=== PATIENT | male | born 1955 | race Caucasian/White ===

== ENCOUNTER 2016-06-12 14:32 | Emergency (ER) | payer MEDICAID ==
--- NOTE | 2016-06-12 15:47 | EDM.PDOC ---
ED HPI EYE COMPLAINT - General Chief Complaint: Eye Problems Stated Complaint: BLURRY VISION Time Seen by Provider: 06/12/16 15:00 Source: Reports: Patient History Limitations: Reports: No limitations - History of Present Illness INITIAL COMMENTS - FREE TEXT/NARRATIVE: Patient presents for evaluation and treatment of blurry vision. Patient reports that the blurred vision has been going on for last 2 days. He denies any double vision. He does not wear glassed or contacts. He is actually not particularly concerned about his chief complaint. He actually reports that he is more concerned about his depression. He states he is feeling more depressed normal. He is on Lexapro 20 mg daily, Remeron 30 mg daily. He has not feel that these medications are helping him. He is not currently seeing psychiatry. He previously saw Dr. Sanchez, Lilo Calderon and Dr. Diallo. He has also not been seeing a counselor, Aleena Paez. Patient has previously been admitted to [facility] for drug and alcohol abuse. He reports that he is not sleeping well. He is not eating much. He does not have any interests. He states that he knows what he needs to do to help with his depression but he lacks motivation to do this. He does have a history of addiction to alcohol, prescription narcotic medication and prescription benzodiazepines. He states he does not want to go back on these. He states that he feels empty inside. He is looking for something to help fill this void. He denies any suicidal thoughts, suicidal plan or any homicidal thoughts or homicidal plan. He denies any episodes of audie. - Related Data Allergies/ADRs: Allergies codeine Allergy (Intermediate, Verified 06/12/16 14:43) Itching meperidine HCl [From Demerol] Allergy (Intermediate, Verified 06/12/16 14:43) Itching Home Meds: Ambulatory Orders Medication Instructions Recorded Confirmed Meloxicam 7.5 mg PO DAILY PRN 03/26/15 06/12/16 Losartan/Hydrochlorothiazide 1 tab PO DAILY 08/27/15 06/12/16 [Losartan-HCTZ 100-25 MG] cloNIDine [Catapres] 0.1 mg PO Q12HR #20 tablet 08/27/15 06/12/16 Mirtazapine 30 mg PO DAILY 09/10/15 06/12/16 Pantoprazole [Protonix] 40 mg PO ACBREAKFAST 03/18/16 06/12/16 Escitalopram [Lexapro] 20 mg PO DAILY 03/26/16 06/12/16 Past Medical History - Past Health History Medical/Surgical History: Denies Medical/Surgical History HEENT History: Reports: Other (see below) Other HEENT History: dental issues. 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, opiods Hematologic History: Reports: Other (see below) Other Hematologic History: HEP C - Infectious Disease History Infectious Disease History: Reports: Hepatitis C - Past Surgical History HEENT Surgical History: Reports: Tonsillectomy GI Surgical History: Reports: Appendectomy Male Surgical History: Reports: Lithotripsy (ESWL), Ureteral stent Social & Family History - Family History Family Medical History: Noncontributory - Tobacco Use Smoking Status *Q: Current Every Day Smoker Years of Tobacco use: 45 Packs/Tins Daily: 0.5 Used Tobacco, but Quit: No Second Hand Smoke Exposure: No - Caffeine Use Caffeine Use: Reports: Coffee, Soda - Alcohol Use Days Per Week of Alcohol Use: 0 Number of Drinks Per Day: 3 Total Drinks Per Week: 0 - Recreational Drug Use Recreational Drug Use: Yes Drug Use in Last 12 Months: Yes Recreational Drug Type: Reports: Marijuana/Hashish Other Recreational Drug Type: narcotics Recreational Drug Use Frequency: Not Used In Over 5 Months - Living Situation & Occupation Living situation: Reports: single, alone 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) ED ROS GENERAL - Review of Systems Review Of Systems: See Below Musculoskeletal: Reports: neck pain Psychiatric: Reports: Anxiety, Depression. Denies: Homicidal ideation, Suicidal ideation ED EXAM GENERAL W FULL EYE - Physical Exam Exam: See Below Exam Limited By: No limitations General Appearance: alert, WD/WN, no apparent distress Eye Exam: bilateral eye: EOMI, PERRL Visual acuity (R) 20/: 20 Visual acuity (L) 20/: 20 With Correction: No Eyelids: bilateral: normal appearance Conjunctiva & Sclera: bilateral: normal appearance Cornea Exam: bilateral: normal appearance Extraocular Movements: bilateral: intact Pupils: normal accommodation Pupillary Reaction: bilateral: brisk Anterior Chamber: bilateral: normal appearance Respiratory/Chest: no respiratory distress Neurological: alert, oriented, normal cognition Psychiatric: depressed mood Skin Exam: Warm, Normal color Course - Vital Signs Last Recorded V/S: Last Vital Signs Temp 37.1 C 06/12/16 14:40 Pulse 89 06/12/16 14:40 Resp 18 06/12/16 14:40 BP 157/90 H 06/12/16 14:40 Pulse Ox 99 06/12/16 14:40 - Re-Assessments/Exams Free Text/Narrative Re-Assessment/Exam: 06/12/16 15:40 Room to increase remeron. Patient does not want to do this. Discussed other medications options. He does not want any more medications. Encouraged him to continue going to AA, counseling and psychiatry. Denies suicidal ideation or plan. Denies homicidal ideation or plan. Raúl and I had a long discussion about his depression. He states he knows what he needs to do but has trouble finding the motivation to do it (going to counseling, going to AA). States he feels a hole and feels the need to fill it and will utilize prescription medications or sometimes alcohol to fill this void. I encouraged him to stick with his current plan of care. Will discharge home at this time. Departure - Departure Time of Disposition: 15:46 Disposition: Home, Self-Care 01 Condition: fair Clinical Impression: Depressed Referrals: Andrew Wynne MD [Primary Care Provider] - Forms: ED Department Discharge Additional Instructions: Continue with current plan of care. Please return if your symptoms change or worsen.
== END 2016-06-12 15:51 | disposition home or self-care (01) ==
LOC: JD.ED 14:32
CPT/HCPCS: 99283; 99284

== ENCOUNTER 2016-06-14 16:47 | Emergency (ER) | payer MEDICAID ==
[2016-06-14 17:09] VITALS: BP 135/91
--- NOTE | 2016-06-14 17:29 | EDM.PDOC ---
ED HPI GI/ABDOMINAL - General Chief Complaint: Abdominal Pain Stated Complaint: WANTS STOMACH AND VITALS CHECKED Time Seen by Provider: 06/14/16 17:14 Source of Information: Reports: Patient History Limitations: Reports: No limitations - History of Present Illness INITIAL COMMENTS - FREE TEXT/NARRATIVE: The patient presents with left sided abdominal pain. This has been going on for about 2 weeks. He has some nausea but no vomiting. He has no flank pain this time. He has no dysuria or hematuria. He has a history of kidney stones but he says this feels a little different. He has no fever, chills, cough, chest pain or shortness of breath. Timing/Duration: Reports: Week(s): (2) Location: [facility] Quality: Reports: cramping Severity: moderate Context: Denies: sick contact, bad/questionable food, out of country travel, recent surgery, recent trauma, lifting, activity/exercise Associated Symptoms: Reports: nausea/vomiting. Denies: constipation, diarrhea, fever/chills - Related Data Allergies/ADRs: Allergies Allergy/AdvReac Type Severity Reaction Status Date / Time codeine Allergy Intermediate Itching Verified 06/14/16 17:01 meperidine HCl [From Demerol] Allergy Intermediate Itching Verified 06/14/16 17: 01 Home Meds: Home Meds Meloxicam 7.5 mg PO DAILY PRN 03/26/15 [History] Losartan/Hydrochlorothiazide [Losartan-HCTZ 100-25 MG] 1 tab PO DAILY 08/27/15 [ History] cloNIDine [Catapres] 0.1 mg PO Q12HR #20 tablet 08/27/15 [Rx] Mirtazapine 30 mg PO DAILY 09/10/15 [History] Pantoprazole [Protonix] 40 mg PO ACBREAKFAST 03/18/16 [History] Escitalopram [Lexapro] 20 mg PO DAILY 03/26/16 [History] Amoxicillin/Potassium Clav [Augmentin 875-125 Tablet] 1 each PO BID #14 tablet 06/14/16 [Rx] oxyCODONE HCl/Acetaminophen [Percocet 5-325 mg Tablet] 1 - 2 each PO Q6HR PRN # 20 tablet 06/14/16 [Rx] Past Medical History - Past Health History Medical/Surgical History: Denies Medical/Surgical History HEENT History: Reports: Other (see below) Other HEENT History: dental issues. 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, opiods Hematologic History: Reports: Other (see below) Other Hematologic History: HEP C - Infectious Disease History Infectious Disease History: Reports: Chicken pox, Hepatitis C, Measles - Past Surgical History HEENT Surgical History: Reports: Tonsillectomy GI Surgical History: Reports: Appendectomy Male Surgical History: Reports: Lithotripsy (ESWL), Ureteral stent Social & Family History - Family History Family Medical History: Noncontributory - Tobacco Use Smoking Status *Q: Current Every Day Smoker Years of Tobacco use: 45 Packs/Tins Daily: 0.5 Used Tobacco, but Quit: No Second Hand Smoke Exposure: No - Caffeine Use Caffeine Use: Reports: Coffee - Alcohol Use Days Per Week of Alcohol Use: 0 Number of Drinks Per Day: 3 Total Drinks Per Week: 0 - Recreational Drug Use Recreational Drug Use: Yes Drug Use in Last 12 Months: Yes Recreational Drug Type: Reports: Marijuana/Hashish Other Recreational Drug Type: narcotics Recreational Drug Use Frequency: Not Used In Over 5 Months - Living Situation & Occupation Living situation: Reports: single, alone 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 Denies: Vomiting : Reports: no symptoms Musculoskeletal: Reports: no symptoms ED EXAM, GI/ABD - Physical Exam Exam: See Below Exam Limited By: No limitations General Appearance: alert, no apparent distress Ears: normal external exam Nose: normal inspection Head: atraumatic, normocephalic Neck: normal inspection Respiratory/Chest: no respiratory distress, lungs clear, normal breath sounds Cardiovascular: regular rate, rhythm, no edema, no murmur GI/Abdominal: soft, no organomegaly, no mass, tenderness (Mild to moderate tenderness to the left abdomen) Extremities: normal inspection Neurological: alert, oriented, no motor/sensory deficits Course - Vital Signs Last Recorded V/S: Last Vital Signs Temp 98.0 F 06/14/16 17:00 Pulse 72 06/14/16 17:00 Resp 20 06/14/16 17:00 BP 135/91 H 06/14/16 17:00 Pulse Ox 98 06/14/16 17:00 - Orders/Labs/Meds Orders: Active Orders 24 hr Category Date Time Status Abdomen 1V Upright [CR] Stat Exams 06/14/16 17:20 Taken Acetaminophen/oxyCODONE [Percocet 325-5 MG] Med 06/14/16 18:25 Once 2 tab PO ONETIME ONE Amoxicillin/Clavulanate K [Augmentin 875 MG/125 MG] Med 06/14/16 18:25 Once 1 tab PO ONETIME ONE Labs: Laboratory Tests 06/14/16 06/14/16 06/14/16 Range/Units 17:25 17:34 17:34 WBC 10.60 H (4.23-9.07) K/mm3 RBC 4.94 (4.63-6.08) M/mm3 Hgb 15.3 (13.7-17.5) gm/L Hct 46.3 (40.1-51.0) % MCV 93.7 H (79.0-92.2) fl MCH 31.0 (25.7-32.2) pg MCHC 33.0 (32.2-35.5) g/dl RDW Std Deviation 45.6 H (35.1-43.9) fL Plt Count 301 (163-337) K/mm3 MPV 9.3 L (9.4-12.3) fl Neut % (Auto) 61.9 (34.0-67.9) % Lymph % (Auto) 25.4 (21.8-53.1) % [place] % (Auto) 9.8 (5.3-12.2) % Eos % (Auto) 2.2 (0.8-7.0) Baso % (Auto) 0.5 (0.1-1.2) % Neut # 6.57 H (1.78-5.38) K/mm3 Lymph # 2.69 (1.32-3.57) K/mm3 [place] # 1.04 H (0.30-0.82) K/mm3 Eos # 0.23 (0.04-0.54) K/mm3 Baso # 0.05 (0.01-0.08) K/mm3 Sodium 141 (136-145) mEq/L Potassium 4.3 (3.5-5.1) mEq/L Chloride 103 (98-107) mEq/L Carbon Dioxide 27 (21-32) mEq/L Anion Gap 15.3 H (5-15) BUN 28 H (7-18) mg/dL Creatinine 1.5 H (0.7-1.3) mg/dL Est Cr Clr Drug Dosing 57.48 mL/min Estimated GFR (MDRD) 48 (>60) mL/min BUN/Creatinine Ratio 18.7 H (14-18) Glucose 99 (74-106) mg/dL Calcium 9.4 (8.5-10.1) mg/dL Total Bilirubin 0.5 (0.2-1.0) mg/dL AST 26 (15-37) U/L ALT 55 (16-63) U/L Alkaline Phosphatase 97 (46-116) U/L Total Protein 7.9 (6.4-8.2) g/dl Albumin 4.0 (3.4-5.0) g/dl Globulin 3.9 gm/dL Albumin/Globulin Ratio 1.0 (1-2) Lipase 175 (73-393) U/L Urine Color Yellow (Yellow) Urine Appearance Clear (Clear) Urine pH 6.0 (5.0-8.0) Ur Specific [place] 1.025 (1.005-1.030) Urine Protein Negative (Negative) Urine Glucose (UA) Negative (Negative) Urine Ketones Negative (Negative) Urine Occult Blood Negative (Negative) Urine Nitrite Negative (Negative) Urine Bilirubin Negative (Negative) Urine Urobilinogen 0.2 (0.2-1.0) Ur Leukocyte Esterase Negative (Negative) Urine RBC 0-5 (0-5) /hpf Urine WBC 0-5 (0-5) /hpf Ur Epithelial Cells 0-5 (0-5) /hpf Urine Bacteria Not seen (FEW) /hpf Urine Mucus Not seen (FEW) /hpf - Re-Assessments/Exams Free Text/Narrative Re-Assessment/Exam: 06/14/16 18:26 His WBC is a little elevated. His CMP looks good. His abdominal x-ray looks good. His UA shows no UTI or blood in his urine. I will treat him for suspected divirticulitis. I will give him some augmentin and some percocet for pain. Departure - Departure Time of Disposition: 18:30 Disposition: Home, Self-Care 01 Condition: good Clinical Impression: Diverticulitis Qualifiers: Diverticulitis site: large intestine Diverticulitis bleeding: without bleeding Diverticulitis complication: without perforation or abscess Qualified Code(s): K57.32 - Diverticulitis of large intestine without perforation or abscess without bleeding Prescriptions: oxyCODONE HCl/Acetaminophen [Percocet 5-325 mg Tablet] 1 - 2 each PO Q6HR PRN # 20 tablet PRN Reason: Pain Amoxicillin/Potassium Clav [Augmentin 875-125 Tablet] 1 each PO BID #14 tablet Referrals: Andrew Wynne MD [Primary Care Provider] - 1 Week Forms: ED Department Discharge Additional Instructions: Take the medication as prescribed. Please return if you are worse. - My Orders Last 24 Hours: My Active Orders 06/14/16 17:20 Abdomen 1V Upright [CR] Stat 06/14/16 18:25 Acetaminophen/oxyCODONE [Percocet 325-5 MG] 2 tab PO ONETIME ONE Amoxicillin/Clavulanate K [Augmentin 875 MG/125 MG] 1 tab PO ONETIME ONE - Assessment/Plan Last 24 Hours: My Active Orders 06/14/16 17:20 Abdomen 1V Upright [CR] Stat 06/14/16 18:25 Acetaminophen/oxyCODONE [Percocet 325-5 MG] 2 tab PO ONETIME ONE Amoxicillin/Clavulanate K [Augmentin 875 MG/125 MG] 1 tab PO ONETIME ONE
[2016-06-14] MEDS ORDERED: Acetaminophen/oxyCODONE 325-5 MG Tab PO ONE (18:25)
[2016-06-14] MEDS ORDERED: Amoxicillin/Clavulanate K 875-125 MG Tab PO ONE (18:25)
--- NOTE | 2016-06-15 07:36 | CR ---
Abdomen: Supine view of the abdomen was obtained. Comparison: Previous abdominal x-ray of 09/10/15 is available. Scattered gas within colon and small bowel are noted which appear within normal limits. Mild degenerative endplate spurring is noted within the spine. Slight vascular calcification is noted. No discrete soft tissue abnormality is seen. Impression: 1. Unremarkable supine abdominal x-ray. No significant change is seen from previous study. Diagnostic code #2
== END 2016-06-14 19:00 | disposition home or self-care (01) ==
LOC: JD.ED 16:47
DX: K57.32 Diverticulitis of large intestine without perforation or abscess without bleeding (principal); I10 Essential (primary) hypertension; K21.9 Gastro-esophageal reflux disease without esophagitis; M19.90 Unspecified osteoarthritis, unspecified site; F41.9 Anxiety disorder, unspecified; F32.9 Major depressive disorder, single episode, unspecified; F17.210 Nicotine dependence, cigarettes, uncomplicated; Z98.890 Other specified postprocedural states; Z90.49 Acquired absence of other specified parts of digestive tract; Z88.5 Allergy status to narcotic agent
CPT/HCPCS: 36415; 74000; 80053; 81001; 83690; 85025; 99284; A9270; 99283

== ENCOUNTER 2016-06-17 17:15 | Emergency (ER) | payer MEDICAID ==
--- NOTE | 2016-06-17 18:01 | EDM.PDOC ---
ED HPI Behavioral Health - General Chief Complaint: Behavioral/Psych Stated Complaint: ANXIETY Time Seen by Provider: 06/17/16 17:25 Source of Information: Reports: Patient Exam Limitations: Reports: No limitations - History of Present Illness INITIAL COMMENTS - FREE TEXT/NARRATIVE: The patient presents with some anxiety symptoms. He is scheduled to go see Lilo Calderon on the . His abdomen is feeling better. Onset of Symptoms: Reports: gradual Duration of Symptoms: Reports: Day(s): Severity: moderate Context, Behavioral Health: Reports: living situation Associated Symptoms: Reports: anxiety - Related Data Allergies Allergy/AdvReac Type Severity Reaction Status Date / Time codeine Allergy Intermediate Itching Verified 06/17/16 17:34 meperidine HCl [From Demerol] Allergy Intermediate Itching Verified 06/17/16 17: 34 Home Medications: Home Meds Meloxicam 7.5 mg PO DAILY PRN 03/26/15 [History] Losartan/Hydrochlorothiazide [Losartan-HCTZ 100-25 MG] 1 tab PO DAILY 08/27/15 [ History] cloNIDine [Catapres] 0.1 mg PO Q12HR #20 tablet 08/27/15 [Rx] Mirtazapine 30 mg PO DAILY 09/10/15 [History] Pantoprazole [Protonix] 40 mg PO ACBREAKFAST 03/18/16 [History] Escitalopram [Lexapro] 20 mg PO DAILY 03/26/16 [History] Amoxicillin/Potassium Clav [Augmentin 875-125 Tablet] 1 each PO BID #14 tablet 06/14/16 [Rx] oxyCODONE HCl/Acetaminophen [Percocet 5-325 mg Tablet] 1 - 2 each PO Q6HR PRN # 20 tablet 06/14/16 [Rx] LORazepam [Ativan] 1 mg PO Q8HR PRN #20 tablet 06/17/16 [Rx] Past Medical History - Past Health History Medical/Surgical History: Denies Medical/Surgical History HEENT History: Reports: Other (see below) Other HEENT History: dental issues. 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, opiods Hematologic History: Reports: Other (see below) Other Hematologic History: HEP C - Infectious Disease History Infectious Disease History: Reports: Chicken pox, Hepatitis C, Measles - Past Surgical History HEENT Surgical History: Reports: Tonsillectomy GI Surgical History: Reports: Appendectomy Male Surgical History: Reports: Lithotripsy (ESWL), Ureteral stent Social & Family History - Family History Family Medical History: Noncontributory - Tobacco Use Smoking Status *Q: Current Every Day Smoker Years of Tobacco use: 45 Packs/Tins Daily: 0.5 Used Tobacco, but Quit: No Second Hand Smoke Exposure: No - Caffeine Use Caffeine Use: Reports: Coffee - Alcohol Use Days Per Week of Alcohol Use: 0 Number of Drinks Per Day: 3 Total Drinks Per Week: 0 - Recreational Drug Use Recreational Drug Use: No Drug Use in Last 12 Months: Yes Recreational Drug Type: Reports: Marijuana/Hashish Other Recreational Drug Type: narcotics Recreational Drug Use Frequency: Not Used In Over 5 Months - Living Situation & Occupation Living situation: Reports: single, alone 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) ED ROS GENERAL - Review of Systems Review Of Systems: See Below Constitutional: Reports: no symptoms HEENT: Reports: No symptoms Respiratory: Reports: no symptoms Cardiovascular: Reports: No symptoms Endocrine: Reports: no symptoms GI/Abdominal: Reports: No symptoms : Reports: no symptoms Psychiatric: Reports: Anxiety ED EXAM, BEHAVIORAL HEALTH - Physical Exam Exam: See Below Exam Limited By: No limitations General Appearance: alert, no apparent distress Ears: normal external exam Nose: normal inspection Head: atraumatic, normocephalic Neck: normal inspection Respiratory/Chest: no respiratory distress, lungs clear, normal breath sounds Cardiovascular: normal peripheral pulses, regular rate, rhythm, no edema GI/Abdominal: normal bowel sounds, soft, non tender, no organomegaly COURSE, BEHAVIORAL HEALTH COMP - Course Vital Signs: Last Vital Signs Temp 98.0 F 06/17/16 17:22 Pulse 75 06/17/16 17:22 Resp 20 06/17/16 17:22 BP 176/85 H 06/17/16 17:22 Pulse Ox 99 03/08/17 17:22 Departure - Departure Time of Disposition: 18:00 Disposition: Home, Self-Care 01 Condition: good Clinical Impression: Anxiety Prescriptions: LORazepam [Ativan] 1 mg PO Q8HR PRN #20 tablet PRN Reason: Anxiety Referrals: Andrew Wynne MD [Primary Care Provider] - 1 Week Forms: ED Department Discharge Additional Instructions: Take your medication as prescribed and follow up with you doctor as needed.
== END 2016-06-17 18:15 | disposition home or self-care (01) ==
LOC: JD.ED 17:15
CPT/HCPCS: 99283

== ENCOUNTER 2016-06-27 11:59 | Emergency (ER) | payer MEDICAID ==
[2016-06-27 12:06] VITALS: BP 145/92
[2016-06-27] MEDS ORDERED: Sodium Chloride 0.9% 1,000 ML IV ONE (12:43)
[2016-06-27] MEDS ORDERED: Ondansetron 4 MG/2 ML SDV IVPUSH ONE (12:44)
[2016-06-27] MEDS ORDERED: Ketorolac 30 MG/ML SDV IVPUSH ONE (12:44)
[2016-06-27] MEDS ORDERED: Sodium Chloride 0.9% 10 ML Syringe FLUSH PRN (12:44)
--- NOTE | 2016-06-27 12:53 | EDM.PDOC ---
ED HPI GI/ABDOMINAL - General Chief Complaint: Abdominal Pain Stated Complaint: POSS KIDNEY STONES Time Seen by Provider: 06/27/16 12:19 Source of Information: Reports: Patient History Limitations: Reports: No limitations - History of Present Illness INITIAL COMMENTS - FREE TEXT/NARRATIVE: Patient presents for evaluation and treatment of abdominal pain, nausea, bilateral flank pain and diarrhea. Patient reports abdominal pain for several weeks. States the abdominal pain is located throughout his entire abdomen. Patient was seen in the ER on 06-14-16. A CBC, CMP, lipase and urine were obtained. A flat and upright x-ray were obtained which was unremarkable. Patient was started on Augmentin and given Percocet for the pain. He states that he followed up with his family care provider about one week ago. He was started on Cipro and Flagyl and taken off the Augmentin. If he's been taking this for about one week. He's been treated for suspected diverticulitis. Patient reports associated symptoms of nausea and diarrhea. He denies any vomiting, fevers, plaque or bloody stools. He states he is a poor diet. Patient reportedly took Aleve today for the pain. Patient also reports bilateral flank pain for the last few days. He reports that his urine is darker in color. He has not noticed any hematuria. Patient has a past medical history of kidney stones. Past abdominal surgeries include an appendectomy. Location: generalized Treatments [employer]: Reports: NSAIDS (aleve) - Related Data Allergies/ADRs: Allergies Allergy/AdvReac Type Severity Reaction Status Date / Time codeine Allergy Intermediate Itching Verified 06/17/16 17:34 meperidine HCl [From Demerol] Allergy Intermediate Itching Verified 06/17/16 17: 34 Home Meds: Home Meds Meloxicam 7.5 mg PO DAILY PRN 03/26/15 [History] Losartan/Hydrochlorothiazide [Losartan-HCTZ 100-25 MG] 1 tab PO DAILY 08/27/15 [ History] cloNIDine [Catapres] 0.1 mg PO Q12HR #20 tablet 08/27/15 [Rx] Mirtazapine 30 mg PO DAILY 09/10/15 [History] Pantoprazole [Protonix] 40 mg PO ACBREAKFAST 03/18/16 [History] Escitalopram [Lexapro] 20 mg PO DAILY 03/26/16 [History] oxyCODONE HCl/Acetaminophen [Percocet 5-325 mg Tablet] 1 - 2 each PO Q6HR PRN # 20 tablet 06/14/16 [Rx] LORazepam [Ativan] 1 mg PO Q8HR PRN #20 tablet 06/17/16 [Rx] Ciprofloxacin HCl [Cipro] 500 mg PO BID 06/27/16 [History] metroNIDAZOLE [Flagyl] 500 mg PO TID 06/27/16 [History] Past Medical History - Past Health History Medical/Surgical History: Denies Medical/Surgical History HEENT History: Reports: Other (see below) Other HEENT History: dental issues. 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, opiods Hematologic History: Reports: Other (see below) Other Hematologic History: HEP C - Infectious Disease History Infectious Disease History: Reports: Chicken pox, Hepatitis C, Measles - Past Surgical History HEENT Surgical History: Reports: Tonsillectomy GI Surgical History: Reports: Appendectomy Male Surgical History: Reports: Lithotripsy (ESWL), Ureteral stent Social & Family History - Family History Family Medical History: Noncontributory - Tobacco Use Smoking Status *Q: Current Every Day Smoker Years of Tobacco use: 45 Packs/Tins Daily: 0.5 Used Tobacco, but Quit: No Second Hand Smoke Exposure: No - Caffeine Use Caffeine Use: Reports: Coffee, Tea - Alcohol Use Days Per Week of Alcohol Use: 0 Number of Drinks Per Day: 3 Total Drinks Per Week: 0 - Recreational Drug Use Recreational Drug Use: No Drug Use in Last 12 Months: Yes Recreational Drug Type: Reports: Marijuana/Hashish Other Recreational Drug Type: narcotics Recreational Drug Use Frequency: Not Used In Over 5 Months - Living Situation & Occupation Living situation: Reports: single, alone 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 Denies: fever GI/Abdominal: Reports: Abdominal pain (generalized), Decreased appetite, Flatus (excessive), Nausea. Denies: Hematochezia, Melena, Vomiting : Reports: flank pain (bilateral). Denies: hematuria Musculoskeletal: Reports: neck pain (chronic, no change), back pain (mid, low back) ED EXAM, GI/ABD - Physical Exam Exam: See Below Exam Limited By: No limitations General Appearance: alert, WD/WN, no apparent distress Respiratory/Chest: no respiratory distress, lungs clear, normal breath sounds Cardiovascular: normal peripheral pulses, regular rate, rhythm, no murmur GI/Abdominal: normal bowel sounds, tenderness (generalized), distention. No: guarding, rebound Back Exam: normal inspection, CVA tenderness (L), CVA tenderness (R) Neurological: alert, oriented, normal cognition Psychiatric: normal affect, normal mood Skin Exam: Warm, Dry, Normal color Course - Vital Signs Last Recorded V/S: Last Vital Signs Temp 36.3 C 06/27/16 12:05 Pulse 70 06/27/16 12:05 Resp 20 06/27/16 12:05 BP 145/92 H 06/27/16 12:05 Pulse Ox 100 06/27/16 12:05 - Orders/Labs/Meds Orders: Active Orders 24 hr Category Date Time Status Peripheral IV Care [RC] . DIRECTED Care 06/27/16 12:46 Active Abdomen Pelvis w wo Cont [CT] Stat Exams 06/27/16 12:46 Taken Peripheral IV Insertion Adult [OM.PC] Routine Oth 06/27/16 12:43 Ordered Labs: Laboratory Tests 06/27/16 06/27/16 06/27/16 Range/Units 12:20 13:05 13:05 WBC 9.68 H (4.23-9.07) K/mm3 RBC 5.09 (4.63-6.08) M/mm3 Hgb 15.7 (13.7-17.5) gm/L Hct 47.3 (40.1-51.0) % MCV 92.9 H (79.0-92.2) fl MCH 30.8 (25.7-32.2) pg MCHC 33.2 (32.2-35.5) g/dl RDW Std Deviation 44.5 H (35.1-43.9) fL Plt Count 293 (163-337) K/mm3 MPV 8.9 L (9.4-12.3) fl Neut % (Auto) 68.1 H (34.0-67.9) % Lymph % (Auto) 19.0 L (21.8-53.1) % Gibson % (Auto) 9.7 (5.3-12.2) % Eos % (Auto) 2.5 (0.8-7.0) Baso % (Auto) 0.5 (0.1-1.2) % Neut # 6.59 H (1.78-5.38) K/mm3 Lymph # 1.84 (1.32-3.57) K/mm3 Gibson # 0.94 H (0.30-0.82) K/mm3 Eos # 0.24 (0.04-0.54) K/mm3 Baso # 0.05 (0.01-0.08) K/mm3 Sodium 141 (136-145) mEq/L Potassium 5.1 (3.5-5.1) mEq/L Chloride 104 (98-107) mEq/L Carbon Dioxide 26 (21-32) mEq/L Anion Gap 16.1 H (5-15) BUN 23 H (7-18) mg/dL Creatinine 1.4 H (0.7-1.3) mg/dL Est Cr Clr Drug Dosing TNP Estimated GFR (MDRD) 52 (>60) mL/min BUN/Creatinine Ratio 16.4 (14-18) Glucose 105 (74-106) mg/dL Calcium 9.3 (8.5-10.1) mg/dL Total Bilirubin 0.6 (0.2-1.0) mg/dL AST 78 H (15-37) U/L ALT 91 H (16-63) U/L Alkaline Phosphatase 92 (46-116) U/L C-Reactive Protein < 0.2 (<1.0) mg/dL Total Protein 7.7 (6.4-8.2) g/dl Albumin 4.1 (3.4-5.0) g/dl Globulin 3.6 gm/dL Albumin/Globulin Ratio 1.1 (1-2) Lipase 149 (73-393) U/L Urine Color Yellow (Yellow) Urine Appearance Clear (Clear) Urine pH 6.0 (5.0-8.0) Ur Specific [place] 1.025 (1.005-1.030) Urine Protein 1+ H (Negative) Urine Glucose (UA) Negative (Negative) Urine Ketones Negative (Negative) Urine Occult Blood Negative (Negative) Urine Nitrite Negative (Negative) Urine Bilirubin Negative (Negative) Urine Urobilinogen 0.2 (0.2-1.0) Ur Leukocyte Esterase Negative (Negative) Urine RBC Not seen (0-5) /hpf Urine WBC 0-5 (0-5) /hpf Ur Squamous Epith Cells 0-5 (0-5) /hpf Urine Bacteria Not seen (FEW) /hpf Urine Mucus Few (FEW) /hpf Salicylates (2.8-20) mg/dL Acetaminophen (10-30) ug/mL 06/27/16 06/27/16 Range/Units 13:05 13:05 WBC (4.23-9.07) K/mm3 RBC (4.63-6.08) M/mm3 Hgb (13.7-17.5) gm/L Hct (40.1-51.0) % MCV (79.0-92.2) fl MCH (25.7-32.2) pg MCHC (32.2-35.5) g/dl RDW Std Deviation (35.1-43.9) fL Plt Count (163-337) K/mm3 MPV (9.4-12.3) fl Neut % (Auto) (34.0-67.9) % Lymph % (Auto) (21.8-53.1) % Gibson % (Auto) (5.3-12.2) % Eos % (Auto) (0.8-7.0) Baso % (Auto) (0.1-1.2) % Neut # (1.78-5.38) K/mm3 Lymph # (1.32-3.57) K/mm3 Gibson # (0.30-0.82) K/mm3 Eos # (0.04-0.54) K/mm3 Baso # (0.01-0.08) K/mm3 Sodium (136-145) mEq/L Potassium (3.5-5.1) mEq/L Chloride (98-107) mEq/L Carbon Dioxide (21-32) mEq/L Anion Gap (5-15) BUN (7-18) mg/dL Creatinine (0.7-1.3) mg/dL Est Cr Clr Drug Dosing Estimated GFR (MDRD) (>60) mL/min BUN/Creatinine Ratio (14-18) Glucose (74-106) mg/dL Calcium (8.5-10.1) mg/dL Total Bilirubin (0.2-1.0) mg/dL AST (15-37) U/L ALT (16-63) U/L Alkaline Phosphatase (46-116) U/L C-Reactive Protein (<1.0) mg/dL Total Protein (6.4-8.2) g/dl Albumin (3.4-5.0) g/dl Globulin gm/dL Albumin/Globulin Ratio (1-2) Lipase (73-393) U/L Urine Color (Yellow) Urine Appearance (Clear) Urine pH (5.0-8.0) Ur Specific [place] (1.005-1.030) Urine Protein (Negative) Urine Glucose (UA) (Negative) Urine Ketones (Negative) Urine Occult Blood (Negative) Urine Nitrite (Negative) Urine Bilirubin (Negative) Urine Urobilinogen (0.2-1.0) Ur Leukocyte Esterase (Negative) Urine RBC (0-5) /hpf Urine WBC (0-5) /hpf Ur Squamous Epith Cells (0-5) /hpf Urine Bacteria (FEW) /hpf Urine Mucus (FEW) /hpf Salicylates 1.8 L (2.8-20) mg/dL Acetaminophen 0 L (10-30) ug/mL Meds: Medications Discontinued Medications Generic Name Dose Route Start Last Admin Trade Name Freq PRN Reason Stop Dose Admin Sodium Chloride 1,000 mls @ 999 mls/hr 06/27/16 12:43 06/27/16 13:22 Normal Saline IV 06/27/16 13:43 999 mls/hr ONETIME ONE Administration Iopamidol 100 ml 06/27/16 14:02 06/27/16 14:05 Isovue-370 (76%) IVPUSH 06/27/16 14:03 100 ml ONETIME ONE Administration Ketorolac Tromethamine 30 mg 06/27/16 12:44 06/27/16 13:26 Toradol IVPUSH 06/27/16 12:45 30 mg ONETIME ONE Administration Ondansetron HCl 4 mg 06/27/16 12:44 06/27/16 13:23 Zofran IVPUSH 06/27/16 12:45 4 mg ONETIME ONE Administration Sodium Chloride 10 ml 06/27/16 12:44 06/27/16 13:20 Saline Flush FLUSH 10 ml ASDIRECTED PRN Administration Keep Vein Open Sodium Chloride 10 ml 06/27/16 14:02 06/27/16 14:05 Saline Flush FLUSH 06/27/16 14:03 10 ml ONETIME ONE Administration - Radiology Interpretation Free Text/Narrative:: CT of the abdomen and pelvis with and without contrast impression per vrad: no evidence for acute abnormality to account for symptoms. CT Results Date: 06/27/16 - Re-Assessments/Exams Free Text/Narrative Re-Assessment/Exam: 06/27/16 12:50 Patient searched on [place] [employer]. 50 prescriptions for controlled substances from 12 providers within the last year. Has received 4 Rx for narcotics since 06-10-16, total of #70 pills. Ua has returned with 1+ protein, negative for blood, nitrites or leuks. Will give IV toradol for pain relief. Obtaining Ct abdomen and pelvis with and without contrast to rule out stones and diverticulitis. States he has only taken an aleve for pain today. 06/27/16 13:47 Labs returned. WBC is 9.68, hgb is 15.7 and plts are 293 Sodium is 141, potassium is 5.1 and chloride is 104, anion gap is 16.1 and creatinine is 1.4 AST is 78, ALT is 91, alk phos is 92 CRP is normal at <0.2 lipase is normal at 149 acetaminophen and salicylates added to labs to eval elevated liver enzymes. 06/27/16 15:14 salicylates are within normal limits at 1.8 acetaminophen is 0 I reviewed the labs and Ct with the patialva. Will discharge home at this time. Discharge instructions as documented. Departure - Departure Time of Disposition: 15:15 Disposition: Home, Self-Care 01 Condition: good Clinical Impression: Bilateral flank pain, Dehydration Abdominal pain Qualifiers: Abdominal location: lower abdomen, unspecified Qualified Code(s): R10.30 - Lower abdominal pain, unspecified Instructions: Dehydration, Adult, [id number], Abdominal Pain, Adult, Easy-to- Read, Flank Pain, [id number] Referrals: Andrew Wynne MD [Primary Care Provider] - Forms: ED Department Discharge Additional Instructions: Rest and drink plenty of fluids. If your do not have a large bowel movement from the contrast I recommend you package pick up OTC mag citrate. Follow-up with Dr. Weiner this week. Please return to the ER should your symptoms change or worsen. - My Orders Last 24 Hours: My Active Orders 06/27/16 12:43 Peripheral IV Insertion Adult [OM.PC] Routine 06/27/16 12:46 Peripheral IV Care [RC] . DIRECTED Abdomen Pelvis w wo Cont [CT] Stat - Assessment/Plan Last 24 Hours: My Active Orders 06/27/16 12:43 Peripheral IV Insertion Adult [OM.PC] Routine 06/27/16 12:46 Peripheral IV Care [RC] . DIRECTED Abdomen Pelvis w wo Cont [CT] Stat
[2016-06-27] MEDS ORDERED: Sodium Chloride 0.9% 10 ML Syringe FLUSH ONE (14:02)
[2016-06-27] MEDS ORDERED: Iopamidol 755 Mg/ML 100 ML Bottle IVPUSH ONE (14:02)
--- NOTE | 2016-06-29 10:31 | CT ---
CT abdomen and pelvis (with and without contrast) Technique: Multiple axial sections from above the dome of the diaphragm inferiorly through the pubic symphysis were obtained. Intravenous and oral contrast not utilized. Intravenous contrast then given and imaging obtained from above the dome of the diaphragm inferiorly through the pubic symphysis. Delayed images were also obtained through the bladder. Comparison: Previous CT abdomen and pelvis exam of 09/13/15 is available. Findings: Nonobstructing small calculi seen within both kidneys. Very minimal cyst noted within the left renal pelvis. Minimal cyst also suggested to the right kidney. No ureteral dilatation or ureteral stone is seen. Symmetric contrast enhancement is seen within both kidneys after contrast administration. Visualized lung bases show nothing acute. Liver shows no focal parenchymal abnormality. Spleen appears within normal limits. Adrenal glands show no nodule. Pancreas is within normal limits. Gallbladder shows no calcified gallstones. Aorta shows no aneurysmal dilatation with atherosclerotic calcification being seen. No retroperitoneal adenopathy or mesenteric abnormalities are seen. No pelvic mass or adenopathy is noted. Incidental calcifications are seen within the prostate gland. No bowel dilatation is seen. No inflammatory change or free fluid is seen. Bone window settings were reviewed which show scattered degenerative spurring throughout the spine. Disc space narrowing and vacuum phenomena seen within the L4-5 disc. Impression: 1. Nonobstructing calculi within both kidneys with small parapelvic cysts within each kidney. No ureteral dilatation, ureteral stone or discrete solid mass seen within the kidneys. 2. Nothing acute is identified on CT study of the abdomen and pelvis. No significant change seen from prior CT exam other than passage of previously noted distal right ureteral stone. Diagnostic code #2 Agree with preliminary report issued by [facility] (preliminary [facility] report dictated on 06/27/16, 3:59 PM Central Time)
== END 2016-06-27 16:00 | disposition home or self-care (01) ==
LOC: JD.ED 11:59
DX: E86.0 Dehydration (principal); R10.30 Lower abdominal pain, unspecified; I10 Essential (primary) hypertension; K21.9 Gastro-esophageal reflux disease without esophagitis; M19.90 Unspecified osteoarthritis, unspecified site; F41.9 Anxiety disorder, unspecified; F32.9 Major depressive disorder, single episode, unspecified; F17.210 Nicotine dependence, cigarettes, uncomplicated; Z79.899 Other long term (current) drug therapy; Z98.890 Other specified postprocedural states; Z90.49 Acquired absence of other specified parts of digestive tract; Z88.5 Allergy status to narcotic agent; Z88.8 Allergy status to other drugs, medicaments and biological substances
CPT/HCPCS: 36415; 74178; 80053; 81001; 83690; 85025; 86140; 96361; 96374; 96375; 99284; G0480; J1885; J2405; J7040; J7050; Q9967

== ENCOUNTER 2016-06-27 17:57 | Emergency (ER) | payer MEDICAID ==
--- NOTE | 2016-06-27 19:51 | EDM.PDOC ---
ED HPI Behavioral Health - General Chief Complaint: Drug or Alcohol Abuse Stated Complaint: ABD PAIN Time Seen by Provider: 06/27/16 19:13 Source of Information: Reports: Patient, Old records, RN notes reviewed Exam Limitations: Reports: No limitations - History of Present Illness INITIAL COMMENTS - FREE TEXT/NARRATIVE: The patient states that he is here for "withdrawls" from opioids and benzodiazepines. He states that he has taken approximately 40 Percocet 5/325 and 20 [place] 5/325 over the past 2 weeks, including taking 14 [place] this past , 06/25/2016. His last [place] was 6 tablets yesterday morning, 2016. His last Percocet was on 06/22/2012. He is prescribed Ativan 1 mg 3 times a day, which he has been taking - his last dose was around noon today. He states that he smokes marijuana on occasion, but drinks alcohol only rarely. He states that he has had a decreased appetite for the past few weeks, and has symptoms of anxiety and racing thoughts today. He states that he saw Ditreesa Calderon this past , 06/25/2016. He states that she prescribed him a medicine that he does not recall the name of, but that he already has that medicine at home, but is not taking it. he states that she recommended outpatient rehabilitation, but that he did not go. Medical records indicate that the patient was seen in this ED around noon today with a complaint of abdominal pain, nausea, bilateral flank pain, and diarrhea. Workup included blood work, a urinalysis, and a CT scan of the abdomen and pelvis with oral and IV contrast. The patient received IV fluid, Toradol, and Zofran. The entire workup was unremarkable. The provider was very concerned that the patient was drug seeking. At this time, the patient states that he is not here to get drugs, but, rather, he is here to "come clean", and be honest about his drug use. He states that he is out of his opioids, and admits that he has been abusing them. His plan is to go to the walk-in clinic at [facility] this coming Wednesday, . He is aware that he should not be alone over the weekend, and states that he has already made arrangements with a lady-friend of his, to spend the weekend with her. - Related Data Allergies Allergy/AdvReac Type Severity Reaction Status Date / Time codeine Allergy Intermediate Itching Verified 06/17/16 17:34 meperidine HCl [From Demerol] Allergy Intermediate Itching Verified 06/17/16 17: 34 Home Medications: Home Meds Meloxicam 7.5 mg PO DAILY PRN 03/26/15 [History] Losartan/Hydrochlorothiazide [Losartan-HCTZ 100-25 MG] 1 tab PO DAILY 08/27/15 [ History] cloNIDine [Catapres] 0.1 mg PO Q12HR #20 tablet 08/27/15 [Rx] Mirtazapine 30 mg PO DAILY 09/10/15 [History] Pantoprazole [Protonix] 40 mg PO ACBREAKFAST 03/18/16 [History] Escitalopram [Lexapro] 20 mg PO DAILY 03/26/16 [History] oxyCODONE HCl/Acetaminophen [Percocet 5-325 mg Tablet] 1 - 2 each PO Q6HR PRN # 20 tablet 06/14/16 [Rx] LORazepam [Ativan] 1 mg PO Q8HR PRN #20 tablet 06/17/16 [Rx] Ciprofloxacin HCl [Cipro] 500 mg PO BID 06/27/16 [History] metroNIDAZOLE [Flagyl] 500 mg PO TID 06/27/16 [History] Generalized Pain Score (Numeric/FACES): 6 Past Medical History HEENT History: Reports: Other (see below) Other HEENT History: dental issues. Cardiovascular History: Reports: Hypertension Gastrointestinal History: Reports: Colon polyp, Gastritis, GERD Genitourinary History: Reports: BPH, Renal calculus Musculoskeletal History: Reports: Arthritis, Back pain, chronic Psychiatric History: Reports: Addiction, Anxiety, Depression - Infectious Disease History Infectious Disease History: Reports: Chicken pox, Hepatitis C, Measles - Past Surgical History GI Surgical History: Reports: Appendectomy Male Surgical History: Reports: Lithotripsy (ESWL), Ureteral stent, Other ( see below) (Bilateral ureteral surgery) Social & Family History - Family History Family Medical History: Noncontributory - Tobacco Use Smoking Status *Q: Current Every Day Smoker Years of Tobacco use: 45 Packs/Tins Daily: 0.5 - Caffeine Use Caffeine Use: Reports: Coffee - Alcohol Use Alcohol Use History: Yes Alcohol Use Frequency: Rarely - Recreational Drug Use Recreational Drug Use: Yes Drug Use in Last 12 Months: Yes Recreational Drug Type: Reports: Ativan, Marijuana/Hashish, Oxycodone, Other ( see below) (Hydrocodone) Recreational Drug Use Frequency: Daily - Living Situation & Occupation Living situation: Reports: single, alone Occupation: unemployed ED ROS GENERAL - Review of Systems Review Of Systems: See Below Constitutional: Reports: decreased appetite HEENT: Reports: No symptoms Respiratory: Reports: No Symptoms Cardiovascular: Reports: No symptoms Endocrine: Reports: no symptoms GI/Abdominal: Reports: No symptoms : Reports: no symptoms Musculoskeletal: Reports: no symptoms Skin: Reports: no symptoms Neurological: Reports: No Symptoms Psychiatric: Reports: Anxiety, Other (Racing thoughts) Hematologic/Lymphatic: Reports: no symptoms Immunologic: Reports: no symptoms ED EXAM, BEHAVIORAL HEALTH - Physical Exam Exam: See Below Exam Limited By: No limitations General Appearance: alert, WD/WN, no apparent distress Ears: normal external exam, hearing grossly normal Nose: normal inspection, no blood Throat/Mouth: Normal inspection, Normal lips, Normal voice, No airway compromise Head: atraumatic, normocephalic Neck: normal inspection, full range of motion Respiratory/Chest: no respiratory distress, lungs clear, normal breath sounds, no accessory muscle use, chest non-tender Cardiovascular: normal peripheral pulses, regular rate, rhythm, no edema, no gallop, no JVD, no murmur, no rub GI/Abdominal: normal bowel sounds, soft, non tender, no organomegaly, no distention, no abnormal bruit, no mass Back Exam: normal inspection, full range of motion, NT Extremities: normal inspection, normal range of motion, normal capillary refill Neurological: alert, normal cognition, normal gait, no motor/sensory deficits, oriented x 3 Psychiatric: normal affect Skin Exam: Warm, Dry, Intact, Normal color, No rash COURSE, BEHAVIORAL HEALTH COMP - Course Vital Signs: Last Vital Signs Temp 36.0 C 06/27/16 19:05 Pulse 72 06/27/16 19:05 Resp 18 06/27/16 19:05 BP 138/88 06/27/16 19:05 Pulse Ox 100 06/27/16 19:05 Orders, Labs, Meds: Laboratory Tests 06/27/16 06/27/16 Range/Units 20:10 20:10 Urine Opiates Screen Presumptive positive H (NEGATIVE) Ur Buprenorphine Scrn Negative (NEGATIVE) Ur Oxycodone Screen Negative (NEGATIVE) Urine Methadone Screen Negative (NEGATIVE) Ur Propoxyphene Screen Negative (NEGATIVE) Ur Barbiturates Screen Negative (NEGATIVE) Ur Tricyclics Screen Negative (NEGATIVE) Ur Phencyclidine Scrn Negative (NEGATIVE) Ur Amphetamine Screen Negative (NEGATIVE) U Methamphetamines Scrn Negative (NEGATIVE) U Benzodiazepines Scrn Negative (NEGATIVE) U Cocaine Metab Screen Negative (NEGATIVE) U Marijuana (THC) Screen Negative (NEGATIVE) Ethyl Alcohol 0.00 (0.00) gm% Medical Clearance: 06/27/16 19:57 Case discussed at length with Lilo Calderon at 19: 53. She is very familiar with the patient. She agrees that she saw the patient this past , 2016, but that he did not say anything about his opioid use. She requests that we perform a baseline urine drug screen and alcohol level on him at this time, and notify him that she will be performing a urine drug screen prior to his next visit (and possibly prior to all visits) to monitor his compliance. The patient states that he will be staying with a lady-friend this weekend, and that he plans to present to [facility] walk-in clinic on Wednesday, 2016. I think these are both good ideas. I have ordered the urine drug screen and alcohol level, however, the patient does not need to stay for those results - Ms. Calderon can look at them up prior to his next visit. Departure - Departure Time of Disposition: 20:05 Disposition: Home, Self-Care 01 Condition: fair Clinical Impression: Opioid abuse, Benzodiazepine abuse Instructions: Chemical Dependency, Finding Treatment for Addiction Referrals: Yulia Calderon NP [Nurse Practitioner] - Additional Instructions: You were seen in the emergency room tonight for symptoms related to discontinuation of Percocet, hydrocodone, and Ativan. Your case was discussed with your Psychologist, Di Calderon. She requested that we obtain a baseline urine drug screen and alcohol level. She will be checking a urine drug screen prior to your next visit, as well. You agreed to stay with your lady-friend this weekend. Your intention is to present to [facility] Wednesday, 2016. Followup with Ms. Calderon at the next available appointment. If any other problems, please do not hesitate to return to the ER.
[2016-06-27 19:54] VITALS: BP 138/88
== END 2016-06-27 20:20 | disposition home or self-care (01) ==
LOC: JD.ED 17:57
DX: F11.10 Opioid abuse, uncomplicated (principal); F13.10 Sedative, hypnotic or anxiolytic abuse, uncomplicated; I10 Essential (primary) hypertension; K21.9 Gastro-esophageal reflux disease without esophagitis; M19.90 Unspecified osteoarthritis, unspecified site; F41.9 Anxiety disorder, unspecified; F32.9 Major depressive disorder, single episode, unspecified; F17.210 Nicotine dependence, cigarettes, uncomplicated; Z88.5 Allergy status to narcotic agent; Z88.8 Allergy status to other drugs, medicaments and biological substances; Z79.899 Other long term (current) drug therapy; Z90.49 Acquired absence of other specified parts of digestive tract
CPT/HCPCS: 80306; 99284; G0480; 36415; 99283

== ENCOUNTER 2016-07-09 17:52 | Emergency (ER) | payer MEDICAID ==
--- NOTE | 2016-07-09 19:10 | EDM.PDOC ---
ED HPI Behavioral Health - General Chief Complaint: Behavioral/Psych Stated Complaint: ANIEXTY Time Seen by Provider: 07/09/16 19:05 - History of Present Illness INITIAL COMMENTS - FREE TEXT/NARRATIVE: 60-year-old male presents emergency room with worsening anxiety. Patient has been under more stress lately he's been going to AA but they may have asked him not to come back. Patient is not having chest pain breathing difficulties or shortness of breath no, pain is otherwise doing okay but has chronic anxiety is a chronic problem. - Related Data Allergies Allergy/AdvReac Type Severity Reaction Status Date / Time codeine Allergy Intermediate Itching Verified 06/17/16 17:34 meperidine HCl [From Demerol] Allergy Intermediate Itching Verified 06/17/16 17: 34 Home Medications: Home Meds Meloxicam 7.5 mg PO DAILY PRN 03/26/15 [History] Losartan/Hydrochlorothiazide [Losartan-HCTZ 100-25 MG] 1 tab PO DAILY 08/27/15 [ History] cloNIDine [Catapres] 0.1 mg PO Q12HR #20 tablet 08/27/15 [Rx] Mirtazapine 30 mg PO DAILY 09/10/15 [History] Pantoprazole [Protonix] 40 mg PO ACBREAKFAST 03/18/16 [History] metroNIDAZOLE [Flagyl] 500 mg PO TID 06/27/16 [History] DULoxetine [Cymbalta] 60 mg PO DAILY 07/09/16 [History] LORazepam [Ativan] 1 mg PO DAILY PRN #5 tablet 07/09/16 [Rx] Back Pain Score (Numeric/FACES): 5 Past Medical History - Past Health History Medical/Surgical History: Denies Medical/Surgical History HEENT History: Reports: Other (see below) Other HEENT History: dental issues. 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, opiods Hematologic History: Reports: Other (see below) Other Hematologic History: HEP C - Infectious Disease History Infectious Disease History: Reports: Chicken pox, Hepatitis C, Measles - Past Surgical History GI Surgical History: Reports: Appendectomy Male Surgical History: Reports: Lithotripsy (ESWL), Ureteral stent Social & Family History - Family History Family Medical History: Noncontributory - Tobacco Use Smoking Status *Q: Current Every Day Smoker Years of Tobacco use: 45 Packs/Tins Daily: 0.5 Used Tobacco, but Quit: No Second Hand Smoke Exposure: No - Caffeine Use Caffeine Use: Reports: Coffee - Alcohol Use Days Per Week of Alcohol Use: 0 Number of Drinks Per Day: 3 Total Drinks Per Week: 0 - Recreational Drug Use Recreational Drug Use: No Drug Use in Last 12 Months: Yes Recreational Drug Type: Reports: Ativan, Marijuana/Hashish, Oxycodone, Other ( see below) (Hydrocodone) Other Recreational Drug Type: over use of percocet and hydrocodone and ativan Recreational Drug Use Frequency: Daily - Living Situation & Occupation Living situation: Reports: single, alone Occupation: unemployed ED ROS GENERAL - Review of Systems Review Of Systems: See Below Constitutional: Reports: no symptoms. Denies: fever, chills HEENT: Reports: No symptoms Respiratory: Reports: No Symptoms Cardiovascular: Reports: No symptoms GI/Abdominal: Reports: No symptoms : Reports: no symptoms ED EXAM, BEHAVIORAL HEALTH - Physical Exam Exam: See Below Exam Limited By: No limitations General Appearance: alert, no apparent distress Head: atraumatic, normocephalic Neck: normal inspection, supple, non-tender, full range of motion. No: lymphadenopathy (L), lymphadenopathy (R) Respiratory/Chest: lungs clear, normal breath sounds, no accessory muscle use Cardiovascular: regular rate, rhythm, no edema, no murmur Psychiatric: normal affect, normal cognition, other (He is a little anxious at this time). No: depressed mood, flat affect, suicidal plan, suicidal thoughts, tangential thoughts COURSE, BEHAVIORAL HEALTH COMP - Course Vital Signs: Last Vital Signs Temp 36.6 C 07/09/16 18:00 Pulse 100 07/09/16 18:00 Resp 20 07/09/16 18:00 BP 142/99 H 07/09/16 18:00 Pulse Ox 100 07/09/16 18:00 Discharge vs Psych Eval/Treatment:: 07/09/16 19:18 Patient will be discharged we'll give him a prescription for a few Ativan to be used on a daily basis as needed. Departure - Departure Time of Disposition: 19:12 Disposition: Home, Self-Care 01 Clinical Impression: Anxiety Prescriptions: LORazepam [Ativan] 1 mg PO DAILY PRN #5 tablet PRN Reason: Anxiety Referrals: PCP,None [Primary Care Provider] - Forms: ED Department Discharge Additional Instructions: Return to the emergency room with any questions or problems. You have been given a small prescription for Ativan use one daily as needed for anxiety. Establish in the clinic with a regular physician. Followup with Lilo Summers
== END 2016-07-09 19:25 | disposition home or self-care (01) ==
LOC: JD.ED 17:52
CPT/HCPCS: 99283

== ENCOUNTER 2016-07-12 13:12 | Emergency (ER) | payer MEDICAID ==
[2016-07-12] MEDS ORDERED: Ketorolac 60 MG/2 ML SDV IM ONE (14:50)
[2016-07-12] MEDS ORDERED: LORazepam 1 MG Tab PO ONE (14:50)
--- NOTE | 2016-07-12 14:50 | EDM.PDOC ---
ED HISTORY OF PRESENT ILLNESS - General Chief Complaint: Behavioral/Psych Stated Complaint: Anxiety, chronic pain Time Seen by Provider: 07/12/16 14:35 Source of Information: Reports: Patient, Old records, RN notes reviewed History Limitations: Reports: No limitations - History of Present Illness INITIAL COMMENTS - FREE TEXT/NARRATIVE: 60 year old male presents to the ED with chief complaint of anxiety. He says he is having trouble dealing with his anxiety and chronic pain. He is seeing a psychologist in a couple weeks. He is also seeing his primary regularly. He presented to the [facility] walk-in today for help with his anxiety. He said he's been having some chest pain associated with the anxiety. Due to the chest pain complaint, he was sent to the ED. The patient reports chest pain when his anxiety is severe. He says "I know it's not a heart attack." He has chronic pain to several areas. He was in the ED 3 days ago for anxiety and was given a prescription for Ativan. He is out of the ativan now. - Related Data Allergies/ADRs: Allergies Allergy/AdvReac Type Severity Reaction Status Date / Time codeine Allergy Intermediate Itching Verified 07/12/16 13:20 meperidine HCl [From Demerol] Allergy Intermediate Itching Verified 07/12/16 13: 20 Home Meds: Home Meds Meloxicam 7.5 mg PO DAILY PRN 03/26/15 [History] Losartan/Hydrochlorothiazide [Losartan-HCTZ 100-25 MG] 1 tab PO DAILY 08/27/15 [ History] cloNIDine [Catapres] 0.1 mg PO Q12HR #20 tablet 08/27/15 [Rx] Mirtazapine 30 mg PO DAILY 09/10/15 [History] Pantoprazole [Protonix] 40 mg PO ACBREAKFAST 03/18/16 [History] DULoxetine [Cymbalta] 60 mg PO DAILY 07/09/16 [History] LORazepam [Ativan] 1 mg PO DAILY PRN #5 tablet 07/09/16 [Rx] Past Medical History - Past Health History Medical/Surgical History: Denies Medical/Surgical History HEENT History: Reports: Other (see below) Other HEENT History: dental issues. 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, opiods Hematologic History: Reports: Other (see below) Other Hematologic History: HEP C - Infectious Disease History Infectious Disease History: Reports: Chicken pox, Hepatitis C, Measles - Past Surgical History GI Surgical History: Reports: Appendectomy Male Surgical History: Reports: Lithotripsy (ESWL), Ureteral stent Social & Family History - Family History Family Medical History: Noncontributory - Tobacco Use Smoking Status *Q: Current Every Day Smoker Years of Tobacco use: 45 Packs/Tins Daily: 0.5 Used Tobacco, but Quit: No Second Hand Smoke Exposure: No - Caffeine Use Caffeine Use: Reports: Coffee - Alcohol Use Days Per Week of Alcohol Use: 0 Number of Drinks Per Day: 3 Total Drinks Per Week: 0 - Recreational Drug Use Recreational Drug Use: No Drug Use in Last 12 Months: Yes Recreational Drug Type: Reports: Ativan, Marijuana/Hashish, Oxycodone, Other ( see below) (Hydrocodone) Other Recreational Drug Type: over use of percocet and hydrocodone and ativan Recreational Drug Use Frequency: Daily - Living Situation & Occupation Living situation: Reports: single, alone Occupation: unemployed ED ROS GENERAL - Review of Systems Review Of Systems: See Below Constitutional: Reports: no symptoms. Denies: fever, chills Respiratory: Reports: No Symptoms. Denies: Shortness of Breath, Cough Cardiovascular: Reports: Chest pain GI/Abdominal: Reports: No symptoms. Denies: Abdominal pain Psychiatric: Reports: Anxiety ED EXAM, GENERAL - Physical Exam Exam: See Below Exam Limited By: No limitations General Appearance: alert, WD/WN, no apparent distress, anxious Respiratory/Chest: no respiratory distress, lungs clear, normal breath sounds Cardiovascular: normal peripheral pulses, regular rate, rhythm, no murmur GI/Abdominal: normal bowel sounds, soft, non tender Neurological: alert, normal cognition, no motor/sensory deficits Psychiatric: anxious, other (good eye contact, fairly calm during time of exam but easily becomes anxious ) Skin Exam: Warm, Dry, Intact EKG INTERPRETATION EKG Date: 07/12/16 Time: 13:36 Rhythm: NSR Rate (beats/min): 83 [place]: normal P-wave: present QRS: normal ST-T: normal QT: normal EKG Interpretation Comments: Sinus rhythm, no ischemic changes Course - Vital Signs Last Recorded V/S: Last Vital Signs Temp 98.3 F 07/12/16 13:20 Pulse 72 07/12/16 15:20 Resp 18 07/12/16 15:20 BP 131/89 07/12/16 15:20 Pulse Ox 99 07/12/16 15:20 - Orders/Labs/Meds Meds: Medications Discontinued Medications Generic Name Dose Route Start Last Admin Trade Name Chin PRN Reason Stop Dose Admin Ketorolac Tromethamine 60 mg 07/12/16 14:50 07/12/16 15:15 Toradol IM 07/12/16 14:51 60 mg ONETIME ONE Administration Lorazepam 1 mg 07/12/16 14:50 07/12/16 15:15 Ativan PO 07/12/16 14:51 1 mg ONETIME ONE Administration - Re-Assessments/Exams Free Text/Narrative Re-Assessment/Exam: Patient was treated with Ativan PO and Toradol IM. I explained that we cannot continue to fill his anxiety medication. He was instructed to f/u with his mental health services and primary care provider. Departure - Departure Time of Disposition: 14:51 Disposition: Home, Self-Care 01 Condition: good Clinical Impression: Anxiety Chronic pain Qualifiers: Chronic pain type: other chronic pain Qualified Code(s): G89.29 - Other chronic pain Referrals: PCP,None [Primary Care Provider] - Forms: ED Department Discharge Additional Instructions: Follow-up with Dr. Wynne this week for recheck Follow-up with [facility] as scheduled Return to ER with worsening of symptoms No driving today due to sedating medications Continue your Cymbalta as prescribed
[2016-07-12 16:30] VITALS: BP 131/89
== END 2016-07-12 15:20 | disposition home or self-care (01) ==
LOC: JD.ED 13:12
DX: F41.9 Anxiety disorder, unspecified (principal); G89.29 Other chronic pain; I10 Essential (primary) hypertension; K21.9 Gastro-esophageal reflux disease without esophagitis; M19.90 Unspecified osteoarthritis, unspecified site; F32.9 Major depressive disorder, single episode, unspecified; F17.210 Nicotine dependence, cigarettes, uncomplicated; Z79.899 Other long term (current) drug therapy; Z88.5 Allergy status to narcotic agent; Z88.6 Allergy status to analgesic agent
CPT/HCPCS: 96372; 99283; A9270; J1885

== ENCOUNTER 2016-07-15 16:23 | Emergency (ER) | payer MEDICAID ==
[2016-07-15 16:47] VITALS: BP 166/96
[2016-07-15] MEDS ORDERED: hydrOXYzine HCl 25 MG/ML SDV IM ONE (17:56)
--- NOTE | 2016-07-15 17:58 | EDM.PDOC ---
ED HPI Behavioral Health - General Chief Complaint: Behavioral/Psych Stated Complaint: ANXIETY Time Seen by Provider: 07/15/16 17:24 Source of Information: Reports: Patient Exam Limitations: Reports: No limitations - History of Present Illness INITIAL COMMENTS - FREE TEXT/NARRATIVE: Patient presents for evaluation and treatment of anxiety. Patient reports increased anxiety for the last 2 days. He was seen by his primary care provider , Rai Guthrie today, he states he was advised to come to the ER for his anxiety medications. He tells me that he was told by his primary care provider that he cannot prescribe benzos or narcotics as this is out of the scope of practice. When asked to describe his symptoms patient reports that things are just "horrible ". He has an appointment to see Dr. Franco, psychiatrist on July 29. He is no longer sees Lilo Calderon, psychiatric nurse practitioner. she asked him to attend AA and he did not agree with this. He reports racing thoughts. Patient was seen in ER on 07-09 and 07-12 for anxiety. He was given 5 tablets on . Using one tablet in the ER on July 12. He has been advised in the past we are unable to refill medications. He does have a history of narcotic and benzodiazepine abuse. - Related Data Allergies Allergy/AdvReac Type Severity Reaction Status Date / Time codeine Allergy Intermediate Itching Verified 07/12/16 13:20 meperidine HCl [From Demerol] Allergy Intermediate Itching Verified 07/12/16 13: 20 Home Medications: Home Meds Meloxicam 7.5 mg PO DAILY PRN 03/26/15 [History] Losartan/Hydrochlorothiazide [Losartan-HCTZ 100-25 MG] 1 tab PO DAILY 08/27/15 [ History] cloNIDine [Catapres] 0.1 mg PO Q12HR #20 tablet 08/27/15 [Rx] Mirtazapine 30 mg PO DAILY 09/10/15 [History] Pantoprazole [Protonix] 40 mg PO ACBREAKFAST 03/18/16 [History] DULoxetine [Cymbalta] 60 mg PO DAILY 07/09/16 [History] LORazepam [Ativan] 1 mg PO DAILY PRN #5 tablet 07/09/16 [Rx] Neck Pain Score (Numeric/FACES): 10 Past Medical History - Past Health History Medical/Surgical History: Denies Medical/Surgical History HEENT History: Reports: Other (see below) Other HEENT History: dental issues. 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, opiods Hematologic History: Reports: Other (see below) Other Hematologic History: HEP C - Infectious Disease History Infectious Disease History: Reports: Chicken pox, Hepatitis C, Measles - Past Surgical History GI Surgical History: Reports: Appendectomy Male Surgical History: Reports: Lithotripsy (ESWL), Ureteral stent Social & Family History - Family History Family Medical History: Noncontributory - Tobacco Use Smoking Status *Q: Current Every Day Smoker Years of Tobacco use: 45 Packs/Tins Daily: 0.5 Used Tobacco, but Quit: No Second Hand Smoke Exposure: No - Caffeine Use Caffeine Use: Reports: Coffee, Soda - Alcohol Use Days Per Week of Alcohol Use: 0 Number of Drinks Per Day: 3 Total Drinks Per Week: 0 - Recreational Drug Use Recreational Drug Use: No Drug Use in Last 12 Months: Yes Recreational Drug Type: Reports: Ativan, Marijuana/Hashish, Oxycodone, Other ( see below) (Hydrocodone) Other Recreational Drug Type: over use of percocet and hydrocodone and ativan Recreational Drug Use Frequency: Daily - Living Situation & Occupation Living situation: Reports: single, alone Occupation: unemployed ED ROS GENERAL - Review of Systems Review Of Systems: ROS reveals no pertinent complaints other than HPI. ED EXAM, BEHAVIORAL HEALTH - Physical Exam Exam: See Below Exam Limited By: No limitations General Appearance: alert, WD/WN, no apparent distress Respiratory/Chest: no respiratory distress Neurological: alert, normal mood/affect, normal cognition Psychiatric: alert. No: non-communicative, poor eye contact Skin Exam: Warm, Dry, Normal color COURSE, BEHAVIORAL HEALTH COMP - Course Vital Signs: Last Vital Signs Temp 37.2 C 07/15/16 16:44 Pulse 80 07/15/16 16:44 Resp 16 07/15/16 16:44 BP 166/96 H 07/15/16 16:44 Pulse Ox 100 07/15/16 16:44 Orders, Labs, Meds: Medications Discontinued Medications Generic Name Dose Route Start Last Admin Trade Name Chin PRN Reason Stop Dose Admin Hydroxyzine HCl 50 mg 07/15/16 17:56 Vistaril IM 07/15/16 17:57 ONETIME ONE Hydroxyzine HCl Confirm 07/15/16 18:09 07/15/16 18:23 Vistaril Administered 07/15/16 18:10 Not Given Dose 25 mg .ROUTE .STK-MED ONE Hydroxyzine HCl 50 mg 07/15/16 18:12 Atarax PO 07/15/16 18:13 ONETIME ONE Promethazine HCl 25 mg 07/15/16 18:24 07/15/16 18:29 Phenergan IM 07/15/16 18:25 25 mg ONETIME ONE Administration Re-Assessment/Re-Exam: I reviewed our prescription narcotic medication policy. I informed him that I will not be prescribing any ativan as this is a chronic medical condition and the ER does not refill medications for chronic medical problems. I discussed case with Dr. Ruby. I do not comfortable giving him one Ativan here in the ER as then he will often return for additional Ativan which is inappropriate. He should follow up with his psychiatrist and his family care providers. I offered him a shot of Vistaril. He will take this. Will give IM vistril and discharge home. Out of vistril. IM phenergran given instead. Departure - Departure Time of Disposition: 17:56 Disposition: Home, Self-Care 01 Condition: fair Clinical Impression: Anxiety Referrals: PCP,None [Primary Care Provider] - Yulia Calderon SENIOR INFORMATION DEVELOPER [Nurse Practitioner] - Rai Guthrie, PAJose AngelC [Physician Peritoneal Dialysis Registered Nurse] - Forms: ED Department Discharge Additional Instructions: Immediately go home. Rest. Continue with your current plan of care and see your psychiatrists, counselors and family medicine providers for refills of your medication. Unfortunately, we are unable to refilled controlled substances for chronic medical problems in the ER. For refills of these medications you will need to see either your psychiatrist or yout family medicine provider. Please return to the ER should your symptoms change or worsen.
[2016-07-15] MEDS ORDERED: hydrOXYzine HCl 25 MG/ML SDV ONE (18:09)
[2016-07-15] MEDS ORDERED: hydrOXYzine HCl 50 MG Tab PO ONE (18:12)
[2016-07-15] MEDS ORDERED: Promethazine 25 MG/ML SDV IM ONE (18:24)
== END 2016-07-15 18:43 | disposition home or self-care (01) ==
LOC: JD.ED 16:23
DX: F41.9 Anxiety disorder, unspecified (principal); I10 Essential (primary) hypertension; K21.9 Gastro-esophageal reflux disease without esophagitis; F32.9 Major depressive disorder, single episode, unspecified; M19.90 Unspecified osteoarthritis, unspecified site; F17.210 Nicotine dependence, cigarettes, uncomplicated; Z90.49 Acquired absence of other specified parts of digestive tract; Z98.890 Other specified postprocedural states; Z96.0 Presence of urogenital implants; Z79.899 Other long term (current) drug therapy; Z88.5 Allergy status to narcotic agent; Z88.6 Allergy status to analgesic agent
CPT/HCPCS: 96372; 99283; J2550

== ENCOUNTER 2016-07-31 12:04 | Emergency (ER) | payer MEDICAID ==
[2016-07-31 12:13] VITALS: BP 143/92
--- NOTE | 2016-07-31 12:13 | EDM.PDOC ---
ED HPI GENERAL MEDICAL PROBLEM - General Chief Complaint: Behavioral/Psych Stated Complaint: ANXIETY Time Seen by Provider: 07/31/16 12:13 - History of Present Illness INITIAL COMMENTS - FREE TEXT/NARRATIVE: 60-year-old male returns to emergency room with worsening anxiety. The patient is not having any pain at this time he does not feel sick no shortness of breath. Patient cannot recall what triggered this anxiety. Patient is taking his Cymbalta as directed and is scheduled to see [facility] on Wednesday. The patient is not having worsening depression he is not drinking. He denies any suicidal thoughts or wishes. Neck Pain Score (Numeric/FACES): 6 - Related Data Allergies Allergy/AdvReac Type Severity Reaction Status Date / Time codeine Allergy Intermediate Itching Verified 07/31/16 12:13 meperidine HCl [From Demerol] Allergy Intermediate Itching Verified 07/31/16 12: 13 Home Meds: Home Meds Meloxicam 7.5 mg PO DAILY PRN 03/26/15 [History] Losartan/Hydrochlorothiazide [Losartan-HCTZ 100-25 MG] 1 tab PO DAILY 08/27/15 [ History] cloNIDine [Catapres] 0.1 mg PO Q12HR #20 tablet 08/27/15 [Rx] Mirtazapine 30 mg PO DAILY 09/10/15 [History] Pantoprazole [Protonix] 40 mg PO ACBREAKFAST 03/18/16 [History] DULoxetine [Cymbalta] 60 mg PO DAILY 07/09/16 [History] LORazepam [Ativan] 1 mg PO DAILY PRN #5 tablet 07/09/16 [Rx] Past Medical History - Past Health History Medical/Surgical History: Denies Medical/Surgical History HEENT History: Reports: Other (see below) Other HEENT History: dental issues. 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, opiods Hematologic History: Reports: Other (see below) Other Hematologic History: HEP C - Infectious Disease History Infectious Disease History: Reports: Chicken pox, Hepatitis C, Measles - Past Surgical History GI Surgical History: Reports: Appendectomy Male Surgical History: Reports: Lithotripsy (ESWL), Ureteral stent Social & Family History - Family History Family Medical History: Noncontributory - Tobacco Use Smoking Status *Q: Current Every Day Smoker Years of Tobacco use: 45 Packs/Tins Daily: 0.5 Used Tobacco, but Quit: No Second Hand Smoke Exposure: No - Caffeine Use Caffeine Use: Reports: Coffee, Soda - Alcohol Use Days Per Week of Alcohol Use: 0 Number of Drinks Per Day: 3 Total Drinks Per Week: 0 - Recreational Drug Use Recreational Drug Use: No Drug Use in Last 12 Months: Yes Recreational Drug Type: Reports: Ativan, Marijuana/Hashish, Oxycodone, Other ( see below) (Hydrocodone) Other Recreational Drug Type: over use of percocet and hydrocodone and ativan Recreational Drug Use Frequency: Daily - Living Situation & Occupation Living situation: Reports: single, alone Occupation: unemployed ED ROS GENERAL - Review of Systems Review Of Systems: See Below Constitutional: Reports: no symptoms Respiratory: Reports: No Symptoms Cardiovascular: Reports: No symptoms GI/Abdominal: Reports: No symptoms Psychiatric: Reports: Anxiety. Denies: Agitation, Confusion, Homicidal ideation , Mood lability, Suicidal ideation ED EXAM, GENERAL - Physical Exam Exam: See Below Exam Limited By: No limitations General Appearance: alert, no apparent distress Respiratory/Chest: no respiratory distress, lungs clear, normal breath sounds Cardiovascular: regular rate, rhythm, no edema, no murmur Psychiatric: normal affect. No: depressed mood, flat affect Course - Vital Signs Last Recorded V/S: Last Vital Signs Temp 36.1 C 07/31/16 12:10 Pulse 88 07/31/16 12:10 Resp 16 07/31/16 12:10 BP 143/92 H 07/31/16 12:10 Pulse Ox 97 07/31/16 12:10 - Orders/Labs/Meds Meds: Medications Discontinued Medications Generic Name Dose Route Start Last Admin Trade Name Freq PRN Reason Stop Dose Admin Lorazepam 1 mg 07/31/16 12:36 07/31/16 12:40 Ativan PO 07/31/16 12:37 1 mg ONETIME ONE Administration - Re-Assessments/Exams Free Text/Narrative Re-Assessment/Exam: 07/31/16 13:00 Patient received a milligram of Ativan by mouth he is starting to improve he would like to go home at this point. Did discuss that I would not give another refill of his Ativan he has followup at [facility] on Wednesday. Departure - Departure Time of Disposition: 13:01 Disposition: Home, Self-Care 01 Clinical Impression: Anxiety Referrals: PCP,None [Primary Care Provider] - Forms: ED Department Discharge Additional Instructions: Return to the emergency room with any questions or problems. Followup at [facility] on Wednesday as scheduled.
[2016-07-31] MEDS ORDERED: LORazepam 1 MG Tab PO ONE (12:36)
== END 2016-07-31 13:24 | disposition home or self-care (01) ==
LOC: JD.ED 12:04
DX: F41.9 Anxiety disorder, unspecified (principal); F17.210 Nicotine dependence, cigarettes, uncomplicated; Z88.6 Allergy status to analgesic agent; Z79.899 Other long term (current) drug therapy
CPT/HCPCS: 99283; A9270

== ENCOUNTER 2016-08-09 13:27 | Emergency (ER) | payer MEDICAID ==
--- NOTE | 2016-08-09 14:05 | EDM.PDOC ---
ED HPI RENAL/ - General Chief Complaint: Flank Pain Stated Complaint: Left flank pain Time Seen by Provider: 08/09/16 14:01 Source of Information: Reports: Patient, RN notes reviewed History Limitations: Reports: No limitations - History of Present Illness INITIAL COMMENTS - FREE TEXT/NARRATIVE: 60 year old male, with known history of kidney stones, presents to the ED today with left flank pain for the past 24 hours. He feels he is passing a kidney stone. No noticeable blood in his urine. No fever or chills. He had a CT with renal stone protocol about 1 month ago and has several non-obstructing stones at that time. He denies any additional concerns. No chest pain, shortness of breath, abdominal pain, nausea, vomiting, diarrhea, constipation. - Related Data Allergies/ADRs: Allergies Allergy/AdvReac Type Severity Reaction Status Date / Time codeine Allergy Intermediate Itching Verified 08/09/16 13:52 meperidine HCl [From Demerol] Allergy Intermediate Itching Verified 08/09/16 13: 52 Home Meds: Home Meds Meloxicam 7.5 mg PO DAILY PRN 03/26/15 [History] Losartan/Hydrochlorothiazide [Losartan-HCTZ 100-25 MG] 1 tab PO DAILY 08/27/15 [ History] cloNIDine [Catapres] 0.1 mg PO Q12HR #20 tablet 08/27/15 [Rx] Mirtazapine 30 mg PO DAILY 09/10/15 [History] Pantoprazole [Protonix] 40 mg PO ACBREAKFAST 03/18/16 [History] DULoxetine [Cymbalta] 60 mg PO DAILY 07/09/16 [History] Past Medical History - Past Health History Medical/Surgical History: Denies Medical/Surgical History HEENT History: Reports: Other (see below) Other HEENT History: dental issues. 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, opiods Hematologic History: Reports: Other (see below) Other Hematologic History: HEP C - Infectious Disease History Infectious Disease History: Reports: Chicken pox, Hepatitis C, Measles - Past Surgical History GI Surgical History: Reports: Appendectomy Male Surgical History: Reports: Lithotripsy (ESWL), Ureteral stent Social & Family History - Family History Family Medical History: Noncontributory - Tobacco Use Smoking Status *Q: Current Every Day Smoker Years of Tobacco use: 30 Packs/Tins Daily: 0.5 Used Tobacco, but Quit: No Second Hand Smoke Exposure: No - Caffeine Use Caffeine Use: Reports: Coffee, Soda - Alcohol Use Days Per Week of Alcohol Use: 0 Number of Drinks Per Day: 3 Total Drinks Per Week: 0 - Recreational Drug Use Recreational Drug Use: No Drug Use in Last 12 Months: Yes Recreational Drug Type: Reports: Ativan, Marijuana/Hashish, Oxycodone, Other ( see below) (Hydrocodone) Other Recreational Drug Type: over use of percocet and hydrocodone and ativan Recreational Drug Use Frequency: Daily - Living Situation & Occupation Living situation: Reports: single, alone Occupation: unemployed ED ROS GENERAL - Review of Systems Review Of Systems: See Below Constitutional: Reports: no symptoms. Denies: fever, chills Respiratory: Reports: No Symptoms. Denies: Shortness of Breath Cardiovascular: Reports: No symptoms. Denies: Chest pain GI/Abdominal: Reports: No symptoms. Denies: Abdominal pain, Constipation, Diarrhea, Nausea, Vomiting : Reports: flank pain. Denies: hematuria ED EXAM, RENAL/ - Physical Exam Exam: See Below Exam Limited By: No limitations General Appearance: alert, WD/WN, no apparent distress Respiratory/Chest: no respiratory distress, lungs clear, normal breath sounds Cardiovascular: regular rate, rhythm GI/Abdominal: normal bowel sounds, soft, non tender Back Exam: normal inspection, full range of motion, CVA tenderness (L). No: CVA tenderness (R) Neurological: alert, oriented, normal cognition Course - Vital Signs Last Recorded V/S: Last Vital Signs Temp 97.9 F 08/09/16 13:54 Pulse 83 08/09/16 13:54 Resp 16 08/09/16 13:54 BP 124/93 H 08/09/16 13:54 Pulse Ox 98 08/09/16 13:54 - Orders/Labs/Meds Labs: Laboratory Tests 08/09/16 Range/Units 13:55 Urine Color Yellow (Yellow) Urine Appearance Slt cloudy H (Clear) Urine pH 7.0 (5.0-8.0) Ur Specific [place] 1.020 (1.005-1.030) Urine Protein Negative (Negative) Urine Glucose (UA) Negative (Negative) Urine Ketones Negative (Negative) Urine Occult Blood 2+ H (Negative) Urine Nitrite Negative (Negative) Urine Bilirubin Negative (Negative) Urine Urobilinogen 0.2 (0.2-1.0) Ur Leukocyte Esterase Negative (Negative) Urine RBC 20-30 H (0-5) /hpf Urine WBC 0-5 (0-5) /hpf Ur Epithelial Cells 0-5 (0-5) /hpf Urine Bacteria Few (FEW) /hpf Hyaline Casts 0-5 (0-5) /lpf Waxy Casts 0-5 (0-5) /lpf Urine Mucus Few (FEW) /hpf Meds: Medications Discontinued Medications Generic Name Dose Route Start Last Admin Trade Name Chin PRN Reason Stop Dose Admin Hydromorphone HCl 0.5 mg 08/09/16 14:11 08/09/16 14:35 Dilaudid IVPUSH 08/09/16 14:12 0.5 mg ONETIME ONE Administration Ketorolac Tromethamine 30 mg 08/09/16 14:11 08/09/16 14:31 Toradol IVPUSH 08/09/16 14:12 30 mg ONETIME ONE Administration - Re-Assessments/Exams Free Text/Narrative Re-Assessment/Exam: Pain was treated with Dilaudid and Toradol. UA is positive for blood. Patient has had several CT scans in the past and has known history of kidney stones. Will treat conservatively. Instructed to f/u with his PCP this week. Educated on return precautions Hydrocodone/apap 5/325 tabs, 1-2 every 4-6 hours #10 no refills sent to [facility] Departure - Departure Time of Disposition: 15:00 Disposition: Home, Self-Care 01 Condition: good Clinical Impression: Flank pain, History of kidney stones Instructions: Kidney Stones, Flank Pain, [id number] Referrals: PCP,None [Primary Care Provider] - Forms: ED Department Discharge Additional Instructions: Drink plenty of fluids Hydrocodone/apap 1 tab every 4-6 hours as needed Follow-up with your primary care provider in 1-2 days for recheck No driving today due to sedating medications given in the ER
[2016-08-09 14:06] VITALS: BP 124/93
[2016-08-09] MEDS ORDERED: HYDROmorphone 0.5 MG/0.5 ML Syringe IVPUSH ONE (14:11)
[2016-08-09] MEDS ORDERED: Ketorolac 30 MG/ML SDV IVPUSH ONE (14:11)
== END 2016-08-09 15:25 | disposition home or self-care (01) ==
LOC: JD.ED 13:27
DX: R10.9 Unspecified abdominal pain (principal); Z87.442 Personal history of urinary calculi; F17.210 Nicotine dependence, cigarettes, uncomplicated; I10 Essential (primary) hypertension; K21.9 Gastro-esophageal reflux disease without esophagitis; Z88.5 Allergy status to narcotic agent; F41.9 Anxiety disorder, unspecified; F32.9 Major depressive disorder, single episode, unspecified; Z88.8 Allergy status to other drugs, medicaments and biological substances; Z79.899 Other long term (current) drug therapy; Z90.49 Acquired absence of other specified parts of digestive tract
CPT/HCPCS: 81001; 99284; J1170; J1885

== ENCOUNTER 2016-08-13 18:47 | Emergency (ER) | payer MEDICAID ==
[2016-08-13 19:00] VITALS: BP 140/90
[2016-08-13] MEDS ORDERED: Acetaminophen/HYDROcodone 325-5 MG Tab PO ONE (19:42)
[2016-08-13] MEDS ORDERED: Ibuprofen 600 MG Tab PO ONE (19:42)
--- NOTE | 2016-08-13 19:44 | EDM.PDOC ---
ED HPI RENAL/ - General Chief Complaint: Flank Pain Stated Complaint: POSS KIDNEY STONE Time Seen by Provider: 08/13/16 19:30 Source of Information: Reports: Patient, RN notes reviewed History Limitations: Reports: No limitations - History of Present Illness INITIAL COMMENTS - FREE TEXT/NARRATIVE: 60 year old male, who is well known to the ED, presents today requesting refill of pain medication for left flank pain for the past 4 days. He has a known history of kidney stones. Last CT was approximately 1 month ago which revealed several non-obstructing stones at that time. He presented to the ED on 08/09/16 for this same complaint. His UA was positive for blood and he was prescribed [place] 5/325 tabs #10. He was instructed to f/u with his PCP for further management. He returns today requesting refills. His current PCP is Rai SOW. 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 He's also seen 3 other providers in the last few months. He has not established and stayed with a PCP which has been recommended to him several times. He is aware that our walkin clinic and family practice clinic has same and next day appointments available. He also struggles with anxiety and has outpatient services established. No complaints of anxiety today. No chest pain, shortness of breath, abdominal pain, nausea, vomiting, diarrhea, constipation. - Related Data Allergies/ADRs: Allergies Allergy/AdvReac Type Severity Reaction Status Date / Time codeine Allergy Intermediate Itching Verified 08/13/16 19:00 meperidine HCl [From Demerol] Allergy Intermediate Itching Verified 08/13/16 19: 00 Home Meds: Home Meds Meloxicam 7.5 mg PO DAILY PRN 03/26/15 [History] Losartan/Hydrochlorothiazide [Losartan-HCTZ 100-25 MG] 1 tab PO DAILY 08/27/15 [ History] cloNIDine [Catapres] 0.1 mg PO Q12HR #20 tablet 08/27/15 [Rx] Mirtazapine 30 mg PO DAILY 09/10/15 [History] Pantoprazole [Protonix] 40 mg PO ACBREAKFAST 03/18/16 [History] DULoxetine [Cymbalta] 60 mg PO DAILY 07/09/16 [History] Past Medical History - Past Health History Medical/Surgical History: Denies Medical/Surgical History HEENT History: Reports: Other (see below) Other HEENT History: dental issues. 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, opiods Hematologic History: Reports: Other (see below) Other Hematologic History: HEP C - Infectious Disease History Infectious Disease History: Reports: Chicken pox, Hepatitis C, Measles - Past Surgical History GI Surgical History: Reports: Appendectomy Male Surgical History: Reports: Lithotripsy (ESWL), Ureteral stent Social & Family History - Family History Family Medical History: Noncontributory - Tobacco Use Smoking Status *Q: Current Every Day Smoker Years of Tobacco use: 45 Packs/Tins Daily: 0.5 Used Tobacco, but Quit: No Second Hand Smoke Exposure: No - Caffeine Use Caffeine Use: Reports: Coffee - Alcohol Use Days Per Week of Alcohol Use: 0 Number of Drinks Per Day: 3 Total Drinks Per Week: 0 - Recreational Drug Use Recreational Drug Use: No Drug Use in Last 12 Months: Yes Recreational Drug Type: Reports: Ativan, Marijuana/Hashish, Oxycodone, Other ( see below) (Hydrocodone) Other Recreational Drug Type: over use of percocet and hydrocodone and ativan Recreational Drug Use Frequency: Daily - Living Situation & Occupation Living situation: Reports: single, alone Occupation: unemployed ED ROS GENERAL - Review of Systems Review Of Systems: See Below Constitutional: Reports: no symptoms. Denies: fever, chills Respiratory: Reports: No Symptoms. Denies: Shortness of Breath Cardiovascular: Reports: No symptoms. Denies: Chest pain GI/Abdominal: Reports: No symptoms. Denies: Nausea, Vomiting : Reports: flank pain ED EXAM, RENAL/ - Physical Exam Exam: See Below Exam Limited By: No limitations General Appearance: alert, WD/WN, no apparent distress Respiratory/Chest: no respiratory distress, lungs clear Cardiovascular: regular rate, rhythm GI/Abdominal: normal bowel sounds, soft, non tender Back Exam: normal inspection, full range of motion, CVA tenderness (L). No: CVA tenderness (R) Neurological: alert, oriented, normal cognition Course - Vital Signs Last Recorded V/S: Last Vital Signs Temp 98.7 F 08/13/16 18:56 Pulse 83 08/13/16 18:56 Resp 16 08/13/16 18:56 BP 140/90 08/13/16 18:56 Pulse Ox 97 08/13/16 18:56 - Orders/Labs/Meds Meds: Medications Discontinued Medications Generic Name Dose Route Start Last Admin Trade Name Freq PRN Reason Stop Dose Admin Hydrocodone Bitart/Acetaminophen 1 tab 08/13/16 19:42 08/13/16 19:48 [place] 325-5 Mg PO 08/13/16 19:43 1 tab ONETIME ONE Administration Ibuprofen 600 mg 08/13/16 19:42 08/13/16 19:48 Motrin PO 08/13/16 19:43 600 mg ONETIME ONE Administration - Re-Assessments/Exams Free Text/Narrative Re-Assessment/Exam: This is his 17th visit to the ED since the first of the year. He has presented with multiple complaints, mostly pain and anxiety. After reviewing previous records, he has admitted to drug seeking behavior. The patient has been counseled on numerous occasions about proper outpatient management for his chronic medical problems. He has outpatient services established but continues to seek care inappropriately through the ED. I again counseled the patient and explained that we will not be refilling his pain medication today. He was instructed to follow-up in the clinic tomorrow. I encouraged him to see our new timekeeping supervisor family practice physician Dr. Rain. I also explained the importance of him staying with one PCP. His pain was treated with 1 norco 5/325 tab and Ibuprofen 600mg tab prior to discharge. Departure - Departure Time of Disposition: 19:46 Disposition: Home, Self-Care 01 Condition: good Clinical Impression: History of kidney stones, Flank pain, Noncompliance with medication regimen Instructions: Flank Pain Referrals: PCP,None [Primary Care Provider] - Forms: ED Department Discharge Additional Instructions: Follow-up in the clinic tomorrow I encourage you to schedule with our new Family Physician Dr. Rain. In the morning, [phone] to schedule Tylenol or Ibuprofen as needed for pain
== END 2016-08-13 19:53 | disposition home or self-care (01) ==
LOC: JD.ED 18:47
DX: R10.9 Unspecified abdominal pain (principal); Z91.14 Patient's other noncompliance with medication regimen; Z87.442 Personal history of urinary calculi; I10 Essential (primary) hypertension; K21.9 Gastro-esophageal reflux disease without esophagitis; F41.8 Other specified anxiety disorders; M19.90 Unspecified osteoarthritis, unspecified site; F17.210 Nicotine dependence, cigarettes, uncomplicated; Z90.49 Acquired absence of other specified parts of digestive tract; Z96.0 Presence of urogenital implants; Z79.899 Other long term (current) drug therapy; Z88.5 Allergy status to narcotic agent
CPT/HCPCS: 99283; A9270; 99284

== ENCOUNTER 2016-08-21 17:53 | Emergency (ER) | payer MEDICAID ==
[2016-08-21 18:10] VITALS: BP 119/83
--- NOTE | 2016-08-21 18:45 | EDM.PDOC ---
ED HPI GENERAL MEDICAL PROBLEM - General Stated Complaint: POSS KIDNEY STONES Time Seen by Provider: 08/21/16 18:10 Source of Information: Reports: Patient, Old Records, RN Notes Reviewed History Limitations: Reports: No Limitations - History of Present Illness INITIAL COMMENTS - FREE TEXT/NARRATIVE: The patient states that he has continued left flank pain, and would like pain medication to treat it. He was seen in this ED 08/09/2016 for the same pain. Because he had had a CT scan of the abdomen and pelvis on 06/27/2016 which demonstrated nonobstructing stones in both kidneys, a repeat CT scan was not performed. The patient was given 0.5 mg Dilaudid and a prescription for [place] 5 /325 #10. He returned to this ED 08/13/2016 with the same complaint. He was given one tablet of [place] and no prescriptions home. He was told that his ED does not refill pain medications. 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 I discussed the case with Di Ruiz, and a plan was set forth, however, the patient tells me at this time that he has not continued with Ms. Ruiz. He states that he saw Dr. Sanchez about 3 weeks ago, and she placed him on Zoloft and Klonopin 0.5 mg BID. He states that he also followed up with Dr. Rain on or about 08/14, but that Dr. Rain also refused to prescribe the patient opioids. The patient states that he is not followed up with a urologist, and that he is not interested in doing so. He states that he only wants pain medication. No recent fever, nausea, vomiting, constipation, diarrhea, or urinary symptoms. Left Lower Abdomen Pain Score (Numeric/FACES): 7 - Related Data Allergies Allergy/AdvReac Type Severity Reaction Status Date / Time codeine Allergy Intermediate Itching Verified 08/21/16 18:10 meperidine HCl [From Demerol] Allergy Intermediate Itching Verified 08/21/16 18: 10 Home Meds: Home Meds Meloxicam 7.5 mg PO DAILY PRN 03/26/15 [History] Losartan/Hydrochlorothiazide [Losartan-HCTZ 100-25 MG] 1 tab PO DAILY 08/27/15 [ History] cloNIDine [Catapres] 0.1 mg PO Q12HR #20 tablet 08/27/15 [Rx] Mirtazapine 30 mg PO DAILY 09/10/15 [History] Pantoprazole [Protonix] 40 mg PO ACBREAKFAST 03/18/16 [History] ClonazePAM [KlonoPIN] 0.5 mg PO DAILY 08/21/16 [History] Sertraline HCl [Zoloft] 100 mg PO DAILY 08/21/16 [History] Past Medical History HEENT History: Reports: Other (See Below) Other HEENT History: dental issues. Cardiovascular History: Reports: Hypertension Gastrointestinal History: Reports: Colon Polyp, Gastritis, GERD Genitourinary History: Reports: BPH, Renal Calculus Musculoskeletal History: Reports: Arthritis, Back Pain, Chronic Psychiatric History: Reports: Addiction (to opioids and benzodiazepines), Anxiety, Depression - Infectious Disease History Infectious Disease History: Reports: Chicken Pox, Hepatitis C, Measles - Past Surgical History GI Surgical History: Reports: Appendectomy Male Surgical History: Reports: Lithotripsy (ESWL), Ureteral Stent, Other ( See Below) (Bilateral ureteral surgery) Musculoskeletal Surgical History: Reports: Other (See Below) Social & Family History - Family History Family Medical History: Noncontributory - Tobacco Use Smoking Status *Q: Current Every Day Smoker Years of Tobacco use: 45 Packs/Tins Daily: 0.5 - Caffeine Use Caffeine Use: Reports: Coffee - Alcohol Use Alcohol Use History: Yes Days Per Week of Alcohol Use: 0 Number of Drinks Per Day: 3 Total Drinks Per Week: 0 Alcohol Use Frequency: Rarely - Recreational Drug Use Recreational Drug Use: Yes Drug Use in Last 12 Months: Yes Recreational Drug Type: Reports: Ativan, Benzodiazepines, Dilaudid, Marijuana/ Hashish, Oxycodone, Vicodin Recreational Drug Use Frequency: Binges - Living Situation & Occupation Living situation: Reports: Single, Alone Occupation: Unemployed ED ROS GENERAL - Review of Systems Review Of Systems: See Below Constitutional: Reports: No Symptoms HEENT: Reports: No Symptoms Respiratory: Reports: No Symptoms Cardiovascular: Reports: No Symptoms Endocrine: Reports: No Symptoms GI/Abdominal: Reports: No Symptoms : Reports: Flank Pain Musculoskeletal: Reports: No Symptoms Skin: Reports: No Symptoms Neurological: Reports: No Symptoms Psychiatric: Reports: No Symptoms Hematologic/Lymphatic: Reports: No Symptoms Immunologic: Reports: No Symptoms ED EXAM, GENERAL - Physical Exam Exam: See Below Exam Limited By: No Limitations General Appearance: Alert, WD/WN, No Apparent Distress Eye Exam: Bilateral Eye: Normal Inspection Ears: Normal External Exam, Hearing Grossly Normal Ear Exam: Bilateral Ear: Auricle Normal Nose: Normal Inspection, No Blood Throat/Mouth: Normal Inspection, Normal Lips, Normal Voice, No Airway Compromise Head: Atraumatic, Normocephalic Neck: Normal Inspection, Full Range of Motion Respiratory/Chest: No Respiratory Distress, Lungs Clear, Normal Breath Sounds, No Accessory Muscle Use Cardiovascular: Normal Peripheral Pulses, Regular Rate, Rhythm, No Edema, No Gallop, No JVD, No Murmur, No Rub Peripheral Pulses: 4+: Radial (L), Radial (R) GI/Abdominal: Normal Bowel Sounds, Soft, Non-Tender, No Organomegaly, No Distention, No Abnormal Bruit, No Mass (Male) Exam: Deferred Rectal (Males) Exam: Deferred Back Exam: Normal Inspection, Full Range of Motion. No: CVA Tenderness (L), CVA Tenderness (R) Extremities: Normal Inspection, Normal Range of Motion, No Pedal Edema, Normal Capillary Refill Neurological: Alert, Oriented, Normal Cognition, No Motor/Sensory Deficits Psychiatric: Normal Affect Skin Exam: Warm, Dry, Intact, Normal Color, No Rash Lymphatic: No Adenopathy Course - Vital Signs Last Recorded V/S: Last Vital Signs Temp 36.4 C 08/21/16 18:06 Pulse 81 08/21/16 18:06 Resp 18 08/21/16 18:06 BP 119/83 08/21/16 18:06 Pulse Ox 99 08/21/16 18:06 - Orders/Labs/Meds Orders: Active Orders 24 hr Category Date Time Status UA W/MICROSCOPIC [URIN] Stat Lab 08/21/16 18:11 Uncollected - Re-Assessments/Exams Free Text/Narrative Re-Assessment/Exam: 08/21/16 18:40 The patient and I had a very direct conversation. While he states that he has flank pain, he is not interested in seeing a Urologist to address a possible kidney stone. He states quite plainly that he only wants pain medication. He states that neither Dr. Sanchez nor Dr. Rain have been willing to prescribe opioids. When I saw the patient on 06/27/26, I felt that the patient was making progress in addressing his opioid and benzodiazepine addictions, and I encouraged him to stay on that path, however, at this time, he states that he is back-sliding. I offered to help him in this regard, however, the patient explained that he simply wants pain medication at this time, and he is not interested in trying to address his addiction. I suggested that he followup with a Urologist, but he dismissed that, as well. Departure - Departure Time of Disposition: 18:38 Disposition: Home, Self-Care 01 Condition: fair Clinical Impression: Drug-seeking behavior - Discharge Information Referrals: PCP,Adolfo [Primary Care Provider] - Keaton Aviles MD [Physician] - Additional Instructions: You were seen in the emergency room today with the hope of receiving pain medication. While we are willing to help you with a possible kidney stone, we are not willing to continue to refill prescriptions for pain medication. We recommend you followup with the Urologist Dr. Aviles to address your possible kidney stone. Recommend you followup with Dr. Sanchez to address your addiction issues. For any other medical concerns, please do not hesitate to return to the ER. - My Orders Last 24 Hours: My Active Orders 08/21/16 18:11 UA W/MICROSCOPIC [URIN] Stat - Assessment/Plan Last 24 Hours: My Active Orders 08/21/16 18:11 UA W/MICROSCOPIC [URIN] Stat
== END 2016-08-21 19:12 | disposition home or self-care (01) ==
LOC: JD.ED 17:53
DX: Z76.5 Malingerer [conscious simulation] (principal); I10 Essential (primary) hypertension; K21.9 Gastro-esophageal reflux disease without esophagitis; M19.90 Unspecified osteoarthritis, unspecified site; F41.8 Other specified anxiety disorders; Z90.49 Acquired absence of other specified parts of digestive tract; Z98.890 Other specified postprocedural states; Z79.899 Other long term (current) drug therapy; Z96.0 Presence of urogenital implants; Z88.5 Allergy status to narcotic agent; Z88.6 Allergy status to analgesic agent; F17.210 Nicotine dependence, cigarettes, uncomplicated
CPT/HCPCS: 99281; 99284

== ENCOUNTER 2016-09-07 18:19 | Emergency (ER) | payer MEDICAID ==
[2016-09-07 18:40] VITALS: BP 121/87
--- NOTE | 2016-09-07 19:01 | EDM.PDOC ---
ED HPI GENERAL MEDICAL PROBLEM - General Chief Complaint: Lower Extremity Injury/Pain Stated Complaint: L FOOT TOE PAIN Time Seen by Provider: 09/07/16 18:59 - History of Present Illness INITIAL COMMENTS - FREE TEXT/NARRATIVE: 61-year-old male presents emergency room with toenail difficulties. On his right great toenail apparently had a wedge resection done several weeks ago the patient is pulled out a piece of remaining nail. The toe is been draining but more so after he pulled his nail fragment. On the patient's left great toe he has a loose portion of great toe that is insecurely attached to the nail matrix is entirely cleared of the nailbed. Patient denies any fevers or chills and is otherwise doing okay The patient has been soaking his feet once or twice a day he's been encouraged to do this for 5 times a day. Left 1-Hallux Pain Score (Numeric/FACES): 5 - Related Data Allergies Allergy/AdvReac Type Severity Reaction Status Date / Time codeine Allergy Intermediate Itching Verified 09/07/16 18:40 meperidine HCl [From Demerol] Allergy Intermediate Itching Verified 09/07/16 18: 40 Home Meds: Home Meds Meloxicam 7.5 mg PO DAILY PRN 03/26/15 [History] Losartan/Hydrochlorothiazide [Losartan-HCTZ 100-25 MG] 1 tab PO DAILY 08/27/15 [ History] cloNIDine [Catapres] 0.1 mg PO Q12HR #20 tablet 08/27/15 [Rx] Mirtazapine 30 mg PO DAILY 09/10/15 [History] Pantoprazole [Protonix] 40 mg PO ACBREAKFAST 03/18/16 [History] ClonazePAM [KlonoPIN] 0.5 mg PO DAILY 08/21/16 [History] Sertraline HCl [Zoloft] 100 mg PO DAILY 08/21/16 [History] Doxycycline Hyclate 100 mg PO Q12H #14 tablet. 09/07/16 [Rx] Past Medical History - Past Health History Medical/Surgical History: Denies Medical/Surgical History HEENT History: Reports: Other (See Below) Other HEENT History: dental issues. 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, opiods Hematologic History: Reports: Other (See Below) Other Hematologic History: HEP C - Infectious Disease History Infectious Disease History: Reports: Chicken Pox, Hepatitis C, Measles - Past Surgical History GI Surgical History: Reports: Appendectomy Male Surgical History: Reports: Lithotripsy (ESWL), Ureteral Stent, Other ( See Below) Musculoskeletal Surgical History: Reports: Other (See Below) Social & Family History - Family History Family Medical History: Noncontributory - Tobacco Use Smoking Status *Q: Current Every Day Smoker Years of Tobacco use: 45 Packs/Tins Daily: 0.5 Used Tobacco, but Quit: No Month Tobacco Last Used: august Second Hand Smoke Exposure: No - Caffeine Use Caffeine Use: Reports: Coffee - Alcohol Use Days Per Week of Alcohol Use: 0 Number of Drinks Per Day: 3 Total Drinks Per Week: 0 - Recreational Drug Use Recreational Drug Use: No Drug Use in Last 12 Months: Yes Recreational Drug Type: Reports: Ativan, Benzodiazepines, Dilaudid, Marijuana/ Hashish, Oxycodone, Vicodin Other Recreational Drug Type: over use of percocet and hydrocodone and ativan Recreational Drug Use Frequency: Binges - Living Situation & Occupation Living situation: Reports: Single, Alone Occupation: Unemployed Review of Systems - Review of Systems Review Of Systems: See Below Constitutional: Reports: No Symptoms Respiratory: Reports: No Symptoms Cardiovascular: Reports: No Symptoms GI/Abdominal: Reports: No Symptoms Trauma Exam - Physical Exam Exam: See Below Exam Limited By: No Limitations General Appearance: Reports: Alert, No Apparent Distress Respiratory Exam: Reports: No Respiratory Distress, Lungs Clear, Normal Breath Sounds Cardiovascular: Reports: Regular Rate, Rhythm, No Edema, No Murmur Extremities: Other (No vascular status both feet this in acceptable limits the patient has a paronychia medial margin right great toe with a small amount of drainage noted. Of the toenails examined much of this is just hanging loose completely cleared of the nailbed with gentle traction and forward direction this was removed without difficulty.) Course - Vital Signs Last Recorded V/S: Last Vital Signs Temp 36.8 C 09/07/16 18:36 Pulse 95 09/07/16 18:36 Resp 16 09/07/16 18:36 BP 121/87 09/07/16 18:36 Pulse Ox 98 09/07/16 18:36 - Orders/Labs/Meds Meds: Medications Discontinued Medications Generic Name Dose Route Start Last Admin Trade Name Chin PRN Reason Stop Dose Admin Doxycycline Hyclate 100 mg 09/07/16 19:20 Vibramycin PO 09/07/16 19:21 ONETIME ONE - Re-Assessments/Exams Free Text/Narrative Re-Assessment/Exam: 09/07/16 19:14 On the patient's right great toenail he has a medial margin that is actively draining at this point the patient states to pull the nail fragment from there several weeks ago he had what sounds like a incision and drainage done with a partial resection of the nail plate. On his left great toe he has a portion of nail that is just hanging there this represents a lateral calf and the nail basically this was secured without difficulty and removed with gentle traction anesthesia was not required. Patient will be started on Bactrim DS one by mouth twice a day he is increased he did do Epsom salts soaks for 5 times a day followup with Dr. Marcelino this next week. Departure - Departure Time of Disposition: 19:15 Disposition: Home, Self-Care 01 Clinical Impression: Ingrown right greater toenail, Avulsion of toenail of left foot - Discharge Information Prescriptions: Doxycycline Hyclate 100 mg PO Q12H #14 tablet. Referrals: Andrew Wynne MD [Primary Care Provider] - Forms: ED Department Discharge Additional Instructions: Return to the emergency room with any questions or problems. Given started on doxycycline this is an antibiotic you should have received one dose in the emergency room picker tender her prescription in the morning and take until gone one twice daily. Followup with Dr. Marcelino at the end of this next week.
[2016-09-07] MEDS ORDERED: Doxycycline 100 MG Cap PO ONE (19:20)
== END 2016-09-07 19:51 | disposition home or self-care (01) ==
LOC: JD.ED 18:19
DX: S91.202A Unspecified open wound of left great toe with damage to nail, initial encounter (principal); L60.0 Ingrowing nail; I10 Essential (primary) hypertension; K21.9 Gastro-esophageal reflux disease without esophagitis; F41.8 Other specified anxiety disorders; F17.210 Nicotine dependence, cigarettes, uncomplicated; Z90.49 Acquired absence of other specified parts of digestive tract; Z98.890 Other specified postprocedural states; Z96.0 Presence of urogenital implants; Z79.899 Other long term (current) drug therapy; Z88.5 Allergy status to narcotic agent
CPT/HCPCS: 99283; A9270

== ENCOUNTER 2016-11-24 17:17 | Emergency (ER) | payer MEDICAID ==
--- NOTE | 2016-11-24 18:42 | EDM.PDOC ---
ED HPI GENERAL MEDICAL PROBLEM - General Chief Complaint: Behavioral/Psych Stated Complaint: PSYCH EVAL Time Seen by Provider: 11/24/16 17:43 Source of Information: Reports: Patient, RN Notes Reviewed History Limitations: Reports: No Limitations - History of Present Illness INITIAL COMMENTS - FREE TEXT/NARRATIVE: The patient states that he has been feeling somewhat depressed, in a funk, for about a week. He states that he has a history of depression, and was on Cymbalta for several months before self discontinuing it about 2-3 months ago because he states that he was feeling better. He states that he is feeling generally fatigued and tired. His appetite is adequate, but the quality of the food that he is eating is poor ([employer]). He states that he has difficulty holding a job, because he doesn't like them, therefore simply doesn't show up for work. He states that he called [facility] today, and was instructed to come to the ED for evaluation. The patient states that he is not feeling suicidal or homicidal, and he states that he does not have a history of ever having attempted suicide previously. The patient's Psychiatrist is Dr. Sanchez. He states that he last saw her about 2 months ago, and has an appointment to see her again in about 2 weeks. The patient has a known history of opioid and benzodiazepine abuse. The patient is currently on Klonopin per Dr. Sanchez, who may be tapering him off it. He states that he has not had an opioid since approximately May 2016, marijuana since February 2016, or alcohol since last summer. - Related Data Allergies Allergy/AdvReac Type Severity Reaction Status Date / Time codeine Allergy Intermediate Itching Verified 09/07/16 18:40 meperidine HCl [From Demerol] Allergy Intermediate Itching Verified 09/07/16 18: 40 Home Meds: Home Meds Meloxicam 7.5 mg PO DAILY PRN 03/26/15 [History] Losartan/Hydrochlorothiazide [Losartan-HCTZ 100-25 MG] 1 tab PO DAILY 08/27/15 [ History] cloNIDine [Catapres] 0.1 mg PO Q12HR #20 tablet 08/27/15 [Rx] Mirtazapine 30 mg PO DAILY 09/10/15 [History] Pantoprazole [Protonix] 40 mg PO ACBREAKFAST 03/18/16 [History] ClonazePAM [KlonoPIN] 0.5 mg PO DAILY 08/21/16 [History] Sertraline HCl [Zoloft] 100 mg PO DAILY 08/21/16 [History] Doxycycline Hyclate 100 mg PO Q12H #14 tablet. 09/07/16 [Rx] Past Medical History Cardiovascular History: Reports: Hypertension Gastrointestinal History: Reports: Colon Polyp, Gastritis, GERD Genitourinary History: Reports: BPH, Renal Calculus Musculoskeletal History: Reports: Arthritis, Back Pain, Chronic Psychiatric History: Reports: Addiction (opioids and benzodiazepines), Anxiety, Depression - Infectious Disease History Infectious Disease History: Reports: Chicken Pox, Hepatitis C, Measles - Past Surgical History GI Surgical History: Reports: Appendectomy Male Surgical History: Reports: Lithotripsy (ESWL), Ureteral Stent Social & Family History - Family History Family Medical History: Noncontributory - Tobacco Use Smoking Status *Q: Current Every Day Smoker Years of Tobacco use: 30 Packs/Tins Daily: 0.5 - Caffeine Use Caffeine Use: Reports: Coffee - Alcohol Use Alcohol Use History: Yes Days Per Week of Alcohol Use: 0 Number of Drinks Per Day: 3 Total Drinks Per Week: 0 Date/Time of Last Drink Comment: Summer 2015 Alcohol Use Frequency: Binges - Recreational Drug Use Recreational Drug Use: Yes Drug Use in Last 12 Months: Yes Recreational Drug Type: Reports: Ativan, Benzodiazepines, Dilaudid, Marijuana/ Hashish, Oxycodone, Vicodin Recreational Drug Use Frequency: Binges - Living Situation & Occupation Living situation: Reports: Single, Alone Occupation: Unemployed ED ROS GENERAL - Review of Systems Review Of Systems: See Below Constitutional: Reports: No Symptoms HEENT: Reports: No Symptoms Respiratory: Reports: No Symptoms Cardiovascular: Reports: No Symptoms Endocrine: Reports: No Symptoms GI/Abdominal: Reports: No Symptoms : Reports: No Symptoms Musculoskeletal: Reports: No Symptoms Skin: Reports: No Symptoms Neurological: Reports: No Symptoms Psychiatric: Reports: Depression Hematologic/Lymphatic: Reports: No Symptoms Immunologic: Reports: No Symptoms ED EXAM, GENERAL - Physical Exam Exam: See Below Exam Limited By: No Limitations General Appearance: Alert, WD/WN, No Apparent Distress Eye Exam: Bilateral Eye: Normal Inspection Ears: Normal External Exam, Hearing Grossly Normal Nose: Normal Inspection, No Blood Throat/Mouth: Normal Inspection, Normal Lips, Normal Voice, No Airway Compromise Head: Atraumatic, Normocephalic Neck: Normal Inspection, Full Range of Motion Respiratory/Chest: No Respiratory Distress, Lungs Clear, Normal Breath Sounds, No Accessory Muscle Use Cardiovascular: Normal Peripheral Pulses, Regular Rate, Rhythm, No Gallop, No JVD, No Murmur, No Rub Peripheral Pulses: 4+: Radial (L), Radial (R) GI/Abdominal: Normal Bowel Sounds, Soft, Non-Tender, No Organomegaly, No Distention, No Abnormal Bruit, No Mass (Male) Exam: Deferred Rectal (Males) Exam: Deferred Back Exam: Normal Inspection, Full Range of Motion, NT Extremities: Normal Inspection, Normal Range of Motion, No Pedal Edema, Normal Capillary Refill Neurological: Alert, Oriented, Normal Cognition, No Motor/Sensory Deficits Psychiatric: Normal Affect, Depressed Mood Skin Exam: Warm, Dry, Intact, Normal Color, No Rash Lymphatic: No Adenopathy Course - Vital Signs Last Recorded V/S: Last Vital Signs Temp 37.1 C 11/24/16 17:22 Pulse 85 11/24/16 18:45 Resp 16 11/24/16 18:45 BP 107/80 11/24/16 18:45 Pulse Ox 96 11/24/16 18:45 - Re-Assessments/Exams Free Text/Narrative Re-Assessment/Exam: 11/24/16 18:38 The patient states that he feels depressed, but specifically denies suicidal ideation or homicidal ideation. Further, the patient has no history of harming himself. Psychiatric hospitalization is not required. The patient will call Dr. Sanchez tomorrow, to see if he can see her earlier than his currently scheduled appointment in about 2 weeks. Departure - Departure Time of Disposition: 18:39 Disposition: Home, Self-Care 01 Condition: Good Clinical Impression: Depression, Anhedonia - Discharge Information Referrals: Medina Sanchez MD [Ordering Only Provider] - Andrew Wynne MD [Primary Care Provider] - Forms: ED Department Discharge Additional Instructions: You were seen in the emergency room for depression and lack of enjoyment with life. As you are not suicidal or homicidal, psychiatric hospitalization is not needed. We recommend you follow-up with your Psychiatrist, Dr. Sanchez, tomorrow. Alternatively, you could contact Dr. Wynne. If any other problems, please do not hesitate to return to the ER.
[2016-11-24 18:50] VITALS: BP 107/80
== END 2016-11-24 18:52 | disposition home or self-care (01) ==
LOC: JD.ED 17:17
DX: F32.9 Major depressive disorder, single episode, unspecified (principal); R45.84 Anhedonia; K21.9 Gastro-esophageal reflux disease without esophagitis; M19.90 Unspecified osteoarthritis, unspecified site; F41.9 Anxiety disorder, unspecified; F17.210 Nicotine dependence, cigarettes, uncomplicated; Z87.442 Personal history of urinary calculi; Z79.899 Other long term (current) drug therapy; Z88.5 Allergy status to narcotic agent; Z88.8 Allergy status to other drugs, medicaments and biological substances; Z90.49 Acquired absence of other specified parts of digestive tract; Z98.890 Other specified postprocedural states
CPT/HCPCS: 99282; 99284

== ENCOUNTER 2016-12-05 18:20 | Emergency (ER) | payer MEDICAID ==
[2016-12-05 18:46] VITALS: BP 154/86
--- NOTE | 2016-12-05 19:55 | EDM.PDOC ---
ED HPI GENERAL MEDICAL PROBLEM - General Chief Complaint: Respiratory Problem Stated Complaint: SOB Time Seen by Provider: 12/05/16 19:07 Source of Information: Reports: Patient History Limitations: Reports: No Limitations - History of Present Illness INITIAL COMMENTS - FREE TEXT/NARRATIVE: This is a 61-year-old male. He comes tonight because he is having anxiety and depression. He has a history of anxiety and is on some clonazepam from his family doctor for the anxiety. Apparently over the last few days if not weeks he's been sitting around the house thinking of all the bad things are going to happen to home. He has not been out and walking he has not been drinking enough fluids. 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 He says he is going to talk to his plant nursery worker tomorrow and try to talk through what he is feeling. I asked him during this interview at least 4-5 times whether he was suicidal but he denies this now. The patient when asked what was bothering him or causing his anxiety would tell me that he does not know. I again quizzed him multiple times during the interview as to what is causing his depression and his anxiety and he continually tells me that he does not know and yet he wants to talk to his plant nursery worker about it and talk to his doctor about it. During the interview I encouraged him to get out and walk in the fresh air and drink lots of water and juices since its physical activity rather than laying in bed or sitting in a chair that will make him better. The patient denies any recent illnesses no colds no cough no sore throat no congestion no nausea no vomiting no diarrhea no abdominal pain and no extremity pain. He does however admit that when he bends over to tie his shoes he get short of breath. And he states he's here because of the shortness of breath and yet he does not appear to be short of breath with no respiratory symptoms. His pulse ox on room air is 96-97%. He does smoke about half a pack of cigarettes per day. Generalized Pain Score (Numeric/FACES): 5 - Related Data Allergies Allergy/AdvReac Type Severity Reaction Status Date / Time codeine Allergy Intermediate Itching Verified 12/05/16 18:43 meperidine HCl [From Demerol] Allergy Intermediate Itching Verified 12/05/16 18: 43 Home Meds: Home Meds Meloxicam 7.5 mg PO DAILY PRN 03/26/15 [History] Losartan/Hydrochlorothiazide [Losartan-HCTZ 100-25 MG] 1 tab PO DAILY 08/27/15 [ History] cloNIDine [Catapres] 0.1 mg PO Q12HR #20 tablet 08/27/15 [Rx] Mirtazapine 30 mg PO DAILY 09/10/15 [History] Pantoprazole [Protonix] 40 mg PO ACBREAKFAST 03/18/16 [History] ClonazePAM [KlonoPIN] 0.5 mg PO DAILY 08/21/16 [History] Sertraline HCl [Zoloft] 100 mg PO DAILY 08/21/16 [History] Doxycycline Hyclate 100 mg PO Q12H #14 tablet. 09/07/16 [Rx] DULoxetine HCl [Cymbalta] 60 mg PO DAILY #30 capsule. 12/05/16 [Rx] Past Medical History - Past Health History Medical/Surgical History: Denies Medical/Surgical History HEENT History: Reports: Other (See Below) Other HEENT History: dental issues. 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, opiods Hematologic History: Reports: Other (See Below) Other Hematologic History: HEP C - Infectious Disease History Infectious Disease History: Reports: Chicken Pox, Hepatitis C, Measles - Past Surgical History GI Surgical History: Reports: Appendectomy Male Surgical History: Reports: Lithotripsy (ESWL), Ureteral Stent Social & Family History - Family History Family Medical History: Noncontributory - Tobacco Use Smoking Status *Q: Current Every Day Smoker Years of Tobacco use: 45 Packs/Tins Daily: 0.5 Used Tobacco, but Quit: No Month Tobacco Last Used: august Second Hand Smoke Exposure: No - Caffeine Use Caffeine Use: Reports: Coffee - Alcohol Use Days Per Week of Alcohol Use: 0 Number of Drinks Per Day: 3 Total Drinks Per Week: 0 - Recreational Drug Use Recreational Drug Use: No Drug Use in Last 12 Months: Yes Recreational Drug Type: Reports: Ativan, Benzodiazepines, Dilaudid, Marijuana/ Hashish, Oxycodone, Vicodin Other Recreational Drug Type: over use of percocet and hydrocodone and ativan Recreational Drug Use Frequency: Binges - Living Situation & Occupation Living situation: Reports: Single, Alone Occupation: Unemployed ED ROS GENERAL - Review of Systems Review Of Systems: See Below Constitutional: Reports: Malaise, Fatigue. Denies: Fever, Chills HEENT: Reports: No Symptoms Respiratory: Reports: Shortness of Breath Cardiovascular: Reports: No Symptoms Endocrine: Reports: No Symptoms GI/Abdominal: Reports: No Symptoms : Reports: No Symptoms Musculoskeletal: Reports: No Symptoms Skin: Reports: No Symptoms Neurological: Reports: No Symptoms Psychiatric: Reports: Anxiety, Depression Hematologic/Lymphatic: Reports: No Symptoms ED EXAM, GENERAL - Physical Exam Exam: See Below Exam Limited By: No Limitations General Appearance: Alert, WD/WN, Anxious, Other (And depressed) Eye Exam: Bilateral Eye: Normal Inspection Ears: Normal External Exam Nose: Normal Inspection Throat/Mouth: Normal Inspection, Normal Lips, Normal Voice, No Airway Compromise Head: Atraumatic, Normocephalic Neck: Supple Respiratory/Chest: No Respiratory Distress, Lungs Clear, Normal Breath Sounds. No: Rhonchi, Wheezing Cardiovascular: Regular Rate, Rhythm, No Murmur GI/Abdominal: Soft, Non-Tender Back Exam: Full Range of Motion Extremities: Normal Inspection, Normal Range of Motion, No Pedal Edema Neurological: Alert, Oriented Psychiatric: Depressed Mood Skin Exam: Warm, Dry Course - Vital Signs Last Recorded V/S: Last Vital Signs Temp 97.6 F 12/05/16 18:43 Pulse 88 12/05/16 18:43 Resp 16 12/05/16 18:43 BP 154/86 H 12/05/16 18:43 Pulse Ox 97 12/05/16 18:43 - Orders/Labs/Meds Orders: Active Orders 24 hr Category Date Time Status Chest 2V [CR] Stat Exams 12/05/16 19:26 Taken Labs: Laboratory Tests 12/05/16 12/05/16 Range/Units 19:45 19:45 WBC 9.47 H (4.23-9.07) K/mm3 RBC 4.77 (4.63-6.08) M/mm3 Hgb 14.6 (13.7-17.5) gm/L Hct 43.1 (40.1-51.0) % MCV 90.4 (79.0-92.2) fl MCH 30.6 (25.7-32.2) pg MCHC 33.9 (32.2-35.5) g/dl RDW Std Deviation 45.2 H (35.1-43.9) fL Plt Count 303 (163-337) K/mm3 MPV 9.0 L (9.4-12.3) fl Neut % (Auto) 57.9 (34.0-67.9) % Lymph % (Auto) 26.6 (21.8-53.1) % [place] % (Auto) 9.8 (5.3-12.2) % Eos % (Auto) 5.0 (0.8-7.0) Baso % (Auto) 0.4 (0.1-1.2) % Neut # (Auto) 5.48 H (1.78-5.38) K/mm3 Lymph # (Auto) 2.52 (1.32-3.57) K/mm3 [place] # (Auto) 0.93 H (0.30-0.82) K/mm3 Eos # (Auto) 0.47 (0.04-0.54) K/mm3 Baso # (Auto) 0.04 (0.01-0.08) K/mm3 Sodium 140 (136-145) mEq/L Potassium 4.5 (3.5-5.1) mEq/L Chloride 107 (98-107) mEq/L Carbon Dioxide 23 (21-32) mEq/L Anion Gap 14.5 (5-15) BUN 21 H (7-18) mg/dL Creatinine 1.4 H (0.7-1.3) mg/dL Est Cr Clr Drug Dosing TNP Estimated GFR (MDRD) 52 (>60) mL/min BUN/Creatinine Ratio 15.0 (14-18) Glucose 106 (80-115) mg/dL Calcium 9.2 (8.5-10.1) mg/dL Total Bilirubin 0.4 (0.2-1.0) mg/dL AST 31 (15-37) U/L ALT 54 (16-63) U/L Alkaline Phosphatase 98 (46-116) U/L Total Protein 7.5 (6.4-8.2) g/dl Albumin 3.5 (3.4-5.0) g/dl Globulin 4.0 gm/dL Albumin/Globulin Ratio 0.9 L (1-2) - Radiology Interpretation Free Text/Narrative:: Chest x-ray does not show any acute changes may be some mild emphysematous changes are noted but no infiltrates or acute changes. - Re-Assessments/Exams Free Text/Narrative Re-Assessment/Exam: 12/05/16 20:45 I spoke to the patient at length regarding follow-up with his plant nursery worker as well as his doctor. He indicates he was on Cymbalta at one time and it seemed to work really well but then he had his doctor take him off of it and after that things seemed to get worse. He wants me to start him back on the Cymbalta which I will and will give him a dose tonight and a prescription for 30 days but he is following up with his family doctor on Wednesday. I also indicated that if the clonazepam is too strong that he needs to cut it in half and just take half when he feels the anxiety instead of the full pill. Departure - Departure Time of Disposition: 20:48 Disposition: Home, Self-Care 01 Condition: Fair Clinical Impression: Depressive disorder, Anxiety - Discharge Information Prescriptions: DULoxetine HCl [Cymbalta] 60 mg PO DAILY #30 capsule. Referrals: Andrew Wynne MD [Primary Care Provider] - Forms: ED Department Discharge Additional Instructions: Get the Cymbalta prescription filled tomorrow and take one a day, usually clonazepam as needed for the anxiety and it makes you too sleepy or tired then cut it in half and just take half a pill, follow-up with your plant nursery worker tomorrow and talk about your situation and feelings, see your family doctor on Wednesday as scheduled and also talked to them about what you're feeling, I would also encourage you to drink more water and juices and avoid sodas and caffeine, also if you can get outside and walk in the fresh air whenever you're feeling especially down, return to the ER if your symptoms seem to worsen - My Orders Last 24 Hours: My Active Orders 12/05/16 19:26 Chest 2V [CR] Stat - Assessment/Plan Last 24 Hours: My Active Orders 12/05/16 19:26 Chest 2V [CR] Stat
[2016-12-05] MEDS ORDERED: DULoxetine 30 MG Cap PO ONE (20:46)
--- NOTE | 2016-12-06 18:24 | CR ---
Chest: Two views of the chest were obtained. Comparison: Previous chest x-ray of 08/27/16. Heart size and mediastinum are normal. Parenchymal nodule is noted within the right upper chest which appears stable and compatible with calcification. Lungs otherwise are clear but slightly hyperinflated. Mild degenerative change is noted within the spine. Impression: 1. Slight emphysematous change. 2. Other incidental findings. Nothing acute is appreciated. Diagnostic code #2
== END 2016-12-05 21:10 | disposition home or self-care (01) ==
LOC: JD.ED 18:20
DX: F41.9 Anxiety disorder, unspecified (principal); F32.9 Major depressive disorder, single episode, unspecified; I10 Essential (primary) hypertension; F17.210 Nicotine dependence, cigarettes, uncomplicated; K21.9 Gastro-esophageal reflux disease without esophagitis; Z90.49 Acquired absence of other specified parts of digestive tract; Z96.0 Presence of urogenital implants; Z98.890 Other specified postprocedural states; Z79.899 Other long term (current) drug therapy; Z88.5 Allergy status to narcotic agent; Z88.6 Allergy status to analgesic agent
CPT/HCPCS: 36415; 71020; 80053; 85025; 99284; A9270; 99283

== ENCOUNTER 2017-01-21 18:12 | Emergency (ER) | payer MEDICAID ==
--- NOTE | 2017-01-21 19:01 | EDM.PDOC ---
ED HPI GENERAL MEDICAL PROBLEM - General Chief Complaint: Cardiovascular Problem Stated Complaint: High blood pressure Time Seen by Provider: 01/21/17 18:40 Source of Information: Reports: Patient, RN Notes Reviewed History Limitations: Reports: No Limitations - History of Present Illness INITIAL COMMENTS - FREE TEXT/NARRATIVE: 61 year old male presents to ED with high blood pressure. Patient had blood pressure checked this evening at [facility] and reported it to be 190/100. He denies vision changes, headaches, nausea/vomiting, chest pain. Patient reports he saw Dr. Fitch last month who recommended a taper off clonidine due to low blood pressure 80/50. Last week he reports having blood pressure in 190/ 100 per machine at pharmacy and nursing staff at [facility]. He reports he was told to restart clonidine at half the previous dose BID, and took 2 doses today. He was restarted on the clonidine about 1 week ago. He has an appointment with Dr. Fitch in the morning for f/u. Onset: Gradual Onset Date: 01/14/17 Duration: Intermittent Associated Symptoms: Denies: Chest Pain, Headaches, Nausea/Vomiting, Shortness of Breath, Syncope - Related Data Allergies Allergy/AdvReac Type Severity Reaction Status Date / Time codeine Allergy Intermediate Itching Verified 01/21/17 18:26 meperidine HCl [From Demerol] Allergy Intermediate Itching Verified 01/21/17 18: 26 Home Meds: Home Meds Meloxicam 7.5 mg PO DAILY PRN 03/26/15 [History] Losartan/Hydrochlorothiazide [Losartan-HCTZ 100-25 MG] 1 tab PO DAILY 08/27/15 [ History] Mirtazapine 30 mg PO DAILY 09/10/15 [History] Pantoprazole [Protonix] 40 mg PO ACBREAKFAST 03/18/16 [History] ClonazePAM [KlonoPIN] 0.5 mg PO BID 08/21/16 [History] DULoxetine HCl [Cymbalta] 60 mg PO DAILY #30 capsule. 12/05/16 [Rx] cloNIDine [Catapres] 0.5 tab PO Q12HR 01/21/17 [History] Past Medical History - Past Health History Medical/Surgical History: Denies Medical/Surgical History HEENT History: Reports: Other (See Below) Other HEENT History: dental issues. 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, opiods Hematologic History: Reports: Other (See Below) Other Hematologic History: HEP C - Infectious Disease History Infectious Disease History: Reports: Chicken Pox, Hepatitis C, Measles - Past Surgical History GI Surgical History: Reports: Appendectomy Male Surgical History: Reports: Lithotripsy (ESWL), Ureteral Stent Social & Family History - Family History Family Medical History: Noncontributory - Tobacco Use Smoking Status *Q: Current Every Day Smoker Years of Tobacco use: 47 Packs/Tins Daily: 0.5 Used Tobacco, but Quit: No Month Tobacco Last Used: august Second Hand Smoke Exposure: No - Caffeine Use Caffeine Use: Reports: Coffee - Alcohol Use Days Per Week of Alcohol Use: 0 (reports last alcohol intake as 10/11/16) Number of Drinks Per Day: 3 Total Drinks Per Week: 0 - Recreational Drug Use Recreational Drug Use: No Drug Use in Last 12 Months: Yes Recreational Drug Type: Reports: Ativan, Benzodiazepines, Dilaudid, Marijuana/ Hashish, Oxycodone, Vicodin Other Recreational Drug Type: over use of percocet and hydrocodone and ativan Recreational Drug Use Frequency: Binges - Living Situation & Occupation Living situation: Reports: Single, Alone Occupation: Unemployed ED ROS GENERAL - Review of Systems Review Of Systems: See Below Constitutional: Denies: Fever, Chills, Fatigue HEENT: Denies: Vision Change Respiratory: Reports: No Symptoms. Denies: Shortness of Breath Cardiovascular: Reports: Blood Pressure Problem. Denies: Chest Pain, Dyspnea on Exertion, Edema, Palpitations GI/Abdominal: Reports: No Symptoms. Denies: Diarrhea, Nausea, Vomiting Musculoskeletal: Reports: Back Pain (chronic, patient reports as tolerable on current medication regimen), Leg Pain (chronic, patient reports pain as tolerable on current medication regimen) Psychiatric: Reports: Anxiety ED EXAM, GENERAL - Physical Exam Exam: See Below Exam Limited By: No Limitations General Appearance: Alert, No Apparent Distress Respiratory/Chest: No Respiratory Distress, Lungs Clear Cardiovascular: Regular Rate, Rhythm, No Edema, No Murmur Peripheral Pulses: 2+: Radial (L), Radial (R) GI/Abdominal: Normal Bowel Sounds, Soft, Non-Tender Neurological: Alert, Oriented, Normal Cognition Psychiatric: Normal Affect, Normal Mood Course - Vital Signs Text/Narrative:: 61 year old male presents to ED with high blood pressure. Patient had blood pressure checked this evening at [facility] and reported it to be 190/100. He denies vision changes, headaches, nausea/vomiting, chest pain. Patient reports he saw Dr. Fitch last month who recommended a taper off clonidine due to low blood pressure 80/50. Last week he reports having blood pressure in 190/ 100 per machine at pharmacy and nursing staff at [facility]. He reports he was told to restart clonidine at half the previous dose BID, and took 2 doses today. He was restarted on the clonidine about 1 week ago. He has an appointment with Dr. Fitch in the morning for f/u. Last Recorded V/S: Last Vital Signs Temp 98 F 01/21/17 18:20 Pulse 93 01/21/17 18:20 Resp 16 01/21/17 18:20 BP 156/97 H 01/21/17 18:20 Pulse Ox 100 01/21/17 18:20 - Re-Assessments/Exams Free Text/Narrative Re-Assessment/Exam: Exam is normal. Patient has no evidence of end-organ involvement. His BP improved to 130s systolic without any intervention. He has an appointment with Dr. Fitch in the morning. He was instructed to keep this appointment. He was also instructed to continue his clonidine twice a day as directed by Dr. Fitch. Departure - Departure Time of Disposition: 19:16 Disposition: Home, Self-Care 01 Condition: Good Clinical Impression: Hypertension Qualifiers: Hypertension type: essential hypertension Qualified Code(s): I10 - Essential ( primary) hypertension Instructions: Hypertension, [id number] Referrals: Talha Fitch MD [Primary Care Provider] - Forms: ED Department Discharge Additional Instructions: Follow-up with Dr. Fitch in the morning Return to ER as needed
[2017-01-21 19:34] VITALS: BP 136/87
== END 2017-01-21 19:30 | disposition home or self-care (01) ==
LOC: JD.ED 18:12
DX: I10 Essential (primary) hypertension (principal); K21.9 Gastro-esophageal reflux disease without esophagitis; F17.210 Nicotine dependence, cigarettes, uncomplicated; Z88.5 Allergy status to narcotic agent; Z87.442 Personal history of urinary calculi; Z88.8 Allergy status to other drugs, medicaments and biological substances; Z79.899 Other long term (current) drug therapy
CPT/HCPCS: 99283

== ENCOUNTER 2017-02-19 10:27 | Emergency (ER) | payer MEDICAID ==
[2017-02-19 11:09] VITALS: BP 163/87
--- NOTE | 2017-02-19 11:48 | EDM.PDOC ---
ED HPI GENERAL MEDICAL PROBLEM - General Chief Complaint: Flank Pain Stated Complaint: FLANK PAIN Time Seen by Provider: 02/19/17 11:24 Source of Information: Reports: Patient History Limitations: Reports: No Limitations - History of Present Illness INITIAL COMMENTS - FREE TEXT/NARRATIVE: Patient is 61-year-old male who states after having a chiropractor adjustment this past Wednesday started experiencing increasing pain to his left flank and low back. He did have some hematuria that has since resolved. He does have history kidney stones with history of passing multiple stones in the past. He's been seen multiple times here in the ED for kidney stones with also concerns for drug seeking behavior. In addition has a history of anxiety is on clonazepam. States pain is currently 8 out of 10 although he is sitting upright in bed with no acute distress present. Denies any fever/chills, nausea/vomiting , chest pain, shortness breath, abdominal pain, dysuria, or any additional complaints. He has not taken anything for the discomfort. Denies any alcohol or narcotic use. Treatments PIPEMAN: Reports: Other (see below) Other Treatments PIPEMAN: tylenol Left Flank Pain Score (Numeric/FACES): 8 - Related Data Allergies Allergy/AdvReac Type Severity Reaction Status Date / Time codeine Allergy Intermediate Itching Verified 01/21/17 18:26 meperidine HCl [From Demerol] Allergy Intermediate Itching Verified 01/21/17 18: 26 Home Meds: Home Meds Meloxicam 7.5 mg PO DAILY PRN 03/26/15 [History] Losartan/Hydrochlorothiazide [Losartan-HCTZ 100-25 MG] 1 tab PO DAILY 08/27/15 [ History] Mirtazapine 30 mg PO DAILY 09/10/15 [History] Pantoprazole [Protonix] 40 mg PO ACBREAKFAST 03/18/16 [History] ClonazePAM [KlonoPIN] 0.5 mg PO BID 08/21/16 [History] DULoxetine HCl [Cymbalta] 60 mg PO DAILY #30 capsule. 12/05/16 [Rx] cloNIDine [Catapres] 0.5 tab PO Q12HR 01/21/17 [History] Orphenadrine [Norflex] 100 mg PO BID PRN #10 tab.er 02/19/17 [Rx] Past Medical History - Past Health History Medical/Surgical History: Denies Medical/Surgical History HEENT History: Reports: Other (See Below) Other HEENT History: dental issues. 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, opiods Hematologic History: Reports: Other (See Below) Other Hematologic History: HEP C - Infectious Disease History Infectious Disease History: Reports: Chicken Pox, Hepatitis C, Measles - Past Surgical History GI Surgical History: Reports: Appendectomy Male Surgical History: Reports: Lithotripsy (ESWL), Ureteral Stent Social & Family History - Family History Family Medical History: Noncontributory - Tobacco Use Smoking Status *Q: Current Every Day Smoker Years of Tobacco use: 40 Packs/Tins Daily: 0.5 Used Tobacco, but Quit: No Month Tobacco Last Used: august Second Hand Smoke Exposure: No - Caffeine Use Caffeine Use: Reports: Coffee - Alcohol Use Days Per Week of Alcohol Use: 0 (reports last alcohol intake as 10/11/16) Number of Drinks Per Day: 3 Total Drinks Per Week: 0 - Recreational Drug Use Recreational Drug Use: No Drug Use in Last 12 Months: Yes Recreational Drug Type: Reports: Ativan, Benzodiazepines, Dilaudid, Marijuana/ Hashish, Oxycodone, Vicodin Other Recreational Drug Type: over use of percocet and hydrocodone and ativan Recreational Drug Use Frequency: Binges - Living Situation & Occupation Living situation: Reports: Single, Alone Occupation: Unemployed ED ROS GENERAL - Review of Systems Review Of Systems: ROS reveals no pertinent complaints other than HPI. ED EXAM, RENAL/ - Physical Exam Exam: See Below Exam Limited By: No Limitations General Appearance: Alert, WD/WN, No Apparent Distress Ears: Hearing Grossly Normal Nose: Normal Inspection Throat/Mouth: Normal Voice, No Airway Compromise Neck: Normal Inspection, Supple Respiratory/Chest: No Respiratory Distress, Lungs Clear, Normal Breath Sounds, No Accessory Muscle Use Cardiovascular: Normal Peripheral Pulses, Regular Rate, Rhythm GI/Abdominal: Normal Bowel Sounds, Soft, Non-Tender, No Organomegaly, No Distention, No Mass Back Exam: Normal Inspection, Full Range of Motion, Other (pain to the low back) . No: CVA Tenderness (L), CVA Tenderness (R), Paraspinal Tenderness, Vertebral Tenderness Extremities: Normal Inspection, Non-Tender, No Pedal Edema, Normal Capillary Refill Neurological: Alert, Oriented, CN II-XII Intact, Normal Cognition, No Motor/ Sensory Deficits Psychiatric: Normal Affect, Normal Mood Skin Exam: Warm, Dry, Intact, Normal Color Course - Vital Signs Last Recorded V/S: Last Vital Signs Temp 97.9 F 02/19/17 11:07 Pulse 75 02/19/17 11:07 Resp 20 02/19/17 11:07 BP 163/87 H 02/19/17 11:07 Pulse Ox 97 02/19/17 11:07 - Orders/Labs/Meds Labs: Laboratory Tests 02/19/17 02/19/17 Range/Units 12:25 12:25 WBC 8.80 (4.23-9.07) K/mm3 RBC 4.63 (4.63-6.08) M/mm3 Hgb 14.3 (13.7-17.5) gm/L Hct 43.0 (40.1-51.0) % MCV 92.9 H (79.0-92.2) fl MCH 30.9 (25.7-32.2) pg MCHC 33.3 (32.2-35.5) g/dl RDW Std Deviation 45.6 H (35.1-43.9) fL Plt Count 255 (163-337) K/mm3 MPV 9.2 L (9.4-12.3) fl Neut % (Auto) 56.8 (34.0-67.9) % Lymph % (Auto) 26.9 (21.8-53.1) % [place] % (Auto) 9.3 (5.3-12.2) % Eos % (Auto) 6.0 (0.8-7.0) Baso % (Auto) 0.8 (0.1-1.2) % Neut # (Auto) 4.99 (1.78-5.38) K/mm3 Lymph # (Auto) 2.37 (1.32-3.57) K/mm3 [place] # (Auto) 0.82 (0.30-0.82) K/mm3 Eos # (Auto) 0.53 (0.04-0.54) K/mm3 Baso # (Auto) 0.07 (0.01-0.08) K/mm3 Sodium 140 (136-145) mEq/L Potassium 5.5 H (3.5-5.1) mEq/L Chloride 108 H (98-107) mEq/L Carbon Dioxide 26 (21-32) mEq/L Anion Gap 11.5 (5-15) BUN 27 H (7-18) mg/dL Creatinine 1.4 H (0.7-1.3) mg/dL Est Cr Clr Drug Dosing 57.21 mL/min Estimated GFR (MDRD) 52 (>60) mL/min BUN/Creatinine Ratio 19.3 H (14-18) Glucose 111 (80-115) mg/dL Calcium 9.3 (8.5-10.1) mg/dL Total Bilirubin 0.3 (0.2-1.0) mg/dL AST 17 (15-37) U/L ALT 38 (16-63) U/L Alkaline Phosphatase 89 (46-116) U/L C-Reactive Protein < 0.2 (<1.0) mg/dL Total Protein 6.9 (6.4-8.2) g/dl Albumin 3.3 L (3.4-5.0) g/dl Globulin 3.6 gm/dL Albumin/Globulin Ratio 0.9 L (1-2) Meds: Medications Discontinued Medications Generic Name Dose Route Start Last Admin Trade Name Freq PRN Reason Stop Dose Admin Ketorolac Tromethamine 30 mg 02/19/17 13:06 02/19/17 13:38 Toradol IM 02/19/17 13:07 30 mg ONETIME ONE Administration Orphenadrine Citrate 100 mg 02/19/17 13:06 02/19/17 13:38 Norflex PO 02/19/17 13:07 100 mg ONETIME ONE Administration Tamsulosin HCl 0.4 mg 02/19/17 11:51 02/19/17 11:56 Flomax PO 02/19/17 11:52 0.4 mg ONETIME ONE Administration - Re-Assessments/Exams Free Text/Narrative Re-Assessment/Exam: Patient has a long history of kidney stones and narcotic use. Currently states his pain to 8 out of 10. Does not appear to be in distress. Vital signs are stable. Heart rate 75. Will obtain labs including CBC, chem 14, urine drug tox, CRP, and UA. Will evaluate when his last CT of his abdomen and pelvis was obtained to see if there is any large stones were present that may have passed causing his discomfort. 02/19/17 11:50 CT the abdomen and pelvis obtained June 27, 2016 revealed: Nonobstructing calculi within both kidneys with small parapelvic cysts within each kidney. No ureteral dilatation, ureteral stone or discrete solid mass seen within the kidneys. Nothing acute is identified on CT study of the abdomen and pelvis. No CVA change from prior CT exam other than passed the previously noted distal right ureter total stone. Ordered CT study of the abdomen and pelvis Renal Stone Protocol. 02/19/17 13:04 Labs reviewed: Potassium 5.5 which is mildly elevated above baseline. Patient has had in the past readings of 4.5, 5.1, 4.3, 5.2 etc. Sodium 140, AG 11.5, BUN 27, creatinine 1.4 which is baseline. Hemoglobin 14.3, white blood cell count 8.80, neutrophil percentage is 66.8, platelet count 255. CRP is pending. Patient is refusing urine sample. Ordered Toradol 30 mg IM and Norflex 100 milligrams by mouth. Suspect cause of pain is related to recent chiropractor adjustment. There is a probability patient has been passing stones but right now there is no stones showing obstruction. Thus will treat for muscle skeletal discomfort. With the above therapies. Will discharge patient home with instructions as documented. Departure - Departure Time of Disposition: 13:08 Disposition: Home, Self-Care 01 Condition: Good Clinical Impression: Low back pain Qualifiers: Chronicity: acute Back pain laterality: left Sciatica presence: without sciatica Qualified Code(s): M54.5 - Low back pain - Discharge Information Prescriptions: Orphenadrine [Norflex] 100 mg PO BID PRN #10 tab.er PRN Reason: Pain (Moderate 4-6) Instructions: Back Pain, Adult, [id number] Referrals: Talha Fitch MD [Primary Care Provider] - Forms: ED Department Discharge Additional Instructions: As discussed CT study did show multiple stones within both kidneys. Nothing showing obstruction at this time. You may have passed a kidney stone during this time with history of hematuria that apparently has resolved. Findings on examination though are concerning for possible musculoskeletal in nature with recent chiropractic adjustment. Thus tx at this time includes symptomatic care including refraining from any activities that cause worsening pain, warm compresses to affected area with ice following as needed. Continue taking the meloxicam as prescribed. Push the fluids. We'll also introduce Norflex 100 mg twice a day. Follow-up with PCP this coming Wednesday for reevaluation. Return to the ED for any new or worsening symptoms. Keep appointment with [facility] as scheduled. No driving today nor while taking the Norflex.
[2017-02-19] MEDS ORDERED: Tamsulosin 0.4 MG Cap.ER PO ONE (11:51)
--- NOTE | 2017-02-19 12:26 | CT ---
CT abdomen and pelvis Technique: Multiple axial sections were obtained from above the dome of the diaphragm inferiorly through the pubic symphysis. Intravenous and oral contrast not utilized. Study has been performed as a ureteral stone protocol. Comparison: Previous CT abdomen and pelvis exam of 06/27/16. Findings: Small nonobstructing stone is noted within the left kidney. Small nonobstructing stone is also noted within the right kidney. Ureters show no dilatation. No abnormal calcifications are seen along the course of the ureters. Visualized lung bases shows nothing acute. Noncontrast appearance of the liver and spleen are within normal limits. Pancreas appears within normal limits. Gallbladder shows no calcified gallstones. Adrenal glands show no nodule. Aorta shows atherosclerotic calcification which continues into the iliac vessels. No aneurysm is identified. No retroperitoneal adenopathy or mesenteric abnormalities are seen. No pelvic mass or adenopathy is seen. Calcifications are seen within the prostate gland. No inflammatory change or free fluid is seen. Appendix not visualized with certainty. Bone window settings were reviewed which shows slight degenerative change scattered within the spine. Impression: 1. Several small nonobstructing renal calculi, no ureteral dilatation or ureteral stone is seen. 2. Other incidental findings. Nothing acute is appreciated on noncontrast CT study of the abdomen and pelvis performed as a ureteral stone protocol. Diagnostic code #2
[2017-02-19] MEDS ORDERED: Ketorolac 30 MG/ML SDV IM ONE (13:06)
[2017-02-19] MEDS ORDERED: Orphenadrine 100 MG Tab.ER PO ONE (13:06)
== END 2017-02-19 13:43 | disposition home or self-care (01) ==
LOC: JD.ED 10:27
DX: M54.5 Low back pain (principal); I10 Essential (primary) hypertension; K21.9 Gastro-esophageal reflux disease without esophagitis; F32.9 Major depressive disorder, single episode, unspecified; F17.210 Nicotine dependence, cigarettes, uncomplicated; Z79.899 Other long term (current) drug therapy; Z88.5 Allergy status to narcotic agent; Z87.442 Personal history of urinary calculi
CPT/HCPCS: 36415; 74176; 80053; 85025; 86140; 96372; 99284; A9270; J1885; 99283

== ENCOUNTER 2017-03-21 17:12 | Emergency (ER) | payer MEDICAID ==
[2017-03-21 17:25] VITALS: BP 142/97
[2017-03-21] MEDS ORDERED: Ketorolac 60 MG/2 ML SDV IM ONE (18:47)
--- NOTE | 2017-03-21 18:51 | EDM.PDOC ---
ED HPI GENERAL MEDICAL PROBLEM - General Chief Complaint: Back Pain or Injury Stated Complaint: FELL OUTSIDE OF HOME AND HURT BACK Time Seen by Provider: 03/21/17 18:35 Source of Information: Reports: Patient History Limitations: Reports: No Limitations - History of Present Illness INITIAL COMMENTS - FREE TEXT/NARRATIVE: Patient is a 61-year-old male who presents ED complaining of left posterior rib and lateral rib pain after falling earlier today. Patient states approximately 3 hours ago he slipped on ice falling on the affected side. Took 2 Tylenol with minimal relief for the discomfort. States it hurts to take a deep breath and also with palpation. Patient did drive himself to the ED. Denies any loss consciousness, neck pain, pain to the thoracic lumbar spine, bruising, swelling , hemoptysis, shortness of breath, chest pain, abdominal pain, numbness or tingling to extremities, or any additional complaints. Middle Back Pain Score (Numeric/FACES): 8 - Related Data Allergies Allergy/AdvReac Type Severity Reaction Status Date / Time codeine Allergy Intermediate Itching Verified 03/21/17 17:20 meperidine HCl [From Demerol] Allergy Intermediate Itching Verified 03/21/17 17: 20 Home Meds: Home Meds Meloxicam 7.5 mg PO DAILY PRN 03/26/15 [History] Losartan/Hydrochlorothiazide [Losartan-HCTZ 100-25 MG] 1 tab PO DAILY 08/27/15 [ History] Mirtazapine 30 mg PO DAILY 09/10/15 [History] Pantoprazole [Protonix] 40 mg PO ACBREAKFAST 03/18/16 [History] ClonazePAM [KlonoPIN] 0.5 mg PO BID 08/21/16 [History] DULoxetine HCl [Cymbalta] 60 mg PO DAILY #30 capsule.dr 12/05/16 [Rx] cloNIDine [Catapres] 0.5 tab PO Q12HR 01/21/17 [History] Orphenadrine [Norflex] 100 mg PO BID PRN #10 tab.er 02/19/17 [Rx] Past Medical History - Past Health History Medical/Surgical History: Denies Medical/Surgical History HEENT History: Reports: Other (See Below) Other HEENT History: dental issues. 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, opiods Hematologic History: Reports: Other (See Below) Other Hematologic History: HEP C - Infectious Disease History Infectious Disease History: Reports: Chicken Pox, Hepatitis C, Measles - Past Surgical History GI Surgical History: Reports: Appendectomy Male Surgical History: Reports: Lithotripsy (ESWL), Ureteral Stent Social & Family History - Family History Family Medical History: Noncontributory - Tobacco Use Smoking Status *Q: Current Every Day Smoker Years of Tobacco use: 46 Packs/Tins Daily: 0.5 Used Tobacco, but Quit: No Month Tobacco Last Used: august Second Hand Smoke Exposure: No - Caffeine Use Caffeine Use: Reports: Coffee - Alcohol Use Days Per Week of Alcohol Use: 0 (reports last alcohol intake as 10/11/16) Number of Drinks Per Day: 3 Total Drinks Per Week: 0 - Recreational Drug Use Recreational Drug Use: No Drug Use in Last 12 Months: Yes Recreational Drug Type: Reports: Ativan, Benzodiazepines, Dilaudid, Marijuana/ Hashish, Oxycodone, Vicodin Other Recreational Drug Type: over use of percocet and hydrocodone and ativan Recreational Drug Use Frequency: Binges - Living Situation & Occupation Living situation: Reports: Single, Alone Occupation: Unemployed ED ROS GENERAL - Review of Systems Review Of Systems: ROS reveals no pertinent complaints other than HPI. ED EXAM, UPPER BACK/NECK PAIN - Physical Exam Exam: See Below Exam Limited By: No Limitations General Appearance: Alert, WD/WN, No Apparent Distress Ears Exam: Hearing Grossly Normal Nose Exam: Normal Inspection Throat/Mouth Exam: Normal Voice, No Airway Compromise Head Exam: Atraumatic, Normocephalic Neck Exam: Non-Tender, Full Range of Motion, Normal Alignment, Normal Inspection Cardiovascular/Respiratory: Regular Rate, Rhythm, No M/R/G, Normal Peripheral Pulses, No Respiratory Distress GI/Abdominal: Normal Bowel Sounds, Soft, Non-Tender, No Organomegaly, No Distention Back Exam: Normal Inspection, Other (Pain noted to the inferior border of the scapula and also lateral aspect of the chest. No swelling, bruising, bony abdomen abnormalities present.). 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, No Motor/Sensory Deficits, Alert, Normal Mood/Affect, Oriented x 3 Psychiatric: Normal Affect, Normal Mood Skin Exam: Normal Color, Warm/Dry Course - Vital Signs Last Recorded V/S: Last Vital Signs Temp 97.6 F 03/21/17 17:21 Pulse 92 03/21/17 17:21 Resp 16 03/21/17 17:21 BP 142/97 H 03/21/17 17:21 Pulse Ox 96 03/21/17 17:21 - Orders/Labs/Meds Orders: Active Orders 24 hr Category Date Time Status Ribs 2V w Chest Lt [CR] Stat Exams 03/21/17 18:47 Taken Meds: Medications Discontinued Medications Generic Name Dose Route Start Last Admin Trade Name Chin PRN Reason Stop Dose Admin Ketorolac Tromethamine 30 mg 03/21/17 18:47 03/21/17 19:40 Toradol IM 03/21/17 18:48 30 mg ONETIME ONE Administration - Re-Assessments/Exams Free Text/Narrative Re-Assessment/Exam: Will obtain x-ray of the left ribs and also chest. Ordered Toradol 30 mg IM. 03/21/17 19:39 Chest x-ray and rib series evaluated by Dr. Hyatt with no acute findings. Patient has a contusion. Discharge instructions as documented. Departure - Departure Time of Disposition: 19:39 Disposition: Home, Self-Care 01 Condition: Good Clinical Impression: Contusion of rib on left side Qualifiers: Encounter type: initial encounter Qualified Code(s): S20.212A - Contusion of left front wall of thorax, initial encounter - Discharge Information Instructions: Back Pain, Adult, [id number] Referrals: Talha Fitch MD [Primary Care Provider] - Forms: ED Department Discharge, ED Return to Work/School Form Additional Instructions: As discussed x-rays of the chest and rib series did not reveal any acute bony abnormalities. Suspect with the fall he have a contusion thus symptomatic treatment is appropriate including: Ice to affected area 4 times a day, 30 mentioned duration, do not apply ice directly on skin. Tylenol and ibuprofen in alternating fashion for pain. Refrain from any activities that cause worsening pain. Symptoms should resolve on their own accord over the next 7-10 days. Follow-up with your primary care provider for further pain management. - My Orders Last 24 Hours: My Active Orders 03/21/17 18:47 Ribs 2V w Chest Lt [CR] Stat - Assessment/Plan Last 24 Hours: My Active Orders 03/21/17 18:47 Ribs 2V w Chest Lt [CR] Stat
--- NOTE | 2017-03-22 07:52 | CR ---
Chest and left ribs: Frontal view of the chest was obtained as well as 2 views of the left ribs. Comparison: Prior chest x-ray of 12/05/16. Heart size and mediastinum are normal. Lungs are clear. No discrete left-sided rib abnormality is appreciated. Impression: 1. Nothing acute is seen on frontal chest x-ray. No discrete left-sided rib abnormality is appreciated. Nondisplaced fracture could easily be missed. Diagnostic code #1
== END 2017-03-21 20:10 | disposition home or self-care (01) ==
LOC: JD.ED 17:12
DX: S20.212A Contusion of left front wall of thorax, initial encounter (principal); F17.210 Nicotine dependence, cigarettes, uncomplicated; Z79.899 Other long term (current) drug therapy; W00.0XXA Fall on same level due to ice and snow, initial encounter
CPT/HCPCS: 71101; 96372; 99283; J1885

== ENCOUNTER 2017-03-28 14:56 | Emergency (ER) | payer MEDICAID ==
[2017-03-28 15:40] VITALS: BP 135/97
--- NOTE | 2017-03-28 19:43 | EDM.PDOC ---
ED HPI GENERAL MEDICAL PROBLEM - General Chief Complaint: Respiratory Problem Stated Complaint: HURTS TO BREATH Time Seen by Provider: 03/28/17 19:30 - History of Present Illness INITIAL COMMENTS - FREE TEXT/NARRATIVE: Kevin is a 61yo male, known to this provider as prior clinic patient, here with complaints initially of shortness of breath and cough. States he has been coughing for one week with pain in his chest to left lower side with coughing. He later tells me he slipped and fell into his car bumper 2 weeks or so ago and has had pain since that time. Reports he was seen in the ED after fall. He denies f/c/s. He has been feeling more fatigued. No n/v/d. It hurts to left lower side with deep breaths so he has been avoiding this. He has taken motrin at home with minimal relief. CXR and influenza screen initially ordered- both negative. Chest Pain Score (Numeric/FACES): 5 - Related Data Allergies Allergy/AdvReac Type Severity Reaction Status Date / Time codeine Allergy Intermediate Itching Verified 03/28/17 15:40 meperidine HCl [From Demerol] Allergy Intermediate Itching Verified 03/28/17 15: 40 Home Meds: Home Meds Meloxicam 7.5 mg PO DAILY PRN 03/26/15 [History] Losartan/Hydrochlorothiazide [Losartan-HCTZ 100-25 MG] 1 tab PO DAILY 08/27/15 [ History] Mirtazapine 30 mg PO DAILY 09/10/15 [History] Pantoprazole [Protonix] 40 mg PO ACBREAKFAST 03/18/16 [History] ClonazePAM [KlonoPIN] 0.5 mg PO BID 08/21/16 [History] DULoxetine HCl [Cymbalta] 60 mg PO DAILY #30 capsule. 12/05/16 [Rx] cloNIDine [Catapres] 0.5 tab PO Q12HR 01/21/17 [History] Orphenadrine [Norflex] 100 mg PO BID PRN #10 tab.er 02/19/17 [Rx] Past Medical History - Past Health History Medical/Surgical History: Denies Medical/Surgical History HEENT History: Reports: Other (See Below) Other HEENT History: dental issues. 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, opiods Hematologic History: Reports: Other (See Below) Other Hematologic History: HEP C - Infectious Disease History Infectious Disease History: Reports: Chicken Pox, Hepatitis C, Measles - Past Surgical History GI Surgical History: Reports: Appendectomy Male Surgical History: Reports: Lithotripsy (ESWL), Ureteral Stent Social & Family History - Family History Family Medical History: Noncontributory - Tobacco Use Smoking Status *Q: Current Every Day Smoker Years of Tobacco use: 47 Packs/Tins Daily: 0.5 Used Tobacco, but Quit: No Month Tobacco Last Used: august Second Hand Smoke Exposure: No - Caffeine Use Caffeine Use: Reports: Coffee - Alcohol Use Days Per Week of Alcohol Use: 0 (reports last alcohol intake as 10/11/16) Number of Drinks Per Day: 3 Total Drinks Per Week: 0 - Recreational Drug Use Recreational Drug Use: No Drug Use in Last 12 Months: Yes Recreational Drug Type: Reports: Ativan, Benzodiazepines, Dilaudid, Marijuana/ Hashish, Oxycodone, Vicodin Other Recreational Drug Type: over use of percocet and hydrocodone and ativan Recreational Drug Use Frequency: Binges - Living Situation & Occupation Living situation: Reports: Single, Alone Occupation: Unemployed ED ROS GENERAL - Review of Systems Review Of Systems: See Below Constitutional: Reports: Fatigue. Denies: Fever, Chills, Weakness HEENT: Reports: No Symptoms Respiratory: Reports: Shortness of Breath, Pleuritic Chest Pain, Cough. Denies : Sputum, Hemoptysis Cardiovascular: Reports: No Symptoms GI/Abdominal: Reports: No Symptoms Musculoskeletal: Reports: Other (left lateral and posterior rib pain) Neurological: Reports: No Symptoms Psychiatric: Reports: No Symptoms ED EXAM, GENERAL - Physical Exam Exam: See Below Exam Limited By: No Limitations General Appearance: Alert, WD/WN, No Apparent Distress Eye Exam: Bilateral Eye: EOMI, PERRL Nose: Normal Inspection Throat/Mouth: Normal Inspection Head: Atraumatic, Normocephalic Neck: Normal Inspection Respiratory/Chest: No Respiratory Distress, Lungs Clear, Normal Breath Sounds, Decreased Breath Sounds (left base) Cardiovascular: Regular Rate, Rhythm, No Edema Peripheral Pulses: 2+: Dorsalis Pedis (L), Dorsalis Pedis (R) GI/Abdominal: Normal Bowel Sounds, Soft, Non-Tender (Male) Exam: Other (No CVAT to rt or lt sides) Back Exam: Other (lateral and posterior left lower ribs are painful with palpation) Extremities: Normal Inspection, Normal Capillary Refill Neurological: Alert, Oriented Psychiatric: Normal Affect, Normal Mood, Other (pleasant and talkative) Skin Exam: Warm, Dry Course - Vital Signs Last Recorded V/S: Last Vital Signs Temp 98.5 F 03/28/17 15:37 Pulse 101 H 03/28/17 15:37 Resp 20 03/28/17 15:37 BP 135/97 H 03/28/17 15:37 Pulse Ox 95 03/28/17 15:37 - Orders/Labs/Meds Orders: Active Orders 24 hr Category Date Time Status Chest 1V Frontal [CR] Stat Exams 03/28/17 18:45 Taken Meds: Medications Discontinued Medications Generic Name Dose Route Start Last Admin Trade Name Chin PRN Reason Stop Dose Admin Ketorolac Tromethamine 30 mg 03/28/17 19:56 03/28/17 20:04 Toradol IM 03/28/17 19:57 30 mg ONETIME ONE Administration Orphenadrine Citrate 100 mg 03/28/17 19:56 03/28/17 20:03 Norflex PO 03/28/17 19:57 100 mg NOW STA Administration Tramadol HCl 100 mg 03/28/17 19:56 03/28/17 20:03 Ultram PO 03/28/17 19:57 100 mg ONETIME ONE Administration - Re-Assessments/Exams Free Text/Narrative Re-Assessment/Exam: 03/28/17 22:13 Negative CXR; no rib fx noted Negative flu screen. Reviewed findings with patient; based on exam he has rib contusion which can take a long time to heal. He is given PO tramadol x 1 tablet, norflex PO along with rx to get filled and toradol IM today with improvements of pain at time of discharge. Departure - Departure Time of Disposition: 19:57 Disposition: Home, Self-Care 01 Condition: Good Clinical Impression: Cough Fall Qualifiers: Encounter type: subsequent encounter Qualified Code(s): W19.XXXD - Unspecified fall, subsequent encounter Rib contusion Qualifiers: Encounter type: subsequent encounter Laterality: left Qualified Code(s): S20.212D - Contusion of left front wall of thorax, subsequent encounter Contusion of rib on left side Qualifiers: Encounter type: initial encounter Qualified Code(s): S20.212A - Contusion of left front wall of thorax, initial encounter - Discharge Information Instructions: Fall Prevention in the Home, [id number], Cough, Adult, Easy-to- Read, Rib Contusion Referrals: Talha Fitch MD [Primary Care Provider] - Forms: ED Department Discharge Additional Instructions: Norflex rx- take twice daily as needed for muscle/rib pain Chest xray today is normal, no rib fractures noted. Influenza screen relating to cough is negative. Can use heat/ice to left rib cage Take usual antiinflammatory as needed for pain. Follow up with Dr. Fitch if worsening of pain or concerns. - My Orders Last 24 Hours: My Active Orders 03/28/17 18:45 Chest 1V Frontal [CR] Stat - Assessment/Plan Last 24 Hours: My Active Orders 03/28/17 18:45 Chest 1V Frontal [CR] Stat
[2017-03-28] MEDS ORDERED: Ketorolac 30 MG/ML SDV IM ONE (19:56)
[2017-03-28] MEDS ORDERED: traMADol 50 MG Tab PO ONE (19:56)
[2017-03-28] MEDS ORDERED: Orphenadrine 100 MG Tab.ER PO STA (19:56)
--- NOTE | 2017-03-29 08:32 | CR ---
Chest: Portable view of the chest was obtained. Comparison: Prior chest x-ray of 03/21/17. Parenchymal nodule is noted within the upper right lung which appears to be fairly stable from prior studies. Lungs otherwise are clear. Heart size and mediastinum are within normal limits. Impression: 1. Parenchymal nodule within the upper right chest which appears stable from prior studies. 2. Nothing acute is appreciated. Diagnostic code #3
== END 2017-03-28 20:08 | disposition home or self-care (01) ==
LOC: JD.ED 14:56
DX: S20.212A Contusion of left front wall of thorax, initial encounter (principal); F17.210 Nicotine dependence, cigarettes, uncomplicated; Z88.5 Allergy status to narcotic agent; W19.XXXD Unspecified fall, subsequent encounter
CPT/HCPCS: 71010; 87804; 96372; 99284; A9270; J1885; 99283

== ENCOUNTER 2017-04-23 14:00 | Emergency (ER) | payer MEDICAID ==
[2017-04-23 14:20] VITALS: BP 152/101
--- NOTE | 2017-04-23 14:39 | EDM.PDOCBH ---
ED HPI GENERAL MEDICAL PROBLEM - General Chief Complaint: Behavioral/Psych Stated Complaint: PANIC ATTACK Time Seen by Provider: 04/23/17 14:26 Source of Information: Reports: Patient History Limitations: Reports: No Limitations - History of Present Illness INITIAL COMMENTS - FREE TEXT/NARRATIVE: The patient presents with anxiety. He has a history of anxiety and that is under control with clonazapam. He ran out because he was more anxious because he is worried about a new hep C treatment he is having done in the next few days. He denies any other problems. Onset: Gradual Duration: Day(s): Severity: Moderate Improves with: Reports: None Worsens with: Reports: None Associated Symptoms: Reports: No Other Symptoms Neck Pain Score (Numeric/FACES): 6 - Related Data Allergies Allergy/AdvReac Type Severity Reaction Status Date / Time codeine Allergy Intermediate Itching Verified 03/28/17 15:40 meperidine HCl [From Demerol] Allergy Intermediate Itching Verified 03/28/17 15: 40 Home Meds: Home Meds Meloxicam 7.5 mg PO DAILY PRN 03/26/15 [History] Losartan/Hydrochlorothiazide [Losartan-HCTZ 100-25 MG] 1 tab PO DAILY 08/27/15 [ History] Mirtazapine 30 mg PO DAILY 09/10/15 [History] Pantoprazole [Protonix] 40 mg PO ACBREAKFAST 03/18/16 [History] ClonazePAM [KlonoPIN] 0.5 mg PO BID 08/21/16 [History] DULoxetine HCl [Cymbalta] 60 mg PO DAILY #30 capsule. 12/05/16 [Rx] cloNIDine [Catapres] 0.5 tab PO Q12HR 01/21/17 [History] Orphenadrine [Norflex] 100 mg PO BID PRN #10 tab.er 02/19/17 [Rx] LORazepam [Ativan] 1 mg PO Q8HR PRN #6 tablet 04/23/17 [Rx] Past Medical History - Past Health History Medical/Surgical History: Denies Medical/Surgical History HEENT History: Reports: Other (See Below) Other HEENT History: dental issues. 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, opiods Hematologic History: Reports: Other (See Below) Other Hematologic History: HEP C - Infectious Disease History Infectious Disease History: Reports: Chicken Pox, Hepatitis C, Measles - Past Surgical History GI Surgical History: Reports: Appendectomy Male Surgical History: Reports: Lithotripsy (ESWL), Ureteral Stent Social & Family History - Family History Family Medical History: Noncontributory - Tobacco Use Smoking Status *Q: Current Every Day Smoker Years of Tobacco use: 47 Packs/Tins Daily: 0.5 Used Tobacco, but Quit: No Month Tobacco Last Used: august Second Hand Smoke Exposure: No - Caffeine Use Caffeine Use: Reports: Coffee - Alcohol Use Days Per Week of Alcohol Use: 0 (reports last alcohol intake as 10/11/16) Number of Drinks Per Day: 3 Total Drinks Per Week: 0 - Recreational Drug Use Recreational Drug Use: No Drug Use in Last 12 Months: Yes Recreational Drug Type: Reports: Ativan, Benzodiazepines, Dilaudid, Marijuana/ Hashish, Oxycodone, Vicodin Other Recreational Drug Type: over use of percocet and hydrocodone and ativan Recreational Drug Use Frequency: Binges - Living Situation & Occupation Living situation: Reports: Single, Alone Occupation: Unemployed ED ROS GENERAL - Review of Systems Review Of Systems: See Below Constitutional: Reports: No Symptoms HEENT: Reports: No Symptoms Respiratory: Reports: No Symptoms Cardiovascular: Reports: No Symptoms Endocrine: Reports: No Symptoms GI/Abdominal: Reports: No Symptoms : Reports: No Symptoms Musculoskeletal: Reports: No Symptoms Skin: Reports: No Symptoms Neurological: Reports: No Symptoms Psychiatric: Reports: Anxiety ED EXAM, BEHAVIORAL HEALTH - Physical Exam Exam: See Below Exam Limited By: No Limitations General Appearance: Alert, No Apparent Distress Ears: Normal External Exam Nose: Normal Inspection Head: Atraumatic, Normocephalic Neck: Normal Inspection Respiratory/Chest: No Respiratory Distress, Lungs Clear, Normal Breath Sounds Cardiovascular: Regular Rate, Rhythm, No Edema, No Murmur GI/Abdominal: Soft, Non-Tender, No Organomegaly, No Mass Back Exam: Normal Inspection Extremities: Normal Inspection COURSE, BEHAVIORAL HEALTH COMP - Course Vital Signs: Last Vital Signs Temp 97.9 F 04/23/17 14:17 Pulse 91 04/23/17 14:17 Resp 20 04/23/17 14:17 BP 152/101 H 04/23/17 14:17 Pulse Ox 99 04/23/17 14:17 Departure - Departure Time of Disposition: 14:40 Disposition: Home, Self-Care 01 Condition: Good Clinical Impression: Anxiety - Discharge Information Prescriptions: LORazepam [Ativan] 1 mg PO Q8HR PRN #6 tablet PRN Reason: Anxiety Referrals: Talha Fitch MD [Primary Care Provider] - 1 Week Additional Instructions: Take the ativen every 8 hours as needed for anxiety. Please return if you are worse.
== END 2017-04-23 14:56 | disposition home or self-care (01) ==
LOC: SUPCPDRO 14:00 → JD.ED 14:00
DX: F41.9 Anxiety disorder, unspecified (principal); I10 Essential (primary) hypertension; K21.9 Gastro-esophageal reflux disease without esophagitis; F32.9 Major depressive disorder, single episode, unspecified; F17.210 Nicotine dependence, cigarettes, uncomplicated; Z79.899 Other long term (current) drug therapy; Z88.5 Allergy status to narcotic agent
CPT/HCPCS: 99283

== ENCOUNTER 2017-05-10 14:11 | Emergency (ER) | payer MEDICAID ==
[2017-05-10] MEDS ORDERED: Tamsulosin 0.4 MG Cap.ER PO ONE (15:04)
--- NOTE | 2017-05-10 15:08 | EDM.PDOC ---
ED HPI GENERAL MEDICAL PROBLEM - General Chief Complaint: Flank Pain Stated Complaint: RIGHT FLANK PAIN Time Seen by Provider: 05/10/17 14:29 Source of Information: Reports: Patient History Limitations: Reports: No Limitations - History of Present Illness INITIAL COMMENTS - FREE TEXT/NARRATIVE: The patient presents with right flank pain. This started this morning. He has no nausea or vomiting. He has no dysuria. He has some hematuria. The patient has a history of multiple kidney stones. He last passed one in February. He sees Dr Acuña the urologist at [facility] in [place]. He has no chest pain or shortness of breath. Onset: Sudden Duration: Hour(s): Location: Reports: Back (Right flank) Quality: Reports: Sharp Severity: Severe Improves with: Reports: None Worsens with: Reports: None Associated Symptoms: Denies: Chest Pain, Cough, Fever/Chills, Nausea/Vomiting, Shortness of Breath Right Flank Pain Score (Numeric/FACES): 8 - Related Data Allergies Allergy/AdvReac Type Severity Reaction Status Date / Time codeine Allergy Intermediate Itching Verified 03/28/17 15:40 meperidine HCl [From Demerol] Allergy Intermediate Itching Verified 03/28/17 15: 40 Home Meds: Home Meds Meloxicam 7.5 mg PO DAILY PRN 03/26/15 [History] Losartan/Hydrochlorothiazide [Losartan-HCTZ 100-25 MG] 1 tab PO DAILY 08/27/15 [ History] Mirtazapine 30 mg PO DAILY 09/10/15 [History] Pantoprazole [Protonix] 40 mg PO ACBREAKFAST 03/18/16 [History] ClonazePAM [KlonoPIN] 0.5 mg PO BID 08/21/16 [History] DULoxetine HCl [Cymbalta] 60 mg PO DAILY #30 capsule. 12/05/16 [Rx] cloNIDine [Catapres] 0.5 tab PO Q12HR 01/21/17 [History] Orphenadrine [Norflex] 100 mg PO BID PRN #10 tab.er 02/19/17 [Rx] Non-Formulary Medication [NF Drug] 3 tab PO DAILY 05/10/17 [History] Tamsulosin HCl [Flomax] 0.4 mg PO DAILY #7 cap.er.24h 05/10/17 [Rx] oxyCODONE HCl/Acetaminophen [Percocet 5-325 mg Tablet] 1 - 2 each PO Q6HR PRN # 20 tablet 05/10/17 [Rx] Past Medical History - Past Health History Medical/Surgical History: Denies Medical/Surgical History HEENT History: Reports: Other (See Below) Other HEENT History: dental issues. 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, opiods Hematologic History: Reports: Other (See Below) Other Hematologic History: HEP C - Infectious Disease History Infectious Disease History: Reports: Chicken Pox, Hepatitis C, Measles - Past Surgical History GI Surgical History: Reports: Appendectomy Male Surgical History: Reports: Lithotripsy (ESWL), Ureteral Stent Social & Family History - Family History Family Medical History: Noncontributory - Tobacco Use Smoking Status *Q: Current Every Day Smoker Years of Tobacco use: 47 Packs/Tins Daily: 0.5 Used Tobacco, but Quit: No Month Tobacco Last Used: august Second Hand Smoke Exposure: No - Caffeine Use Caffeine Use: Reports: Coffee - Alcohol Use Days Per Week of Alcohol Use: 0 (reports last alcohol intake as 10/11/16) Number of Drinks Per Day: 3 Total Drinks Per Week: 0 - Recreational Drug Use Recreational Drug Use: No Drug Use in Last 12 Months: Yes Recreational Drug Type: Reports: Ativan, Benzodiazepines, Dilaudid, Marijuana/ Hashish, Oxycodone, Vicodin Other Recreational Drug Type: over use of percocet and hydrocodone and ativan Recreational Drug Use Frequency: Binges - Living Situation & Occupation Living situation: Reports: Single, Alone Occupation: Unemployed ED ROS GENERAL - Review of Systems Review Of Systems: See Below Constitutional: Reports: No Symptoms HEENT: Reports: No Symptoms Respiratory: Reports: No Symptoms Cardiovascular: Reports: No Symptoms Endocrine: Reports: No Symptoms GI/Abdominal: Reports: No Symptoms : Reports: Flank Pain (Right) Musculoskeletal: Reports: No Symptoms ED EXAM, RENAL/ - Physical Exam Exam: See Below Exam Limited By: No Limitations General Appearance: Alert, No Apparent Distress Ears: Normal External Exam Nose: Normal Inspection Head: Atraumatic, Normocephalic Neck: Normal Inspection Respiratory/Chest: No Respiratory Distress, Lungs Clear, Normal Breath Sounds Cardiovascular: Regular Rate, Rhythm, No Edema, No Murmur GI/Abdominal: Soft, Non-Tender, No Organomegaly, No Mass Course - Vital Signs Last Recorded V/S: Last Vital Signs Temp 97 F 05/10/17 14:19 Pulse 109 H 05/10/17 14:19 Resp 18 05/10/17 14:19 BP Pulse Ox 99 05/10/17 14:19 - Orders/Labs/Meds Labs: Laboratory Tests 05/10/17 Range/Units 15:00 Urine Color Yellow (Yellow) Urine Appearance Slt cloudy H (Clear) Urine pH 6.0 (5.0-8.0) Ur Specific [place] 1.020 (1.005-1.030) Urine Protein Trace H (Negative) Urine Glucose (UA) Negative (Negative) Urine Ketones Trace H (Negative) Urine Occult Blood 3+ H (Negative) Urine Nitrite Negative (Negative) Urine Bilirubin 1+ H (Negative) Urine Urobilinogen 1.0 (0.2-1.0) Ur Leukocyte Esterase Negative (Negative) Urine RBC 40-50 H (0-5) /hpf Urine WBC 0-5 (0-5) /hpf Ur Epithelial Cells 0-5 (0-5) /hpf Urine Bacteria Moderate H (FEW) /hpf Hyaline Casts 0-5 (0-5) /lpf Urine Mucus Few (FEW) /hpf Meds: Medications Discontinued Medications Generic Name Dose Route Start Last Admin Trade Name Freq PRN Reason Stop Dose Admin Tamsulosin HCl 0.4 mg 05/10/17 15:04 05/10/17 15:11 Flomax PO 05/10/17 15:05 0.4 mg ONETIME ONE Administration - Re-Assessments/Exams Free Text/Narrative Re-Assessment/Exam: 05/10/17 15:07 I have ordered a dose of flomax and a UA. 05/10/17 15:39 His UA shows blood but no UTI. I will discharge him home. Departure - Departure Time of Disposition: 15:40 Disposition: Home, Self-Care 01 Condition: Good Clinical Impression: Kidney stone - Discharge Information Prescriptions: oxyCODONE HCl/Acetaminophen [Percocet 5-325 mg Tablet] 1 - 2 each PO Q6HR PRN # 20 tablet PRN Reason: Pain Tamsulosin HCl [Flomax] 0.4 mg PO DAILY #7 cap.er.24h Referrals: Talha Fitch MD [Primary Care Provider] - 1 Week Forms: ED Department Discharge Additional Instructions: Take the flomax daily. Take the percocet as needed. Follow up with your doctor.
== END 2017-05-10 15:30 | disposition home or self-care (01) ==
LOC: JD.ED 14:11
DX: N20.0 Calculus of kidney (principal); I10 Essential (primary) hypertension; F17.210 Nicotine dependence, cigarettes, uncomplicated; Z88.5 Allergy status to narcotic agent; Z88.8 Allergy status to other drugs, medicaments and biological substances; Z79.899 Other long term (current) drug therapy
CPT/HCPCS: 81001; 99284; A9270; 99283

== ENCOUNTER 2017-05-14 11:42 | Emergency (ER) | payer MEDICAID ==
[2017-05-14 11:49] VITALS: BP 159/95
[2017-05-14] MEDS ORDERED: Promethazine 25 MG/ML SDV IM ONE (12:19)
[2017-05-14] MEDS ORDERED: Ketorolac 60 MG/2 ML SDV IM ONE (12:19)
--- NOTE | 2017-05-14 12:57 | EDM.PDOCBH ---
ED HPI GENERAL MEDICAL PROBLEM - General Chief Complaint: Behavioral/Psych Stated Complaint: ANXIETY Time Seen by Provider: 05/14/17 12:30 Source of Information: Reports: Patient, Old Records History Limitations: Reports: No Limitations - History of Present Illness INITIAL COMMENTS - FREE TEXT/NARRATIVE: 61 year old male, known to the ER, presents for evaluation and treatment of anxiety and pain. Patient reports that he has pain "all over ". Reports pain in his neck, back, legs and feet. States this has been going on for a while. Patient has a history of kidney stones. He has been seen by Dr. Rosenbaum in [place]. States that Dr. Rosenbaum wanted him to have an IVP. He states that he had one February and so he therefore did not need one. He was told that he has multiple stones in his kidneys but nothing in his ureters. Patient currently sees Dr. Sanchez at [facility]. Has been prescribed clonazepam for anxiety. Reports he took his last dose of clonazepam yesterday. Does not currently have any clonazepam or Ativan. States it has been a couple months since he has seen Dr. sanchez. He is supposed to see her again in a couple months. Back Pain Score (Numeric/FACES): 8 - Related Data Allergies Allergy/AdvReac Type Severity Reaction Status Date / Time codeine Allergy Intermediate Itching Verified 05/14/17 11:49 meperidine HCl [From Demerol] Allergy Intermediate Itching Verified 05/14/17 11: 49 Home Meds: Home Meds Meloxicam 7.5 mg PO DAILY PRN 03/26/15 [History] Losartan/Hydrochlorothiazide [Losartan-HCTZ 100-25 MG] 1 tab PO DAILY 08/27/15 [ History] Mirtazapine 30 mg PO DAILY 09/10/15 [History] Pantoprazole [Protonix] 40 mg PO ACBREAKFAST 03/18/16 [History] ClonazePAM [KlonoPIN] 0.5 mg PO BID 08/21/16 [History] DULoxetine HCl [Cymbalta] 60 mg PO DAILY #30 capsule. 12/05/16 [Rx] cloNIDine [Catapres] 0.5 tab PO Q12HR 01/21/17 [History] Orphenadrine [Norflex] 100 mg PO BID PRN #10 tab.er 02/19/17 [Rx] Non-Formulary Medication [NF Drug] 3 tab PO DAILY 05/10/17 [History] Tamsulosin HCl [Flomax] 0.4 mg PO DAILY #7 cap.er.24h 05/10/17 [Rx] oxyCODONE HCl/Acetaminophen [Percocet 5-325 mg Tablet] 1 - 2 each PO Q6HR PRN # 20 tablet 05/10/17 [Rx] Past Medical History - Past Health History Medical/Surgical History: Denies Medical/Surgical History HEENT History: Reports: Other (See Below) Other HEENT History: dental issues. 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, opiods Hematologic History: Reports: Other (See Below) Other Hematologic History: HEP C - Infectious Disease History Infectious Disease History: Reports: Chicken Pox, Hepatitis C, Measles - Past Surgical History GI Surgical History: Reports: Appendectomy Male Surgical History: Reports: Lithotripsy (ESWL), Ureteral Stent Social & Family History - Family History Family Medical History: Noncontributory - Tobacco Use Smoking Status *Q: Current Every Day Smoker Years of Tobacco use: 47 Packs/Tins Daily: 0.5 Used Tobacco, but Quit: No Month Tobacco Last Used: august Second Hand Smoke Exposure: No - Caffeine Use Caffeine Use: Reports: Coffee - Alcohol Use Days Per Week of Alcohol Use: 0 (reports last alcohol intake as 10/11/16) Number of Drinks Per Day: 3 Total Drinks Per Week: 0 - Recreational Drug Use Recreational Drug Use: No Drug Use in Last 12 Months: Yes Recreational Drug Type: Reports: Ativan, Benzodiazepines, Dilaudid, Marijuana/ Hashish, Oxycodone, Vicodin Other Recreational Drug Type: over use of percocet and hydrocodone and ativan Recreational Drug Use Frequency: Binges - Living Situation & Occupation Living situation: Reports: Single, Alone Occupation: Unemployed ED ROS GENERAL - Review of Systems Review Of Systems: See Below Musculoskeletal: Reports: Neck Pain, Back Pain, Leg Pain, Foot Pain Psychiatric: Reports: Anxiety ED EXAM, BEHAVIORAL HEALTH - Physical Exam Exam: See Below Exam Limited By: No Limitations General Appearance: Alert, WD/WN, No Apparent Distress Respiratory/Chest: No Respiratory Distress Neurological: Alert Psychiatric: Alert, Normal Affect, Normal Cognition, Normal Mood Skin Exam: Warm, Dry, Normal color COURSE, BEHAVIORAL HEALTH COMP - Course Vital Signs: Last Vital Signs Temp 36.6 C 05/14/17 11:47 Pulse 122 H 05/14/17 11:47 Resp 20 05/14/17 11:47 BP 159/95 H 05/14/17 11:47 Pulse Ox 98 05/14/17 11:47 Orders, Labs, Meds: Medications Discontinued Medications Generic Name Dose Route Start Last Admin Trade Name Freq PRN Reason Stop Dose Admin Ketorolac Tromethamine 60 mg 05/14/17 12:19 05/14/17 12:34 Toradol IM 05/14/17 12:20 60 mg ONETIME ONE Administration Promethazine HCl 25 mg 05/14/17 12:19 05/14/17 12:34 Phenergan IM 05/14/17 12:20 25 mg ONETIME ONE Administration Re-Assessment/Re-Exam: 13:00 I spoke with Teresa at [facility]. She is Dr. sanchez's nurse. She advised me that Kevin was given a 30 day prescription of clonazepam that was filled on April 26; they wouldn't advise refilling this. Therefore today I will not give him any more benzos. Teresa also pulled up Lita's, RNs, last note. Kevin has been seeing Lita on a daily basis and then he was seen her every 2-3 days. Last had a not on April 27. Kevin had missed his appointment. Lita had called Kevin and left a voicemail stating she will send for a well for check if he did not call back by certain time. He called back and stated that he wanted to go on a different path and he would manage his clonazepam on his own. They have not since seen or heard from Kvein. 13:45 Nursing staff informed me Kevin eloped prior to discharge paperwork. Departure - Departure Time of Disposition: 13:05 Disposition: Home, Self-Care 01 Condition: Fair Clinical Impression: Anxiety, Drug-seeking behavior - Discharge Information Referrals: Talha Fitch MD [Primary Care Provider] - Forms: ED Department Discharge Additional Instructions: Follow-up with your primary care provider for concerns over your chronic pain. Unfortunately, we are unable to treat chronic pain here in the ER. Recommend following up with [facility] for your anxiety medication refills. Lita at [facility] will be available on Wednesday for you to see. Please return to the ER if your symptoms change or worsen.
== END 2017-05-14 13:20 | disposition home or self-care (01) ==
LOC: JD.ED 11:42
DX: F41.9 Anxiety disorder, unspecified (principal); I10 Essential (primary) hypertension; F32.9 Major depressive disorder, single episode, unspecified; F17.210 Nicotine dependence, cigarettes, uncomplicated; Z76.5 Malingerer [conscious simulation]; Z88.5 Allergy status to narcotic agent; Z79.899 Other long term (current) drug therapy
CPT/HCPCS: 96372; 99283; J1885; J2550; 99282

== ENCOUNTER 2017-05-21 15:38 | Emergency (ER) | payer MEDICAID | END 2017-05-21 15:50 | LOC: JD.ED 15:38 | DX: Z53.21 Procedure and treatment not carried out due to patient leaving prior to being seen by health care provider (principal) ==

== ENCOUNTER 2017-06-30 14:56 | Emergency (ER) | payer MEDICAID ==
[2017-06-30 15:20] VITALS: BP 146/92
--- NOTE | 2017-06-30 15:28 | EDM.PDOC ---
ED HPI GENERAL MEDICAL PROBLEM - General Chief Complaint: General Stated Complaint: LETHARGIC Time Seen by Provider: 06/30/17 15:24 Source of Information: Reports: Patient - History of Present Illness INITIAL COMMENTS - FREE TEXT/NARRATIVE: Patient is here for evaluation of fatigue. Patient states this has been going on for several weeks but has gotten significantly worse this week. Patient states that he did stop taking his antidepressant medications. He was reportedly evaluated at walk-in clinic yesterday with influenza screen but he states that "everything is fine ". Patient reports cough, he does smoke a half pack cigarettes per day. He states his cough has been the same for "many years". He denies any fever or chills. Denies any nausea or vomiting. States that he is short of breath with exertion at times and he attributes this to his smoking. Patient does see psychiatry, he has an appointment to see Dr. chavira in July. He denies any thoughts of harming himself or others. - Related Data Allergies Allergy/AdvReac Type Severity Reaction Status Date / Time codeine Allergy Intermediate Itching Verified 06/30/17 15:21 meperidine HCl [From Demerol] Allergy Intermediate Itching Verified 06/30/17 15: 21 Home Meds: Home Meds Meloxicam 7.5 mg PO DAILY PRN 03/26/15 [History] Losartan/Hydrochlorothiazide [Losartan-HCTZ 100-25 MG] 1 tab PO DAILY 08/27/15 [ History] Mirtazapine 30 mg PO DAILY 09/10/15 [History] Pantoprazole [Protonix] 40 mg PO ACBREAKFAST 03/18/16 [History] ClonazePAM [KlonoPIN] 0.5 mg PO BID 08/21/16 [History] DULoxetine HCl [Cymbalta] 60 mg PO DAILY #30 capsule. 12/05/16 [Rx] cloNIDine [Catapres] 0.5 tab PO Q12HR 01/21/17 [History] Tamsulosin HCl [Flomax] 0.4 mg PO DAILY #7 cap.er.24h 05/10/17 [Rx] DULoxetine [Cymbalta] 60 mg PO DAILY #30 cap 06/30/17 [Rx] Orphenadrine [Norflex] 100 mg PO BID PRN #30 tab.er 06/30/17 [Rx] hydrOXYzine HCl [hydrOXYzine] 1 tab PO DAILY 06/30/17 [History] Past Medical History - Past Health History Medical/Surgical History: Denies Medical/Surgical History HEENT History: Reports: Other (See Below) Other HEENT History: dental issues. 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, opiods Hematologic History: Reports: Other (See Below) Other Hematologic History: HEP C - Infectious Disease History Infectious Disease History: Reports: Chicken Pox, Hepatitis C, Measles - Past Surgical History GI Surgical History: Reports: Appendectomy Male Surgical History: Reports: Lithotripsy (ESWL), Ureteral Stent Social & Family History - Family History Family Medical History: Noncontributory - Tobacco Use Smoking Status *Q: Current Every Day Smoker Years of Tobacco use: 47 Packs/Tins Daily: 0.5 Used Tobacco, but Quit: No Month/Year Tobacco Last Used: august Second Hand Smoke Exposure: No - Caffeine Use Caffeine Use: Reports: Coffee - Alcohol Use Days Per Week of Alcohol Use: 0 (reports last alcohol intake as 10/11/16) Number of Drinks Per Day: 3 Total Drinks Per Week: 0 - Recreational Drug Use Recreational Drug Use: No Drug Use in Last 12 Months: Yes Recreational Drug Type: Reports: Ativan, Benzodiazepines, Dilaudid, Marijuana/ Hashish, Oxycodone, Vicodin Other Recreational Drug Type: over use of percocet and hydrocodone and ativan Recreational Drug Use Frequency: Binges - Living Situation & Occupation Living situation: Reports: Single, Alone Occupation: Unemployed ED ROS GENERAL - Review of Systems Review Of Systems: See Below Constitutional: Reports: Malaise, Weakness, Fatigue, Decreased Appetite, Weight Loss. Denies: Fever, Chills, Night Sweats HEENT: Reports: No Symptoms Respiratory: Reports: Cough, Sputum, Other (Dyspnea on exertion, stable over the past year or so per his report.). Denies: Shortness of Breath, Wheezing Cardiovascular: Denies: Chest Pain, Blood Pressure Problem, Edema, Lightheadedness Endocrine: Reports: Fatigue GI/Abdominal: Reports: Decreased Appetite. Denies: Abdominal Pain, Constipation , Diarrhea, Nausea Musculoskeletal: Reports: Back Pain (Chronic lower back pain) Skin: Reports: No Symptoms Neurological: Reports: No Symptoms Psychiatric: Reports: Anxiety, Depression. Denies: Suicidal Ideation ED EXAM, GENERAL - Physical Exam Exam: See Below Exam Limited By: No Limitations General Appearance: Alert, WD/WN, No Apparent Distress Throat/Mouth: Normal Inspection, Normal Oropharynx Head: Atraumatic, Normocephalic Neck: Normal Inspection, Supple, Non-Tender. No: Lymphadenopathy (L), Lymphadenopathy (R) Respiratory/Chest: No Respiratory Distress, Decreased Breath Sounds (Bilateral bases), Wheezing (Mild expiratory wheezing diffusely), Prolonged Expiration Cardiovascular: Normal Peripheral Pulses, Regular Rate, Rhythm, No Murmur Peripheral Pulses: 2+: Posterior Tibial (L), Posterior Tibial (R) GI/Abdominal: Normal Bowel Sounds, Soft, Non-Tender Neurological: Alert, Oriented Psychiatric: Depressed Mood, Flat Affect. No: Anxious, Tearful Skin Exam: Warm, Dry, Intact Lymphatic: No Adenopathy Course - Vital Signs Last Recorded V/S: Last Vital Signs Temp 98.7 F 06/30/17 15:16 Pulse 86 06/30/17 15:16 Resp 18 06/30/17 15:16 BP 146/92 H 06/30/17 15:16 Pulse Ox 95 06/30/17 15:16 - Orders/Labs/Meds Orders: Active Orders 24 hr Category Date Time Status EKG 12 Lead [EKG Documentation Completion] [RC] STAT Care 06/30/17 15:56 Active CXR [Chest 2V] [CR] Stat Exams 06/30/17 15:56 Taken Labs: Laboratory Tests 06/30/17 06/30/17 Range/Units 15:15 16:15 WBC 10.18 H (4.23-9.07) K/mm3 RBC 4.86 (4.63-6.08) M/mm3 Hgb 14.7 (13.7-17.5) gm/L Hct 43.6 (40.1-51.0) % MCV 89.7 (79.0-92.2) fl MCH 30.2 (25.7-32.2) pg MCHC 33.7 (32.2-35.5) g/dl RDW Std Deviation 41.0 (35.1-43.9) fL Plt Count 342 H (163-337) K/mm3 MPV 8.6 L (9.4-12.3) fl Neutrophils % (Manual) 58 (40-60) % Band Neutrophils % 0 (0-10) % Lymphocytes % (Manual) 26 (20-40) % Atypical Lymphs % 2 % Monocytes % (Manual) 5 (2-10) % Eosinophils % (Manual) 9 H (0.8-7.0) % Basophils % (Manual) 0 L (0.2-1.2) Platelet Estimate Adequate Plt Morphology Comment Normal RBC Morph Comment Normal Sodium 138 (136-145) mEq/L Potassium 3.9 (3.5-5.1) mEq/L Chloride 102 (98-107) mEq/L Carbon Dioxide 26 (21-32) mEq/L Anion Gap 13.9 (5-15) BUN 15 (7-18) mg/dL Creatinine 1.2 (0.7-1.3) mg/dL Est Cr Clr Drug Dosing 66.75 mL/min Estimated GFR (MDRD) > 60 (>60) mL/min BUN/Creatinine Ratio 12.5 L (14-18) Glucose 98 (80-115) mg/dL Calcium 9.4 (8.5-10.1) mg/dL Total Bilirubin 0.4 (0.2-1.0) mg/dL AST 15 (15-37) U/L ALT 25 (16-63) U/L Alkaline Phosphatase 91 (46-116) U/L Troponin I < 0.017 (0.00-0.056) ng/mL C-Reactive Protein < 0.2 (<1.0) mg/dL Total Protein 7.4 (6.4-8.2) g/dl Albumin 3.6 (3.4-5.0) g/dl Globulin 3.8 gm/dL Albumin/Globulin Ratio 1.0 (1-2) Meds: Medications Discontinued Medications Generic Name Dose Route Start Last Admin Trade Name Freq PRN Reason Stop Dose Admin Sodium Chloride 1,000 mls @ 999 mls/hr 06/30/17 16:18 06/30/17 16:53 Normal Saline IV 06/30/17 17:18 999 mls/hr ONETIME ONE Administration Ketorolac Tromethamine 30 mg 06/30/17 16:59 06/30/17 17:08 Toradol IM 06/30/17 17:00 30 mg ONETIME ONE Administration - Re-Assessments/Exams Free Text/Narrative Re-Assessment/Exam: Patient requesting pain medication for his chronic back pain, will give him 30 g Toradol. WBC 10,180. CRP <0.2. Troponin negative. I suspect the patient's fatigue is more related to his chronic depression especially since he stopped his medication. I recommend he resume his Cymbalta , will send refill to pharmacy. He will keep his scheduled psychiatry follow-up appointment. With his shortness of breath, also consider likelihood of COPD. Chest x-ray demonstrates mild flattening of the diaphragms but no consolidation or infiltrate. Official radiology report is pending. I recommend that he consult with his PCP for further evaluation for this. Obviously the best treatment would be for the patient to quit smoking but he does not seem interested in this. Patient requesting for medication for treatment of his back pain and no patient basis. Will send Norflex to pharmacy for muscle spasm/back pain. Further workup of back pain if this continues with his PCP. 06/30/17 17:03 06/30/17 17:12 06/30/17 17:35 Departure - Departure Time of Disposition: 17:36 Disposition: Home, Self-Care 01 Condition: Good Clinical Impression: Depression Fatigue Qualifiers: Fatigue type: chronic, unspecified Qualified Code(s): R53.82 - Chronic fatigue , unspecified Chronic back pain Qualifiers: Back pain location: low back pain Back pain laterality: bilateral Sciatica presence: without sciatica Qualified Code(s): M54.5 - Low back pain; G89.29 - Other chronic pain; G89.29 - Other chronic pain - Discharge Information Prescriptions: DULoxetine [Cymbalta] 60 mg PO DAILY #30 cap Orphenadrine [Norflex] 100 mg PO BID PRN #30 tab.er PRN Reason: Muscle Spasm Referrals: Talha Fitch MD [Primary Care Provider] - Forms: ED Department Discharge Additional Instructions: Your workup in the emergency room today was essentially normal. You need to go back on your Cymbalta every day. Healthy diet, at least 3 meals per day. He need to increase her water intake as well. I did send a muscle relaxant to pharmacy to take as needed up to 2 times daily for your back pain and muscle spasm. He need to follow up with your primary provider next week or return to the emergency room if needed. - My Orders Last 24 Hours: My Active Orders 06/30/17 15:56 EKG 12 Lead [EKG Documentation Completion] [RC] STAT CXR [Chest 2V] [CR] Stat - Assessment/Plan Last 24 Hours: My Active Orders 06/30/17 15:56 EKG 12 Lead [EKG Documentation Completion] [RC] STAT CXR [Chest 2V] [CR] Stat
[2017-06-30] MEDS ORDERED: Sodium Chloride 0.9% 1,000 ML IV ONE (16:18)
[2017-06-30] MEDS ORDERED: Ketorolac 30 MG/ML SDV IM ONE (16:59)
--- NOTE | 2017-07-01 06:47 | CR ---
Chest: Two views of the chest were obtained. Comparison: Prior chest x-ray of 03/28/17. Heart size and mediastinum are normal. Nodular density is noted within the upper right lung compatible with bony sclerosis within the first rib which is stable. Lungs are clear with no acute parenchymal change. Lungs are hyperinflated compatible with emphysematous change. Bony structures show scattered degenerative spurring and disc space narrowing. Impression: 1. Emphysematous change and other incidental findings. 2. Nothing acute is appreciated on two-view chest x-ray. Diagnostic code #2
== END 2017-06-30 17:55 | disposition home or self-care (01) ==
LOC: JD.ED 14:56
DX: R53.82 Chronic fatigue, unspecified (principal); M54.5 Low back pain; G89.29 Other chronic pain; F32.9 Major depressive disorder, single episode, unspecified; I10 Essential (primary) hypertension; K21.9 Gastro-esophageal reflux disease without esophagitis; F41.9 Anxiety disorder, unspecified; F17.210 Nicotine dependence, cigarettes, uncomplicated; Z88.5 Allergy status to narcotic agent; Z79.899 Other long term (current) drug therapy
CPT/HCPCS: 36415; 71046; 80053; 84484; 85025; 86140; 93005; 96360; 96372; 99284; J1885; J7040; 93010; 99283

== ENCOUNTER 2017-07-03 12:12 | Emergency (ER) | payer MEDICAID ==
[2017-07-03 12:24] VITALS: BP 140/90
[2017-07-03] MEDS ORDERED: Sodium Chloride 0.9% 10 ML Syringe FLUSH PRN (14:30)
[2017-07-03] MEDS ORDERED: Ketorolac 30 MG/ML SDV IVPUSH ONE (14:30)
[2017-07-03] MEDS ORDERED: Sodium Chloride 0.9% 1,000 ML IV ONE (14:30)
--- NOTE | 2017-07-03 14:40 | EDM.PDOC ---
ED HPI GENERAL MEDICAL PROBLEM - General Chief Complaint: General Stated Complaint: WEAK AND TIRED Time Seen by Provider: 07/03/17 14:16 Source of Information: Reports: Patient, Old Records (recent ER visit ) History Limitations: Reports: No Limitations - History of Present Illness INITIAL COMMENTS - FREE TEXT/NARRATIVE: 61-year-old male known to the ER presents for evaluation and treatment of weakness and fatigue. Patient was seen on June 30 for similar problem. Please see that record for complete details. He had an EKG, chest x-ray and labs done. He was instructed to restart his Cymbalta which she had stopped. He states that he did restart this as instructed. Patient reports today he could experiencing worsening weakness and fatigue. He states he slept the last 4 days. He also reports some shortness of breath. States they can't walk due to his shortness of breath. He also complains of lightheadedness and dizziness. No syncope. He is extremity nausea but no vomiting. He states that he feels hot but does not have any fevers or chills. States that he has some discomfort on the left side of his chest but attributes this to arthritis, nothing new,. Primary care provider in [place] is Dr. Fitch. He did see him a couple weeks ago. He had an echocardiogram done but does not know the results. Patient recently had treatment for hepatitis C. His last dose of this medication was on Wednesday. Finished Mavyret Wednesday. - Related Data Allergies Allergy/AdvReac Type Severity Reaction Status Date / Time codeine Allergy Intermediate Itching Verified 07/03/17 12:24 meperidine HCl [From Demerol] Allergy Intermediate Itching Verified 07/03/17 12: 24 Home Meds: Home Meds Meloxicam 7.5 mg PO DAILY PRN 03/26/15 [History] Losartan/Hydrochlorothiazide [Losartan-HCTZ 100-25 MG] 1 tab PO DAILY 08/27/15 [ History] Mirtazapine 30 mg PO DAILY 09/10/15 [History] Pantoprazole [Protonix] 40 mg PO ACBREAKFAST 03/18/16 [History] ClonazePAM [KlonoPIN] 0.5 mg PO BID 08/21/16 [History] DULoxetine HCl [Cymbalta] 60 mg PO DAILY #30 capsule. 12/05/16 [Rx] cloNIDine [Catapres] 0.5 tab PO Q12HR 01/21/17 [History] Tamsulosin HCl [Flomax] 0.4 mg PO DAILY #7 cap.er.24h 05/10/17 [Rx] DULoxetine [Cymbalta] 60 mg PO DAILY #30 cap 06/30/17 [Rx] Orphenadrine [Norflex] 100 mg PO BID PRN #30 tab.er 06/30/17 [Rx] hydrOXYzine HCl [hydrOXYzine] 1 tab PO DAILY 06/30/17 [History] Past Medical History - Past Health History Medical/Surgical History: Denies Medical/Surgical History HEENT History: Reports: Other (See Below) Other HEENT History: dental issues. 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, opiods Hematologic History: Reports: Other (See Below) Other Hematologic History: HEP C - Infectious Disease History Infectious Disease History: Reports: Chicken Pox, Hepatitis C, Measles - Past Surgical History GI Surgical History: Reports: Appendectomy Male Surgical History: Reports: Lithotripsy (ESWL), Ureteral Stent Social & Family History - Family History Family Medical History: Noncontributory - Tobacco Use Smoking Status *Q: Current Every Day Smoker Years of Tobacco use: 40 Packs/Tins Daily: 1 Used Tobacco, but Quit: No Month/Year Tobacco Last Used: august Second Hand Smoke Exposure: No - Caffeine Use Caffeine Use: Reports: Coffee - Alcohol Use Days Per Week of Alcohol Use: 0 (reports last alcohol intake as 10/11/16) Number of Drinks Per Day: 3 Total Drinks Per Week: 0 - Recreational Drug Use Recreational Drug Use: No Drug Use in Last 12 Months: Yes Recreational Drug Type: Reports: Ativan, Benzodiazepines, Dilaudid, Marijuana/ Hashish, Oxycodone, Vicodin Other Recreational Drug Type: over use of percocet and hydrocodone and ativan Recreational Drug Use Frequency: Binges - Living Situation & Occupation Living situation: Reports: Single, Alone Occupation: Unemployed ED ROS GENERAL - Review of Systems Review Of Systems: See Below Constitutional: Reports: Malaise, Weakness, Fatigue. Denies: Fever, Chills Respiratory: Reports: Shortness of Breath Cardiovascular: Reports: Dyspnea on Exertion. Denies: Chest Pain GI/Abdominal: Reports: Nausea. Denies: Vomiting Neurological: Reports: Dizziness. Denies: Syncope ED EXAM, GENERAL - Physical Exam Exam: See Below Exam Limited By: No Limitations General Appearance: Alert, WD/WN, No Apparent Distress Ears: Normal External Exam, Normal Canal, Hearing Grossly Normal, Normal TMs Nose: Normal Inspection Throat/Mouth: Normal Inspection, Normal Lips, Normal Voice, No Airway Compromise Respiratory/Chest: No Respiratory Distress, Lungs Clear, Normal Breath Sounds Cardiovascular: Normal Peripheral Pulses, Regular Rate, Rhythm, No Murmur Neurological: Alert, Oriented, Normal Cognition Psychiatric: Normal Affect, Normal Mood Skin Exam: Warm, Dry, Normal Color Course - Vital Signs Last Recorded V/S: Last Vital Signs Temp 36.4 C 07/03/17 12:22 Pulse 88 07/03/17 12:22 Resp 19 07/03/17 12:22 BP 140/90 07/03/17 12:22 Pulse Ox 97 07/03/17 12:22 - Orders/Labs/Meds Orders: Active Orders 24 hr Category Date Time Status Peripheral IV Care [RC] . DIRECTED Care 07/03/17 14:30 Active Peripheral IV Insertion Adult [OM.PC] Routine Oth 07/03/17 14:30 Ordered Labs: Laboratory Tests 07/03/17 07/03/17 07/03/17 Range/Units 14:03 14:03 14:03 WBC 11.77 H (4.23-9.07) K/mm3 RBC 4.78 (4.63-6.08) M/mm3 Hgb 14.6 (13.7-17.5) gm/L Hct 42.8 (40.1-51.0) % MCV 89.5 (79.0-92.2) fl MCH 30.5 (25.7-32.2) pg MCHC 34.1 (32.2-35.5) g/dl RDW Std Deviation 40.6 (35.1-43.9) fL Plt Count 316 (163-337) K/mm3 MPV 8.6 L (9.4-12.3) fl Neutrophils % (Manual) 69 H (40-60) % Band Neutrophils % 2 (0-10) % Lymphocytes % (Manual) 19 L (20-40) % Atypical Lymphs % 0 % Monocytes % (Manual) 9 (2-10) % Eosinophils % (Manual) 1 (0.8-7.0) % Basophils % (Manual) 0 L (0.2-1.2) Platelet Estimate Adequate RBC Morph Comment Normal Sodium 138 (136-145) mEq/L Potassium 4.3 (3.5-5.1) mEq/L Chloride 102 (98-107) mEq/L Carbon Dioxide 26 (21-32) mEq/L Anion Gap 14.3 (5-15) BUN 16 (7-18) mg/dL Creatinine 1.5 H (0.7-1.3) mg/dL Est Cr Clr Drug Dosing 53.40 mL/min Estimated GFR (MDRD) 48 (>60) mL/min BUN/Creatinine Ratio 10.7 L (14-18) Glucose 106 (80-115) mg/dL Calcium 9.5 (8.5-10.1) mg/dL Total Bilirubin 0.4 (0.2-1.0) mg/dL AST 18 (15-37) U/L ALT 30 (16-63) U/L Alkaline Phosphatase 90 (46-116) U/L C-Reactive Protein < 0.2 (<1.0) mg/dL Total Protein 7.8 (6.4-8.2) g/dl Albumin 3.8 (3.4-5.0) g/dl Globulin 4.0 gm/dL Albumin/Globulin Ratio 1.0 (1-2) TSH 3rd Generation 3.557 (0.358-3.74) uIU/mL Urine Color (Yellow) Urine Appearance (Clear) Urine pH (5.0-8.0) Ur Specific [place] (1.005-1.030) Urine Protein (Negative) Urine Glucose (UA) (Negative) Urine Ketones (Negative) Urine Occult Blood (Negative) Urine Nitrite (Negative) Urine Bilirubin (Negative) Urine Urobilinogen (0.2-1.0) Ur Leukocyte Esterase (Negative) Urine RBC (0-5) /hpf Urine WBC (0-5) /hpf Ur Epithelial Cells (0-5) /hpf Urine Bacteria (FEW) /hpf Urine Mucus (FEW) /hpf Monoscreen Negative (NEGATIVE) 07/03/17 Range/Units 14:25 WBC (4.23-9.07) K/mm3 RBC (4.63-6.08) M/mm3 Hgb (13.7-17.5) gm/L Hct (40.1-51.0) % MCV (79.0-92.2) fl MCH (25.7-32.2) pg MCHC (32.2-35.5) g/dl RDW Std Deviation (35.1-43.9) fL Plt Count (163-337) K/mm3 MPV (9.4-12.3) fl Neutrophils % (Manual) (40-60) % Band Neutrophils % (0-10) % Lymphocytes % (Manual) (20-40) % Atypical Lymphs % % Monocytes % (Manual) (2-10) % Eosinophils % (Manual) (0.8-7.0) % Basophils % (Manual) (0.2-1.2) Platelet Estimate RBC Morph Comment Sodium (136-145) mEq/L Potassium (3.5-5.1) mEq/L Chloride (98-107) mEq/L Carbon Dioxide (21-32) mEq/L Anion Gap (5-15) BUN (7-18) mg/dL Creatinine (0.7-1.3) mg/dL Est Cr Clr Drug Dosing mL/min Estimated GFR (MDRD) (>60) mL/min BUN/Creatinine Ratio (14-18) Glucose (80-115) mg/dL Calcium (8.5-10.1) mg/dL Total Bilirubin (0.2-1.0) mg/dL AST (15-37) U/L ALT (16-63) U/L Alkaline Phosphatase (46-116) U/L C-Reactive Protein (<1.0) mg/dL Total Protein (6.4-8.2) g/dl Albumin (3.4-5.0) g/dl Globulin gm/dL Albumin/Globulin Ratio (1-2) TSH 3rd Generation (0.358-3.74) uIU/mL Urine Color Yellow (Yellow) Urine Appearance Clear (Clear) Urine pH 5.5 (5.0-8.0) Ur Specific [place] 1.025 (1.005-1.030) Urine Protein 1+ H (Negative) Urine Glucose (UA) Negative (Negative) Urine Ketones Negative (Negative) Urine Occult Blood Negative (Negative) Urine Nitrite Negative (Negative) Urine Bilirubin Negative (Negative) Urine Urobilinogen 0.2 (0.2-1.0) Ur Leukocyte Esterase Negative (Negative) Urine RBC 0-5 (0-5) /hpf Urine WBC 0-5 (0-5) /hpf Ur Epithelial Cells 0-5 (0-5) /hpf Urine Bacteria Few (FEW) /hpf Urine Mucus Moderate H (FEW) /hpf Monoscreen (NEGATIVE) Meds: Medications Discontinued Medications Generic Name Dose Route Start Last Admin Trade Name Freq PRN Reason Stop Dose Admin Sodium Chloride 1,000 mls @ 999 mls/hr 07/03/17 14:30 07/03/17 14:50 Normal Saline IV 07/03/17 15:30 999 mls/hr ONETIME ONE Administration Ketorolac Tromethamine 30 mg 07/03/17 14:30 07/03/17 14:50 Toradol IVPUSH 07/03/17 14:31 30 mg ONETIME ONE Administration Sodium Chloride 10 ml 07/03/17 14:30 07/03/17 14:51 Saline Flush FLUSH 10 ml ASDIRECTED PRN Administration Keep Vein Open - Radiology Interpretation Free Text/Narrative:: Chest: Portable view of the chest was obtained. Comparison: Prior chest x-ray of 06/30/17. Heart size and mediastinum are normal. Lungs are clear. Bony structures are unremarkable. Impression: 1. Nothing acute is seen on portable chest x-ray. - Re-Assessments/Exams Free Text/Narrative Re-Assessment/Exam: 07/03/17 16:29 Reviewed the lab results with the patient. Fatigue could be from his medications as many of his medications are sedating. Also could be from depression. Recommend follow-up Dr. sanchez. Discharge instructions as documented. Departure - Departure Time of Disposition: 16:29 Disposition: Home, Self-Care 01 Condition: Fair Clinical Impression: Fatigue Qualifiers: Fatigue type: chronic, unspecified Qualified Code(s): R53.82 - Chronic fatigue , unspecified - Discharge Information Instructions: Fatigue Referrals: Talha Fitch MD [Primary Care Provider] - Forms: ED Department Discharge Additional Instructions: Continue with your current plan of care. Continue with your Cymbalta. Follow-up with Dr. Sanchez as planned to discuss medications and side effects. Please return to ER if your symptoms change or worsen. - My Orders Last 24 Hours: My Active Orders 07/03/17 14:30 Peripheral IV Care [RC] . DIRECTED Peripheral IV Insertion Adult [OM.PC] Routine - Assessment/Plan Last 24 Hours: My Active Orders 07/03/17 14:30 Peripheral IV Care [RC] . DIRECTED Peripheral IV Insertion Adult [OM.PC] Routine
--- NOTE | 2017-07-03 15:44 | CR ---
Chest: Portable view of the chest was obtained. Comparison: Prior chest x-ray of 06/30/17. Heart size and mediastinum are normal. Lungs are clear. Bony structures are unremarkable. Impression: 1. Nothing acute is seen on portable chest x-ray. Diagnostic code #1
== END 2017-07-03 16:33 | disposition home or self-care (01) ==
LOC: JD.ED 12:12
DX: R53.82 Chronic fatigue, unspecified (principal); F17.210 Nicotine dependence, cigarettes, uncomplicated; I10 Essential (primary) hypertension; Z88.5 Allergy status to narcotic agent; Z79.899 Other long term (current) drug therapy
CPT/HCPCS: 36415; 71045; 80053; 81001; 84443; 85025; 86140; 86308; 87804; 96361; 96374; 99284; J1885; J7040; J7050

== ENCOUNTER 2017-07-09 18:00 | Emergency (ER) | payer MEDICAID ==
[2017-07-09 18:18] VITALS: BP 155/106
--- NOTE | 2017-07-09 18:27 | EDM.PDOC ---
ED HPI GENERAL MEDICAL PROBLEM - General Chief Complaint: Upper Extremity Injury/Pain Stated Complaint: FELL HIT SHOULDER Time Seen by Provider: 07/09/17 18:22 Source of Information: Reports: Patient History Limitations: Reports: No Limitations - History of Present Illness INITIAL COMMENTS - FREE TEXT/NARRATIVE: Patient is a 61 y/o male who presents to the E.D. complaining of right shoulder pain. Patient states a few days ago slipped on the ice and in the process of catching himself landed on his right shoulder. Patient has had decreased range of motion with worsening pain with movement. Has not been utilizing ice, tylenol , ibuprofen, or other pain medications. States he attempted to get in with PCP with no luck. Thus is here for evaluation. Denies midline neck pain, back pain , loc, headache, n/t, or any additional complaints. Treatments AIRBRUSH ARTIST: Reports: Other (see below) Other Treatments AIRBRUSH ARTIST: tylenol this am Right Shoulder Pain Score (Numeric/FACES): 8 - Related Data Allergies Allergy/AdvReac Type Severity Reaction Status Date / Time codeine Allergy Intermediate Itching Verified 07/03/17 12:24 meperidine HCl [From Demerol] Allergy Intermediate Itching Verified 07/03/17 12: 24 Home Meds: Home Meds Meloxicam 7.5 mg PO DAILY PRN 03/26/15 [History] Losartan/Hydrochlorothiazide [Losartan-HCTZ 100-25 MG] 1 tab PO DAILY 08/27/15 [ History] Mirtazapine 30 mg PO DAILY 09/10/15 [History] Pantoprazole [Protonix] 40 mg PO ACBREAKFAST 03/18/16 [History] ClonazePAM [KlonoPIN] 0.5 mg PO BID 08/21/16 [History] cloNIDine [Catapres] 0.5 tab PO Q12HR 01/21/17 [History] Tamsulosin HCl [Flomax] 0.4 mg PO DAILY #7 cap.er.24h 05/10/17 [Rx] DULoxetine [Cymbalta] 60 mg PO DAILY #30 cap 06/30/17 [Rx] Orphenadrine [Norflex] 100 mg PO BID PRN #30 tab.er 06/30/17 [Rx] hydrOXYzine HCl [hydrOXYzine] 1 tab PO DAILY 06/30/17 [History] Past Medical History - Past Health History Medical/Surgical History: Denies Medical/Surgical History HEENT History: Reports: Other (See Below) Other HEENT History: dental issues. 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, opiods Hematologic History: Reports: Other (See Below) Other Hematologic History: HEP C - Infectious Disease History Infectious Disease History: Reports: Chicken Pox, Hepatitis C, Measles - Past Surgical History GI Surgical History: Reports: Appendectomy Male Surgical History: Reports: Lithotripsy (ESWL), Ureteral Stent Social & Family History - Family History Family Medical History: Noncontributory - Tobacco Use Smoking Status *Q: Current Every Day Smoker Years of Tobacco use: 47 Packs/Tins Daily: 0.5 Used Tobacco, but Quit: No Month/Year Tobacco Last Used: august Second Hand Smoke Exposure: No - Caffeine Use Caffeine Use: Reports: Coffee - Alcohol Use Days Per Week of Alcohol Use: 0 (reports last alcohol intake as 10/11/16) Number of Drinks Per Day: 3 Total Drinks Per Week: 0 - Recreational Drug Use Recreational Drug Use: No Drug Use in Last 12 Months: Yes Recreational Drug Type: Reports: Ativan, Benzodiazepines, Dilaudid, Marijuana/ Hashish, Oxycodone, Vicodin Other Recreational Drug Type: over use of percocet and hydrocodone and ativan Recreational Drug Use Frequency: Binges - Living Situation & Occupation Living situation: Reports: Single, Alone Occupation: Unemployed Review of Systems - Review of Systems Review Of Systems: ROS reveals no pertinent complaints other than HPI. ED EXAM, GENERAL - Physical Exam Exam: See Below Exam Limited By: No Limitations General Appearance: Alert, WD/WN, No Apparent Distress Ears: Hearing Grossly Normal Nose: Normal Inspection Throat/Mouth: Normal Voice, No Airway Compromise Head: Atraumatic, Normocephalic Neck: Normal Inspection, Supple, Non-Tender, Full Range of Motion Respiratory/Chest: No Respiratory Distress, No Accessory Muscle Use Cardiovascular: Normal Peripheral Pulses, Regular Rate, Rhythm Peripheral Pulses: 4+: Radial (R) Extremities: Normal Inspection, No Pedal Edema, Normal Capillary Refill, Other ( Tenderness to the posterior aspect of the shoulder. Patient has full range of motion with minimal pain. No bony abnormalities, bruising, or wounds present. No sensory/motor deficits present. ) Neurological: Alert, Oriented, CN II-XII Intact, No Motor/Sensory Deficits Psychiatric: Normal Affect, Normal Mood Skin Exam: Warm, Dry, Intact, Normal Color, No Rash ED TRAUMA EXTREMITY PROCEDURES - Laceration/Wound Repair Right Hand Appearance: Subcutaneous # of Sutures: 8 Course - Vital Signs Last Recorded V/S: Last Vital Signs Temp 98.6 F 07/09/17 18:18 Pulse 97 07/09/17 18:18 Resp 20 07/09/17 18:18 BP 155/106 H 07/09/17 18:18 Pulse Ox 99 07/09/17 18:18 - Orders/Labs/Meds Orders: Active Orders 24 hr Category Date Time Status Shoulder Comp Rt [CR] Stat Exams 07/09/17 18:25 Taken - Re-Assessments/Exams Free Text/Narrative Re-Assessment/Exam: Shoulder x-ray reviewed with Dr. Aguayo with no concerning findings. Reviewed [facility] Report.Patient has been receiving hydrocodone 5-325mg multiple during the months of May and June. Will not discharge patient home with narcotics. Patient strained his shoulder and has a contusion. Will discharge patient home with instructions as documented. Departure - Departure Time of Disposition: 19:04 Disposition: Home, Self-Care 01 Condition: Good Clinical Impression: Right shoulder strain Qualifiers: Encounter type: initial encounter Qualified Code(s): S46.911A - Strain of unspecified muscle, fascia and tendon at shoulder and upper arm level, right arm , initial encounter Contusion of shoulder, right Qualifiers: Encounter type: initial encounter Qualified Code(s): S40.011A - Contusion of right shoulder, initial encounter - Discharge Information Instructions: Shoulder Sprain, Shoulder Pain, [id number], Muscle Strain, Easy -to-Read, Muscle Strain Referrals: Talha Fitch MD [Primary Care Provider] - Forms: ED Department Discharge Additional Instructions: Refrain from any activities that cause worsening pain. Utilize ice to the affected area 4 times daily, 20 minutes in duration, do not apply ice directly on the skin. Take tylenol and ibuprofen in alternating fashion for pain. Keep appt with Dr. Mensah as scheduled for next week. Return to the E.D. for any new or worsening symptoms. - My Orders Last 24 Hours: My Active Orders 07/09/17 18:25 Shoulder Comp Rt [CR] Stat - Assessment/Plan Last 24 Hours: My Active Orders 07/09/17 18:25 Shoulder Comp Rt [CR] Stat
--- NOTE | 2017-07-10 18:35 | CR ---
Right shoulder: Three views of the right shoulder were obtained. Comparison: No previous right shoulder exam. Bony exostosis is noted off the inferior acromium. Joint space narrowing and mild spurring is noted within the acromioclavicular joint. Spurring is noted both superior and inferior. Density noted within the right upper chest which appears to represent calcification within the right upper lung. Glenohumeral joint shows minimal spurring within the glenoid. No acute fracture or other bony abnormality is seen. Impression: 1. Degenerative change as described above. 2. Calcification within the right upper chest which is felt to be incidental. Diagnostic code #2
== END 2017-07-09 19:15 | disposition home or self-care (01) ==
LOC: JD.ED 18:00
DX: S46.911A Strain of unspecified muscle, fascia and tendon at shoulder and upper arm level, right arm, initial encounter (principal); S40.011A Contusion of right shoulder, initial encounter; I10 Essential (primary) hypertension; K21.9 Gastro-esophageal reflux disease without esophagitis; Z87.442 Personal history of urinary calculi; Z90.49 Acquired absence of other specified parts of digestive tract; Z95.5 Presence of coronary angioplasty implant and graft; W00.0XXA Fall on same level due to ice and snow, initial encounter; Z88.5 Allergy status to narcotic agent; Z88.8 Allergy status to other drugs, medicaments and biological substances; Z79.899 Other long term (current) drug therapy; F17.210 Nicotine dependence, cigarettes, uncomplicated
CPT/HCPCS: 73030-26-RT; 73030-RT; 99283

== ENCOUNTER 2017-08-16 15:14 | Emergency (ER) | payer MEDICAID ==
[2017-08-16] MEDS ORDERED: Ketorolac 30 MG/ML SDV ONE (16:10)
== END 2017-08-16 17:45 ==
LOC: JD.ED 15:14
DX: S39.012A Strain of muscle, fascia and tendon of lower back, initial encounter (principal); X58.XXXA Exposure to other specified factors, initial encounter
CPT/HCPCS: 36415; 80053; 81003; 85025; 96372; 99283; J1885

== ENCOUNTER 2017-09-06 17:44 | Emergency (ER) | payer MEDICAID ==
[2017-09-06 17:59] VITALS: BP 180/91
[2017-09-06] MEDS ORDERED: Cyclobenzaprine 10 MG Tab PO ONE (18:25)
[2017-09-06] MEDS ORDERED: Acetaminophen/HYDROcodone 325-5 MG Tab PO ONE (18:26)
--- NOTE | 2017-09-06 18:57 | EDM.PDOC ---
ED HPI GENERAL MEDICAL PROBLEM - General Chief Complaint: Back Pain or Injury Stated Complaint: RIGHT LOWER BACK PAIN Time Seen by Provider: 09/06/17 18:10 Source of Information: Reports: Patient History Limitations: Reports: No Limitations - History of Present Illness INITIAL COMMENTS - FREE TEXT/NARRATIVE: Patient is a 62-year-old male who presents to the ED complaining of right lower back pain. Patient states the back discomfort has been present for the past 3 weeks. States it occurred after bending down multiple times picking up cigarette butts around his residence. He's been evaluated by his primary care provider and has been prescribed hydrocodone. Patient ran out of this medication as of recent. He's been using Biofreeze and icy hot to the affected area with minimal relief. States with walking or any kind of movement this worsens. He has appointment with PT scheduled for this coming Wednesday for further evaluation. In addition will see a orthopedic surgeon on September 13 for evaluation as well to see if surgery is required. No MRI study has been obtained. X-rays of the lumbar spine were obtained this past Wednesday with no concerning findings. Degenerative changes and arthritis noted. He has no saddle anesthesia. No sciatica. NO incontinence to urine or stool. Pain is chronic with no worsening symptoms as of recent. Patient did walk to the ED on his own accord. Lower Back Pain Score (Numeric/FACES): 8 - Related Data Allergies Allergy/AdvReac Type Severity Reaction Status Date / Time codeine Allergy Intermediate Itching Verified 07/03/17 12:24 meperidine HCl [From Demerol] Allergy Intermediate Itching Verified 07/03/17 12: 24 Home Meds: Home Meds Losartan/Hydrochlorothiazide [Losartan-HCTZ 100-25 MG] 1 tab PO DAILY 08/27/15 [ History] Mirtazapine 30 mg PO DAILY 09/10/15 [History] Pantoprazole [Protonix] 40 mg PO ACBREAKFAST 03/18/16 [History] ClonazePAM [KlonoPIN] 0.5 mg PO BID 08/21/16 [History] cloNIDine [Catapres] 0.5 tab PO Q12HR 01/21/17 [History] Tamsulosin HCl [Flomax] 0.4 mg PO DAILY #7 cap.er.24h 05/10/17 [Rx] DULoxetine [Cymbalta] 60 mg PO DAILY #30 cap 06/30/17 [Rx] hydrOXYzine HCl [hydrOXYzine] 1 tab PO DAILY 06/30/17 [History] Orphenadrine [Norflex] 10 mg PO BID PRN 09/06/17 [History] Past Medical History - Past Health History Medical/Surgical History: Denies Medical/Surgical History HEENT History: Reports: Other (See Below) Other HEENT History: dental issues. 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, opiods Hematologic History: Reports: Other (See Below) Other Hematologic History: HEP C - Infectious Disease History Infectious Disease History: Reports: Chicken Pox, Hepatitis C, Measles - Past Surgical History GI Surgical History: Reports: Appendectomy Male Surgical History: Reports: Lithotripsy (ESWL), Ureteral Stent Social & Family History - Family History Family Medical History: Noncontributory - Tobacco Use Smoking Status *Q: Current Every Day Smoker Years of Tobacco use: 48 Packs/Tins Daily: 0.5 - Caffeine Use Caffeine Use: Reports: Coffee, Soda - Recreational Drug Use Recreational Drug Use: No - Living Situation & Occupation Living situation: Reports: Single, Alone Occupation: Unemployed ED ROS GENERAL - Review of Systems Review Of Systems: ROS reveals no pertinent complaints other than HPI. ED EXAM,LOWER BACK PAIN/INJURY - Physical Exam Exam: See Below Exam Limited By: No Limitations General Appearance: Alert, WD/WN, No Apparent Distress Ears: Hearing Grossly Normal Nose: Normal Inspection Throat/Mouth: Normal Voice, No Airway Compromise Head: Atraumatic, Normocephalic Neck: Normal Inspection Respiratory/Chest: No Respiratory Distress, No Accessory Muscle Use Cardiovascular: Normal Peripheral Pulses, Regular Rate, Rhythm GI/Abdominal: Normal Bowel Sounds, Soft, Non-Tender, No Organomegaly, No Distention Back Exam: Normal Inspection, Decreased Range of Motion, Other (Pain noted to the right lower back. Increased with palpation. No swelling, rash, ecchymosis noted.). No: Paraspinal Tenderness, Vertebral Tenderness Extremities: Normal Inspection, Normal Range of Motion Neurological: Alert, Normal Mood/Affect, Normal Dorsiflexion, CN II-XII Intact, Normal Plantar Flexion, Normal Gait, No Motor/Sensory Deficits, Oriented x 3 Psychiatric: Normal Affect, Normal Mood Skin Exam: Warm, Dry, Intact, Normal Color, No Rash Course - Vital Signs Last Recorded V/S: Last Vital Signs Temp 98.9 F 09/06/17 17:58 Pulse 98 09/06/17 17:58 Resp 18 09/06/17 17:58 BP 180/91 H 09/06/17 17:58 Pulse Ox 90 L 09/06/17 17:58 - Orders/Labs/Meds Meds: Medications Discontinued Medications Generic Name Dose Route Start Last Admin Trade Name Ashokq PRN Reason Stop Dose Admin Hydrocodone Bitart/Acetaminophen 1 tab 09/06/17 18:26 09/06/17 18:30 [place] 325-5 Mg PO 09/06/17 18:27 1 tab ONETIME ONE Administration Cyclobenzaprine HCl 10 mg 09/06/17 18:25 09/06/17 18:30 Flexeril PO 09/06/17 18:26 10 mg ONETIME ONE Administration Ketorolac Tromethamine 30 mg 09/06/17 19:02 09/06/17 19:06 Toradol IM 09/06/17 19:03 30 mg ONETIME ONE Administration - Re-Assessments/Exams Free Text/Narrative Re-Assessment/Exam: Patient's complaint is chronic. No new changes. On examination has pain to the right lower back consistent for muscle strain. He has appointment with PT for this coming Wednesday. I will have the patient follow-up with his primary care provider tomorrow for reevaluation. Once administered medications patient will be discharge home. Ordered Flexeril 10 mg by mouth and also [place] 5-325 one tab by mouth. 09/06/17 19:02 Patient requested shot of Toradol prior to leaving. 30 mg IM ordered. Departure - Departure Time of Disposition: 18:55 Disposition: Home, Self-Care 01 Condition: Good Clinical Impression: Chronic right-sided low back pain without sciatica - Discharge Information Instructions: Chronic Back Pain Referrals: Talha Fitch MD [Primary Care Provider] - Forms: ED Department Discharge Additional Instructions: As discussed keep appointment with physical therapy as scheduled. Follow-up with y0ur primary care provider for further pain management. Utilize warm compresses, gentle massage, ibuprofen and Tylenol as needed for discomfort. Return to the ED for any new or worsening symptoms. Do not drive today since receiving a sedative medication while in the ED.
[2017-09-06] MEDS ORDERED: Ketorolac 30 MG/ML SDV IM ONE (19:02)
== END 2017-09-06 19:00 | disposition home or self-care (01) ==
LOC: JD.ED 17:44
DX: G89.29 Other chronic pain (principal); M54.5 Low back pain; I10 Essential (primary) hypertension; K21.9 Gastro-esophageal reflux disease without esophagitis; F17.210 Nicotine dependence, cigarettes, uncomplicated; Z88.5 Allergy status to narcotic agent; Z79.899 Other long term (current) drug therapy
CPT/HCPCS: 96372; 99283; A9270; J1885

== ENCOUNTER 2017-10-01 11:24 | Emergency (ER) | payer MEDICAID ==
--- NOTE | 2017-10-01 12:53 | EDM.PDOC ---
ED HPI GENERAL MEDICAL PROBLEM - General Chief Complaint: Back Pain or Injury Stated Complaint: BACK PAIN Time Seen by Provider: 10/01/17 12:32 Source of Information: Reports: Patient History Limitations: Reports: No Limitations - History of Present Illness INITIAL COMMENTS - FREE TEXT/NARRATIVE: 62-year-old male presents for evaluation and treatment of low back pain. He states he has had low back pain for decades. States that about 6 weeks ago he was bending over and his back pain seemed to worsen. He has been seeing Dr. Fitch and was referred to Dr. Mensah who had an MRI done. He was diagnosed with a bulging disc at L4-L5. He states he is having some radiation of pain and numbness into his left buttocks and left posterior thigh. States he has been taking [id number] Biofreeze and Tylenol in addition to hydrocodone. he was prescribed hydrocodone by Dr. Fitch on Wednesday, was instructed to take one a day and he is currently out, last hydrocodone was last night. He reports that he is on some type of muscle relaxers that started with a "B," question if this is baclofen. States this is helped greatly. He reports numbness into the left leg. No saddle anesthesia. He has been in physical therapy but he states he is taking a break because it became too difficult. He is supposed to see the pain specialist in [place] in the near future but it does not sound that he currently has an appointment. Lower Back Pain Score (Numeric/FACES): 10 - Related Data Allergies Allergy/AdvReac Type Severity Reaction Status Date / Time codeine Allergy Intermediate Itching Verified 10/01/17 11:42 meperidine HCl [From Demerol] Allergy Intermediate Itching Verified 10/01/17 11: 42 Home Meds: Home Meds Losartan/Hydrochlorothiazide [Losartan-HCTZ 100-25 MG] 1 tab PO DAILY 08/27/15 [ History] Mirtazapine 30 mg PO DAILY 09/10/15 [History] Pantoprazole [Protonix] 40 mg PO ACBREAKFAST 03/18/16 [History] ClonazePAM [KlonoPIN] 0.5 mg PO BID 08/21/16 [History] cloNIDine [Catapres] 0.5 tab PO Q12HR 01/21/17 [History] Tamsulosin HCl [Flomax] 0.4 mg PO DAILY #7 cap.er.24h 05/10/17 [Rx] DULoxetine [Cymbalta] 60 mg PO DAILY #30 cap 06/30/17 [Rx] hydrOXYzine HCl [hydrOXYzine] 1 tab PO DAILY 06/30/17 [History] Orphenadrine [Norflex] 10 mg PO BID PRN 09/06/17 [History] Past Medical History - Past Health History Medical/Surgical History: Denies Medical/Surgical History HEENT History: Reports: Other (See Below) Other HEENT History: dental issues. 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, opiods Hematologic History: Reports: Other (See Below) Other Hematologic History: HEP C - Infectious Disease History Infectious Disease History: Reports: Chicken Pox, Hepatitis C, Measles - Past Surgical History GI Surgical History: Reports: Appendectomy Male Surgical History: Reports: Lithotripsy (ESWL), Ureteral Stent Social & Family History - Family History Family Medical History: Noncontributory - Caffeine Use Caffeine Use: Reports: Coffee, Soda - Living Situation & Occupation Living situation: Reports: Single, Alone Occupation: Unemployed ED ROS GENERAL - Review of Systems Review Of Systems: See Below Musculoskeletal: Reports: Back Pain Neurological: Reports: Numbness (right leg) ED EXAM,LOWER BACK PAIN/INJURY - Physical Exam Exam: See Below Exam Limited By: No Limitations General Appearance: Alert, WD/WN, No Apparent Distress Ears: Normal External Exam Nose: Normal Inspection Throat/Mouth: Normal Inspection, Normal Voice, No Airway Compromise Respiratory/Chest: No Respiratory Distress, Lungs Clear, Normal Breath Sounds Cardiovascular: Normal Peripheral Pulses, Regular Rate, Rhythm (2+ dorsalis pedis and posterior tibialis pulses bilaterally), No Murmur Back Exam: Normal Inspection, Paraspinal Tenderness (right L4-sacrum), Vertebral Tenderness (L4 to sacrum; ) Extremities: Normal Inspection Neurological: Alert, Normal Mood/Affect, Normal Dorsiflexion, Normal Plantar Flexion, Normal Gait, Straight Leg Raise (L). No: Saddle Anesthesia, Difficulty Walking Psychiatric: Normal Affect Skin Exam: Warm, Dry, Normal Color Course - Vital Signs Last Recorded V/S: Last Vital Signs Temp 98.5 F 10/01/17 11:43 Pulse 77 10/01/17 14:05 Resp 16 10/01/17 14:05 BP 145/90 H 10/01/17 14:05 Pulse Ox 96 10/01/17 14:05 - Orders/Labs/Meds Meds: Medications Discontinued Medications Generic Name Dose Route Start Last Admin Trade Name Freq PRN Reason Stop Dose Admin Ketorolac Tromethamine 60 mg 10/01/17 12:54 10/01/17 13:17 Toradol IM 10/01/17 12:55 60 mg ONETIME ONE Administration - Re-Assessments/Exams Free Text/Narrative Re-Assessment/Exam: 10/01/17 13:44 Patient was searched on the [place] prescription drug registry. He has received 33 prescriptions from 9 different prescribers for controlled substance within the last year. Most recently received hydrocodone-acetaminophen 5-325 # 15 on September 27, 2017. The supply was supposed to last 8 days. The patient. States he does not feel much better. I informed him that given that this is a chronic problem I'm unable to prescribe him any narcotics through the He should contact his primary care provider if he does not feel that his pain control is adequate with 2 hydrocodone a day. He is currently out of his medications. I encouraged him to use Tylenol and Motrin. He should also utilize ice and heat. I also encouraged him to get back into physical therapy. Discharge sections as documented. ER. Departure - Departure Time of Disposition: 13:51 Disposition: Home, Self-Care 01 Condition: Fair Clinical Impression: Back pain Qualifiers: Back pain location: low back pain Chronicity: chronic - Discharge Information Instructions: Back Pain, Adult, [id number] Referrals: Talha Fitch MD [Primary Care Provider] - Forms: ED Department Discharge Additional Instructions: Contact your primary care provider for further pain management. In the meantime, continue to use her muscle relaxers, [id number] Tylenol or Motrin. may also continue to use topical products such as Icyhot or bengay. recommend that you contact the touch up painter hand to set up an appointment to have the injections done. Please return to the ER if your symptoms change or worsen.
[2017-10-01] MEDS ORDERED: Ketorolac 60 MG/2 ML SDV IM ONE (12:54)
[2017-10-01 14:15] VITALS: BP 145/90
== END 2017-10-01 14:08 | disposition home or self-care (01) ==
LOC: JD.ED 11:24
DX: G89.29 Other chronic pain (principal); M54.5 Low back pain; I10 Essential (primary) hypertension; F41.9 Anxiety disorder, unspecified; F32.9 Major depressive disorder, single episode, unspecified; Z88.5 Allergy status to narcotic agent; Z79.899 Other long term (current) drug therapy
CPT/HCPCS: 96372; 99283; J1885

== ENCOUNTER 2017-10-13 13:22 | Emergency (ER) | payer MEDICAID ==
[2017-10-13 13:43] VITALS: BP 153/94
[2017-10-13] MEDS ORDERED: DULoxetine 30 MG Cap PO ONE (13:56)
[2017-10-13] MEDS ORDERED: Ketorolac 60 MG/2 ML SDV IM ONE (13:59)
--- NOTE | 2017-10-13 14:03 | EDM.PDOC ---
ED HPI GENERAL MEDICAL PROBLEM - General Chief Complaint: General Stated Complaint: BACK PAIN AND MED REFILS Time Seen by Provider: 10/13/17 13:51 Source of Information: Reports: Patient History Limitations: Reports: No Limitations - History of Present Illness INITIAL COMMENTS - FREE TEXT/NARRATIVE: Patient is a 62-year-old male who presents ED complaining of lower back discomfort. Pain is chronic with no new or worsening symptoms. States he ran out of his Cymbalta 4 days ago. Cymbalta was 60 mg every day. He did contact his PCP and they were to phone in a prescription yesterday. He will fill this tomorrow. Denies taking any additional pain medications. He has been seen Dr. Fitch for chronic pain therapy. Denies any fever, painful urination, diarrhea, abdominal pain, numbness or tingling to extremities, difficult walking, incontinence urine or stool, saddle anesthesia, or any additional complaints. Back Pain Score (Numeric/FACES): 7 - Related Data Allergies Allergy/AdvReac Type Severity Reaction Status Date / Time codeine Allergy Intermediate Itching Verified 10/13/17 13:40 meperidine HCl [From Demerol] Allergy Intermediate Itching Verified 10/13/17 13: 40 Home Meds: Home Meds Losartan/Hydrochlorothiazide [Losartan-HCTZ 100-25 MG] 1 tab PO DAILY 08/27/15 [ History] Mirtazapine 30 mg PO DAILY 09/10/15 [History] Pantoprazole [Protonix] 40 mg PO ACBREAKFAST 03/18/16 [History] ClonazePAM [KlonoPIN] 0.5 mg PO BID 08/21/16 [History] cloNIDine [Catapres] 0.5 tab PO Q12HR 01/21/17 [History] Tamsulosin HCl [Flomax] 0.4 mg PO DAILY #7 cap.er.24h 05/10/17 [Rx] DULoxetine [Cymbalta] 60 mg PO DAILY #30 cap 06/30/17 [Rx] hydrOXYzine HCl [hydrOXYzine] 1 tab PO DAILY 06/30/17 [History] Orphenadrine [Norflex] 10 mg PO BID PRN 09/06/17 [History] Past Medical History - Past Health History Medical/Surgical History: Denies Medical/Surgical History HEENT History: Reports: Other (See Below) Other HEENT History: dental issues. 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, opiods Hematologic History: Reports: Other (See Below) Other Hematologic History: HEP C - Infectious Disease History Infectious Disease History: Reports: Chicken Pox, Hepatitis C, Measles - Past Surgical History GI Surgical History: Reports: Appendectomy Male Surgical History: Reports: Lithotripsy (ESWL), Ureteral Stent Social & Family History - Family History Family Medical History: Noncontributory - Tobacco Use Smoking Status *Q: Current Every Day Smoker Years of Tobacco use: 48 Packs/Tins Daily: 0.5 Used Tobacco, but Quit: No - Caffeine Use Caffeine Use: Reports: Coffee - Recreational Drug Use Recreational Drug Use: No - Living Situation & Occupation Living situation: Reports: Single, Alone Occupation: Unemployed ED ROS GENERAL - Review of Systems Review Of Systems: See Below Constitutional: Reports: No Symptoms Respiratory: Reports: No Symptoms Cardiovascular: Reports: No Symptoms GI/Abdominal: Reports: No Symptoms : Reports: No Symptoms Musculoskeletal: Reports: Back Pain (Low back midline, right/left lateral. Dull ache. worsened with movements. ) Skin: Reports: No Symptoms Neurological: Reports: No Symptoms ED EXAM, GENERAL - Physical Exam Exam: See Below Exam Limited By: No Limitations General Appearance: Alert, WD/WN, No Apparent Distress Ears: Hearing Grossly Normal Nose: Normal Inspection Throat/Mouth: Normal Voice, No Airway Compromise Neck: Normal Inspection, Supple Respiratory/Chest: No Respiratory Distress, Lungs Clear, Normal Breath Sounds, No Accessory Muscle Use Cardiovascular: Normal Peripheral Pulses, Regular Rate, Rhythm, No Murmur Peripheral Pulses: 4+: Radial (L) GI/Abdominal: Normal Bowel Sounds, Soft, Non-Tender, No Organomegaly, No Distention Back Exam: Normal Inspection, Full Range of Motion. No: CVA Tenderness (L), CVA Tenderness (R), Decreased Range of Motion, Muscle Spasm, Paraspinal Tenderness, Vertebral Tenderness Extremities: Normal Inspection, Normal Range of Motion Neurological: Alert, Oriented, CN II-XII Intact, Normal Cognition, No Motor/ Sensory Deficits Psychiatric: Normal Affect, Normal Mood Skin Exam: Warm, Dry, Intact, Normal Color, No Rash Course - Vital Signs Last Recorded V/S: Last Vital Signs Temp 97.2 F 10/13/17 13:40 Pulse 86 10/13/17 13:40 Resp 18 10/13/17 13:40 BP 153/94 H 10/13/17 13:40 Pulse Ox 94 L 10/13/17 13:40 - Orders/Labs/Meds Meds: Medications Discontinued Medications Generic Name Dose Route Start Last Admin Trade Name Chin PRN Reason Stop Dose Admin Duloxetine HCl 60 mg 10/13/17 13:56 10/13/17 14:07 Cymbalta PO 10/13/17 13:57 60 mg ONETIME ONE Administration Ketorolac Tromethamine 60 mg 10/13/17 13:59 10/13/17 14:08 Toradol IM 10/13/17 14:00 60 mg ONETIME ONE Administration - Re-Assessments/Exams Free Text/Narrative Re-Assessment/Exam: Patient ran out of his cymbalta 4 days ago. States he has a prescription called in to his pharmacy as of yesterday to which he will picker / packer tomorrow. Pain to his low back is chronic nothing changed as of recent. Patient is a history of opioid and benzodiazepine abuse. Per M.D. pharmacy drug monitoring he received hydrocodone 5-325 #15 written on 2017 at filled on 10/09 2017. Departure - Departure Time of Disposition: 14:27 Disposition: Home, Self-Care 01 Condition: Good Clinical Impression: Chronic low back pain without sciatica Qualifiers: Back pain laterality: bilateral Qualified Code(s): M54.5 - Low back pain; G89.29 - Other chronic pain Chronic back pain Qualifiers: Back pain location: low back pain Back pain laterality: bilateral Sciatica presence: without sciatica Qualified Code(s): M54.5 - Low back pain - Discharge Information Instructions: Chronic Pain, Adult, Chronic Back Pain Referrals: Talha Fitch MD [Primary Care Provider] - Forms: ED Department Discharge Additional Instructions: Follow-up with your primary care provider tomorrow for reevaluation and continued management of chronic pain. Fill your prescription for Cymbalta tomorrow and start taking as prescribed. Utilize Tylenol and ibuprofen in alternating fashion for discomfort. Apply warm compresses and ice in alternating fashion for discomfort as needed. Refrain from any activities that cause worsening pain. Return to the ED if you develop any new or worsening symptoms.
== END 2017-10-13 14:34 | disposition home or self-care (01) ==
LOC: JD.ED 13:22
DX: G89.29 Other chronic pain (principal); M54.5 Low back pain; F17.210 Nicotine dependence, cigarettes, uncomplicated; Z79.899 Other long term (current) drug therapy; Z88.5 Allergy status to narcotic agent
CPT/HCPCS: 96372; 99283; A9270; J1885

== ENCOUNTER 2017-11-20 15:48 | Emergency (ER) | payer MEDICAID ==
[2017-11-20] MEDS ORDERED: Cyclobenzaprine 10 MG Tab PO ONE (16:32)
--- NOTE | 2017-11-20 16:41 | EDM.PDOC ---
ED HPI GENERAL MEDICAL PROBLEM - General Chief Complaint: Back Pain or Injury Stated Complaint: SIDE PAIN Time Seen by Provider: 11/20/17 16:14 Source of Information: Reports: Patient History Limitations: Reports: No Limitations - History of Present Illness INITIAL COMMENTS - FREE TEXT/NARRATIVE: Patient complains of pain to the right lower back along the paraspinal muscles and also along a large old surgical incision to the right low back and flank. There is no rash, swelling, bony abnormalities. No bony point tenderness. No CVA tenderness. Pain does not radiate anywhere. He has a history of back discomfort requiring injection middle part of October. He states the pain went completely away and is concerned that the medication has worn off. He does have a history kidney stones with states the discomfort is currently experiencing is different. All the discomfort he is currently experiencing is reproducible suggesting is more likely muscle related. He denies any activities that may precipitated this. He was just washing dishes when this occurred. He quit on his own taking baclofen, meloxicam and hydrocodone 1.5 months ago. He does not believe its related to kidney stones. Has not had a kidney stone pass for sometime. yesterday was evaluated at the [facility] for a migraine. He received Toradol and Tylenol with caffeine with relief noted. There 's been no fever chills, diarrhea, abdominal pain, hematuria, pain radiating to his groin, nausea/vomiting, chest pain, shortness of breath, or any additional complaints. Treatments BIN PILER: Reports: Other (see below) Other Treatments BIN PILER: acetaminophen and caffeine tab about 10 am Right Lower Back Pain Score (Numeric/FACES): 7 - Related Data Allergies Allergy/AdvReac Type Severity Reaction Status Date / Time codeine Allergy Intermediate Itching Verified 10/13/17 13:40 meperidine HCl [From Demerol] Allergy Intermediate Itching Verified 10/13/17 13: 40 Home Meds: Home Meds Mirtazapine 30 mg PO DAILY 09/10/15 [History] Pantoprazole [Protonix] 40 mg PO ACBREAKFAST 03/18/16 [History] ClonazePAM [KlonoPIN] 0.5 mg PO BID 08/21/16 [History] cloNIDine [Catapres] 0.5 tab PO Q12HR 01/21/17 [History] Tamsulosin HCl [Flomax] 0.4 mg PO DAILY #7 cap.er.24h 05/10/17 [Rx] DULoxetine [Cymbalta] 60 mg PO DAILY #30 cap 06/30/17 [Rx] Cyclobenzaprine [Flexeril] 10 mg PO TID #15 tab 11/20/17 [Rx] Past Medical History - Past Health History Medical/Surgical History: Denies Medical/Surgical History HEENT History: Reports: Other (See Below) Other HEENT History: dental issues. 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, opiods Hematologic History: Reports: Other (See Below) Other Hematologic History: HEP C - Infectious Disease History Infectious Disease History: Reports: Chicken Pox, Hepatitis C, Measles - Past Surgical History GI Surgical History: Reports: Appendectomy Male Surgical History: Reports: Lithotripsy (ESWL), Ureteral Stent Social & Family History - Family History Family Medical History: Noncontributory - Tobacco Use Smoking Status *Q: Current Every Day Smoker Years of Tobacco use: 49 Packs/Tins Daily: 0.5 - Caffeine Use Caffeine Use: Reports: Coffee, Soda - Recreational Drug Use Recreational Drug Type: Reports: Marijuana/Hashish Other Recreational Drug Type: not used iin a long tme - Living Situation & Occupation Living situation: Reports: Single, Alone Occupation: Unemployed ED ROS GENERAL - Review of Systems Review Of Systems: See Below Constitutional: Reports: No Symptoms Respiratory: Reports: No Symptoms Cardiovascular: Reports: No Symptoms GI/Abdominal: Reports: No Symptoms : Reports: No Symptoms Musculoskeletal: Reports: Back Pain (right low back) Skin: Reports: No Symptoms Neurological: Reports: No Symptoms ED EXAM,LOWER BACK PAIN/INJURY - Physical Exam Exam: See Below Exam Limited By: No Limitations General Appearance: Alert, WD/WN, No Apparent Distress Ears: Hearing Grossly Normal Nose: Normal Inspection Throat/Mouth: Normal Voice, No Airway Compromise Head: Atraumatic, Normocephalic Neck: Normal Inspection, Supple Respiratory/Chest: No Respiratory Distress, Lungs Clear, Normal Breath Sounds, No Accessory Muscle Use, Chest Non-Tender Cardiovascular: Normal Peripheral Pulses, Regular Rate, Rhythm, No Murmur GI/Abdominal: Normal Bowel Sounds, Soft, Non-Tender, No Organomegaly, No Distention Back Exam: Normal Inspection, Full Range of Motion, Other (Pain with palpation along the paraspinal muscles on the right side at L2-L5. In addition to some slight tenderness along the large old surgical incision to the right lower back/ flank. No CVA tenderness. No rash, swelling, bony abnormalities, or any additional complaints. No midline vertebral pain. No pain along the ribs. No SI joint tenderness.) Extremities: Normal Inspection, Normal Range of Motion, Non-Tender, No Pedal Edema, Normal Capillary Refill Neurological: Alert, Normal Mood/Affect, Normal Dorsiflexion, CN II-XII Intact, Normal Plantar Flexion, Normal Gait, No Motor/Sensory Deficits, Oriented x 3 Psychiatric: Normal Affect, Normal Mood Skin Exam: Warm, Dry, Intact, Normal Color, No Rash Course - Vital Signs Last Recorded V/S: Last Vital Signs Temp 98.2 F 11/20/17 16:05 Pulse 88 11/20/17 16:05 Resp 20 11/20/17 16:05 BP 135/85 11/20/17 16:05 Pulse Ox 96 11/20/17 16:05 - Orders/Labs/Meds Orders: Active Orders 24 hr Category Date Time Status DRUG SCREEN, URINE [URCHEM] Stat Lab 11/20/17 17:20 Received Labs: Laboratory Tests 11/20/17 Range/Units 17:20 Urine Color Yellow (Yellow) Urine Appearance Slt cloudy H (Clear) Urine pH 6.0 (5.0-8.0) Ur Specific Revere 1.015 (1.005-1.030) Urine Protein Trace H (Negative) Urine Glucose (UA) Negative (Negative) Urine Ketones Negative (Negative) Urine Occult Blood 3+ H (Negative) Urine Nitrite Negative (Negative) Urine Bilirubin Negative (Negative) Urine Urobilinogen 0.2 (0.2-1.0) Ur Leukocyte Esterase Negative (Negative) Urine RBC 10-20 H (0-5) /hpf Urine WBC 0-5 (0-5) /hpf Ur Epithelial Cells 0-5 (0-5) /hpf Urine Bacteria Rare (FEW) /hpf Urine Mucus Not seen (FEW) /hpf Meds: Medications Discontinued Medications Generic Name Dose Route Start Last Admin Trade Name Chin PRN Reason Stop Dose Admin Cyclobenzaprine HCl 10 mg 11/20/17 16:32 11/20/17 16:40 Flexeril PO 11/20/17 16:33 10 mg ONETIME ONE Administration Ketorolac Tromethamine 30 mg 11/20/17 17:27 11/20/17 17:32 Toradol IM 11/20/17 17:28 30 mg ONETIME ONE Administration - Re-Assessments/Exams Free Text/Narrative Re-Assessment/Exam: I have ordered flexeril 10mg PO. I was hoping to have a lidocaine patch to order to which we do not. Patient has these at home. 11/20/17 17:14 UA and urine drug screen ordered as well. 11/20/17 17:22 Per nursing staff patient urinated without a sample obtained. 11/20/17 17:28 Reassessment, patient was able to produce a urine sample. He is requesting something further for pain. Informed him no narcotics will be administered at this time. Patient has a long history of drug seeking behaviors. I do believe this discomfort is muscle related. I have offered toradol 30mg IM to which he says yes to receive. Again he states the pain is different from previous episodes of passing a stone. He is wishing to be discharged home prior to UA results. Will discharge him with instructions as documented. UA came back slightly cloudy with trace protein, 3+ occult blood, and 10-20 urine rbc's. I shared the results with the patient. He refuses any additional testing. Unclear etiology of this complaint. May be associated with a kidney stone. Patient patient he's had similar findings in the past with no stones present. I did instruct him to follow up with his PCP this following week for retesting ensure the hematuria has resolved. He may require further diagnostic testing if not. Discharge instructions were not changed since they were already printed. Departure - Departure Time of Disposition: 17:33 Disposition: Home, Self-Care 01 Condition: Good Clinical Impression: Lower back pain Qualifiers: Chronicity: acute Back pain laterality: left Sciatica presence: without sciatica Qualified Code(s): M54.5 - Low back pain Hematuria Qualifiers: Hematuria type: other microscopic Qualified Code(s): R31.29 - Other microscopic hematuria; R31.2 - Other microscopic hematuria - Discharge Information *PRESCRIPTION DRUG MONITORING PROGRAM REVIEWED*: Yes *COPY OF PRESCRIPTION DRUG MONITORING REPORT IN PATIENT LETICIA: Yes Prescriptions: Cyclobenzaprine [Flexeril] 10 mg PO TID #15 tab Instructions: Back Pain, Adult, Muscle Strain, [id number] Referrals: Talha Fitch MD [Primary Care Provider] - Forms: ED Department Discharge, ED Return to Work/School Form Additional Instructions: Refrain from any activities that cause worsening pain. Utilize Tylenol and ibuprofen in alternating fashion for discomfort. May use a topical cream such as Biofreeze for pain relief as well. Warm compresses to affected area 3 times a day with gentle massage and passive stretching. Take Flexeril one tab every 8 hours as needed for muscle spasms. Follow-up with the primary care provider this coming week for reevaluation. Return to the ED if you develop any new or worsening symptoms. - My Orders Last 24 Hours: My Active Orders 11/20/17 17:20 DRUG SCREEN, URINE [URCHEM] Stat - Assessment/Plan Last 24 Hours: My Active Orders 11/20/17 17:20 DRUG SCREEN, URINE [URCHEM] Stat
[2017-11-20] MEDS ORDERED: Ketorolac 30 MG/ML SDV IM ONE (17:27)
[2017-11-20 17:50] VITALS: BP 134/85
== END 2017-11-20 17:47 | disposition home or self-care (01) ==
LOC: JD.ED 15:48
DX: M54.5 Low back pain (principal); R31.29 Other microscopic hematuria; F17.210 Nicotine dependence, cigarettes, uncomplicated; I10 Essential (primary) hypertension; Z79.899 Other long term (current) drug therapy; Z88.5 Allergy status to narcotic agent; Z88.8 Allergy status to other drugs, medicaments and biological substances; Z87.442 Personal history of urinary calculi
CPT/HCPCS: 80306; 81001; 96372; 99284; A9270; J1885; 99283

== ENCOUNTER 2017-12-23 10:45 | Emergency (ER) | payer MEDICAID ==
[2017-12-23 11:03] VITALS: BP 123/79
--- NOTE | 2017-12-23 11:36 | EDM.PDOC ---
ED HPI GENERAL MEDICAL PROBLEM - General Chief Complaint: Upper Extremity Injury/Pain Stated Complaint: RIGHT SHOULDER PAIN Time Seen by Provider: 12/23/17 11:25 Source of Information: Reports: Patient History Limitations: Reports: No Limitations - History of Present Illness INITIAL COMMENTS - FREE TEXT/NARRATIVE: The patient presents with right shoulder pain. This is a chronic problem. He had a cortisone injection back in July and it was doing good until the past week. He did not reinjure his shoulder. He has no fever, chills, cough, chest pain, shortness of breath, abdominal pain, nausea or vomiting. He is scheduled to get another injection in 2 weeks. Onset: Gradual Duration: Week(s): (1) Location: Reports: Other (right shoulder) Quality: Reports: Burning, Sharp Severity: Moderate Improves with: Reports: Immobilization Worsens with: Reports: Movement Associated Symptoms: Reports: No Other Symptoms Right Shoulder Pain Score (Numeric/FACES): 8 - Related Data Allergies Allergy/AdvReac Type Severity Reaction Status Date / Time codeine Allergy Intermediate Itching Verified 12/23/17 11:00 meperidine HCl [From Demerol] Allergy Intermediate Itching Verified 12/23/17 11: 00 Home Meds: Home Meds Mirtazapine 30 mg PO DAILY 09/10/15 [History] Pantoprazole [Protonix] 40 mg PO ACBREAKFAST 03/18/16 [History] ClonazePAM [KlonoPIN] 0.5 mg PO BID 08/21/16 [History] cloNIDine [Catapres] 0.5 tab PO Q12HR 01/21/17 [History] Tamsulosin HCl [Flomax] 0.4 mg PO DAILY #7 cap.er.24h 05/10/17 [Rx] DULoxetine [Cymbalta] 60 mg PO DAILY #30 cap 06/30/17 [Rx] Cyclobenzaprine [Flexeril] 10 mg PO TID #15 tab 11/20/17 [Rx] Diltiazem [Cardizem CD] 120 mg PO DAILY 12/23/17 [History] Hydrocodone/Acetaminophen [Hydrocodon-Acetaminophen 5-325] 1 - 2 each PO Q6HR PRN #10 tablet 12/23/17 [Rx] hydroCHLOROthiazide [Hydrochlorothiazide] 25 mg PO DAILY 12/23/17 [History] predniSONE [Prednisone] 40 mg PO DAILY #10 tablet 12/23/17 [Rx] Past Medical History - Past Health History Medical/Surgical History: Denies Medical/Surgical History HEENT History: Reports: Other (See Below) Other HEENT History: dental issues. 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, opiods Hematologic History: Reports: Other (See Below) Other Hematologic History: HEP C - Infectious Disease History Infectious Disease History: Reports: Chicken Pox, Hepatitis C, Measles - Past Surgical History GI Surgical History: Reports: Appendectomy Male Surgical History: Reports: Lithotripsy (ESWL), Ureteral Stent Social & Family History - Family History Family Medical History: Noncontributory - Tobacco Use Smoking Status *Q: Current Every Day Smoker Years of Tobacco use: 30 Packs/Tins Daily: 0.5 Used Tobacco, but Quit: No - Caffeine Use Caffeine Use: Reports: Coffee - Recreational Drug Use Recreational Drug Use: No - Living Situation & Occupation Living situation: Reports: Single, Alone Occupation: Unemployed Review of Systems - Review of Systems Review Of Systems: See Below Constitutional: Reports: No Symptoms Eyes: Reports: No Symptoms Ears: Reports: No Symptoms Nose: Reports: No Symptoms Mouth/Throat: Reports: No Symptoms Respiratory: Reports: No Symptoms Cardiovascular: Reports: No Symptoms GI/Abdominal: Reports: No Symptoms Genitourinary: Reports: No Symptoms Musculoskeletal: Reports: Shoulder Pain (right) ED EXAM, GENERAL - Physical Exam Exam: See Below Exam Limited By: No Limitations General Appearance: Alert, No Apparent Distress Ears: Normal External Exam Nose: Normal Inspection Head: Atraumatic, Normocephalic Neck: Normal Inspection Respiratory/Chest: No Respiratory Distress, Lungs Clear, Normal Breath Sounds Cardiovascular: Regular Rate, Rhythm, No Edema, No Murmur GI/Abdominal: Soft, Non-Tender, No Organomegaly, No Mass Back Exam: Normal Inspection Extremities: Other (Pain upon palpation to the right shoulder. Limited range of motion due to pain. Good sensation and pulses distally.) Course - Vital Signs Last Recorded V/S: Last Vital Signs Temp 98.8 F 12/23/17 11:00 Pulse 82 12/23/17 11:00 Resp 18 12/23/17 11:00 BP 123/79 12/23/17 11:00 Pulse Ox 95 12/23/17 11:00 Departure - Departure Time of Disposition: 11:40 Disposition: Home, Self-Care 01 Condition: Good Clinical Impression: Chronic right shoulder pain - Discharge Information *PRESCRIPTION DRUG MONITORING PROGRAM REVIEWED*: No *COPY OF PRESCRIPTION DRUG MONITORING REPORT IN PATIENT LETICIA: No Prescriptions: Hydrocodone/Acetaminophen [Hydrocodon-Acetaminophen 5-325] 1 - 2 each PO Q6HR PRN #10 tablet PRN Reason: Pain predniSONE [Prednisone] 40 mg PO DAILY #10 tablet Referrals: Talha Fitch MD [Primary Care Provider] - Additional Instructions: Take the prednisone 40mg daily for 5 days. Take the hydrocodone as needed for pain. Follow up with Dr Mensah. Please return if you are worse.
== END 2017-12-23 11:58 | disposition home or self-care (01) ==
LOC: JD.ED 10:45
DX: G89.29 Other chronic pain (principal); M25.511 Pain in right shoulder; F17.210 Nicotine dependence, cigarettes, uncomplicated; I10 Essential (primary) hypertension; F41.9 Anxiety disorder, unspecified; F32.9 Major depressive disorder, single episode, unspecified; Z79.899 Other long term (current) drug therapy; Z88.5 Allergy status to narcotic agent; Z88.8 Allergy status to other drugs, medicaments and biological substances
CPT/HCPCS: 99283

== ENCOUNTER 2018-01-11 13:55 | Emergency (ER) | payer MEDICAID ==
[2018-01-11 14:11] VITALS: BP 143/92
[2018-01-11] MEDS ORDERED: Magnesium Sulfate/Water 2 GM in Premix Bag 1 BAG IV ONE (16:17)
--- NOTE | 2018-01-11 16:18 | EDM.PDOC ---
ED HPI GENERAL MEDICAL PROBLEM - General Chief Complaint: General Stated Complaint: SHAKY Time Seen by Provider: 01/11/18 15:01 Source of Information: Reports: Patient, RN Notes Reviewed History Limitations: Reports: No Limitations - History of Present Illness INITIAL COMMENTS - FREE TEXT/NARRATIVE: The patient states that he was started on losartan by Dr. Fitch this past 01/08/2018, and that shortly afterwards he developed muscle spasms, shakiness, generalized fatigue, anorexia, and blurry vision. He is concerned that these symptoms are due to hyperkalemia from the losartan. He states that he had similar symptoms in the past, and was diagnosed with hyperkalemia. Of note, the patient does not have any known renal insufficiency. The patient has an appointment to follow-up with Dr. Fitch this coming Wednesday, . Neck Pain Score (Numeric/FACES): 6 - Related Data Allergies Allergy/AdvReac Type Severity Reaction Status Date / Time codeine Allergy Intermediate Itching Verified 12/23/17 11:00 meperidine HCl [From Demerol] Allergy Intermediate Itching Verified 12/23/17 11: 00 Home Meds: Home Meds Mirtazapine 30 mg PO DAILY 09/10/15 [History] Pantoprazole [Protonix] 40 mg PO ACBREAKFAST 03/18/16 [History] ClonazePAM [KlonoPIN] 0.5 mg PO BID 08/21/16 [History] cloNIDine [Catapres] 0.5 tab PO Q12HR 01/21/17 [History] Tamsulosin HCl [Flomax] 0.4 mg PO DAILY #7 cap.er.24h 05/10/17 [Rx] DULoxetine [Cymbalta] 60 mg PO DAILY #30 cap 06/30/17 [Rx] Cyclobenzaprine [Flexeril] 10 mg PO TID #15 tab 11/20/17 [Rx] Diltiazem [Cardizem CD] 120 mg PO DAILY 12/23/17 [History] Hydrocodone/Acetaminophen [Hydrocodon-Acetaminophen 5-325] 1 - 2 each PO Q6HR PRN #10 tablet 12/23/17 [Rx] hydroCHLOROthiazide [Hydrochlorothiazide] 25 mg PO DAILY 12/23/17 [History] predniSONE [Prednisone] 40 mg PO DAILY #10 tablet 12/23/17 [Rx] Losartan [Cozaar] 1 tab PO DAILY 01/11/18 [History] Past Medical History Cardiovascular History: Reports: Hypertension Gastrointestinal History: Reports: Colon Polyp, Gastritis, GERD Genitourinary History: Reports: BPH, Renal Calculus Musculoskeletal History: Reports: Arthritis, Back Pain, Chronic Psychiatric History: Reports: Addiction (opioids + benzodiazepines), Anxiety, Depression - Infectious Disease History Infectious Disease History: Reports: Chicken Pox, Hepatitis C, Measles - Past Surgical History GI Surgical History: Reports: Appendectomy Male Surgical History: Reports: Lithotripsy (ESWL), Ureteral Stent Social & Family History - Family History Family Medical History: Noncontributory - Tobacco Use Smoking Status *Q: Current Every Day Smoker Years of Tobacco use: 40 Packs/Tins Daily: 0.5 - Caffeine Use Caffeine Use: Reports: Coffee - Recreational Drug Use Recreational Drug Use: Yes Drug Use in Last 12 Months: No - Living Situation & Occupation Living situation: Reports: Single, Alone Occupation: Unemployed ED ROS GENERAL - Review of Systems Review Of Systems: ROS reveals no pertinent complaints other than HPI. ED EXAM, GENERAL - Physical Exam Exam: See Below Exam Limited By: No Limitations General Appearance: Alert, WD/WN, No Apparent Distress, Anxious Eye Exam: Bilateral Eye: EOMI, Normal Inspection Ears: Normal External Exam, Hearing Grossly Normal Nose: Normal Inspection Throat/Mouth: Normal Inspection, Normal Lips, Normal Voice, No Airway Compromise Head: Atraumatic, Normocephalic Neck: Normal Inspection, Full Range of Motion Respiratory/Chest: No Respiratory Distress, Lungs Clear, Normal Breath Sounds, No Accessory Muscle Use Cardiovascular: Normal Peripheral Pulses, Regular Rate, Rhythm, No Gallop, No JVD, No Murmur, No Rub Peripheral Pulses: 4+: Radial (L), Radial (R) GI/Abdominal: Normal Bowel Sounds, Soft, Non-Tender, No Organomegaly, No Distention, No Abnormal Bruit, No Mass (Male) Exam: Deferred Rectal (Males) Exam: Deferred Back Exam: Normal Inspection, Full Range of Motion, NT Extremities: Normal Inspection, Normal Range of Motion, No Pedal Edema, Normal Capillary Refill Neurological: Alert, Oriented, Normal Cognition, No Motor/Sensory Deficits Psychiatric: Anxious Skin Exam: Warm, Dry, Intact, Normal Color, No Rash Course - Vital Signs Last Recorded V/S: Last Vital Signs Temp 37.1 C 01/11/18 14:07 Pulse 101 H 01/11/18 14:07 Resp 16 01/11/18 14:07 BP 143/92 H 01/11/18 14:07 Pulse Ox 96 01/11/18 14:07 - Orders/Labs/Meds Labs: Laboratory Tests 01/11/18 01/11/18 Range/Units 15:15 15:15 WBC 10.80 H (4.23-9.07) K/mm3 RBC 5.35 (4.63-6.08) M/mm3 Hgb 15.3 (13.7-17.5) gm/L Hct 46.5 (40.1-51.0) % MCV 86.9 (79.0-92.2) fl MCH 28.6 (25.7-32.2) pg MCHC 32.9 (32.2-35.5) g/dl RDW Std Deviation 47.8 H (35.1-43.9) fL Plt Count 338 H (163-337) K/mm3 MPV 8.7 L (9.4-12.3) fl Neutrophils % (Manual) 68 H (40-60) % Band Neutrophils % 0 (0-10) % Lymphocytes % (Manual) 17 L (20-40) % Atypical Lymphs % 0 % Monocytes % (Manual) 8 (2-10) % Eosinophils % (Manual) 6 (0.8-7.0) % Basophils % (Manual) 1 (0.2-1.2) Platelet Estimate Adequate Plt Morphology Comment Normal RBC Morph Comment Normal Sodium 137 (136-145) mEq/L Potassium 3.9 (3.5-5.1) mEq/L Chloride 103 (98-107) mEq/L Carbon Dioxide 26 (21-32) mEq/L Anion Gap 11.9 (5-15) BUN 14 (7-18) mg/dL Creatinine 1.2 (0.7-1.3) mg/dL Est Cr Clr Drug Dosing 70.06 mL/min Estimated GFR (MDRD) > 60 (>60) mL/min BUN/Creatinine Ratio 11.7 L (14-18) Glucose 128 H (80-115) mg/dL Calcium 9.1 (8.5-10.1) mg/dL Magnesium 1.5 L (1.8-2.4) mg/dl Total Bilirubin 0.5 (0.2-1.0) mg/dL AST 20 (15-37) U/L ALT 23 (16-63) U/L Alkaline Phosphatase 85 (46-116) U/L Total Protein 7.7 (6.4-8.2) g/dl Albumin 3.7 (3.4-5.0) g/dl Globulin 4.0 gm/dL Albumin/Globulin Ratio 0.9 L (1-2) Meds: Medications Discontinued Medications Generic Name Dose Route Start Last Admin Trade Name Freq PRN Reason Stop Dose Admin Magnesium Sulfate 2 gm/ Premix 50 mls @ 50 mls/hr 01/11/18 16:17 01/11/18 16: 30 IV 01/11/18 17:16 Not Given ONETIME ONE - Re-Assessments/Exams Free Text/Narrative Re-Assessment/Exam: 01/11/18 16:17 The patient's potassium is normal at 3.9, however, his magnesium level was found to be low at 1.5 - an incidental finding, not responsible for his symptoms. I have ordered a 2 g Mg-rider. 01/11/18 16:22 The above was discussed with the patient. The patient states that he does not want an IV, therefore I will cancel the Mg-rider and discharge the patient home. I suspect that the symptoms that brought the patient in - muscle spasms, shakiness, fatigue, anorexia, and blurry vision - are all related to his underlying anxiety disorder. The patient states that he has an appointment to see his PCP, Dr. Fitch, this coming 01/14/2018. Departure - Departure Time of Disposition: 16:23 Disposition: Home, Self-Care 01 Condition: Good Clinical Impression: Anxiety, Hypomagnesemia - Discharge Information *PRESCRIPTION DRUG MONITORING PROGRAM REVIEWED*: Not Applicable *COPY OF PRESCRIPTION DRUG MONITORING REPORT IN PATIENT LETICIA: Not Applicable Instructions: Hypomagnesemia, Panic Attack, [id number] Referrals: Talha Fitch MD [Primary Care Provider] - Forms: ED Department Discharge Additional Instructions: You were seen in the emergency room for muscle spasms, shakiness, fatigue, decreased appetite, and blurry vision, since Wednesday, after starting losartan. Workup in the ER included blood work, which found your potassium level to be normal, but your magnesium level to be low. Replacement of your magnesium through an IV was recommended, but declined. It is important to understand that low magnesium is NOT responsible for your symptoms. Based on your history, physical examination, and lab tests, your symptoms are MOST LIKELY due to your underlying anxiety disorder. Follow-up with your PCP, Dr. Fitch, at your previously scheduled appointment this coming 01/14/2018. If any other problems, please do not hesitate to return to the ER.
== END 2018-01-11 16:35 | disposition home or self-care (01) ==
LOC: JD.ED 13:55
DX: F41.9 Anxiety disorder, unspecified (principal); E83.42 Hypomagnesemia; I10 Essential (primary) hypertension; F17.210 Nicotine dependence, cigarettes, uncomplicated; Z79.899 Other long term (current) drug therapy; Z88.5 Allergy status to narcotic agent; Z88.8 Allergy status to other drugs, medicaments and biological substances
CPT/HCPCS: 36415; 80053; 83735; 85007; 85027; 99283

== ENCOUNTER 2018-04-08 18:37 | Emergency (ER) | payer MEDICAID ==
[2018-04-08 19:10] VITALS: BP 126/77
--- NOTE | 2018-04-08 19:27 | EDM.PDOC ---
ED HPI GENERAL MEDICAL PROBLEM - General Chief Complaint: Flank Pain Stated Complaint: LEFT FLANK PAIN Time Seen by Provider: 04/08/18 19:01 Source of Information: Reports: Patient History Limitations: Reports: No Limitations - History of Present Illness INITIAL COMMENTS - FREE TEXT/NARRATIVE: The patient presents with left flank pain. This started today. He has a history of kidney stones. He says he has them in both kidneys. He has darker urine. He has nausea but no vomiting. He did fall last week but he does not think that this is related to the fall. Onset: Gradual Duration: Hour(s): Location: Reports: Back (Left flank) Quality: Reports: Sharp Severity: Severe Improves with: Reports: None Worsens with: Reports: None Associated Symptoms: Reports: Nausea/Vomiting. Denies: Chest Pain, Cough, Fever /Chills, Headaches, Shortness of Breath Left Flank Pain Score (Numeric/FACES): 8 - Related Data Allergies Allergy/AdvReac Type Severity Reaction Status Date / Time codeine Allergy Intermediate Itching Verified 04/06/18 13:09 meperidine HCl [From Demerol] Allergy Intermediate Itching Verified 04/06/18 13: 09 Home Meds: Home Meds Mirtazapine 30 mg PO DAILY 09/10/15 [History] Pantoprazole [Protonix] 80 mg PO BID 03/18/16 [History] ClonazePAM [KlonoPIN] 0.5 mg PO BID 08/21/16 [History] cloNIDine [Catapres] 0.1 mg PO DAILY 01/21/17 [History] Tamsulosin HCl [Flomax] 0.4 mg PO DAILY #7 cap.er.24h 05/10/17 [Rx] DULoxetine [Cymbalta] 60 mg PO DAILY #30 cap 06/30/17 [Rx] Diltiazem [Cardizem CD] 120 mg PO DAILY 12/23/17 [History] hydroCHLOROthiazide [Hydrochlorothiazide] 25 mg PO DAILY 12/23/17 [History] Losartan [Cozaar] 50 mg PO DAILY 01/11/18 [History] LORazepam [Ativan] 0.5 mg PO Q6HR PRN #2 tablet 03/10/18 [Rx] Ondansetron [Zofran ODT] 4 mg PO Q6H PRN #3 tab.dis 03/10/18 [Rx] oxyCODONE HCl/Acetaminophen [Percocet 5-325 mg Tablet] 1 - 2 each PO Q6HR PRN # 15 tablet 04/08/18 [Rx] Past Medical History - Past Health History Medical/Surgical History: Denies Medical/Surgical History HEENT History: Reports: Other (See Below) Other HEENT History: dental issues. 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, opiods Hematologic History: Reports: Other (See Below) Other Hematologic History: HEP C - Infectious Disease History Infectious Disease History: Reports: Chicken Pox, Hepatitis C, Measles - Past Surgical History GI Surgical History: Reports: Appendectomy Male Surgical History: Reports: Lithotripsy (ESWL), Ureteral Stent Social & Family History - Family History Family Medical History: Noncontributory - Tobacco Use Smoking Status *Q: Current Every Day Smoker Years of Tobacco use: 49 Packs/Tins Daily: 0.5 - Caffeine Use Caffeine Use: Reports: Coffee, Tea - Recreational Drug Use Recreational Drug Use: No - Living Situation & Occupation Living situation: Reports: Single, Alone Occupation: Unemployed ED ROS GENERAL - Review of Systems Review Of Systems: See Below Constitutional: Reports: No Symptoms HEENT: Reports: No Symptoms Respiratory: Reports: No Symptoms Cardiovascular: Reports: No Symptoms Endocrine: Reports: No Symptoms GI/Abdominal: Reports: Nausea. Denies: Abdominal Pain, Vomiting : Reports: No Symptoms Musculoskeletal: Reports: Back Pain (Left flank) Neurological: Reports: No Symptoms ED EXAM, RENAL/ - Physical Exam Exam: See Below Exam Limited By: No Limitations General Appearance: Alert, No Apparent Distress Ears: Normal External Exam Nose: Normal Inspection Head: Atraumatic, Normocephalic Neck: Normal Inspection Respiratory/Chest: No Respiratory Distress, Lungs Clear, Normal Breath Sounds Cardiovascular: Regular Rate, Rhythm, No Edema, No Murmur GI/Abdominal: Soft, Non-Tender, No Organomegaly, No Mass Back Exam: CVA Tenderness (L) Course - Vital Signs Last Recorded V/S: Last Vital Signs Temp 98.1 F 04/08/18 19:08 Pulse 98 04/08/18 19:08 Resp 20 04/08/18 19:08 BP 126/77 04/08/18 19:08 Pulse Ox 95 04/08/18 19:08 - Orders/Labs/Meds Labs: Laboratory Tests 04/08/18 Range/Units 19:15 Urine Color Yellow (Yellow) Urine Appearance Clear (Clear) Urine pH 7.0 (5.0-8.0) Ur Specific [place] 1.015 (1.005-1.030) Urine Protein Negative (Negative) Urine Glucose (UA) Negative (Negative) Urine Ketones Negative (Negative) Urine Occult Blood 3+ H (Negative) Urine Nitrite Negative (Negative) Urine Bilirubin Negative (Negative) Urine Urobilinogen 0.2 (0.2-1.0) Ur Leukocyte Esterase Negative (Negative) Urine RBC 10-20 H (0-5) /hpf Urine WBC 0-5 (0-5) /hpf Ur Epithelial Cells Not Reportable Ur Squamous Epith Cells 0-5 (0-5) /hpf Urine Bacteria Not seen (FEW) /hpf Hyaline Casts 0-5 (0-5) /lpf Urine Mucus Rare H (FEW) /hpf - Re-Assessments/Exams Free Text/Narrative Re-Assessment/Exam: 04/08/18 19:52 I ordered a urine and he does have some blood. 04/08/18 20:36 I feel this could be a kidney stone. Departure - Departure Time of Disposition: 20:40 Disposition: Home, Self-Care 01 Condition: Good Clinical Impression: Kidney stones Hematuria Qualifiers: Hematuria type: other microscopic Qualified Code(s): R31.29 - Other microscopic hematuria - Discharge Information *PRESCRIPTION DRUG MONITORING PROGRAM REVIEWED*: No *COPY OF PRESCRIPTION DRUG MONITORING REPORT IN PATIENT LETICIA: No Prescriptions: oxyCODONE HCl/Acetaminophen [Percocet 5-325 mg Tablet] 1 - 2 each PO Q6HR PRN # 15 tablet PRN Reason: Pain Referrals: Talha Fitch MD [Primary Care Provider] - 1 Week Forms: ED Department Discharge Additional Instructions: Drink plenty of fluids. Take the percocet as needed for pain. Please return if you are worse.
== END 2018-04-08 20:48 | disposition home or self-care (01) ==
LOC: JD.ED 18:37
DX: N20.0 Calculus of kidney (principal); R31.29 Other microscopic hematuria; I10 Essential (primary) hypertension; F17.210 Nicotine dependence, cigarettes, uncomplicated; Z88.8 Allergy status to other drugs, medicaments and biological substances; Z88.5 Allergy status to narcotic agent; Z79.899 Other long term (current) drug therapy
CPT/HCPCS: 81001; 99284

== ENCOUNTER 2018-05-03 14:08 | Emergency (ER) | payer MEDICAID ==
[2018-05-03 14:32] VITALS: BP 155/88
--- NOTE | 2018-05-03 15:43 | CR ---
Right shoulder: Three views of the right shoulder were obtained. Comparison: Previous right shoulder study of 04/06/18. Joint space narrowing is seen within the acromioclavicular joint with inferior hooking seen of the acromium process which is stable. Slight spurring is noted about the glenoid which is stable. No acute fracture or other bony abnormality is seen. Calcified nodule is noted within the right upper chest which is felt to be benign and stable. Impression: 1. Mild degenerative change within the right shoulder which appears stable from previous exam. 2. Nothing acute is seen. No significant change is seen from previous study. Diagnostic code #2
[2018-05-03] MEDS ORDERED: Ketorolac 60 MG/2 ML SDV IM ONE (15:47)
--- NOTE | 2018-05-03 15:50 | EDM.PDOC ---
ED HPI GENERAL MEDICAL PROBLEM - General Chief Complaint: Upper Extremity Injury/Pain Stated Complaint: RT ARM PAIN Time Seen by Provider: 05/03/18 14:45 Source of Information: Reports: Patient, Old Records (previous ER visits ) History Limitations: Reports: No Limitations - History of Present Illness INITIAL COMMENTS - FREE TEXT/NARRATIVE: 62-year-old male presents for evaluation and treatment of right shoulder pain. Patient reports that he's been experiencing right shoulder pain since falling on March 22. He was seen in the ER several occasions in March for syncopal episodes and injuries from these episodes. X-rays were done of both shoulders which were negative. Patient reports now 3 days ago he slipped will getting into his car. He states that he had his hand outstretched grabbed onto center console. He reports that he "jerked" his right arm and he is now experiencing pain. Primary complaining of pain to the proximal humerus. Reports numbness and tingling in the right arm , reports numbness and tingling "here and there". Patient has been seen Dr. Mensah and has been getting cortisone injections in the shoulder in the past. He is scheduled see Dr. Mensah again early May for an injection. Treatments MFT: Reports: Acetaminophen Right Shoulder Pain Score (Numeric/FACES): 8 - Related Data Allergies Allergy/AdvReac Type Severity Reaction Status Date / Time codeine Allergy Intermediate Itching Verified 05/03/18 14:26 meperidine HCl [From Demerol] Allergy Intermediate Itching Verified 05/03/18 14: 26 Home Meds: Home Meds Mirtazapine 30 mg PO DAILY 09/10/15 [History] Pantoprazole [Protonix] 80 mg PO BID 03/18/16 [History] ClonazePAM [KlonoPIN] 0.5 mg PO BID 08/21/16 [History] cloNIDine [Catapres] 0.1 mg PO DAILY 01/21/17 [History] Tamsulosin HCl [Flomax] 0.4 mg PO DAILY #7 cap.er.24h 05/10/17 [Rx] DULoxetine [Cymbalta] 60 mg PO DAILY #30 cap 06/30/17 [Rx] Diltiazem [Cardizem CD] 120 mg PO DAILY 12/23/17 [History] hydroCHLOROthiazide [Hydrochlorothiazide] 25 mg PO DAILY 12/23/17 [History] Losartan [Cozaar] 50 mg PO DAILY 01/11/18 [History] LORazepam [Ativan] 0.5 mg PO Q6HR PRN #2 tablet 03/10/18 [Rx] Past Medical History - Past Health History Medical/Surgical History: Denies Medical/Surgical History HEENT History: Reports: Other (See Below) Other HEENT History: dental issues. 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, opiods Hematologic History: Reports: Other (See Below) Other Hematologic History: HEP C - Infectious Disease History Infectious Disease History: Reports: Chicken Pox, Hepatitis C, Measles - Past Surgical History HEENT Surgical History: Reports: Oral Surgery GI Surgical History: Reports: Appendectomy Male Surgical History: Reports: Lithotripsy (ESWL), Ureteral Stent Social & Family History - Family History Family Medical History: Noncontributory - Tobacco Use Smoking Status *Q: Current Every Day Smoker Years of Tobacco use: 49 Packs/Tins Daily: 1 - Caffeine Use Caffeine Use: Reports: Coffee - Recreational Drug Use Recreational Drug Use: Yes Drug Use in Last 12 Months: No Recreational Drug Type: Reports: Marijuana/Hashish Recreational Drug Use Frequency: Not Used In Over 6 Months - Living Situation & Occupation Living situation: Reports: Single, Alone Occupation: Unemployed Review of Systems - Review of Systems Review Of Systems: See Below Musculoskeletal: Reports: Shoulder Pain (right) Neurological: Reports: Numbness (right arm), Tingling (right arm) ED EXAM, GENERAL - Physical Exam Exam: See Below Exam Limited By: No Limitations General Appearance: Alert, WD/WN, No Apparent Distress Throat/Mouth: Normal Inspection, Normal Voice, No Airway Compromise Neck: Normal Inspection, Non-Tender, Full Range of Motion Respiratory/Chest: No Respiratory Distress, Lungs Clear, Normal Breath Sounds Cardiovascular: Normal Peripheral Pulses, Regular Rate, Rhythm, No Murmur Peripheral Pulses: 3+: Radial (L), Radial (R) Extremities: Normal Inspection (shoulders are symmetrical, no obvious deformity noted), Non-Tender, Normal Capillary Refill, Limited Range of Motion, Other ( unable to preform lift off testing due to pain, full ROM testing deferred due to pain) Neurological: Alert, Oriented, Normal Cognition Psychiatric: Normal Affect, Normal Mood Skin Exam: Warm, Dry, Normal Color Course - Vital Signs Last Recorded V/S: Last Vital Signs Temp 98.2 F 05/03/18 14:30 Pulse 83 05/03/18 14:30 Resp 18 05/03/18 14:30 BP 155/88 H 05/03/18 14:30 Pulse Ox 99 05/03/18 14:30 - Orders/Labs/Meds Meds: Medications Discontinued Medications Generic Name Dose Route Start Last Admin Trade Name Freq PRN Reason Stop Dose Admin Ketorolac Tromethamine 60 mg 05/03/18 15:47 05/03/18 15:57 Toradol IM 05/03/18 15:48 60 mg ONETIME ONE Administration - Radiology Interpretation Free Text/Narrative:: Right shoulder: Three views of the right shoulder were obtained. Comparison: Previous right shoulder study of 04/06/18. Joint space narrowing is seen within the acromioclavicular joint with inferior hooking seen of the acromium process which is stable. Slight spurring is noted about the glenoid which is stable. No acute fracture or other bony abnormality is seen. Calcified nodule is noted within the right upper chest which is felt to be benign and stable. Impression: 1. Mild degenerative change within the right shoulder which appears stable from previous exam. 2. Nothing acute is seen. No significant change is seen from previous study. - Re-Assessments/Exams Free Text/Narrative Re-Assessment/Exam: 05/03/18 15:45 Reviewed the xray results with the patient. No acute fractures. Patient likely has chronic arthritis and likely rotator cuff pathology. Nothing acute seen tonight. Recommend follow-up with ortho. Will discharge home tonight. Discharge instructions as documented. Departure - Departure Time of Disposition: 15:46 Disposition: Home, Self-Care 01 Condition: Fair Clinical Impression: Arthritis of shoulder - Discharge Information *PRESCRIPTION DRUG MONITORING PROGRAM REVIEWED*: No *COPY OF PRESCRIPTION DRUG MONITORING REPORT IN PATIENT LETICIA: No Instructions: Shoulder Pain Referrals: Talha Fitch MD [Primary Care Provider] - Amol Mensah DO [Physician] - Forms: ED Department Discharge Additional Instructions: Recommend using your sling you have at home for discomfort. Remove the arm from the sling and perform pendulum arm circles to prevent your shoulder from freezing. Recommend using ice or heat for additional pain relief may also use a topical products such as icy hot or BenGay. [id number] Tylenol or Motrin as needed for pain relief. If you need something stronger for pain management recommend consult your orthopedic provider or your primary care provider Contact Dr. Mensah office to see if you can be sen sooner for your shoulder injection. Recommend going back to physical therapy. Please return the ER if your symptoms change or worsen.
== END 2018-05-03 16:00 | disposition home or self-care (01) ==
LOC: JD.ED 14:08
DX: M19.011 Primary osteoarthritis, right shoulder (principal); I10 Essential (primary) hypertension; F17.210 Nicotine dependence, cigarettes, uncomplicated; Z88.5 Allergy status to narcotic agent; Z88.8 Allergy status to other drugs, medicaments and biological substances; Z79.899 Other long term (current) drug therapy
CPT/HCPCS: 73030; 96372; 99283; J1885

== ENCOUNTER 2018-05-27 16:51 | Emergency (ER) | payer MEDICAID ==
[2018-05-27 17:04] VITALS: BP 135/82
--- NOTE | 2018-05-27 17:35 | EDM.PDOC ---
ED HPI GENERAL MEDICAL PROBLEM - General Chief Complaint: Respiratory Problem Stated Complaint: COUGH Time Seen by Provider: 05/27/18 17:01 Source of Information: Reports: Patient, RN Notes Reviewed History Limitations: Reports: No Limitations - History of Present Illness INITIAL COMMENTS - FREE TEXT/NARRATIVE: The patient states that he developed rhinorrhea and sneezing 2 days ago. He has had hot flashes that he thought might be due to a fever on and off for the past 2 days. He then developed a cough, productive of greenish brownish sputum, along with chest congestion, wheezing, and chest discomfort with cough yesterday , the became worse yesterday evening. She states that he had similar symptoms about 2 years ago, and was diagnosed with bronchitis, he thinks. The patient has not taken any [id number] or home remedies for his symptoms. The patient's PCP is Dr. Fitch. Generalized Pain Score (Numeric/FACES): 5 - Related Data Allergies Allergy/AdvReac Type Severity Reaction Status Date / Time codeine Allergy Intermediate Itching Verified 05/03/18 14:26 meperidine HCl [From Demerol] Allergy Intermediate Itching Verified 05/03/18 14: 26 Home Meds: Home Meds Mirtazapine 30 mg PO DAILY 09/10/15 [History] Pantoprazole [Protonix] 80 mg PO BID 03/18/16 [History] cloNIDine [Catapres] 0.1 mg PO DAILY 01/21/17 [History] Tamsulosin HCl [Flomax] 0.4 mg PO DAILY #7 cap.er.24h 05/10/17 [Rx] DULoxetine [Cymbalta] 60 mg PO DAILY #30 cap 06/30/17 [Rx] Diltiazem [Cardizem CD] 120 mg PO DAILY 12/23/17 [History] hydroCHLOROthiazide [Hydrochlorothiazide] 25 mg PO DAILY 12/23/17 [History] Losartan [Cozaar] 50 mg PO DAILY 01/11/18 [History] Baclofen 10 mg PO TID 05/27/18 [History] clonazePAM [Klonopin] 0.5 mg PO TID 05/27/18 [History] Past Medical History HEENT History: Reports: Other (See Below) Other HEENT History: dental issues. Cardiovascular History: Reports: Hypertension Gastrointestinal History: Reports: Colon Polyp, Gastritis, GERD Genitourinary History: Reports: BPH, Renal Calculus Musculoskeletal History: Reports: Arthritis, Back Pain, Chronic (DDD), Neck Pain , Chronic Psychiatric History: Reports: Addiction (alcohol, opioids, benzodiazepines), Anxiety, Depression - Infectious Disease History Infectious Disease History: Reports: Chicken Pox, Hepatitis C, Measles - Past Surgical History GI Surgical History: Reports: Appendectomy Male Surgical History: Reports: Lithotripsy (ESWL), Ureteral Stent Social & Family History - Family History Family Medical History: Noncontributory - Tobacco Use Smoking Status *Q: Current Every Day Smoker Years of Tobacco use: 49 Packs/Tins Daily: 0.5 - Caffeine Use Caffeine Use: Reports: Coffee - Living Situation & Occupation Living situation: Reports: Single, Alone Occupation: Unemployed ED ROS GENERAL - Review of Systems Review Of Systems: ROS reveals no pertinent complaints other than HPI. ED EXAM, GENERAL - Physical Exam Exam: Not Obtained (Refused) Course - Vital Signs Last Recorded V/S: Last Vital Signs Temp 37.2 C 05/27/18 17:02 Pulse 83 05/27/18 17:02 Resp 20 05/27/18 17:02 BP 135/82 05/27/18 17:02 Pulse Ox 96 05/27/18 17:02 - Re-Assessments/Exams Free Text/Narrative Re-Assessment/Exam: 05/27/18 17:31 I was reviewing the patient's complaints, and when they began, when the patient stated "I'm done". He did not want to answer any more questions, did not want to be examined, and said that he wanted to be discharged. I have no idea what precipitated that, however, as per his desire, I will discharge him home. 05/27/18 17:37 Notified by Carmen MOSELEY that the patient left the ED without waiting for his discharge instructions. She informed me that the patient had earlier been to the walk-in clinic, but that there were 13 patient's waiting to be seen, therefore the patient decided to come here instead. Departure - Departure Time of Disposition: 17:33 Disposition: Home, Self-Care 01 Condition: Good Clinical Impression: Cough - Discharge Information *PRESCRIPTION DRUG MONITORING PROGRAM REVIEWED*: Not Applicable *COPY OF PRESCRIPTION DRUG MONITORING REPORT IN PATIENT LETICIA: Not Applicable Referrals: Talha Fitch MD [Primary Care Provider] - Forms: ED Department Discharge Additional Instructions: You were seen in the emergency room for 2 days of runny nose and sneezing, possible fever, cough, chest congestion, wheezing, and chest discomfort with coughing. You requested to be discharged to being examined, and without any tests being done. Without an examination no diagnosis can be made. Please follow-up with your PCP, Dr. Fitch, as needed. If any other problems, please do not hesitate to return to the ER.
== END 2018-05-27 17:45 | disposition home or self-care (01) ==
LOC: JD.ED 16:51
DX: R05 Cough (principal); I10 Essential (primary) hypertension; F17.210 Nicotine dependence, cigarettes, uncomplicated; Z88.5 Allergy status to narcotic agent; Z88.8 Allergy status to other drugs, medicaments and biological substances; Z79.899 Other long term (current) drug therapy
CPT/HCPCS: 99283

== ENCOUNTER 2019-01-19 14:23 | Emergency (ER) | payer MEDICAID ==
[2019-01-19 14:38] VITALS: BP 154/97; PULSE 86
[2019-01-19] MEDS ORDERED: HYDROmorphone 0.5 MG/0.5 ML Syringe IM ONE ×2 (14:53→15:45)
--- NOTE | 2019-01-19 14:58 | EDM.PDOC ---
ED HPI GENERAL MEDICAL PROBLEM - General Chief Complaint: Flank Pain Stated Complaint: KIDNEY STONE Time Seen by Provider: 01/19/19 14:31 Source of Information: Reports: Patient, Old Records, RN Notes Reviewed History Limitations: Reports: No Limitations - History of Present Illness INITIAL COMMENTS - FREE TEXT/NARRATIVE: Patient is a 63-year-old male who presents to the ED for the evaluation of a possible kidney stone. Patient notes that he developed left flank pain last night, and this has been constant since then. The patient states he does not have any radiation to the groin, he notes a history of kidney stones however that have felt really similar to this pain. He states that the pain is steady sharp stabbing pain. He notes it does get worse at times. He took some Tylenol this morning for pain relief, some days he can pass a kidney stone at home with no problems. He denies any fevers or chills, nausea or vomiting, chest pain, shortness of breath. He notes that his urine has been somewhat darker than normal. He denies any dysuria, or urinary urgency. He states that he has prostate problems so he does go pee quite a bit. He is not sure if this is increased from normal for him. Patient's primary care provider is Dr. Fitch. Treatments PHARMACIST TECHNICIAN: Reports: Other (see below) Other Treatments PHARMACIST TECHNICIAN: tylenol Left Flank Pain Score (Numeric/FACES): 7 - Related Data Allergies Allergy/AdvReac Type Severity Reaction Status Date / Time codeine Allergy Intermediate Itching Verified 05/03/18 14:26 meperidine HCl [From Demerol] Allergy Intermediate Itching Verified 05/03/18 14: 26 Home Meds: Home Meds Mirtazapine 30 mg PO DAILY 09/10/15 [History] Pantoprazole [Protonix] 80 mg PO BID 03/18/16 [History] cloNIDine [Catapres] 0.1 mg PO DAILY 01/21/17 [History] Tamsulosin HCl [Flomax] 0.4 mg PO DAILY #7 cap.er.24h 05/10/17 [Rx] DULoxetine [Cymbalta] 60 mg PO DAILY #30 cap 06/30/17 [Rx] Diltiazem [Cardizem CD] 120 mg PO DAILY 12/23/17 [History] hydroCHLOROthiazide [Hydrochlorothiazide] 25 mg PO DAILY 12/23/17 [History] Losartan [Cozaar] 50 mg PO DAILY 01/11/18 [History] Baclofen 10 mg PO TID 05/27/18 [History] clonazePAM [Klonopin] 0.5 mg PO TID 05/27/18 [History] Acetaminophen/oxyCODONE [Percocet 325-5 MG] 1 each PO Q6H PRN #15 tab 01/19/19 [ Rx] Past Medical History - Past Health History Medical/Surgical History: Denies Medical/Surgical History HEENT History: Reports: Other (See Below) Other HEENT History: dental issues. 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, opiods Hematologic History: Reports: Other (See Below) Other Hematologic History: HEP C - Infectious Disease History Infectious Disease History: Reports: Chicken Pox, Hepatitis C, Measles - Past Surgical History GI Surgical History: Reports: Appendectomy Male Surgical History: Reports: Lithotripsy (ESWL), Ureteral Stent Social & Family History - Family History Family Medical History: Noncontributory - Tobacco Use Smoking Status *Q: Current Every Day Smoker Years of Tobacco use: 50 Packs/Tins Daily: 0.5 - Caffeine Use Caffeine Use: Reports: Coffee - Recreational Drug Use Recreational Drug Use: No - Living Situation & Occupation Living situation: Reports: Single, Alone Occupation: Unemployed ED ROS GENERAL - Review of Systems Review Of Systems: See Below Constitutional: Denies: Fever, Chills HEENT: Reports: No Symptoms Respiratory: Denies: Shortness of Breath Cardiovascular: Denies: Chest Pain Endocrine: Reports: No Symptoms GI/Abdominal: Denies: Abdominal Pain, Diarrhea, Nausea, Vomiting : Reports: Flank Pain (Left flank), Frequency (has prostate issuea). Denies: Dysuria, Urgency Musculoskeletal: Denies: Back Pain Skin: Reports: No Symptoms Neurological: Reports: No Symptoms Psychiatric: Reports: No Symptoms Hematologic/Lymphatic: Reports: No Symptoms Immunologic: Reports: No Symptoms ED EXAM, RENAL/ - Physical Exam Exam: See Below Exam Limited By: No Limitations General Appearance: Alert, WD/WN, No Apparent Distress Eye Exam: Bilateral Eye: EOMI, Normal Inspection, PERRL Ears: Normal External Exam Nose: Normal Inspection Throat/Mouth: Normal Inspection, Normal Lips, Normal Teeth, Normal Gums, Normal Oropharynx, Normal Voice, No Airway Compromise Head: Atraumatic, Normocephalic Neck: Normal Inspection Respiratory/Chest: No Respiratory Distress, Lungs Clear, Normal Breath Sounds, No Accessory Muscle Use, Chest Non-Tender Cardiovascular: Normal Peripheral Pulses, Regular Rate, Rhythm, No Murmur GI/Abdominal: Normal Bowel Sounds, Soft, Non-Tender, No Distention, No Mass Back Exam: Normal Inspection, Full Range of Motion. No: CVA Tenderness (L), CVA Tenderness (R) Extremities: Normal Inspection, Normal Capillary Refill Neurological: Alert, Oriented, Normal Cognition, No Motor/Sensory Deficits Psychiatric: Normal Affect, Normal Mood Skin Exam: Warm, Dry, Intact, Normal Color, No Rash Course - Vital Signs Last Recorded V/S: Last Vital Signs Temp 97.2 F 01/19/19 14:36 Pulse 86 01/19/19 14:36 Resp 20 01/19/19 14:36 BP 154/97 H 01/19/19 14:36 Pulse Ox 99 01/19/19 14:36 - Orders/Labs/Meds Orders: Active Orders 24 hr Category Date Time Status Influenza Vaccine Charge [RC] .DISCHARGE Care 01/19/19 14:49 Active Strain Urine [RC] ASDIRECTED Care 01/19/19 15:48 Ordered Labs: Laboratory Tests 01/19/19 Range/Units 14:48 Urine Color Yellow (Yellow) Urine Appearance Clear (Clear) Urine pH 6.5 (5.0-8.0) Ur Specific [place] 1.020 (1.005-1.030) Urine Protein Trace H (Negative) Urine Glucose (UA) Negative (Negative) Urine Ketones Negative (Negative) Urine Occult Blood 2+ H (Negative) Urine Nitrite Negative (Negative) Urine Bilirubin Negative (Negative) Urine Urobilinogen 0.2 (0.2-1.0) Ur Leukocyte Esterase Negative (Negative) Urine RBC 40-50 H (0-5) /hpf Urine WBC 0-5 (0-5) /hpf Ur Squamous Epith Cells 0-5 (0-5) /hpf Urine Bacteria Occasional (FEW) /hpf Urine Mucus Not seen (FEW) /hpf Meds: Medications Discontinued Medications Generic Name Dose Route Start Last Admin Trade Name Freq PRN Reason Stop Dose Admin Hydromorphone HCl 0.5 mg 01/19/19 14:53 01/19/19 15:17 Dilaudid IM 01/19/19 14:54 0.5 mg ONETIME ONE Administration Hydromorphone HCl 0.5 mg 01/19/19 15:45 Dilaudid IM 01/19/19 15:46 ONETIME ONE Influenza Virus Vaccine 1 each 01/19/19 14:48 Pharmacy To Dose - Influenza Vaccine IM 01/19/19 14:49 ONETIME ONE Influenza Virus Vaccine 60 mcg 01/19/19 15:00 01/19/19 15:18 Fluzone Quad Syringe IM 01/19/19 15:01 60 mcg .ONCE ONE Administration - Re-Assessments/Exams Free Text/Narrative Re-Assessment/Exam: 01/19/19 15:02 Patient presents to the ED for the evaluation of Left flank pain. His history is suspicious for a kidney stone in nature. The patient would prefer to not have a CT done if he doesn't have to. We will await results of the UA and develop a plan from there. I did order 0.5mg IM Dilaudid for pain relief at this time. 01/19/19 15:40 Patient's urine is resulted, there is no sign of a UTI, there is some blood present, 40-50/hpf noted. Will encourage the patient to increase fluid intake, give him some pain medications, and discharge him home with general recommendations. Departure - Departure Time of Disposition: 15:40 Disposition: Home, Self-Care 01 Condition: Fair Clinical Impression: Kidney stone - Discharge Information *PRESCRIPTION DRUG MONITORING PROGRAM REVIEWED*: Yes *COPY OF PRESCRIPTION DRUG MONITORING REPORT IN PATIENT LETICIA: No Prescriptions: Acetaminophen/oxyCODONE [Percocet 325-5 MG] 1 each PO Q6H PRN #15 tab PRN Reason: Pain Instructions: Kidney Stones, [id number], Dietary Guidelines to Help Prevent Kidney Stones Referrals: Talha Fitch MD [Primary Care Provider] - Forms: ED Department Discharge Additional Instructions: You were evaluated in the ER today for your flank pain. Your urinalysis did demonstrate some blood in urine, which is suggestive of a kidney stone at this time. A CT was not done at this ER visit, at this time, I cannot tell you how long it will take for the stone to pass. You have been given a strainer, please use every time you use the bathroom to make sure that the kidney stone has passed. Recommend that you increase your oral fluid intake to try to help the stone pass. You have been given a few tablets of pain medication, please take as prescribed. These medications are highly addictive, please take as few as you need to. If your pain is not much better in a week's time, you may need to follow up with your primary care physician, or possible urology referral. Please return to the ED if your symptoms change or worsen. - My Orders Last 24 Hours: My Active Orders 01/19/19 14:49 Influenza Vaccine Charge [RC] .DISCHARGE 01/19/19 15:48 Strain Urine [RC] ASDIRECTED - Assessment/Plan Last 24 Hours: My Active Orders 01/19/19 14:49 Influenza Vaccine Charge [RC] .DISCHARGE 01/19/19 15:48 Strain Urine [RC] ASDIRECTED
[2019-01-19] MEDS ORDERED: FLU Vacc QS2019-20(6MOS+)/PF 60 MCG/0.5 ML SYRINGE IM ONE (15:00)
== END 2019-01-19 15:56 | disposition home or self-care (01) ==
LOC: JD.ED 14:23
DX: N20.0 Calculus of kidney (principal); I10 Essential (primary) hypertension; K21.9 Gastro-esophageal reflux disease without esophagitis; F41.9 Anxiety disorder, unspecified; F32.9 Major depressive disorder, single episode, unspecified; F17.210 Nicotine dependence, cigarettes, uncomplicated; Z88.5 Allergy status to narcotic agent; Z79.899 Other long term (current) drug therapy; Z23 Encounter for immunization
CPT/HCPCS: 81001; 90471; 90686; 96372; 99284; J1170; G0008

== ENCOUNTER 2019-01-24 11:57 | Emergency (ER) | payer MEDICAID ==
[2019-01-24] MEDS ORDERED: Tamsulosin 0.4 MG Cap.ER PO STA (13:38)
[2019-01-24] MEDS ORDERED: Ondansetron 4 MG/2 ML SDV IVPUSH ONE (13:38)
[2019-01-24] MEDS ORDERED: HYDROmorphone 1 MG/ML Syringe IVPUSH STA (13:38)
[2019-01-24] MEDS ORDERED: Sodium Chloride 0.9% 1,000 ML IV SCH (13:45)
--- NOTE | 2019-01-24 14:21 | EDM.PDOC ---
ED HPI GENERAL MEDICAL PROBLEM - General Chief Complaint: Flank Pain Stated Complaint: FLANK PAIN Time Seen by Provider: 01/24/19 13:07 Source of Information: Reports: Patient, RN Notes Reviewed History Limitations: Reports: No Limitations - History of Present Illness INITIAL COMMENTS - FREE TEXT/NARRATIVE: Patient is a 63-year-old male who presents to the ED for the evaluation of left flank pain. Patient states that this is in his left flank and does radiate to his left lower back. He notes that the pain has not gotten better since he was evaluated in this ER by myself last . We did not do a CT at the last visit, as the patient refused to have a CT done, as he has had multiple CTs done in his lifetime. Patient states that his primary care physician is out of the office, so he did not seek management from him. The patient states that he did use up all the Percocet that I had given him. He denies any fevers or chills, nausea or vomiting or diarrhea. Patient notes that he has an extensive history kidney stones again, that have required removal, stents. He denies any dysuria, urinary frequency or urgency. Left Flank Pain Score (Numeric/FACES): 6 - Related Data Allergies Allergy/AdvReac Type Severity Reaction Status Date / Time codeine Allergy Intermediate Itching Verified 01/24/19 12:38 meperidine HCl [From Demerol] Allergy Intermediate Itching Verified 01/24/19 12: 38 Home Meds: Home Meds Mirtazapine 30 mg PO DAILY 09/10/15 [History] Pantoprazole [Protonix] 80 mg PO BID 03/18/16 [History] cloNIDine [Catapres] 0.1 mg PO DAILY 01/21/17 [History] Tamsulosin HCl [Flomax] 0.4 mg PO DAILY #7 cap.er.24h 05/10/17 [Rx] DULoxetine [Cymbalta] 60 mg PO DAILY #30 cap 06/30/17 [Rx] Diltiazem [Cardizem CD] 120 mg PO DAILY 12/23/17 [History] hydroCHLOROthiazide [Hydrochlorothiazide] 25 mg PO DAILY 12/23/17 [History] Losartan [Cozaar] 50 mg PO DAILY 01/11/18 [History] Baclofen 10 mg PO TID 05/27/18 [History] clonazePAM [Klonopin] 0.5 mg PO TID 05/27/18 [History] Acetaminophen/oxyCODONE [Percocet 325-5 MG] 1 each PO Q6H PRN #15 tab 01/19/19 [ Rx] predniSONE 20 mg PO ASDIRECTED #15 tab 01/24/19 [Rx] Past Medical History - Past Health History Medical/Surgical History: Denies Medical/Surgical History HEENT History: Reports: Other (See Below) Other HEENT History: dental issues. 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, opiods Hematologic History: Reports: Other (See Below) Other Hematologic History: HEP C - Infectious Disease History Infectious Disease History: Reports: Chicken Pox, Hepatitis C, Measles - Past Surgical History GI Surgical History: Reports: Appendectomy Male Surgical History: Reports: Lithotripsy (ESWL), Ureteral Stent Social & Family History - Family History Family Medical History: Noncontributory - Tobacco Use Smoking Status *Q: Never Smoker - Caffeine Use Caffeine Use: Reports: Coffee - Recreational Drug Use Recreational Drug Use: No - Living Situation & Occupation Living situation: Reports: Single, Alone Occupation: Unemployed ED ROS GENERAL - Review of Systems Review Of Systems: See Below Constitutional: Denies: Fever, Chills HEENT: Reports: No Symptoms Respiratory: Denies: Shortness of Breath Cardiovascular: Denies: Chest Pain Endocrine: Reports: No Symptoms GI/Abdominal: Denies: Abdominal Pain, Constipation, Diarrhea, Nausea, Vomiting : Reports: Flank Pain (left flnk). Denies: Dysuria, Frequency, Urgency Musculoskeletal: Reports: No Symptoms Skin: Reports: No Symptoms Neurological: Reports: No Symptoms Psychiatric: Reports: No Symptoms Hematologic/Lymphatic: Reports: No Symptoms Immunologic: Reports: No Symptoms ED EXAM, RENAL/ - Physical Exam Exam: See Below Exam Limited By: No Limitations General Appearance: Alert, WD/WN, No Apparent Distress Throat/Mouth: Normal Inspection, Normal Lips, Normal Teeth, Normal Gums, Normal Oropharynx, Normal Voice, No Airway Compromise Head: Atraumatic, Normocephalic Neck: Normal Inspection Respiratory/Chest: No Respiratory Distress, Lungs Clear, Normal Breath Sounds, No Accessory Muscle Use, Chest Non-Tender Cardiovascular: Normal Peripheral Pulses, Regular Rate, Rhythm, No Murmur GI/Abdominal: Normal Bowel Sounds, Soft, Non-Tender, No Distention, No Mass Back Exam: Normal Inspection, Decreased Range of Motion (pt has chronic lower back pain), Vertebral Tenderness (over lumbar region). No: CVA Tenderness (L), CVA Tenderness (R), Muscle Spasm Extremities: Normal Inspection, Normal Range of Motion, Normal Capillary Refill Neurological: Alert, Oriented, Normal Cognition, Normal Gait (somewhat limping, but WNL), No Motor/Sensory Deficits Psychiatric: Normal Affect, Normal Mood Skin Exam: Warm, Dry, Intact, Normal Color, No Rash Course - Vital Signs Last Recorded V/S: Last Vital Signs Temp 97.2 F 01/24/19 12:37 Pulse 56 L 01/24/19 12:37 Resp 16 01/24/19 12:37 BP 145/91 H 01/24/19 12:37 Pulse Ox 95 01/24/19 12:37 - Orders/Labs/Meds Orders: Active Orders 24 hr Category Date Time Status Strain Urine [RC] ASDIRECTED Care 01/24/19 13:39 Ordered Sodium Chloride 0.9% [Normal Saline] 1,000 ml Med 01/24/19 13:45 Active IV ASDIRECTED Medication Orders Sodium Chloride (Normal Saline) 1,000 mls @ 500 mls/hr IV ASDIRECTED VEDA Last Admin: 01/24/19 14:05 Dose: 500 mls/hr Labs: Laboratory Tests 01/24/19 Range/Units 13:47 Urine Color Yellow (Yellow) Urine Appearance Clear (Clear) Urine pH 7.5 (5.0-8.0) Ur Specific [place] 1.020 (1.005-1.030) Urine Protein 1+ H (Negative) Urine Glucose (UA) Negative (Negative) Urine Ketones Negative (Negative) Urine Occult Blood 2+ H (Negative) Urine Nitrite Negative (Negative) Urine Bilirubin Negative (Negative) Urine Urobilinogen 0.2 (0.2-1.0) Ur Leukocyte Esterase Negative (Negative) Urine RBC 40-50 H (0-5) /hpf Urine WBC 0-5 (0-5) /hpf Ur Squamous Epith Cells 0-5 (0-5) /hpf Urine Bacteria Rare (FEW) /hpf Urine Mucus Not seen (FEW) /hpf Meds: Medications Generic Name Dose Route Start Last Admin Trade Name Freq PRN Reason Stop Dose Admin Sodium Chloride 1,000 mls @ 500 mls/hr 01/24/19 13:45 01/24/19 14:05 Normal Saline IV 500 mls/hr ASDIRECTED VEDA Administration Discontinued Medications Generic Name Dose Route Start Last Admin Trade Name Freq PRN Reason Stop Dose Admin Hydromorphone HCl 1 mg 01/24/19 13:38 01/24/19 14:08 Dilaudid IVPUSH 01/24/19 13:39 1 mg ONETIME STA Administration Ondansetron HCl 4 mg 01/24/19 13:38 01/24/19 14:05 Zofran IVPUSH 01/24/19 13:39 4 mg ONETIME ONE Administration Tamsulosin HCl 0.4 mg 01/24/19 13:38 01/24/19 14:09 Flomax PO 01/24/19 13:39 0.4 mg ONETIME STA Administration - Re-Assessments/Exams Free Text/Narrative Re-Assessment/Exam: 01/24/19 14:28 Patient presents to the ED for evaluation of left flank pain. I did talk patient and doing a CT today for evaluation of a possible stuck kidney stone. Official radiology read is pending, Dr. Hyatt was able to over read this and does not see any ureteral stones, he does have 3 small stones within his right kidney, he should not be causing his pain. Dr. Hyatt did appreciate that he has diffuse arthritic type changes in his back, this might likely be the cause of his pain. 01/24/19 15:09 Official radiology read is done, and demonstrates small nonobstructing calculi within both kidneys. Right kidney shows a small cyst, measuring 1.5 cm, no ureteral dilatation or ureteral stone is seen. Other findings were incidental but stable from previous CT scans. At this time and does not look as if the stones are was causing the patient's pain, is more likely his degenerative changes in his back. I will put the patient on a burst of prednisone and have him follow up with Dr. Fitch for further management. Departure - Departure Time of Disposition: 15:17 Disposition: Home, Self-Care 01 Condition: Fair Clinical Impression: Left flank pain Chronic low back pain Qualifiers: Back pain laterality: bilateral Sciatica presence: without sciatica Qualified Code(s): M54.5 - Low back pain; G89.29 - Other chronic pain - Discharge Information *PRESCRIPTION DRUG MONITORING PROGRAM REVIEWED*: Yes *COPY OF PRESCRIPTION DRUG MONITORING REPORT IN PATIENT LETICIA: No Instructions: What You Need to Know About Chronic Back Pain, Managing Pain Without Opioids Referrals: Talha Fitch MD [Primary Care Provider] - Forms: ED Department Discharge Additional Instructions: You were evaluated in the ER today for your left flank pain. Your CT did demonstrate multiple small stones within the kidney, but nothing within the ureters or bladder. Upon review of your CT your pain is most likely due to the degenerative changes in your back, or lumbar spine. Instead of treating her pain with opioid pain medications I did prescribe you a burst of prednisone, please take as directed for further pain relief. This was electronically sent to the [facility]. Recommend that you follow up with Dr. Gutierrez for further management of your chronic back pain and issues. You should get another referral to urology for management of these chronic kidney stones. Please try to increase your oral fluid intake and take your other medications as previously prescribed. You may skip your dose of Flomax tonight. Please return to the ED if your symptoms change or worsen. - My Orders Last 24 Hours: My Active Orders 01/24/19 13:39 Strain Urine [RC] ASDIRECTED 01/24/19 13:45 Sodium Chloride 0.9% [Normal Saline] 1,000 ml IV ASDIRECTED - Assessment/Plan Last 24 Hours: My Active Orders 01/24/19 13:39 Strain Urine [RC] ASDIRECTED 01/24/19 13:45 Sodium Chloride 0.9% [Normal Saline] 1,000 ml IV ASDIRECTED
--- NOTE | 2019-01-24 14:34 | CT ---
CT abdomen and pelvis Technique: Multiple axial sections were obtained from above the dome of the diaphragm inferiorly through the pubic symphysis. Intravenous and oral contrast not utilized. Study has been performed as a ureteral stone protocol. Comparison: Previous CT abdomen and pelvis exam of 02/19/17. Findings: Small cyst is noted within the mid left kidney measuring approximately 1.5 cm in size. Several small nonobstructing calculi are seen within the right kidney. Single nonobstructing stone is seen within the left kidney. These measure less than 5 mm in size. Ureters show no dilatation or abnormal calcifications. Visualized lung bases show nothing acute. Noncontrast appearance of the liver shows no discrete abnormality. Spleen appears within normal limits. Right adrenal gland appears unremarkable. Small nodule is noted within the crests of the left adrenal gland measuring 1.4 cm. This nodule is felt to be stable from previous CT exam and shows low density and is felt compatible with an incidental small adrenal adenoma. Gallbladder contains no calcified gallstones. Pancreas shows no discrete abnormality. Aorta and iliac vessels shows atherosclerotic change without aneurysm. No retroperitoneal adenopathy or mesenteric abnormalities are seen. No pelvic mass or adenopathy is noted. Prostate gland is enlarged. No free fluid or inflammatory change is seen. Appendix is not visualized with certainty. Impression: 1. Small nonobstructing calculi within both kidneys. Right kidney shows a small cyst. No ureteral dilatation or ureteral stone is seen. 2. Nothing acute is appreciated on noncontrast CT study of the abdomen and pelvis. Other findings which are believed to be incidental as noted above. Diagnostic code #2
[2019-01-24 16:02] VITALS: BP 159/89; PULSE 87
== END 2019-01-24 15:45 | disposition home or self-care (01) ==
LOC: JD.ED 11:57
DX: M54.5 Low back pain (principal); R10.9 Unspecified abdominal pain; G89.29 Other chronic pain; K21.9 Gastro-esophageal reflux disease without esophagitis; N40.0 Benign prostatic hyperplasia without lower urinary tract symptoms; F32.9 Major depressive disorder, single episode, unspecified; I10 Essential (primary) hypertension; Z88.8 Allergy status to other drugs, medicaments and biological substances; Z79.899 Other long term (current) drug therapy; Z88.5 Allergy status to narcotic agent
CPT/HCPCS: 74176; 81001; 96361; 96374; 96375; 99284; A9270; J1170; J2405; J7040

== ENCOUNTER 2019-04-24 13:36 | Emergency (ER) | payer MEDICAID ==
[2019-04-24 13:52] VITALS: BP 166/89; PULSE 108
[2019-04-24] MEDS ORDERED: Ketorolac 60 MG/2 ML SDV IM ONE (14:23)
[2019-04-24] MEDS ORDERED: Orphenadrine 100 MG Tab.ER PO ONE (14:23)
--- NOTE | 2019-04-24 14:29 | EDM.PDOC ---
ED HPI GENERAL MEDICAL PROBLEM - General Chief Complaint: Back Pain or Injury Stated Complaint: BACK PAIN Time Seen by Provider: 04/24/19 14:03 Source of Information: Reports: Patient, RN Notes Reviewed History Limitations: Reports: No Limitations - History of Present Illness INITIAL COMMENTS - FREE TEXT/NARRATIVE: Patient is a 63-year-old male who presents to the ED for evaluation of mid to lower back pain. Patient notes he does have a history of chronic back pain due to bulging disks. He states he last had an MRI roughly a year ago. Patient notes that he had a minor slip or trip on the ice, he did not fall, however he felt that it tanya his back. He notes that the back pain has been worse over the last 4 to 5 days. He did try 1 tablet of Aleve today, without much relief. Pain does not radiate anywhere. He is not have any abdominal pain, he denies any fevers/chills, nausea/vomiting/diarrhea, chest pain/shortness of breath, or cough. He notes that the pain is a throbbing/aching, dull pain that is there all the time. He does note that his primary care provider is Dr. Fitch, he did get a steroid shot in his lumbar area in October, this did seem to help relieve some of his chronic back issues. He notes that he takes baclofen 3 times a day for neck issues. Middle Back Pain Score (Numeric/FACES): 9 - Related Data Allergies Allergy/AdvReac Type Severity Reaction Status Date / Time codeine Allergy Intermediate Itching Verified 04/24/19 13:52 meperidine HCl [From Demerol] Allergy Intermediate Itching Verified 04/24/19 13: 52 Home Meds: Home Meds Mirtazapine 30 mg PO DAILY 09/10/15 [History] Pantoprazole [Protonix] 80 mg PO BID 03/18/16 [History] cloNIDine [Catapres] 0.1 mg PO DAILY 01/21/17 [History] Tamsulosin HCl [Flomax] 0.4 mg PO DAILY #7 cap.er.24h 05/10/17 [Rx] DULoxetine [Cymbalta] 60 mg PO DAILY #30 cap 06/30/17 [Rx] Diltiazem [Cardizem CD] 120 mg PO DAILY 12/23/17 [History] hydroCHLOROthiazide [Hydrochlorothiazide] 25 mg PO DAILY 12/23/17 [History] Losartan [Cozaar] 50 mg PO DAILY 01/11/18 [History] Baclofen 10 mg PO TID 05/27/18 [History] clonazePAM [Klonopin] 0.5 mg PO TID 05/27/18 [History] Acetaminophen/oxyCODONE [Percocet 325-5 MG] 1 each PO Q6H PRN #15 tab 01/19/19 [ Rx] predniSONE 20 mg PO ASDIRECTED #15 tab 01/24/19 [Rx] Orphenadrine [Norflex] 100 mg PO BID PRN #10 tab 04/24/19 [Rx] Past Medical History HEENT History: Reports: Other (See Below) Other HEENT History: dental issues. 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 bulging dicsc 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, opiods Hematologic History: Reports: Other (See Below) Other Hematologic History: HEP C - Infectious Disease History Infectious Disease History: Reports: Chicken Pox, Hepatitis C, Measles - Past Surgical History GI Surgical History: Reports: Appendectomy Male Surgical History: Reports: Lithotripsy (ESWL), Ureteral Stent Social & Family History - Family History Family Medical History: Noncontributory - Tobacco Use Smoking Status *Q: Current Every Day Smoker Years of Tobacco use: 50 Packs/Tins Daily: 0.5 - Caffeine Use Caffeine Use: Reports: Coffee - Recreational Drug Use Recreational Drug Use: Yes Drug Use in Last 12 Months: No Recreational Drug Type: Reports: Marijuana/Hashish - Living Situation & Occupation Living situation: Reports: Single, Alone Occupation: Unemployed ED ROS GENERAL - Review of Systems Review Of Systems: See Below Constitutional: Denies: Fever, Chills Respiratory: Denies: Shortness of Breath, Cough Cardiovascular: Denies: Chest Pain GI/Abdominal: Denies: Abdominal Pain, Constipation, Diarrhea, Nausea, Vomiting Musculoskeletal: Reports: Back Pain (mid to lower back pain). Denies: Leg Pain Neurological: Denies: Numbness, Tingling ED EXAM,LOWER BACK PAIN/INJURY - Physical Exam Exam: See Below Exam Limited By: No Limitations General Appearance: Alert, WD/WN, No Apparent Distress Throat/Mouth: Normal Inspection, Normal Lips, Normal Teeth, Normal Gums, Normal Oropharynx, Normal Voice, No Airway Compromise Head: Atraumatic, Normocephalic Neck: Normal Inspection Respiratory/Chest: No Respiratory Distress, Lungs Clear, Normal Breath Sounds, No Accessory Muscle Use, Chest Non-Tender Cardiovascular: Normal Peripheral Pulses, Regular Rate, Rhythm, No Murmur GI/Abdominal: Normal Bowel Sounds, Soft, Non-Tender, No Distention, No Mass Back Exam: Normal Inspection, Decreased Range of Motion (d/t pain.), Muscle Spasm Extremities: Normal Inspection, Normal Range of Motion, Normal Capillary Refill Neurological: Alert, Normal Mood/Affect, Normal Dorsiflexion, CN II-XII Intact ( grossly), Normal Plantar Flexion, Normal Gait, Normal Reflexes, No Motor/ Sensory Deficits, Oriented x 3 Psychiatric: Normal Affect, Normal Mood Skin Exam: Warm, Dry, Intact, Normal Color, No Rash Course - Vital Signs Last Recorded V/S: Last Vital Signs Temp 98.6 F 04/24/19 13:46 Pulse 108 H 04/24/19 13:46 Resp 18 04/24/19 13:46 BP 166/89 H 04/24/19 13:46 Pulse Ox 99 04/24/19 13:46 - Orders/Labs/Meds Meds: Medications Discontinued Medications Generic Name Dose Route Start Last Admin Trade Name Freq PRN Reason Stop Dose Admin Ketorolac Tromethamine 60 mg 04/24/19 14:23 04/24/19 14:29 Toradol IM 04/24/19 14:24 60 mg ONETIME ONE Administration Orphenadrine Citrate 100 mg 04/24/19 14:23 04/24/19 14:29 Norflex PO 04/24/19 14:24 100 mg ONETIME ONE Administration - Re-Assessments/Exams Free Text/Narrative Re-Assessment/Exam: 04/24/19 14:28 Patient presents to the ED for the evaluation of mid to lower back pain. Patient will be given an injection of 60 mg IM Toradol and 100 mg p.o. Norflex for initial management. I believe his pain to be more of a musculoskeletal strain in nature due to the recent slip or trip he had on the ice. We will likely send him home with a prescription for Norflex and have him follow-up with his regular care provider on Wednesday as previously scheduled. 04/24/19 15:04 Patient was reassessed at bedside, states he is feeling a little bit better. He would like to be discharged home at this time. Departure - Departure Time of Disposition: 15:06 Disposition: Home, Self-Care 01 Condition: Fair Clinical Impression: Muscle strain of upper back - Discharge Information *PRESCRIPTION DRUG MONITORING PROGRAM REVIEWED*: No *COPY OF PRESCRIPTION DRUG MONITORING REPORT IN PATIENT LETICIA: No Instructions: Muscle Strain, [id number] Referrals: Talha Fitch MD [Primary Care Provider] - Forms: ED Department Discharge Additional Instructions: You have been evaluated in the ED for your chronic back pain. Please use ice/heat as tolerated to the affected area. You may take Tylenol 500 mg or ibuprofen 600mg q6 hrs for pain relief. Please do so until you have a tolerable level of pain with activity. Do not exceed 4000mg Tylenol or 3200mg ibuprofen in a 24 hour time period. You were given a prescription for a muscle relaxer called Norflex, please use 1 tab 2 times daily for further muscle spasms. Keep your appointment with your regular provider on Wednesday for further management. Please return to ED if your symptoms should change or worsen. Sepsis Event Note - Evaluation Sepsis Screening Result: No Definite Risk - Focused Exam Vital Signs: Vital Signs Temp Pulse Resp BP Pulse Ox 04/24/19 13:46 98.6 F 108 H 18 166/89 H 99 Date Exam was Performed: 04/24/19 Time Exam was Performed: 15:04
== END 2019-04-24 15:17 | disposition home or self-care (01) ==
LOC: JD.ED 13:36
DX: S29.012A Strain of muscle and tendon of back wall of thorax, initial encounter (principal); I10 Essential (primary) hypertension; K21.9 Gastro-esophageal reflux disease without esophagitis; F17.210 Nicotine dependence, cigarettes, uncomplicated; Z90.49 Acquired absence of other specified parts of digestive tract; Z79.899 Other long term (current) drug therapy; Z88.5 Allergy status to narcotic agent; Z88.8 Allergy status to other drugs, medicaments and biological substances; W00.0XXA Fall on same level due to ice and snow, initial encounter
CPT/HCPCS: 96372; 99283; A9270; J1885; 99282

== ENCOUNTER 2019-05-17 09:16 | Emergency (ER) | payer MEDICAID ==
[2019-05-17 09:52] VITALS: BP 153/103; PULSE 96
--- NOTE | 2019-05-17 10:25 | EDM.PDOC ---
ED HPI GENERAL MEDICAL PROBLEM - General Chief Complaint: Upper Extremity Injury/Pain Stated Complaint: RIGHT ARM PAIN Time Seen by Provider: 05/17/19 09:49 Source of Information: Reports: Patient History Limitations: Reports: No Limitations - History of Present Illness INITIAL COMMENTS - FREE TEXT/NARRATIVE: The patient presents with right arm pain. He had a tray of food 2 days ago and he sat down and he fell over and landed on his right arm that was outstretched. He did not hurt his head or neck. He has pain to the mid right upper arm into the shoulder. Onset: Sudden Duration: Day(s): (2) Location: Reports: Upper Extremity, Right (arm and shoulder) Quality: Reports: Sharp Severity: Moderate Improves with: Reports: Immobilization Worsens with: Reports: Movement Context: Reports: Trauma (fall) Associated Symptoms: Reports: No Other Symptoms right arm Pain Score (Numeric/FACES): 7 - Related Data Allergies Allergy/AdvReac Type Severity Reaction Status Date / Time codeine Allergy Intermediate Itching Verified 04/24/19 13:52 meperidine HCl [From Demerol] Allergy Intermediate Itching Verified 04/24/19 13: 52 Home Meds: Home Meds Mirtazapine 30 mg PO DAILY 09/10/15 [History] Pantoprazole [Protonix] 80 mg PO BID 03/18/16 [History] cloNIDine [Catapres] 0.1 mg PO DAILY 01/21/17 [History] Tamsulosin HCl [Flomax] 0.4 mg PO DAILY #7 cap.er.24h 05/10/17 [Rx] DULoxetine [Cymbalta] 60 mg PO DAILY #30 cap 06/30/17 [Rx] Diltiazem [Cardizem CD] 120 mg PO DAILY 12/23/17 [History] hydroCHLOROthiazide [Hydrochlorothiazide] 25 mg PO DAILY 12/23/17 [History] Losartan [Cozaar] 50 mg PO DAILY 01/11/18 [History] Baclofen 10 mg PO TID 05/27/18 [History] clonazePAM [Klonopin] 0.5 mg PO TID 05/27/18 [History] Acetaminophen/oxyCODONE [Percocet 325-5 MG] 1 each PO Q6H PRN #15 tab 01/19/19 [ Rx] predniSONE 20 mg PO ASDIRECTED #15 tab 01/24/19 [Rx] Orphenadrine [Norflex] 100 mg PO BID PRN #10 tab 04/24/19 [Rx] traMADol [Ultram] 50 - 100 mg PO Q6H PRN #10 tab 05/17/19 [Rx] Past Medical History - Past Health History Medical/Surgical History: Denies Medical/Surgical History HEENT History: Reports: Other (See Below) Other HEENT History: dental issues. 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 bulging dicsc 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, opiods Hematologic History: Reports: Other (See Below) Other Hematologic History: HEP C - Infectious Disease History Infectious Disease History: Reports: Chicken Pox, Hepatitis C, Measles - Past Surgical History GI Surgical History: Reports: Appendectomy Male Surgical History: Reports: Lithotripsy (ESWL), Ureteral Stent Social & Family History - Family History Family Medical History: Noncontributory - Tobacco Use Smoking Status *Q: Current Every Day Smoker Years of Tobacco use: 50 Packs/Tins Daily: 0.5 - Caffeine Use Caffeine Use: Reports: Coffee - Recreational Drug Use Recreational Drug Use: No - Living Situation & Occupation Living situation: Reports: Single, Alone Occupation: Unemployed Review of Systems - Review of Systems Review Of Systems: See Below Constitutional: Reports: No Symptoms Eyes: Reports: No Symptoms Ears: Reports: No Symptoms Nose: Reports: No Symptoms Mouth/Throat: Reports: No Symptoms Respiratory: Reports: No Symptoms Cardiovascular: Reports: No Symptoms GI/Abdominal: Reports: No Symptoms Genitourinary: Reports: No Symptoms Musculoskeletal: Reports: Other (Right upper arm pain) ED EXAM, GENERAL - Physical Exam Exam: See Below Exam Limited By: No Limitations General Appearance: Alert, No Apparent Distress Ears: Normal External Exam Nose: Normal Inspection Head: Atraumatic, Normocephalic Neck: Normal Inspection Respiratory/Chest: No Respiratory Distress Extremities: Other (Pain upon palpation to the mid upper arm into the shoulder) Course - Vital Signs Last Recorded V/S: Last Vital Signs Temp 98.1 F 05/17/19 09:49 Pulse 96 05/17/19 09:49 Resp 20 05/17/19 09:49 BP 153/103 H 05/17/19 09:49 Pulse Ox 95 05/17/19 09:49 - Orders/Labs/Meds Orders: Active Orders 24 hr Category Date Time Status Humerus Rt [CR] Stat Exams 05/17/19 09:58 Taken - Re-Assessments/Exams Free Text/Narrative Re-Assessment/Exam: 05/17/19 10:24 I ordered an x-ray of his humerus and it looks good. I will discharge him home. Departure - Departure Time of Disposition: 10:30 Disposition: Home, Self-Care 01 Condition: Good Clinical Impression: Fall Qualifiers: Encounter type: initial encounter Qualified Code(s): W19.XXXA - Unspecified fall, initial encounter Strain of right upper arm Qualifiers: Encounter type: initial encounter Qualified Code(s): S46.911A - Strain of unspecified muscle, fascia and tendon at shoulder and upper arm level, right arm , initial encounter - Discharge Information *PRESCRIPTION DRUG MONITORING PROGRAM REVIEWED*: No *COPY OF PRESCRIPTION DRUG MONITORING REPORT IN PATIENT LETICIA: No Prescriptions: traMADol [Ultram] 50 - 100 mg PO Q6H PRN #10 tab PRN Reason: Pain Referrals: Talha Fitch MD [Primary Care Provider] - 1 Week Forms: ED Department Discharge Additional Instructions: Ice your arm for 15 minutes 3 times per day for 2 days. Take motrin or tylenol for pain. If that [place] not help try the ultram. Please return if you are worse. Sepsis Event Note - Evaluation Sepsis Screening Result: No Definite Risk - Focused Exam Vital Signs: Vital Signs Temp Pulse Resp BP Pulse Ox 05/17/19 09:49 98.1 F 96 20 153/103 H 95 Date Exam was Performed: 05/17/19 Time Exam was Performed: 10:27 - My Orders Last 24 Hours: My Active Orders 05/17/19 09:58 Humerus Rt [CR] Stat - Assessment/Plan Last 24 Hours: My Active Orders 05/17/19 09:58 Humerus Rt [CR] Stat
--- NOTE | 2019-05-17 11:12 | CR ---
Right humerus: Two views of the right humerus were obtained. Comparison: No previous study. Slight joint space narrowing and minimal inferior spurring is noted within the acromioclavicular joint. Small inferior hook also noted off the acromion process. No acute fracture or other bony abnormality is appreciated. Impression: 1. Degenerative change within the acromioclavicular joint. 2. No acute abnormality is seen on two-view right humerus exam. Diagnostic code #2 This report was dictated in [place] Standard Time
== END 2019-05-17 10:38 | disposition home or self-care (01) ==
LOC: JD.ED 09:16
DX: S46.911A Strain of unspecified muscle, fascia and tendon at shoulder and upper arm level, right arm, initial encounter (principal); I10 Essential (primary) hypertension; N40.0 Benign prostatic hyperplasia without lower urinary tract symptoms; F32.9 Major depressive disorder, single episode, unspecified; K21.9 Gastro-esophageal reflux disease without esophagitis; F41.9 Anxiety disorder, unspecified; F17.210 Nicotine dependence, cigarettes, uncomplicated; Z88.5 Allergy status to narcotic agent; Z79.899 Other long term (current) drug therapy; W07.XXXA Fall from chair, initial encounter; Y93.89 Activity, other specified
CPT/HCPCS: 73060-26-RT; 73060-RT; 99283; 99283-25

== ENCOUNTER 2019-06-17 19:06 | Emergency (ER) | payer MEDICAID ==
[2019-06-17 19:20] VITALS: BP 157/94; PULSE 94
[2019-06-17] MEDS ORDERED: Ketorolac 60 MG/2 ML SDV IM ONE (20:08)
--- NOTE | 2019-06-17 20:23 | EDM.PDOC ---
ED HPI GENERAL MEDICAL PROBLEM - General Chief Complaint: Genitourinary Problem Stated Complaint: POSSIBLE KIDNEY STONE Time Seen by Provider: 06/17/19 19:11 Source of Information: Reports: Patient History Limitations: Reports: No Limitations - History of Present Illness INITIAL COMMENTS - FREE TEXT/NARRATIVE: This is a 63-year-old male. This morning around 9 AM he says he had onset of stabbing type pain in the left flank. He has had no nausea and vomiting however. He says he still has the pain there in the left flank and it has not moved down into his left lower quadrant yet. He does have a history of kidney stones in the past and he says he had some blood in his urine this morning. He comes to the ER wanting something for the pain. When I first talked to him I told him we needed to get a CAT scan to see where the stone is and how big it is so we know how to treat it but he did not want to get the CAT scan. I explained that unless I know he is got a stone for sure we do not normally treat this kind of pain with narcotics he has since changed his mind and he wants the CAT scan. Not appear to be in distress. Left Flank Pain Score (Numeric/FACES): 8 - Related Data Allergies Allergy/AdvReac Type Severity Reaction Status Date / Time codeine Allergy Intermediate Itching Verified 06/17/19 19:16 meperidine HCl [From Demerol] Allergy Intermediate Itching Verified 06/17/19 19: 16 Home Meds: Home Meds Mirtazapine 30 mg PO DAILY 09/10/15 [History] Pantoprazole [Protonix] 80 mg PO BID 03/18/16 [History] cloNIDine [Catapres] 0.1 mg PO BEDTIME 01/21/17 [History] Tamsulosin HCl [Flomax] 0.4 mg PO DAILY #7 cap.er.24h 05/10/17 [Rx] DULoxetine [Cymbalta] 60 mg PO DAILY #30 cap 06/30/17 [Rx] Diltiazem [Cardizem CD] 120 mg PO DAILY 12/23/17 [History] hydroCHLOROthiazide [Hydrochlorothiazide] 25 mg PO DAILY 12/23/17 [History] Losartan [Cozaar] 50 mg PO DAILY 01/11/18 [History] Baclofen 10 mg PO TID 05/27/18 [History] clonazePAM [Klonopin] 0.5 mg PO TID 05/27/18 [History] Past Medical History - Past Health History Medical/Surgical History: Denies Medical/Surgical History HEENT History: Reports: Other (See Below) Other HEENT History: dental issues. 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 bulging dicsc 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, opiods Hematologic History: Reports: Other (See Below) Other Hematologic History: HEP C - Infectious Disease History Infectious Disease History: Reports: Chicken Pox, Hepatitis C, Measles - Past Surgical History GI Surgical History: Reports: Appendectomy Male Surgical History: Reports: Lithotripsy (ESWL), Ureteral Stent Social & Family History - Family History Family Medical History: Noncontributory - Tobacco Use Smoking Status *Q: Current Every Day Smoker Years of Tobacco use: 40 Packs/Tins Daily: 0.5 - Caffeine Use Caffeine Use: Reports: Coffee - Recreational Drug Use Recreational Drug Use: Yes Drug Use in Last 12 Months: No - Living Situation & Occupation Living situation: Reports: Single, Alone Occupation: Unemployed ED ROS GENERAL - Review of Systems Review Of Systems: See Below Constitutional: Denies: Fever, Chills HEENT: Reports: No Symptoms Respiratory: Reports: No Symptoms Cardiovascular: Reports: No Symptoms Endocrine: Reports: No Symptoms GI/Abdominal: Denies: Abdominal Pain, Nausea, Vomiting : Reports: Flank Pain, Hematuria Musculoskeletal: Reports: Back Pain Skin: Reports: No Symptoms Neurological: Reports: No Symptoms Psychiatric: Reports: Other (Has a very flat affect and slow speech) Hematologic/Lymphatic: Reports: No Symptoms ED EXAM, RENAL/ - Physical Exam Exam: See Below Exam Limited By: No Limitations General Appearance: Alert, WD/WN, No Apparent Distress Eye Exam: Bilateral Eye: Normal Inspection Ears: Normal External Exam Nose: Normal Inspection Throat/Mouth: Normal Inspection, Normal Lips, Normal Voice, No Airway Compromise Head: Normocephalic Neck: Supple Respiratory/Chest: No Respiratory Distress, Lungs Clear, Normal Breath Sounds Cardiovascular: Regular Rate, Rhythm, No Murmur GI/Abdominal: Soft, Non-Tender Back Exam: Full Range of Motion, Other (No significant CVA tenderness on the left or the right) Extremities: Normal Range of Motion Neurological: Alert, Oriented Psychiatric: Flat Affect, Other (Slow speech) Skin Exam: Warm, Dry Course - Vital Signs Last Recorded V/S: Last Vital Signs Temp 97.6 F 06/17/19 19:16 Pulse 94 06/17/19 19:16 Resp BP 157/94 H 06/17/19 19:16 Pulse Ox 94 L 06/17/19 19:16 - Orders/Labs/Meds Labs: Laboratory Tests 06/17/19 06/17/19 06/17/19 Range/Units 19:36 20:26 20:26 WBC 10.28 H (4.23-9.07) K/mm3 RBC 5.12 (4.63-6.08) M/mm3 Hgb 14.9 (13.7-17.5) gm/dl Hct 46.1 (40.1-51.0) % MCV 90.0 D (79.0-92.2) fl MCH 29.1 (25.7-32.2) pg MCHC 32.3 (32.2-35.5) g/dl RDW Std Deviation 48.5 H (35.1-43.9) fL Plt Count 322 (163-337) K/mm3 MPV 9.1 L (9.4-12.3) fl Neut % (Auto) 56.5 (34.0-67.9) % Lymph % (Auto) 28.7 (21.8-53.1) % Eddy % (Auto) 8.8 (5.3-12.2) % Eos % (Auto) 5.3 (0.8-7.0) Baso % (Auto) 0.5 (0.1-1.2) % Neut # (Auto) 5.82 H (1.78-5.38) K/mm3 Lymph # (Auto) 2.95 (1.32-3.57) K/mm3 Eddy # (Auto) 0.90 H (0.30-0.82) K/mm3 Eos # (Auto) 0.54 (0.04-0.54) K/mm3 Baso # (Auto) 0.05 (0.01-0.08) K/mm3 Manual Slide Review Normal smear Sodium 142 (136-145) mEq/L Potassium 3.9 (3.5-5.1) mEq/L Chloride 107 (98-107) mEq/L Carbon Dioxide 28 (21-32) mEq/L Anion Gap 10.9 (5-15) BUN 11 (7-18) mg/dL Creatinine 1.4 H (0.7-1.3) mg/dL Est Cr Clr Drug Dosing 59.28 mL/min Estimated GFR (MDRD) 51 (>60) mL/min BUN/Creatinine Ratio 7.9 L (14-18) Glucose 95 (80-115) mg/dL Calcium 8.9 (8.5-10.1) mg/dL Total Bilirubin 0.3 (0.2-1.0) mg/dL AST 15 (15-37) U/L ALT 25 (16-63) U/L Alkaline Phosphatase 105 (46-116) U/L Total Protein 7.2 (6.4-8.2) g/dl Albumin 3.6 (3.4-5.0) g/dl Globulin 3.6 gm/dL Albumin/Globulin Ratio 1.0 (1-2) Urine Color Yellow (Yellow) Urine Appearance Clear (Clear) Urine pH 6.5 (5.0-8.0) Ur Specific [place] 1.025 (1.005-1.030) Urine Protein 1+ H (Negative) Urine Glucose (UA) Negative (Negative) Urine Ketones Negative (Negative) Urine Occult Blood 3+ H (Negative) Urine Nitrite Negative (Negative) Urine Bilirubin Negative (Negative) Urine Urobilinogen 0.2 (0.2-1.0) Ur Leukocyte Esterase Negative (Negative) Urine RBC 40-50 H (0-5) /hpf Urine WBC 0-5 (0-5) /hpf Ur Squamous Epith Cells 0-5 (0-5) /hpf Urine Bacteria Few (FEW) /hpf Urine Mucus Rare (FEW) /hpf Meds: Medications Discontinued Medications Generic Name Dose Route Start Last Admin Trade Name Freq PRN Reason Stop Dose Admin Ketorolac Tromethamine 60 mg 06/17/19 20:08 06/17/19 20:14 Toradol IM 06/17/19 20:09 60 mg ONETIME ONE Administration - Radiology Interpretation Free Text/Narrative:: CT scan of the abdomen and pelvis for stone does not reveal any ureteral stone just nonobstructing calculi in both kidneys. There is no ureteral dilatation to suggest a recently passed stone either. - Re-Assessments/Exams Free Text/Narrative Re-Assessment/Exam: 06/17/19 21:44 I spoke to the patient regarding the CT scan results and the blood work and the urine. He does show some blood in the urine but there is no evidence of ureteral stone on the CT scan. Therefore he needs to follow-up with his family doctor regarding the blood in his urine when there is no evidence of a kidney stone though I guess he could have passed one earlier today. Departure - Departure Time of Disposition: 21:44 Disposition: Home, Self-Care 01 Condition: Fair Clinical Impression: Left flank pain - Discharge Information *PRESCRIPTION DRUG MONITORING PROGRAM REVIEWED*: Not Applicable *COPY OF PRESCRIPTION DRUG MONITORING REPORT IN PATIENT LETICIA: Not Applicable Instructions: Flank Pain, Adult, [id number] Referrals: Talha Fitch MD [Primary Care Provider] - Forms: ED Department Discharge Additional Instructions: Use a warm pad to the left flank to help with the soreness and the pain, take some Tylenol or ibuprofen to help with the soreness and the pain in the left flank, the CAT scan of your abdomen and pelvis did not show a kidney stone and the tube going from your kidney to your bladder therefore the pain in your left flank must be for a different reason and you need to follow-up with your family doctor for continued evaluation, return to the ER as needed Sepsis Event Note - Evaluation Sepsis Screening Result: No Definite Risk - Focused Exam Vital Signs: Vital Signs Temp Pulse BP Pulse Ox 06/17/19 19:16 97.6 F 94 157/94 H 94 L Date Exam was Performed: 06/17/19 Time Exam was Performed: 21:43
--- NOTE | 2019-06-17 20:56 | CT ---
CT abdomen and pelvis Technique: Multiple axial sections were obtained from above the dome of the diaphragm inferiorly through the pubic symphysis. Intravenous and oral contrast not utilized. Study has been performed as a ureteral stone protocol. Comparison: Prior CT abdomen and pelvis study of 01/24/19. Findings: Visualized lung bases show nothing acute. Liver shows no focal parenchymal abnormality. Spleen appears within normal limits. Adrenal gland on the left side shows a small nodule measuring 1.0 cm. This is felt to be present on previous study back to 2013 and therefore benign. In addition, this low-density finding shows negative Hounsfield unit measurements which is also compatible with small benign adrenal adenoma. Pancreas appears within normal limits. Gallbladder contains no calcified gallstones. Small nonobstructing stone is noted within the upper left kidney. Small nonobstructing stone is noted within the mid right kidney. No ureteral dilatation or ureteral stone is seen. Small cyst is noted within the mid left kidney and within the lower right kidney. Aorta shows atherosclerotic calcification without aneurysm. Atherosclerotic change continues into the iliac vessels. No retroperitoneal adenopathy or mesenteric abnormalities are seen. Prostate gland is enlarged with mild calcifications. No free fluid or inflammatory change is seen. Appendix is not seen with certainty. Bone window settings were reviewed which shows scattered degenerative change within the spine with mild posterior disc space narrowing. Anterior endplate osteophytes are noted. Small limbus type vertebra noted within the anterior and superior endplate of L5. Impression: 1. Small nonobstructing calculus within both kidneys. No ureteral dilatation or ureteral stone is seen. 2. Other findings believed to be incidental as noted above. 3. Nothing acute is appreciated on CT study of the abdomen and pelvis. Diagnostic code #2 Study was dictated in [place] Standard Time [facility]
== END 2019-06-17 22:00 | disposition home or self-care (01) ==
LOC: JD.ED 19:06
DX: R10.9 Unspecified abdominal pain (principal); I10 Essential (primary) hypertension; K21.9 Gastro-esophageal reflux disease without esophagitis; F41.9 Anxiety disorder, unspecified; F32.9 Major depressive disorder, single episode, unspecified; F17.210 Nicotine dependence, cigarettes, uncomplicated; Z88.5 Allergy status to narcotic agent; Z88.8 Allergy status to other drugs, medicaments and biological substances; Z79.899 Other long term (current) drug therapy; Z87.442 Personal history of urinary calculi
CPT/HCPCS: 36415; 74176; 80053; 81001; 85025; 96372; 99284; J1885; 99283

== ENCOUNTER 2019-10-09 18:40 | Emergency (ER) | payer MEDICAID ==
[2019-10-09 18:51] VITALS: BP 142/88; PULSE 105
--- NOTE | 2019-10-09 19:30 | EDM.PDOC ---
ED HPI GENERAL MEDICAL PROBLEM - General Chief Complaint: Back Pain or Injury Stated Complaint: lower back pain Time Seen by Provider: 10/09/19 19:20 - History of Present Illness INITIAL COMMENTS - FREE TEXT/NARRATIVE: 64-year-old male presents the emergency room with left-sided back pain. Started yesterday but pretty much got worse through the course the day today. Patient cannot recall any heavy lifting or unusual activities that may have precipitated this. Patient does have a significant history of recurrent kidney stones. He has done pretty well with regards to kidney stones lately and he attributes this to taking Flomax. Patient denies any fevers or chills has not had any nausea or vomiting he has not noticed any blood in his urine. Patient has not noticed any loss of bowel or bladder control he has not noticed any pain or numbness or tingling sensation in his legs. The patient wonders about a urinary tract infection however he has not had any burning or frequency he is not had any fevers or chills. Left Back Pain Score (Numeric/FACES): 8 - Related Data Allergies Allergy/AdvReac Type Severity Reaction Status Date / Time codeine Allergy Intermediate Itching Verified 10/09/19 18:52 meperidine HCl [From Demerol] Allergy Intermediate Itching Verified 10/09/19 18:52 Home Meds: Home Meds Mirtazapine 30 mg PO DAILY 09/10/15 [History] Pantoprazole [Protonix] 80 mg PO BID 03/18/16 [History] cloNIDine [Catapres] 0.1 mg PO BEDTIME 01/21/17 [History] Tamsulosin HCl [Flomax] 0.4 mg PO DAILY #7 cap.er.24h 05/10/17 [Rx] DULoxetine [Cymbalta] 60 mg PO DAILY #30 cap 06/30/17 [Rx] Diltiazem [Cardizem CD] 120 mg PO DAILY 12/23/17 [History] hydroCHLOROthiazide [Hydrochlorothiazide] 25 mg PO DAILY 12/23/17 [History] Losartan [Cozaar] 50 mg PO DAILY 01/11/18 [History] Baclofen 10 mg PO TID 05/27/18 [History] clonazePAM [Klonopin] 0.5 mg PO TID 05/27/18 [History] Acetaminophen/HYDROcodone [[place] 325-5 MG] 1 tab PO Q6H #8 tablet 10/09/19 [Rx] Past Medical History - Past Health History Medical/Surgical History: Denies Medical/Surgical History HEENT History: Reports: Other (See Below) Other HEENT History: dental issues. 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 bulging dicsc 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, opiods Hematologic History: Reports: Other (See Below) Other Hematologic History: HEP C - Infectious Disease History Infectious Disease History: Reports: Chicken Pox, Hepatitis C, Measles - Past Surgical History GI Surgical History: Reports: Appendectomy Male Surgical History: Reports: Lithotripsy (ESWL), Ureteral Stent Social & Family History - Family History Family Medical History: Noncontributory - Tobacco Use Smoking Status *Q: Current Every Day Smoker Years of Tobacco use: 40 Packs/Tins Daily: 1 - Caffeine Use Caffeine Use: Reports: Coffee - Living Situation & Occupation Living situation: Reports: Single, Alone Occupation: Unemployed ED ROS GENERAL - Review of Systems Review Of Systems: See Below Constitutional: Reports: No Symptoms HEENT: Reports: No Symptoms Respiratory: Reports: No Symptoms Cardiovascular: Reports: No Symptoms Endocrine: Reports: No Symptoms GI/Abdominal: Reports: No Symptoms : Reports: Flank Pain Musculoskeletal: Reports: Back Pain. Denies: Leg Pain, Foot Pain Skin: Reports: No Symptoms Neurological: Reports: No Symptoms ED EXAM,LOWER BACK PAIN/INJURY - Physical Exam Exam: See Below Exam Limited By: No Limitations General Appearance: Alert, No Apparent Distress Head: Atraumatic, Normocephalic Neck: Normal Inspection, Supple, Non-Tender, Full Range of Motion Respiratory/Chest: No Respiratory Distress, Lungs Clear, Normal Breath Sounds Cardiovascular: Regular Rate, Rhythm, No Edema, No Murmur GI/Abdominal: Normal Bowel Sounds, Soft, Non-Tender Back Exam: Normal Inspection, Other (Left-sided flank discomfort with palpation. He denies this radiating into his back abdomen or groin.). No: CVA Tenderness (L), CVA Tenderness (R) Course - Vital Signs Last Recorded V/S: Last Vital Signs Temp 36.6 C 10/09/19 18:49 Pulse 105 H 10/09/19 18:49 Resp 16 10/09/19 18:49 BP 142/88 H 10/09/19 18:49 Pulse Ox 94 L 10/09/19 18:49 - Orders/Labs/Meds Labs: Laboratory Tests 10/09/19 10/09/19 10/09/19 Range/Units 20:06 20:27 20:27 WBC 10.20 H (4.23-9.07) K/mm3 RBC 5.65 (4.63-6.08) M/mm3 Hgb 16.8 D (13.7-17.5) gm/dl Hct 50.6 (40.1-51.0) % MCV 89.6 (79.0-92.2) fl MCH 29.7 (25.7-32.2) pg MCHC 33.2 (32.2-35.5) g/dl RDW Std Deviation 50.9 H (35.1-43.9) fL Plt Count 325 (163-337) K/mm3 MPV 8.8 L (9.4-12.3) fl Neut % (Auto) 71.1 H (34.0-67.9) % Lymph % (Auto) 16.6 L (21.8-53.1) % [place] % (Auto) 9.5 (5.3-12.2) % Eos % (Auto) 2.2 (0.8-7.0) Baso % (Auto) 0.3 (0.1-1.2) % Neut # (Auto) 7.26 H (1.78-5.38) K/mm3 Lymph # (Auto) 1.69 (1.32-3.57) K/mm3 [place] # (Auto) 0.97 H (0.30-0.82) K/mm3 Eos # (Auto) 0.22 (0.04-0.54) K/mm3 Baso # (Auto) 0.03 (0.01-0.08) K/mm3 Sodium 139 (136-145) mEq/L Potassium 3.9 (3.5-5.1) mEq/L Chloride 102 (98-107) mEq/L Carbon Dioxide 24 (21-32) mEq/L Anion Gap 16.9 H (5-15) BUN 22 H (7-18) mg/dL Creatinine 1.2 (0.7-1.3) mg/dL Est Cr Clr Drug Dosing 68.26 mL/min Estimated GFR (MDRD) > 60 (>60) mL/min BUN/Creatinine Ratio 18.3 H (14-18) Glucose 92 (80-115) mg/dL Calcium 9.1 (8.5-10.1) mg/dL Total Bilirubin 0.6 (0.2-1.0) mg/dL AST 19 (15-37) U/L ALT 49 (16-63) U/L Alkaline Phosphatase 78 (46-116) U/L Total Protein 7.4 (6.4-8.2) g/dl Albumin 3.5 (3.4-5.0) g/dl Globulin 3.9 gm/dL Albumin/Globulin Ratio 0.9 L (1-2) Urine Color Light yellow (Yellow) Urine Appearance Clear (Clear) Urine pH 6.0 (5.0-8.0) Ur Specific [place] 1.025 (1.005-1.030) Urine Protein 1+ H (Negative) Urine Glucose (UA) Negative (Negative) Urine Ketones Negative (Negative) Urine Occult Blood Negative (Negative) Urine Nitrite Negative (Negative) Urine Bilirubin Negative (Negative) Urine Urobilinogen 0.2 (0.2-1.0) Ur Leukocyte Esterase Negative (Negative) Urine RBC 0-5 (0-5) /hpf Urine WBC 0-5 (0-5) /hpf Ur Squamous Epith Cells 0-5 (0-5) /hpf Amorphous Sediment Few H (NOT SEEN) /hpf Urine Bacteria Few (FEW) /hpf Urine Mucus Few (FEW) /hpf Meds: Medications Discontinued Medications Generic Name Dose Route Start Last Admin Trade Name Freq PRN Reason Stop Dose Admin Ketorolac Tromethamine 30 mg 10/09/19 21:12 10/09/19 21:20 Toradol IM 10/09/19 21:13 30 mg ONETIME ONE Administration - Re-Assessments/Exams Free Text/Narrative Re-Assessment/Exam: 10/09/19 22:30 Patient had a little bit of improvement with the Toradol. 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 Departure - Departure Time of Disposition: 22:30 Disposition: Home, Self-Care 01 Clinical Impression: Low back strain - Discharge Information Referrals: Talha Fitch MD [Primary Care Provider] - Forms: ED Department Discharge Additional Instructions: Return to the emergency room with any questions problems or worsening symptoms. Follow-up with your physician later this week if needed. You are given a prescription for hydrocodone take 1 every 6 hours only if needed for pain. Do not drive or return to work within 12 hours of taking this medication. Sepsis Event Note (ED) - Evaluation Sepsis Screening Result: No Definite Risk - Focused Exam Vital Signs: Vital Signs Temp Pulse Resp BP Pulse Ox 10/09/19 18:49 36.6 C 105 H 16 142/88 H 94 L
[2019-10-09] MEDS ORDERED: Ketorolac 30 MG/ML SDV IM ONE (21:12)
== END 2019-10-09 22:52 | disposition home or self-care (01) ==
LOC: JD.ED 18:40
DX: S39.012A Strain of muscle, fascia and tendon of lower back, initial encounter (principal); I10 Essential (primary) hypertension; K21.9 Gastro-esophageal reflux disease without esophagitis; M19.90 Unspecified osteoarthritis, unspecified site; F41.9 Anxiety disorder, unspecified; F32.9 Major depressive disorder, single episode, unspecified; F17.210 Nicotine dependence, cigarettes, uncomplicated; Z88.5 Allergy status to narcotic agent; Z79.899 Other long term (current) drug therapy; X58.XXXA Exposure to other specified factors, initial encounter
CPT/HCPCS: 36415; 80053; 81001; 85025; 96372; 99283; J1885

== ENCOUNTER 2019-12-13 16:25 | Emergency (ER) | payer MEDICAID ==
[2019-12-13 16:33] VITALS: BP 164/106; PULSE 105
[2019-12-13] MEDS ORDERED: Acetaminophen 325 MG Tab PO ONE (17:15)
--- NOTE | 2019-12-13 17:50 | EDM.PDOC ---
ED HPI GENERAL MEDICAL PROBLEM - General Chief Complaint: Flank Pain Stated Complaint: FLANK PAIN Time Seen by Provider: 12/13/19 16:34 Source of Information: Reports: Patient, RN Notes Reviewed - History of Present Illness INITIAL COMMENTS - FREE TEXT/NARRATIVE: L flank pain for 2 to 3 weeks. Hx of stones. No vomiting. No voiding sx. No fever or chills. Does not feel well, fatigue, no energy. No cough, dyspnea or sore throat. Left Flank Pain Score (Numeric/FACES): 7 - Related Data Allergies Allergy/AdvReac Type Severity Reaction Status Date / Time codeine Allergy Severe Itching Verified 12/13/19 16:33 meperidine HCl [From Demerol] Allergy Severe Itching Verified 12/13/19 16:33 Home Meds: Home Meds Mirtazapine 30 mg PO DAILY 09/10/15 [History] Pantoprazole [Protonix] 80 mg PO BID 03/18/16 [History] cloNIDine [Catapres] 0.1 mg PO BEDTIME 01/21/17 [History] Tamsulosin HCl [Flomax] 0.4 mg PO DAILY #7 cap.er.24h 05/10/17 [Rx] DULoxetine [Cymbalta] 60 mg PO DAILY #30 cap 06/30/17 [Rx] Diltiazem [Cardizem CD] 120 mg PO DAILY 12/23/17 [History] hydroCHLOROthiazide [Hydrochlorothiazide] 25 mg PO DAILY 12/23/17 [History] Losartan [Cozaar] 50 mg PO DAILY 01/11/18 [History] Baclofen 10 mg PO TID 05/27/18 [History] clonazePAM [Klonopin] 0.5 mg PO TID 05/27/18 [History] Past Medical History - Past Health History Medical/Surgical History: Denies Medical/Surgical History HEENT History: Reports: Other (See Below) Other HEENT History: dental issues. 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 bulging dicsc Neurological History: Reports: None 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, opiods Endocrine/Metabolic History: Reports: None Hematologic History: Reports: Other (See Below) Other Hematologic History: HEP C Immunologic History: Reports: None Oncologic (Cancer) History: Reports: None Dermatologic History: Reports: None - Infectious Disease History Infectious Disease History: Reports: Hepatitis C - Past Surgical History GI Surgical History: Reports: Appendectomy Male Surgical History: Reports: Lithotripsy (ESWL), Ureteral Stent Social & Family History - Family History Family Medical History: Noncontributory - Tobacco Use Smoking Status *Q: Current Every Day Smoker Years of Tobacco use: 50 Packs/Tins Daily: 0.5 - Caffeine Use Caffeine Use: Reports: Coffee - Recreational Drug Use Recreational Drug Type: Reports: Marijuana/Hashish - Living Situation & Occupation Living situation: Reports: Single, Alone Occupation: Unemployed ED ROS GENERAL - Review of Systems Review Of Systems: See Below Constitutional: Denies: Fever, Chills HEENT: Reports: No Symptoms Respiratory: Reports: No Symptoms Cardiovascular: Reports: No Symptoms GI/Abdominal: Reports: No Symptoms : Reports: No Symptoms Musculoskeletal: Reports: Back Pain Skin: Reports: No Symptoms ED EXAM, RENAL/ - Physical Exam Exam: See Below General Appearance: Alert, No Apparent Distress Throat/Mouth: Normal Inspection Head: Atraumatic Neck: Supple Respiratory/Chest: No Respiratory Distress Cardiovascular: Regular Rate, Rhythm GI/Abdominal: Soft, Non-Tender Back Exam: CVA Tenderness (L) Extremities: Normal Inspection, Normal Range of Motion Neurological: Alert, Oriented, No Motor/Sensory Deficits Skin Exam: Warm, Dry, Normal Color Course - Vital Signs Last Recorded V/S: Last Vital Signs Temp 98.4 F 12/13/19 16:30 Pulse 105 H 12/13/19 16:30 Resp 16 12/13/19 16:30 BP 164/106 H 12/13/19 16:30 Pulse Ox 96 12/13/19 16:30 - Orders/Labs/Meds Labs: Laboratory Tests 12/13/19 Range/Units 17:20 Urine Color Yellow (Yellow) Urine Appearance Clear (Clear) Urine pH 6.0 (5.0-8.0) Ur Specific [place] 1.020 (1.005-1.030) Urine Protein 2+ H (Negative) Urine Glucose (UA) Negative (Negative) Urine Ketones Negative (Negative) Urine Occult Blood Negative (Negative) Urine Nitrite Negative (Negative) Urine Bilirubin Negative (Negative) Urine Urobilinogen 0.2 (0.2-1.0) Ur Leukocyte Esterase Negative (Negative) Meds: Medications Discontinued Medications Generic Name Dose Route Start Last Admin Trade Name Chin PRN Reason Stop Dose Admin Acetaminophen 975 mg 12/13/19 17:15 12/13/19 17:26 Tylenol PO 12/13/19 17:16 975 mg NOW ONE Administration - Re-Assessments/Exams Free Text/Narrative Re-Assessment/Exam: 12/13/19 19:18. Renal CT shows no ureteral dilitation or stone, small stone in each kidney, see Radiologist report for details. Departure - Departure Time of Disposition: 19:19 Disposition: Home, Self-Care 01 Condition: Fair Clinical Impression: Back pain Qualifiers: Back pain location: low back pain Chronicity: acute Sciatica presence: without sciatica - Discharge Information Referrals: Talha Fitch MD [Primary Care Provider] - Forms: ED Department Discharge Additional Instructions: continue meloxicam, tylenol 2 to 3 times daily as needed. See your provider as needed. Sepsis Event Note (ED) - Evaluation Sepsis Screening Result: No Definite Risk - Focused Exam Vital Signs: Vital Signs Temp Pulse Resp BP Pulse Ox 12/13/19 16:30 98.4 F 105 H 16 164/106 H 96
--- NOTE | 2019-12-13 18:57 | CT ---
CT abdomen and pelvis Technique: Multiple axial sections were obtained from above the dome of the diaphragm inferiorly through the pubic symphysis. Intravenous and oral contrast not utilized. Study has been performed as a ureteral stone protocol. Comparison: Prior CT abdomen and pelvis study of 06/17/19. Findings: Visualized lung bases show slight atelectasis. Liver contains no focal abnormality. Spleen appears within normal limits. Gallbladder contains no calcified gallstones. Small nonobstructing stone is noted within the upper left kidney. Small cyst is noted within the mid left kidney. Small nonobstructing stone is noted within the mid right kidney. Small cyst is noted within the lower right kidney. No ureteral dilatation or ureteral stone is seen. Pancreas shows no discrete abnormality. Adrenal glands on the left side shows a very minimal nodule believed to be incidental. Aorta shows atherosclerotic calcification which continues into the iliac vessels without aneurysm. No retroperitoneal adenopathy or mesenteric abnormalities are seen. No pelvic mass or adenopathy is noted. Prostate calcifications are seen. Appendix is not visualized with certainty. Bone window settings were reviewed which shows scattered degenerative change within the spine with no acute finding being seen. Impression: 1. Several nonobstructing calculi within both kidneys. No ureteral dilatation or ureteral stone is seen. 2. Other findings as noted above which are nonacute. Nothing is appreciated to explain the patient's abdominal pain. Diagnostic code #2 Study was dictated in MDT
== END 2019-12-13 19:29 | disposition home or self-care (01) ==
LOC: JD.ED 16:25
DX: M54.5 Low back pain (principal); I10 Essential (primary) hypertension; K21.9 Gastro-esophageal reflux disease without esophagitis; F17.210 Nicotine dependence, cigarettes, uncomplicated; F41.9 Anxiety disorder, unspecified; F32.9 Major depressive disorder, single episode, unspecified; Z79.899 Other long term (current) drug therapy; Z88.5 Allergy status to narcotic agent
CPT/HCPCS: 74176; 81003; 99284; A9270

== ENCOUNTER 2020-02-07 18:14 | Emergency (ER) | payer MEDICAID ==
[2020-02-07 18:34] VITALS: BP 147/80; PULSE 106
[2020-02-07] MEDS ORDERED: Ketorolac 60 MG/2 ML SDV IM ONE (19:11)
--- NOTE | 2020-02-07 19:26 | EDM.PDOC ---
ED HPI GENERAL MEDICAL PROBLEM - General Chief Complaint: Genitourinary Problem Stated Complaint: poss kidney stone Time Seen by Provider: 02/07/20 18:59 Source of Information: Reports: Patient, RN Notes Reviewed - History of Present Illness INITIAL COMMENTS - FREE TEXT/NARRATIVE: 64 yr old male comes in with 2 day hx L back and flank pain. He has had this many times before with hx of kidney stones but also hx of narcotic abuse, drug seeking behaviors. No fever or chills. No other unusual sx. Left Flank Pain Score (Numeric/FACES): 8 - Related Data Allergies Allergy/AdvReac Type Severity Reaction Status Date / Time codeine Allergy Severe Itching Verified 02/07/20 18:34 meperidine HCl [From Demerol] Allergy Severe Itching Verified 02/07/20 18:34 Home Meds: Home Meds Mirtazapine 30 mg PO DAILY 09/10/15 [History] Pantoprazole [Protonix] 80 mg PO BID 03/18/16 [History] cloNIDine [Catapres] 0.1 mg PO BEDTIME 01/21/17 [History] Tamsulosin HCl [Flomax] 0.4 mg PO DAILY #7 cap.er.24h 05/10/17 [Rx] DULoxetine [Cymbalta] 60 mg PO DAILY #30 cap 06/30/17 [Rx] Diltiazem [Cardizem CD] 120 mg PO DAILY 12/23/17 [History] hydroCHLOROthiazide [Hydrochlorothiazide] 25 mg PO DAILY 12/23/17 [History] Losartan [Cozaar] 50 mg PO DAILY 01/11/18 [History] Baclofen 10 mg PO TID 05/27/18 [History] clonazePAM [Klonopin] 0.5 mg PO TID 05/27/18 [History] Past Medical History - Past Health History Medical/Surgical History: Denies Medical/Surgical History HEENT History: Reports: Other (See Below) Other HEENT History: dental issues. 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 bulging dicsc Neurological History: Reports: None 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, opiods Endocrine/Metabolic History: Reports: None Hematologic History: Reports: Other (See Below) Other Hematologic History: HEP C Immunologic History: Reports: None Oncologic (Cancer) History: Reports: None Dermatologic History: Reports: None - Infectious Disease History Infectious Disease History: Reports: Chicken Pox, Hepatitis C - Past Surgical History GI Surgical History: Reports: Appendectomy Male Surgical History: Reports: Lithotripsy (ESWL), Ureteral Stent Social & Family History - Family History Family Medical History: Noncontributory - Tobacco Use Tobacco Use Status *Q: Current Every Day Tobacco User Years of Tobacco use: 50 Packs/Tins Daily: 0.5 - Caffeine Use Caffeine Use: Reports: Coffee - Recreational Drug Use Recreational Drug Use: Yes Drug Use in Last 12 Months: No - Living Situation & Occupation Living situation: Reports: Single, Alone Occupation: Unemployed ED ROS GENERAL - Review of Systems Review Of Systems: See Below Constitutional: Denies: Fever, Chills, Diaphoresis HEENT: Reports: No Symptoms Respiratory: Denies: Shortness of Breath Cardiovascular: Denies: Chest Pain GI/Abdominal: Denies: Abdominal Pain, Nausea, Vomiting : Reports: No Symptoms Musculoskeletal: Reports: Back Pain Skin: Reports: No Symptoms Neurological: Reports: No Symptoms ED EXAM, RENAL/ - Physical Exam Exam: See Below General Appearance: Alert, No Apparent Distress Head: Atraumatic Neck: Supple Respiratory/Chest: No Respiratory Distress GI/Abdominal: Soft, Non-Tender. No: Guarding Back Exam: CVA Tenderness (L) Extremities: Normal Inspection. No: Pedal Edema, Leg Pain Skin Exam: Warm, Normal Color Course - Vital Signs Last Recorded V/S: Last Vital Signs Temp 97.8 F 02/07/20 18:30 Pulse 106 H 02/07/20 18:30 Resp 20 02/07/20 18:30 BP 147/80 H 02/07/20 18:30 Pulse Ox 96 02/07/20 18:30 - Orders/Labs/Meds Labs: Laboratory Tests 10/28/20 Range/Units 18:40 Urine Color Yellow (Yellow) Urine Appearance Clear (Clear) Urine pH 6.5 (5.0-8.0) Ur Specific [place] 1.010 (1.005-1.030) Urine Protein Trace H (Negative) Urine Glucose (UA) Negative (Negative) Urine Ketones Negative (Negative) Urine Occult Blood 3+ H (Negative) Urine Nitrite Negative (Negative) Urine Bilirubin Negative (Negative) Urine Urobilinogen 0.2 (0.2-1.0) Ur Leukocyte Esterase Negative (Negative) Urine RBC 5-10 H (0-5) /hpf Urine WBC 0-5 (0-5) /hpf Ur Squamous Epith Cells 0-5 (0-5) /hpf Urine Bacteria Rare (FEW) /hpf Urine Mucus Not seen (FEW) /hpf Meds: Medications Discontinued Medications Generic Name Dose Route Start Last Admin Trade Name Freq PRN Reason Stop Dose Admin Ketorolac Tromethamine 60 mg 02/07/20 19:11 02/07/20 19:19 Toradol IM 02/07/20 19:12 60 mg ONETIME ONE Administration - Re-Assessments/Exams Free Text/Narrative Re-Assessment/Exam: 02/07/20 22:41 I have treated Kevin with opiods in the past for stated pain and than on CT there is no active stone or acute findings. I am unwilling to give or prescribe opiods to Kevin without CT to show an actively moving or obstructive stone based on those previous encounters. He is not interested in having a CT this evening. Have treated stated pain with torodol 60 mg IM. Departure - Departure Time of Disposition: 19:23 Disposition: Home, Self-Care 01 Condition: Fair Clinical Impression: Back pain - Discharge Information Instructions: Chronic Back Pain Referrals: Talha Fitch MD [Primary Care Provider] - Forms: ED Department Discharge Additional Instructions: Strain urine to watch for possible stone. You have been offered a renal CT to check for a stone and you have declined doing that at this time. Alternate tylenol and ibuprofen or aleve as needed. Follow up with your regular medical provider if not better within 1 to 2 days. Sepsis Event Note (ED) - Evaluation Sepsis Screening Result: No Definite Risk - Focused Exam Vital Signs: Vital Signs Temp Pulse Resp BP Pulse Ox 02/07/20 18:30 97.8 F 106 H 20 147/80 H 96
== END 2020-02-07 19:42 | disposition home or self-care (01) ==
LOC: JD.ED 18:14
DX: M54.9 Dorsalgia, unspecified (principal); I10 Essential (primary) hypertension; K21.9 Gastro-esophageal reflux disease without esophagitis; M19.90 Unspecified osteoarthritis, unspecified site; N40.0 Benign prostatic hyperplasia without lower urinary tract symptoms; F17.210 Nicotine dependence, cigarettes, uncomplicated; Z88.5 Allergy status to narcotic agent; Z79.899 Other long term (current) drug therapy
CPT/HCPCS: 81001; 96372; 99283; J1885

== ENCOUNTER 2020-02-12 13:41 | Emergency (ER) | payer MEDICAID ==
[2020-02-12] MEDS ORDERED: Ondansetron 4 MG Tab.DIS PO ONE (14:36)
[2020-02-12] MEDS ORDERED: Alum Hydrox/Mag Hydrox/Simeth 30 ML, Lidocaine 2% 15 ML PO ONE ×2 (15:22)
--- NOTE | 2020-02-12 15:47 | EDM.PDOC ---
ED HPI GENERAL MEDICAL PROBLEM - General Chief Complaint: Abdominal Pain Stated Complaint: ABDOMINAL PAIN Time Seen by Provider: 02/12/20 13:58 Source of Information: Reports: Patient History Limitations: Reports: No Limitations - History of Present Illness INITIAL COMMENTS - FREE TEXT/NARRATIVE: The patient presents with burning upper abdominal pain. This started a few days ago. He also has no appetite. He may have some nausea but no vomiting. He has no fever, chills, cough, congestion, runny nose, chest pain, or shortness of breath. He has no flank pain or dysuria. Onset: Gradual Duration: Day(s): Location: Reports: Abdomen Quality: Reports: Burning Severity: Moderate Improves with: Reports: None Worsens with: Reports: None Associated Symptoms: Reports: Nausea/Vomiting. Denies: Chest Pain, Cough, Fever/Chills, Headaches, Shortness of Breath Abdomen Pain Score (Numeric/FACES): 8 - Related Data Allergies Allergy/AdvReac Type Severity Reaction Status Date / Time codeine Allergy Severe Itching Verified 02/12/20 13:52 meperidine HCl [From Demerol] Allergy Severe Itching Verified 02/12/20 13:52 Home Meds: Home Meds Mirtazapine 30 mg PO DAILY 09/10/15 [History] Pantoprazole [Protonix] 80 mg PO BID 03/18/16 [History] cloNIDine [Catapres] 0.1 mg PO BEDTIME 01/21/17 [History] Tamsulosin HCl [Flomax] 0.4 mg PO DAILY #7 cap.er.24h 05/10/17 [Rx] DULoxetine [Cymbalta] 60 mg PO DAILY #30 cap 06/30/17 [Rx] Diltiazem [Cardizem CD] 120 mg PO DAILY 12/23/17 [History] hydroCHLOROthiazide [Hydrochlorothiazide] 25 mg PO DAILY 12/23/17 [History] Losartan [Cozaar] 50 mg PO DAILY 01/11/18 [History] Baclofen 10 mg PO TID 05/27/18 [History] clonazePAM [Klonopin] 0.5 mg PO TID 05/27/18 [History] Hydrocodone/Acetaminophen [Hydrocodone-Acetamin 5-325 mg] 1 - 2 each PO Q6HR PRN #10 tablet 02/12/20 [Rx] Ondansetron [Zofran ODT] 4 mg PO Q6H PRN #20 tab.dis 02/12/20 [Rx] Past Medical History - Past Health History Medical/Surgical History: Denies Medical/Surgical History HEENT History: Reports: Other (See Below) Other HEENT History: dental issues. 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 bulging dicsc Neurological History: Reports: None 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, opiods Endocrine/Metabolic History: Reports: None Hematologic History: Reports: Other (See Below) Other Hematologic History: HEP C Immunologic History: Reports: None Oncologic (Cancer) History: Reports: None Dermatologic History: Reports: None - Infectious Disease History Infectious Disease History: Reports: Chicken Pox, Hepatitis C - Past Surgical History GI Surgical History: Reports: Appendectomy Male Surgical History: Reports: Lithotripsy (ESWL), Ureteral Stent Social & Family History - Family History Family Medical History: Noncontributory - Tobacco Use Tobacco Use Status *Q: Current Every Day Tobacco User Years of Tobacco use: 50 Packs/Tins Daily: 0.5 - Caffeine Use Caffeine Use: Reports: Coffee - Recreational Drug Use Recreational Drug Use: Yes Recreational Drug Type: Reports: Marijuana/Hashish - Living Situation & Occupation Living situation: Reports: Single, Alone Occupation: Unemployed ED ROS GENERAL - Review of Systems Review Of Systems: See Below Constitutional: Reports: No Symptoms HEENT: Reports: No Symptoms Respiratory: Reports: No Symptoms Cardiovascular: Reports: No Symptoms Endocrine: Reports: No Symptoms GI/Abdominal: Reports: Abdominal Pain. Denies: Diarrhea, Nausea, Vomiting : Reports: No Symptoms Musculoskeletal: Reports: No Symptoms ED EXAM, GI/ABD - Physical Exam Exam: See Below Exam Limited By: No Limitations General Appearance: Alert, No Apparent Distress Ears: Normal External Exam Nose: Normal Inspection Head: Atraumatic, Normocephalic Neck: Normal Inspection Respiratory/Chest: No Respiratory Distress, Lungs Clear, Normal Breath Sounds Cardiovascular: Regular Rate, Rhythm, No Edema, No Rub GI/Abdominal Exam: Soft, Non-Tender, No Organomegaly, No Mass Back Exam: Normal Inspection Course - Vital Signs Last Recorded V/S: Last Vital Signs Temp 97.9 F 02/12/20 13:48 Pulse 109 H 02/12/20 13:48 Resp 20 02/12/20 13:48 BP 176/98 H 02/12/20 13:48 Pulse Ox 97 02/12/20 13:48 - Orders/Labs/Meds Labs: Laboratory Tests 02/12/20 02/12/20 Range/Units 14:56 14:56 WBC 11.43 H (4.23-9.07) K/mm3 RBC 5.22 (4.63-6.08) M/mm3 Hgb 15.4 (13.7-17.5) gm/dl Hct 47.4 (40.1-51.0) % MCV 90.8 (79.0-92.2) fl MCH 29.5 (25.7-32.2) pg MCHC 32.5 (32.2-35.5) g/dl RDW Std Deviation 45.1 H (35.1-43.9) fL Plt Count 365 H (163-337) K/mm3 MPV 8.7 L (9.4-12.3) fl Neut % (Auto) 78.6 H (34.0-67.9) % Lymph % (Auto) 13.4 L (21.8-53.1) % [place] % (Auto) 7.2 (5.3-12.2) % Eos % (Auto) 0.3 L (0.8-7.0) Baso % (Auto) 0.3 (0.1-1.2) % Neut # (Auto) 8.99 H (1.78-5.38) K/mm3 Lymph # (Auto) 1.53 (1.32-3.57) K/mm3 [place] # (Auto) 0.82 (0.30-0.82) K/mm3 Eos # (Auto) 0.04 (0.04-0.54) K/mm3 Baso # (Auto) 0.03 (0.01-0.08) K/mm3 Sodium 140 (136-145) mEq/L Potassium 4.0 (3.5-5.1) mEq/L Chloride 104 (98-107) mEq/L Carbon Dioxide 27 (21-32) mEq/L Anion Gap 13.0 (5-15) BUN 12 (7-18) mg/dL Creatinine 1.2 (0.7-1.3) mg/dL Est Cr Clr Drug Dosing 68.26 mL/min Estimated GFR (MDRD) > 60 (>60) mL/min BUN/Creatinine Ratio 10.0 L (14-18) Glucose 114 (80-115) mg/dL Calcium 9.6 (8.5-10.1) mg/dL Total Bilirubin 0.4 (0.2-1.0) mg/dL AST 16 (15-37) U/L ALT 26 (16-63) U/L Alkaline Phosphatase 79 (46-116) U/L Total Protein 7.5 (6.4-8.2) g/dl Albumin 3.6 (3.4-5.0) g/dl Globulin 3.9 gm/dL Albumin/Globulin Ratio 0.9 L (1-2) Lipase 90 (73-393) U/L Meds: Medications Discontinued Medications Generic Name Dose Route Start Last Admin Trade Name Ashokq PRN Reason Stop Dose Admin Al Hydroxide/Mg Hydroxide 30 0 ml 02/12/20 15:22 02/12/20 15:31 ml/ Lidocaine HCl 15 ml PO 02/12/20 15:23 45 ml ONETIME ONE Administration Ondansetron HCl 4 mg 02/12/20 14:36 02/12/20 15:18 Zofran Odt PO 02/12/20 14:37 4 mg ONETIME ONE Administration - Re-Assessments/Exams Free Text/Narrative Re-Assessment/Exam: 02/12/20 15:46 I ordered labs and I gave him zofran 4mg PO and a GI cocktail. His CMP looks good along with his lipase. 02/12/20 16:19 His WBC was slightly elevated at 11.43. He feels a little better. I will give him a prescription for zofran and something for pain. Departure - Departure Time of Disposition: 16:20 Disposition: Home, Self-Care 01 Condition: Good Clinical Impression: Abdominal pain Qualifiers: Abdominal location: upper abdomen, unspecified Qualified Code(s): R10.10 - Upper abdominal pain, unspecified - Discharge Information *PRESCRIPTION DRUG MONITORING PROGRAM REVIEWED*: No *COPY OF PRESCRIPTION DRUG MONITORING REPORT IN PATIENT LETICIA: No Prescriptions: Hydrocodone/Acetaminophen [Hydrocodone-Acetamin 5-325 mg] 1 - 2 each PO Q6HR PRN #10 tablet PRN Reason: Pain Ondansetron [Zofran ODT] 4 mg PO Q6H PRN #20 tab.dis PRN Reason: Nausea\\vomiting Referrals: Talha Fitch MD [Primary Care Provider] - 1 Week Forms: ED Department Discharge Additional Instructions: Keep taking your medications. Take pepcid for a few days. Take the zofran every 6 hours as needed for nausea. Take tylenol or motrin for pain. If that d oes not help, try the hydrocodone. Please return if you are worse. Sepsis Event Note (ED) - Evaluation Sepsis Screening Result: No Definite Risk - Focused Exam Vital Signs: Vital Signs Temp Pulse Resp BP Pulse Ox 02/12/20 13:48 97.9 F 109 H 20 176/98 H 97
[2020-02-12 16:34] VITALS: BP 147/83; PULSE 85
== END 2020-02-12 16:29 | disposition home or self-care (01) ==
LOC: JD.ED 13:41
DX: R10.10 Upper abdominal pain, unspecified (principal); R11.2 Nausea with vomiting, unspecified; I10 Essential (primary) hypertension; F41.9 Anxiety disorder, unspecified; F32.9 Major depressive disorder, single episode, unspecified; K21.9 Gastro-esophageal reflux disease without esophagitis; N40.0 Benign prostatic hyperplasia without lower urinary tract symptoms; F17.210 Nicotine dependence, cigarettes, uncomplicated; Z88.5 Allergy status to narcotic agent; Z90.49 Acquired absence of other specified parts of digestive tract; Z79.899 Other long term (current) drug therapy
CPT/HCPCS: 36415; 80053; 83690; 85025; 99284; A9270; 99283

== ENCOUNTER 2020-05-13 21:11 | Emergency (ER) | payer MEDICAID ==
[2020-05-13 21:19] VITALS: BP 149/93; PULSE 110
[2020-05-13] MEDS ORDERED: Acetaminophen 325 MG Tab PO ONE (21:30)
--- NOTE | 2020-05-13 21:47 | EDM.PDOC ---
ED HPI GENERAL MEDICAL PROBLEM - General Chief Complaint: Head Injury Stated Complaint: [facility] Time Seen by Provider: 05/13/20 21:14 Source of Information: Reports: Patient, RN Notes Reviewed History Limitations: Reports: No Limitations - History of Present Illness INITIAL COMMENTS - FREE TEXT/NARRATIVE: Patient is a 64-year-old male presenting to the emergency department with complaints of bilateral posterior shoulder pain, "feeling foggy ", and low back pain. He states that about 5 hours prior to his presentation to the ER, he fell. He states he was in his kitchen and fell backwards, hitting his head on the floor. He is not totally sure if he lost consciousness, but thinks that he did. He states that he laid on the floor for a while but was eventually able to get into his bed. He called EMS to bring him to the ER for evaluation. He is alert and oriented. Denies any chest pain or shortness of breath. States he has a mild headache, but the majority of his pain is to his posterior left shoulder and somewhat to his posterior right shoulder. He has chronic low back pain, but states the pain is worse after the fall. Bilateral Shoulder Pain Score (Numeric/FACES): 8 - Related Data Allergies Allergy/AdvReac Type Severity Reaction Status Date / Time codeine Allergy Severe Itching Verified 05/13/20 21:22 meperidine HCl [From Demerol] Allergy Severe Itching Verified 05/13/20 21:22 Home Meds: Home Meds Mirtazapine 30 mg PO DAILY 09/10/15 [History] Pantoprazole [Protonix] 80 mg PO BID 03/18/16 [History] cloNIDine [Catapres] 0.1 mg PO BEDTIME 01/21/17 [History] Tamsulosin HCl [Flomax] 0.4 mg PO DAILY #7 cap.er.24h 05/10/17 [Rx] DULoxetine [Cymbalta] 60 mg PO DAILY #30 cap 06/30/17 [Rx] Diltiazem [Cardizem CD] 120 mg PO DAILY 12/23/17 [History] hydroCHLOROthiazide [Hydrochlorothiazide] 25 mg PO DAILY 12/23/17 [History] Losartan [Cozaar] 50 mg PO DAILY 01/11/18 [History] Baclofen 10 mg PO TID 05/27/18 [History] clonazePAM [Klonopin] 0.5 mg PO TID 05/27/18 [History] Hydrocodone/Acetaminophen [Hydrocodone-Acetamin 5-325 mg] 1 - 2 each PO Q6HR PRN #10 tablet 02/12/20 [Rx] Ondansetron [Zofran ODT] 4 mg PO Q6H PRN #20 tab.dis 02/12/20 [Rx] Acetaminophen/HYDROcodone [Petaca 325-5 MG] 1 tab PO Q4H PRN #12 tablet 05/13/20 [Rx] Past Medical History - Past Health History Medical/Surgical History: Denies Medical/Surgical History HEENT History: Reports: Other (See Below) Other HEENT History: dental issues. 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 bulging dicsc Neurological History: Reports: None 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, opiods Endocrine/Metabolic History: Reports: None Hematologic History: Reports: Other (See Below) Other Hematologic History: HEP C Immunologic History: Reports: None Oncologic (Cancer) History: Reports: None Dermatologic History: Reports: None - Infectious Disease History Infectious Disease History: Reports: Chicken Pox, Hepatitis C - Past Surgical History HEENT Surgical History: Reports: Oral Surgery GI Surgical History: Reports: Appendectomy Male Surgical History: Reports: Lithotripsy (ESWL), Ureteral Stent Other Male Surgeries/Procedures: Lithotripsy X 8 Musculoskeletal Surgical History: Reports: Other (See Below) Other Musculoskeletal Surgeries/Procedures:: fractured rib in past and also collar bone Social & Family History - Family History Family Medical History: No Pertinent Family History - Tobacco Use Tobacco Use Status *Q: Current Every Day Tobacco User Years of Tobacco use: 50 Packs/Tins Daily: 0.5 - Caffeine Use Caffeine Use: Reports: None - Recreational Drug Use Recreational Drug Use: Yes Drug Use in Last 12 Months: No - Living Situation & Occupation Living situation: Reports: Single, Alone Occupation: Unemployed ED ROS GENERAL - Review of Systems Review Of Systems: See Below Constitutional: Reports: No Symptoms. Denies: Fever, Chills HEENT: Reports: No Symptoms Respiratory: Reports: No Symptoms. Denies: Shortness of Breath, Pleuritic Chest Pain, Cough Cardiovascular: Reports: No Symptoms. Denies: Chest Pain, Palpitations, Syncope Endocrine: Reports: No Symptoms GI/Abdominal: Reports: No Symptoms. Denies: Abdominal Pain : Reports: No Symptoms Musculoskeletal: Reports: Shoulder Pain (Bilateral), Back Pain (Lumbar) Skin: Reports: No Symptoms Neurological: Reports: Confusion ("Foggy "), Headache (Mild). Denies: Numbness, Trouble Speaking, Change in Speech Psychiatric: Reports: No Symptoms Hematologic/Lymphatic: Reports: No Symptoms Immunologic: Reports: No Symptoms ED EXAM, HEAD INJURY - Physical Exam Exam: See Below General Appearance: Alert, WD/WN, No Apparent Distress Head: Atraumatic, Normocephalic. No: Scalp Lacerations, Scalp Hematoma, Scalp Tenderness, Kerr's Sign Nexus Criteria: No: Posterior, Midline Cervical Tenderness, Evidence of Intoxication, Altered Level of Consciousness, Focal Neurological Deficit, Painful Distraction Injuries Respiratory: No Respiratory Distress, Lungs Clear, Normal Breath Sounds, No Accessory Muscle Use, Chest Non-Tender Cardiovascular: Normal Peripheral Pulses, Regular Rate, Rhythm, No Edema, No Gallop, No JVD, No Murmur, No Rub GI/Abdominal Exam: Normal Bowel Sounds, Soft, Non-Tender, No Organomegaly, No Distention, No Abnormal Bruit, No Mass Back Exam: Normal Inspection, Paraspinal Tenderness (lumbar), Vertebral Tenderness (lumbar) Extremities: Other (Tenderness to palpation to posterior bilateral shoulders. No deformities or ecchymosis noted. Range of motion limited due to pain) Neurologic: interface developer II-XII nml As Tested, No Motor/Sensory Deficits, Alert, Normal Mood/Affect, Oriented x 3 Skin: Normal Color, Warm/Dry - Yvonne Coma Score Best Eye Response (Yvonne): (4) Open Spontaneously Best Verbal Response (Raymond): (5) Oriented Best Motor Response (Raymond): (6) Obeys Commands Yvonne Total: 15 Course - Vital Signs Last Recorded V/S: Last Vital Signs Temp 98.4 F 02/01/21 21:15 Pulse 110 H 05/13/20 21:15 Resp 16 05/13/20 21:15 BP 149/93 H 05/13/20 21:15 Pulse Ox 96 05/13/20 21:15 - Orders/Labs/Meds Labs: Laboratory Tests 05/13/20 05/13/20 05/13/20 Range/Units 22:24 22:24 22:24 WBC 11.75 H (4.23-9.07) K/mm3 RBC 5.65 (4.63-6.08) M/mm3 Hgb 16.1 (13.7-17.5) gm/dl Hct 49.4 (40.1-51.0) % MCV 87.4 D (79.0-92.2) fl MCH 28.5 (25.7-32.2) pg MCHC 32.6 (32.2-35.5) g/dl RDW Std Deviation 48.2 H (35.1-43.9) fL Plt Count 323 (163-337) K/mm3 MPV 9.2 L (9.4-12.3) fl Neut % (Auto) 74.9 H (34.0-67.9) % Lymph % (Auto) 14.3 L (21.8-53.1) % [place] % (Auto) 9.7 (5.3-12.2) % Eos % (Auto) 0.6 L (0.8-7.0) Baso % (Auto) 0.3 (0.1-1.2) % Neut # (Auto) 8.81 H (1.78-5.38) K/mm3 Lymph # (Auto) 1.68 (1.32-3.57) K/mm3 [place] # (Auto) 1.14 H (0.30-0.82) K/mm3 Eos # (Auto) 0.07 (0.04-0.54) K/mm3 Baso # (Auto) 0.03 (0.01-0.08) K/mm3 Manual Slide Review Abnormal smear Sodium 141 (136-145) mEq/L Potassium 4.0 (3.5-5.1) mEq/L Chloride 101 (98-107) mEq/L Carbon Dioxide 20 L (21-32) mEq/L Anion Gap 24.0 H (5-15) BUN 28 H (7-18) mg/dL Creatinine 1.4 H (0.7-1.3) mg/dL Est Cr Clr Drug Dosing 58.51 mL/min Estimated GFR (MDRD) 51 (>60) mL/min BUN/Creatinine Ratio 20.0 H (14-18) Glucose 92 (80-115) mg/dL Calcium 10.0 (8.5-10.1) mg/dL Magnesium 1.7 L (1.8-2.4) mg/dl Total Bilirubin 0.6 (0.2-1.0) mg/dL AST 14 L (15-37) U/L ALT 27 (16-63) U/L Alkaline Phosphatase 77 (46-116) U/L Troponin I < 0.017 (0.00-0.056) ng/mL C-Reactive Protein 1.9 H* (<1.0) mg/dL Total Protein 7.8 (6.4-8.2) g/dl Albumin 3.7 (3.4-5.0) g/dl Globulin 4.1 gm/dL Albumin/Globulin Ratio 0.9 L (1-2) Urine Color (Yellow) Urine Appearance (Clear) Urine pH (5.0-8.0) Ur Specific [place] (1.005-1.030) Urine Protein (Negative) Urine Glucose (UA) (Negative) Urine Ketones (Negative) Urine Occult Blood (Negative) Urine Nitrite (Negative) Urine Bilirubin (Negative) Urine Urobilinogen (0.2-1.0) Ur Leukocyte Esterase (Negative) U Hyaline Cast (Auto) (0-5) /lpf Urine RBC (0-5) /hpf Urine WBC (0-5) /hpf Ur Squamous Epith Cells (0-5) /hpf Urine Bacteria (FEW) /hpf Urine Mucus (FEW) /hpf Ethyl Alcohol 0.00 (0.00) gm% 05/13/20 Range/Units 22:58 WBC (4.23-9.07) K/mm3 RBC (4.63-6.08) M/mm3 Hgb (13.7-17.5) gm/dl Hct (40.1-51.0) % MCV (79.0-92.2) fl MCH (25.7-32.2) pg MCHC (32.2-35.5) g/dl RDW Std Deviation (35.1-43.9) fL Plt Count (163-337) K/mm3 MPV (9.4-12.3) fl Neut % (Auto) (34.0-67.9) % Lymph % (Auto) (21.8-53.1) % [place] % (Auto) (5.3-12.2) % Eos % (Auto) (0.8-7.0) Baso % (Auto) (0.1-1.2) % Neut # (Auto) (1.78-5.38) K/mm3 Lymph # (Auto) (1.32-3.57) K/mm3 [place] # (Auto) (0.30-0.82) K/mm3 Eos # (Auto) (0.04-0.54) K/mm3 Baso # (Auto) (0.01-0.08) K/mm3 Manual Slide Review Sodium (136-145) mEq/L Potassium (3.5-5.1) mEq/L Chloride (98-107) mEq/L Carbon Dioxide (21-32) mEq/L Anion Gap (5-15) BUN (7-18) mg/dL Creatinine (0.7-1.3) mg/dL Est Cr Clr Drug Dosing mL/min Estimated GFR (MDRD) (>60) mL/min BUN/Creatinine Ratio (14-18) Glucose (80-115) mg/dL Calcium (8.5-10.1) mg/dL Magnesium (1.8-2.4) mg/dl Total Bilirubin (0.2-1.0) mg/dL AST (15-37) U/L ALT (16-63) U/L Alkaline Phosphatase (46-116) U/L Troponin I (0.00-0.056) ng/mL C-Reactive Protein (<1.0) mg/dL Total Protein (6.4-8.2) g/dl Albumin (3.4-5.0) g/dl Globulin gm/dL Albumin/Globulin Ratio (1-2) Urine Color Yellow (Yellow) Urine Appearance Clear (Clear) Urine pH 6.0 (5.0-8.0) Ur Specific [place] > or = 1.030 (1.005-1.030) Urine Protein 2+ H (Negative) Urine Glucose (UA) Negative (Negative) Urine Ketones 2+ H (Negative) Urine Occult Blood Negative (Negative) Urine Nitrite Negative (Negative) Urine Bilirubin 2+ H (Negative) Urine Urobilinogen 0.2 (0.2-1.0) Ur Leukocyte Esterase Negative (Negative) U Hyaline Cast (Auto) 10-20 H (0-5) /lpf Urine RBC 0-5 (0-5) /hpf Urine WBC 0-5 (0-5) /hpf Ur Squamous Epith Cells 0-5 (0-5) /hpf Urine Bacteria Few (FEW) /hpf Urine Mucus Moderate H (FEW) /hpf Ethyl Alcohol (0.00) gm% Meds: Medications Discontinued Medications Generic Name Dose Route Start Last Admin Trade Name Freq PRN Reason Stop Dose Admin Acetaminophen 975 mg 05/13/20 21:30 05/13/20 21:35 Tylenol PO 05/13/20 21:31 975 mg NOW ONE Administration Hydrocodone Bitart/Acetaminophen 1 tab 05/13/20 23:54 05/14/20 00:54 Petaca 325-5 Mg PO 05/13/20 23:55 1 tab ONETIME ONE Administration Hydromorphone HCl 0.5 mg 05/13/20 23:20 05/13/20 23:31 Dilaudid IVPUSH 05/13/20 23:21 0.5 mg ONETIME ONE Administration Sodium Chloride 1,000 mls @ 999 mls/hr 05/13/20 23:17 05/13/20 23:30 Normal Saline IV 05/14/20 00:17 999 mls/hr NOW STA Administration Sodium Chloride 10 ml 05/13/20 23:18 05/13/20 23:32 Saline Flush FLUSH 10 ml ASDIRECTED PRN Administration Keep Vein Open - Re-Assessments/Exams Free Text/Narrative Re-Assessment/Exam: 05/13/20 22:56Patient is a 64-year-old male presenting to the emergency department with complaints of bilateral posterior shoulder pain, feeling "foggy "with a mild headache, and lumbar back pain after a fall. Neurologic exam is found to be normal. He does have some tenderness to palpation to the bilateral posterior shoulders, left being worse than the right. There is no obvious deformity or ecchymosis present. I have ordered x-ray of bilateral shoulders, CT scan of head without contrast, a lumbar x-ray, blood work, and urinalysis. I have ordered 975 mg of Tylenol for pain.. 05/13/20 22:57 CT of the head shows no acute abnormalities. X-rays of bilateral shoulders show nothing acute. Lumbar x-ray shows compression fractures of indeterminate age of the L1 and L2 vertebral bodies with mild loss of vertebral body height. More recent prior imaging has been requested to assess for interval change. Last MRI completed here was 6 years ago. At that time there was not compression fractures. Patient is unsure if he has had these in the past. Blood work and urinalysis are pending. 05/13/20 23:07 Addendum of the lumbar x-ray received from [facility]. There will to compare to a CT of the abdomen pelvis from December 2019. At that time, there is no evidence of a compression fracture to the L1 or L2 vertebral bodies. They are recommending lumbar CT be completed at this time for better evaluation. I have ordered a CT of the lumbar spine. 05/13/20 23:50 CT scan of the lumbar spine shows no acute fractures of the lumbar spine. There is a new acute appearing nondisplaced fracture of the anterior cortex of the sacrum at the level of S3. As well as multilevel lumbar spondylosis. We will give the patient the 1 L of IV fluids. Prior to discharge he will receive 1 Petaca. A prescription for Petaca has been sent to [facility]. Recommend follow-up with his PCP in a few days. Return to ER as needed. Departure - Departure Time of Disposition: 23:50 Disposition: Home, Self-Care 01 Condition: Good Clinical Impression: Fall Qualifiers: Encounter type: initial encounter Qualified Code(s): W19.XXXA - Unspecified fall, initial encounter Closed sacral fracture Qualifiers: Encounter type: initial encounter Zone of sacrum fracture: unspecified portion of sacrum Qualified Code(s): S32.10XA - Unspecified fracture of sacrum, initial encounter for closed fracture - Discharge Information *PRESCRIPTION DRUG MONITORING PROGRAM REVIEWED*: Yes *COPY OF PRESCRIPTION DRUG MONITORING REPORT IN PATIENT LETICIA: No Prescriptions: Acetaminophen/HYDROcodone [Petaca 325-5 MG] 1 tab PO Q4H PRN #12 tablet PRN Reason: Pain Referrals: Talha Fitch MD [Physician] - Forms: ED Department Discharge Additional Instructions: You were seen in the emergency department today for evaluation after having a fall at home. Work-up included blood work, urinalysis, CT scan of your head, x- rays of your bilateral shoulders, lumbar x-ray, and a CT scan of your lumbar and sacral spine. Results your work-up indicate that you have a small nondisplaced fracture within your sacrum. The remainder of your work-up was found to be overall normal, however you were dehydrated. While in the ER, you received a liter of IV fluids and pain medications. Recommend routine Tylenol and ibuprofen for discomfort. A prescription for Petaca has been sent to [facility] for pain not relieved by these measures. Ensure that you are not taking in more than 4000 mg of Tylenol in a 24-hour period. Recommend calling tomorrow to set up a follow-up appointment with your primary care provider for reevaluation on Wednesday or of this week. Return to ER as needed. Sepsis Event Note (ED) - Evaluation Sepsis Screening Result: No Definite Risk
[2020-05-13] MEDS ORDERED: Sodium Chloride 0.9% 1,000 ML IV STA (23:17)
[2020-05-13] MEDS ORDERED: Sodium Chloride 0.9% 10 ML Syringe FLUSH PRN (23:18)
[2020-05-13] MEDS ORDERED: HYDROmorphone 0.5 MG/0.5 ML Syringe IVPUSH ONE (23:20)
[2020-05-13] MEDS ORDERED: Acetaminophen/HYDROcodone 325-5 MG Tab PO ONE (23:54)
--- NOTE | 2020-05-14 08:53 | CR ---
Bilateral shoulders: 3 views of both shoulders were obtained. Joint space narrowing is noted within both acromioclavicular joints. Glenohumeral joints are minimally narrowed. No acute fracture, dislocation or other bony abnormality is appreciated. Impression: 1. Mild degenerative change. 2. Nothing acute is seen. 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
--- NOTE | 2020-05-14 09:03 | CT ---
Head CT Technique: Multiple axial sections through the brain were obtained. Comparison: Prior head CT study of 03/22/18. Findings: Ventricles along with basal cisterns and sulci over convexities are mildly prominent. Minimal diminished density is scattered within the periventricular white matter is seen most likely representing slight small vessel ischemic demyelination change. No other abnormal parenchymal densities are seen. No evidence of intracranial hemorrhage. No midline shift or mass-effect is appreciated. Bone window settings were reviewed. Visualized mastoid sinuses and paranasal sinuses show nothing acute. No acute calvarial finding is appreciated. Impression: 1. Slight senescent change as noted above. This is stable from prior study. 2. Nothing acute is appreciated on noncontrast head CT exam. Diagnostic code #2 I agree with preliminary report from [facility], finalized on 05/13/20, 10:57 PM PBX MANAGER
--- NOTE | 2020-05-14 09:05 | CR ---
Lumbar spine: AP, lateral and coned-down lateral views were obtained centered to the lumbar spine. Comparison: Previous MRI lumbar spine study of 01/01/15. Findings: Slight scattered disc space narrowing is seen throughout the lumbar spine and lower thoracic spine. Scattered anterior and lesser lateral osteophytes are seen. Slight posterior osteophytes are also noted. Minimal vacuum phenomena seen within the L4-5 disc. Slight deformity is noted within the mid sacrum suspicious for fracture. Pedicles are intact. Transverse and spinous processes appear to be intact. Impression: 1. Findings suspicious for mid sacral fracture. 2. Degenerative change as noted above. Diagnostic code #3 I somewhat disagree with preliminary report from [facility], finalized on 05/13/20, 11:39 PM CLAIMS TECHNICIAN
--- NOTE | 2020-05-14 10:01 | CT ---
CT lumbar spine Technique: Multiple axial sections were obtained from above the T11-12 disc inferiorly through the sacrum. Comparison: Prior lumbar spine plain film study performed earlier on the same day (9:53 PM). Findings: T11-12: Posterior disc is preserved. No central canal stenosis or neural foraminal stenosis is seen. T12-L1: Posterior disc space narrowing is noted. Very slight circumferential disc bulge is seen. Posterior disc maintains a concave margin. No central canal stenosis or neural foraminal stenosis is seen. L1-2: Posterior disc space narrowing is seen. Slight circumferential disc bulge is noted. Posterior disc maintains a concave margin. Minimal degenerative apophyseal change is noted. No central canal stenosis or neural foraminal stenosis is seen. L2-3: Posterior disc space narrowing is noted with mild posterior osteophytes. Very slight circumferential disc bulge is noted. Posterior disc shows minimal concave margin. Mild degenerative apophyseal change is noted. No central canal stenosis is seen. Both neural foramina are minimally narrowed. L3-4: Diffuse circumferential disc bulge is noted. Calcification is seen within the posterior disc. Minimal central canal stenosis is noted. Neural foramina are felt to be fairly well patent where the nerve roots exit. L4-5: Diffuse circumferential disc bulge is seen. Disc space narrowing is noted with vacuum phenomena. Mild to moderate central canal stenosis is seen. There is narrowing of the neural foramina with disc bulging effacing the fat around the exiting right L4 nerve root. Left nerve root appears to exit without definite compromise. L5-S1: Posterior disc space narrowing is noted. Small limbus type vertebra is noted off the anterior and superior L5 vertebral body. Very mild posterior disc bulge is seen. No central canal stenosis is seen. Exiting L5 nerve roots slightly touch the bulging disc outside both neural foramina. Fracture is identified within the S3 vertebral body which extends superiorly to involve the posterior elements. No significant displacement is seen. No additional fracture is seen within the lumbar spine. Small nonobstructing calculi are seen within both kidneys. Impression: 1. No acute fracture within the lumbar spine is seen. 2. Acute fracture within the mid sacrum at the level of S3. No significant displacement is seen. 3. Degenerative change as noted above. Several small nonobstructing calculi within both kidneys. Diagnostic code #5 I agree with preliminary report from [facility], finalized on 05/14/20, 12:37 AM SUPERVISOR TREE TRIMMING
== END 2020-05-14 00:58 | disposition home or self-care (01) ==
LOC: JD.ED 21:11
DX: S32.10XA Unspecified fracture of sacrum, initial encounter for closed fracture (principal); I10 Essential (primary) hypertension; K21.9 Gastro-esophageal reflux disease without esophagitis; N40.0 Benign prostatic hyperplasia without lower urinary tract symptoms; Z88.5 Allergy status to narcotic agent; Z79.899 Other long term (current) drug therapy; Z72.0 Tobacco use; W19.XXXA Unspecified fall, initial encounter
CPT/HCPCS: 36415; 70450; 72100; 72131; 73030; 80053; 80179; 81001; 83735; 84484; 85025; 86140; 96374; 99284; A9270; J1170; J7030

== ENCOUNTER 2020-05-21 06:19 | Inpatient (IN) | payer MEDICAID ==
[2020-05-21] MEDS ORDERED: Ondansetron 4 MG/2 ML SDV IVPUSH ONE (06:35)
[2020-05-21] MEDS ORDERED: HYDROmorphone 1 MG/ML Syringe IVPUSH ONE (06:35)
--- NOTE | 2020-05-21 06:38 | EDM.PDOC ---
ED HPI GENERAL MEDICAL PROBLEM - General Chief Complaint: Lower Extremity Injury/Pain Stated Complaint: [facility] Time Seen by Provider: 05/21/20 06:24 Source of Information: Reports: RN Notes Reviewed History Limitations: Reports: Altered Mental Status (Very confused, disoriented) - History of Present Illness INITIAL COMMENTS - FREE TEXT/NARRATIVE: Mr. Albarran is a pleasant 64-year-old gentleman who is now brought to the ED by EMS with a left ankle injury. According to the triage note, the patient suffered an unwitnessed fall in his apartment. Due to the patient being very confused, it is not known when this occurred. EMS reported that the patient attempted to walk on his left lower extremity even though there is an obvious deformity of the left ankle. Here in the ED, the patient is found to be hemodynamically stable, afebrile, saturating 93% on room air. Due to the patient's confusion, recent review of systems is not obtainable. The patient's PCP is Dr. Talha Fitch. Left Ankle Pain Score (Numeric/FACES): 6 - Related Data Allergies Allergy/AdvReac Type Severity Reaction Status Date / Time codeine Allergy Severe Itching Verified 05/21/20 06:48 meperidine HCl [From Demerol] Allergy Severe Itching Verified 05/21/20 06:48 Home Meds: Home Meds Mirtazapine 30 mg PO DAILY 09/10/15 [History] Pantoprazole [Protonix] 80 mg PO BID 03/18/16 [History] cloNIDine [Catapres] 0.1 mg PO BEDTIME 01/21/17 [History] Tamsulosin HCl [Flomax] 0.4 mg PO DAILY #7 cap.er.24h 05/10/17 [Rx] DULoxetine [Cymbalta] 60 mg PO DAILY #30 cap 06/30/17 [Rx] Diltiazem [Cardizem CD] 120 mg PO DAILY 12/23/17 [History] hydroCHLOROthiazide [Hydrochlorothiazide] 25 mg PO DAILY 12/23/17 [History] Losartan [Cozaar] 50 mg PO DAILY 01/11/18 [History] Baclofen 10 mg PO TID 05/27/18 [History] clonazePAM [Klonopin] 0.5 mg PO TID 05/27/18 [History] Hydrocodone/Acetaminophen [Hydrocodone-Acetamin 5-325 mg] 1 - 2 each PO Q6HR PRN #10 tablet 02/12/20 [Rx] Ondansetron [Zofran ODT] 4 mg PO Q6H PRN #20 tab.dis 02/12/20 [Rx] Acetaminophen/HYDROcodone [[place] 325-5 MG] 1 tab PO Q4H PRN #12 tablet 05/13/20 [Rx] Past Medical History Cardiovascular History: Reports: Hypertension Gastrointestinal History: Reports: Colon Polyp, Gastritis, GERD Genitourinary History: Reports: BPH, Renal Calculus Musculoskeletal History: Reports: Osteoarthritis Psychiatric History: Reports: Addiction (alcohol, opioids, benzodiazepines), Anxiety, Depression - Infectious Disease History Infectious Disease History: Reports: Chicken Pox, Hepatitis C - Past Surgical History GI Surgical History: Reports: Appendectomy Male Surgical History: Reports: Lithotripsy (ESWL) (x 8), Ureteral Stent Social & Family History - Tobacco Use Tobacco Use Status *Q: Current Every Day Tobacco User Years of Tobacco use: 51 Packs/Tins Daily: 0.5 - Caffeine Use Caffeine Use: Reports: None - Living Situation & Occupation Living situation: Reports: Single, Alone Occupation: Unemployed Review of Systems - Review of Systems Review Of Systems: Unable To Obtain Reason Not Obtained: Patient confused Musculoskeletal: Reports: Neck Pain (chronic), Back Pain (chronic) ED EXAM, GENERAL - Physical Exam Exam: See Below Exam Limited By: No Limitations (patient followed commands) General Appearance: Alert, WD/WN, No Apparent Distress Eye Exam: Bilateral Eye: EOMI, Normal Inspection Ears: Normal External Exam, Hearing Grossly Normal Nose: Normal Inspection Throat/Mouth: Normal Inspection, Normal Lips, Normal Voice, No Airway Compromise Head: Atraumatic, Normocephalic Neck: Normal Inspection, Full Range of Motion Respiratory/Chest: No Respiratory Distress, Lungs Clear, Normal Breath Sounds, No Accessory Muscle Use Cardiovascular: Normal Peripheral Pulses, Regular Rate, Rhythm, No Edema, No Gallop, No JVD, No Murmur, No Rub Peripheral Pulses: 3+: Radial (L), Radial (R) GI/Abdominal: Normal Bowel Sounds, Soft, Non-Tender, No Organomegaly, No Distention, No Abnormal Bruit, No Mass Back Exam: Normal Inspection, Full Range of Motion, NT Extremities: No Pedal Edema, Normal Capillary Refill, Other (There is an obvious deformity to the left ankle, with lateral dislocation and external rotation of the left foot. There is an abrasion over the medial malleolus. Left foot is cool to palpation with prolonged capillary refill. No palpable dorsalis pedis or posterior tibialis pulse. It is unclear if the patient has normal sensation to the foot or not, as he is not answering questions.) Neurological: Disoriented (could not answer where he is, what year it is, or what season it is) Psychiatric: Other (Unable to assess) Skin Exam: Warm, Dry, Intact, Normal Color, No Rash #1 Interpretation EKG Date: 05/21/20 Time: 08:21 Rhythm: NSR Rate (Beats/Min): 78 [place]: Normal P-Wave: Enlarged (ROSIE) QRS: Normal ST-T: Normal QT: Normal Comparison: No Change (04/06/2018) Course - Vital Signs Last Recorded V/S: Last Vital Signs Temp 36.8 C 05/21/20 06:48 Pulse 96 05/21/20 06:48 Resp 17 05/21/20 06:48 BP 110/69 05/21/20 06:48 Pulse Ox 93 L 05/21/20 06:48 - Orders/Labs/Meds Orders: Active Orders 24 hr Category Date Time Status EKG Documentation Completion [RC] STAT Care 05/21/20 06:34 Active Chest 1V Frontal [CR] Stat Exams 05/21/20 06:34 Taken Magnesium Sulfate/Water [Magnesium Sulfate in Water 4 Med 05/21/20 08:01 Active GM/50 ML] 4 gm Premix Bag 1 bag IV ONETIME Sodium Chloride 0.9% [Normal Saline] 1,000 ml Med 05/21/20 06:45 Active IV ASDIRECTED Sodium Chloride 0.9% [Normal Saline] 1,000 ml Med 05/21/20 09:37 Active IV NOW Medication Orders Sodium Chloride (Normal Saline) 1,000 mls @ 150 mls/hr IV ASDIRECTED [facility] Last Admin: 05/21/20 06:44 Dose: 150 mls/hr Documented by: KATIANA Magnesium Sulfate 4 gm/ Premix 50 mls @ 12.5 mls/hr IV ONETIME ONE Stop: 05/21/20 12:00 Last Admin: 05/21/20 08:34 Dose: 12.5 mls/hr Documented by: JAYDEN Sodium Chloride (Normal Saline) 1,000 mls @ 200 mls/hr IV NOW STA Stop: 05/21/20 14:36 Last Admin: 05/21/20 09:42 Dose: 200 mls/hr Documented by: JAYDEN Labs: Laboratory Tests 05/21/20 05/21/20 05/21/20 Range/Units 06:30 06:30 06:30 WBC 14.58 H (4.23-9.07) K/mm3 RBC 4.61 L (4.63-6.08) M/mm3 Hgb 13.4 L D (13.7-17.5) gm/dl Hct 40.3 (40.1-51.0) % MCV 87.4 (79.0-92.2) fl MCH 29.1 (25.7-32.2) pg MCHC 33.3 (32.2-35.5) g/dl RDW Std Deviation 47.3 H (35.1-43.9) fL Plt Count 331 (163-337) K/mm3 MPV 9.3 L (9.4-12.3) fl Neutrophils % (Manual) 84 H (40-60) % Band Neutrophils % 0 (0-10) % Lymphocytes % (Manual) 7 L (20-40) % Atypical Lymphs % 0 % Monocytes % (Manual) 8 (2-10) % Eosinophils % (Manual) 0 L (0.8-7.0) % Basophils % (Manual) 1 (0.2-1.2) Platelet Estimate Adequate Anisocytosis 1+ slight RBC Morph Comment Abnormal Sodium 139 (136-145) mEq/L Potassium 4.3 (3.5-5.1) mEq/L Chloride 99 (98-107) mEq/L Carbon Dioxide 21 (21-32) mEq/L Anion Gap 23.3 H (5-15) BUN 25 H (7-18) mg/dL Creatinine 2.6 H D (0.7-1.3) mg/dL Est Cr Clr Drug Dosing TNP Estimated GFR (MDRD) 25 (>60) mL/min BUN/Creatinine Ratio 9.6 L (14-18) Glucose 134 H (80-115) mg/dL Calcium 9.6 (8.5-10.1) mg/dL Magnesium 1.5 L (1.8-2.4) mg/dl Total Bilirubin 0.7 (0.2-1.0) mg/dL AST 26 (15-37) U/L ALT 26 (16-63) U/L Alkaline Phosphatase 88 (46-116) U/L Troponin I < 0.017 (0.00-0.056) ng/mL Total Protein 7.3 (6.4-8.2) g/dl Albumin 3.6 (3.4-5.0) g/dl Globulin 3.7 gm/dL Albumin/Globulin Ratio 1.0 (1-2) Urine Color (Yellow) Urine Appearance (Clear) Urine pH (5.0-8.0) Ur Specific [place] (1.005-1.030) Urine Protein (Negative) Urine Glucose (UA) (Negative) Urine Ketones (Negative) Urine Occult Blood (Negative) Urine Nitrite (Negative) Urine Bilirubin (Negative) Urine Urobilinogen (0.2-1.0) Ur Leukocyte Esterase (Negative) Urine RBC (0-5) /hpf Urine WBC (0-5) /hpf Ur Epithelial Cells (0-5) /hpf Amorphous Sediment (NOT SEEN) /hpf Urine Bacteria (FEW) /hpf Urine Mucus (FEW) /hpf Urine Opiates Screen (PPWKSN=225) Ur Buprenorphine Scrn (CUTOFF=10) Ur Oxycodone Screen (PUJ0ZC=189) Urine Methadone Screen (JNJ5GN=263) Ur Propoxyphene Screen (RVQRML=350) Ur Barbiturates Screen (PJKLJO=579) Ur Tricyclics Screen (FWADLG=436) Ur Phencyclidine Scrn (CUTOFF=25) Ur Amphetamine Screen (BHNRDN=352) U Methamphetamines Scrn (NEWDRT=675) U Benzodiazepines Scrn (MTRRAN=191) U Cocaine Metab Screen (LZUHIQ=304) U Marijuana (THC) Screen (CUTOFF=50) Ethyl Alcohol 0.00 (0.00) gm% SARS-CoV-2 RNA (MILA) (NEGATIVE) 05/21/20 05/21/20 05/21/20 Range/Units 08:05 08:14 08:14 WBC (4.23-9.07) K/mm3 RBC (4.63-6.08) M/mm3 Hgb (13.7-17.5) gm/dl Hct (40.1-51.0) % MCV (79.0-92.2) fl MCH (25.7-32.2) pg MCHC (32.2-35.5) g/dl RDW Std Deviation (35.1-43.9) fL Plt Count (163-337) K/mm3 MPV (9.4-12.3) fl Neutrophils % (Manual) (40-60) % Band Neutrophils % (0-10) % Lymphocytes % (Manual) (20-40) % Atypical Lymphs % % Monocytes % (Manual) (2-10) % Eosinophils % (Manual) (0.8-7.0) % Basophils % (Manual) (0.2-1.2) Platelet Estimate Anisocytosis RBC Morph Comment Sodium (136-145) mEq/L Potassium (3.5-5.1) mEq/L Chloride (98-107) mEq/L Carbon Dioxide (21-32) mEq/L Anion Gap (5-15) BUN (7-18) mg/dL Creatinine (0.7-1.3) mg/dL Est Cr Clr Drug Dosing Estimated GFR (MDRD) (>60) mL/min BUN/Creatinine Ratio (14-18) Glucose (80-115) mg/dL Calcium (8.5-10.1) mg/dL Magnesium (1.8-2.4) mg/dl Total Bilirubin (0.2-1.0) mg/dL AST (15-37) U/L ALT (16-63) U/L Alkaline Phosphatase (46-116) U/L Troponin I (0.00-0.056) ng/mL Total Protein (6.4-8.2) g/dl Albumin (3.4-5.0) g/dl Globulin gm/dL Albumin/Globulin Ratio (1-2) Urine Color [place] H (Yellow) Urine Appearance Slt cloudy H (Clear) Urine pH 5.5 (5.0-8.0) Ur Specific [place] > or = 1.030 (1.005-1.030) Urine Protein 2+ H (Negative) Urine Glucose (UA) Negative (Negative) Urine Ketones Trace H (Negative) Urine Occult Blood 2+ H (Negative) Urine Nitrite Negative (Negative) Urine Bilirubin 2+ H (Negative) Urine Urobilinogen 1.0 (0.2-1.0) Ur Leukocyte Esterase Negative (Negative) Urine RBC 0-5 (0-5) /hpf Urine WBC 0-5 (0-5) /hpf Ur Epithelial Cells 0-5 (0-5) /hpf Amorphous Sediment Moderate H (NOT SEEN) /hpf Urine Bacteria Few (FEW) /hpf Urine Mucus Few (FEW) /hpf Urine Opiates Screen Presumptive positive H (BBYIVN=697) Ur Buprenorphine Scrn Negative (CUTOFF=10) Ur Oxycodone Screen Negative (DVC6XU=371) Urine Methadone Screen Negative (NSU4HW=798) Ur Propoxyphene Screen Negative (DDZANN=591) Ur Barbiturates Screen Negative (CLXISP=755) Ur Tricyclics Screen Presumptive positive H (ICORQG=422) Ur Phencyclidine Scrn Negative (CUTOFF=25) Ur Amphetamine Screen Negative (ROJQHV=234) U Methamphetamines Scrn Negative (BCNCKL=452) U Benzodiazepines Scrn Negative (PBRWLW=338) U Cocaine Metab Screen Negative (FTHPIL=369) U Marijuana (THC) Screen Presumptive positive H (CUTOFF=50) Ethyl Alcohol (0.00) gm% SARS-CoV-2 RNA (MILA) Negative (NEGATIVE) Meds: Medications Generic Name Dose Route Start Last Admin Trade Name Freq PRN Reason Stop Dose Admin Sodium Chloride 1,000 mls @ 150 mls/hr 05/21/20 06:45 05/21/20 06:44 Normal Saline IV 150 mls/hr ASDIRECTED VEDA Administration Magnesium Sulfate 4 gm/ Premix 50 mls @ 12.5 mls/hr 05/21/20 08:01 05/21/20 08:34 IV 05/21/20 12:00 12.5 mls/hr ONETIME ONE Administration Sodium Chloride 1,000 mls @ 200 mls/hr 05/21/20 09:37 05/21/20 09:42 Normal Saline IV 05/21/20 14:36 200 mls/hr NOW STA Administration Discontinued Medications Generic Name Dose Route Start Last Admin Trade Name Freq PRN Reason Stop Dose Admin Hydromorphone HCl 1 mg 05/21/20 06:35 05/21/20 06:44 Dilaudid IVPUSH 05/21/20 06:36 1 mg ONETIME ONE Administration Sodium Chloride 1,000 mls @ 999 mls/hr 05/21/20 08:02 05/21/20 08:37 Normal Saline IV 05/21/20 09:02 Not Given ONETIME ONE Ondansetron HCl 4 mg 05/21/20 06:35 05/21/20 06:44 Zofran IVPUSH 05/21/20 06:36 4 mg ONETIME ONE Administration - Re-Assessments/Exams Free Text/Narrative Re-Assessment/Exam: 05/21/20 06:36 As above, the patient somehow fell and injured his left ankle. On examination, he appears to have a trimalleolar fracture. It will need reduction. I have ordered 1 mg of IV Dilaudid, 4 mg IV Zofran, and IV fluid. Due to the patient's confusion, I have also ordered numerous blood tests, a urinalysis by quick catheter, a portable chest x-ray, and an ECG. 05/21/20 06:48 4-view radiographs of the left ankle appear to demonstrate a comminuted fracture of the distal fibula with lateral dislocation of the talus from the tibia. While difficult to appreciate, there is also likely a fracture of the posterior aspect of the distal tibia. The medial malleolus appears to be intact. Formal read per the Radiologist pending. 05/21/20 07:08 I attempted to reduce and splint the left ankle. After the patient was given IV Dilaudid, a sugar tong splint was made, followed by a posterior mold splint with the ankle at the degrees, with an attempt at reducing the foot medially. The patient tolerated the procedure well. Post-reduction x-rays have been ordered. Due to the patient's confusion, I have ordered a CT of the head without contrast. 05/21/20 07:36 Post-reduction 2-view radiographs of the left ankle appears to demonstrate some improvement in the dislocation, with the foot now appropriately aligned with the distal tibia from a medial-lateral standpoint, however, there still appears to be a posterior dislocation. Again demonstrated is the comminuted distal fibular fracture. There is likely a posterior distal tibial fracture. Formal read per the Radiologist pending. 05/21/20 07:[address] Osborn at 07:48. He will look at the x-ray images as soon as he gets a chance. 05/21/20 08:02 Portable chest radiograph reviewed. The cardiac silhouette is within normal limits. No pulmonary vascular congestion. No pleural effusions seen on this AP view. No focal infiltrate. No pneumothorax. There is a calcified nodular density over the right second rib. There is hyperinflation with bilateral diaphragmatic flattening, consistent with COPD. Formal read per the Radiologist pending. The patient's CBC is remarkable for a WBC count elevated at 14.58, but with 0% bandemia. His Hgb is slightly depressed at 13.4, with a Hct normal at 40.3, and the remainder of his CBC being unremarkable. His CMP is remarkable for an anion gap mildly elevated at 23.3, but with a bicarbonate normal at 21. His BUN/Cr are elevated at 25/2.6. There is mild hyperglycemia of 134, with the remainder of his CMP being unremarkable. His magnesium level is significantly depressed at 1.5. His troponin is undetectably low. His EtOH level is 0.00. A urine sample and his swab for the SARS-CoV-2 virus have not yet been collected. Reviewing prior labs, I see that the patient's BUN/Cr were 28/1.4 on 05/13/2020, and 12/1.2 on 02/12/2020. Based on the above, I have ordered 1 L of NS and a 4 g Mg-rider. 05/21/20 08:[address] Osborn that the ankle will require better reduction. He suggested assisting me with the procedure under conscious sedation. We will contact the [employer]IV[employer] GRINDER OPERATOR. 05/21/20 09:07 The patient's urinalysis is unremarkable. His urine drug screen is positive for opiates, tricyclic antidepressants, and marijuana. His swab for the SARS-CoV-2 virus has not yet resulted. 05/21/20 09:27 Dr. Osborn came by the ED to assist with the repeat reduction. He felt that the patient was adequately sedated, and that additional anesthesia would not be necessary. The foot was then reduced by performing plantarflexion of the foot with medial pressure, followed by dorsiflexion to 90 degrees. A new plaster sugar tong splint was applied, followed by a plaster posterior mold splint. The patient tolerated the procedure well. Following reduction, there is brisk capillary refill in the toes. Post-reduction x-rays have been ordered. Dr. Osborn opined that based on the quality of the reduction, surgery may not be necessary. The patient may be able to heal with a cast in about 2 weeks. 05/21/20 10:04 CT of the head without contrast is read by Dr. Collado as: 1. Mild senescent change. Nothing acute is appreciated. 05/21/20 10:09 2-view radiographs of the left tibia and fibula are read by Dr. Collado as: 1. Previous dislocation has been reduced. 2. Lateral malleolus fracture and posterior malleolus fracture as noted above. 3. Plaster cast or splint is in place. 05/21/20 10:26 Case discussed with Maribel at [facility] at 10:10. Case then discussed with Dr. German, Neurologist at [facility], at 10:23. He feels quite confident that the patient's altered mental status is due to opioids, which explains why he was able to walk on his injured foot. He is not recommending any further evaluation. He feels the patient is safe for admission to this facility. 05/21/20 10:32 The patient's swab for the SARS-CoV-2 virus has returned negative. Case discussed with Dr. Ochoa, Hospitalist, agreed to accept the patient for observation on telemetry. Departure - Departure Time of Disposition: 10:32 Disposition: Refer to Observation Condition: Fair Clinical Impression: Altered mental status, Closed left ankle fracture, Acute renal insufficiency, Hypomagnesemia - Discharge Information *PRESCRIPTION DRUG MONITORING PROGRAM REVIEWED*: Not Applicable *COPY OF PRESCRIPTION DRUG MONITORING REPORT IN PATIENT LETICIA: Not Applicable Referrals: Talha Fitch MD [Physician] - Forms: ED Department Discharge Sepsis Event Note (ED) - Focused Exam Vital Signs: Vital Signs Temp Pulse Resp BP Pulse Ox 05/21/20 06:48 36.8 C 96 17 110/69 93 L - My Orders Last 24 Hours: My Active Orders 05/21/20 06:34 EKG Documentation Completion [RC] STAT Chest 1V Frontal [CR] Stat 05/21/20 06:45 Sodium Chloride 0.9% [Normal Saline] 1,000 ml IV ASDIRECTED 05/21/20 08:01 Magnesium Sulfate/Water [Magnesium Sulfate in Water 4 GM/50 ML] 4 gm Premix Bag 1 bag IV ONETIME 05/21/20 09:37 Sodium Chloride 0.9% [Normal Saline] 1,000 ml IV NOW - Assessment/Plan Last 24 Hours: My Active Orders 05/21/20 06:34 EKG Documentation Completion [RC] STAT Chest 1V Frontal [CR] Stat 05/21/20 06:45 Sodium Chloride 0.9% [Normal Saline] 1,000 ml IV ASDIRECTED 05/21/20 08:01 Magnesium Sulfate/Water [Magnesium Sulfate in Water 4 GM/50 ML] 4 gm Premix Bag 1 bag IV ONETIME 05/21/20 09:37 Sodium Chloride 0.9% [Normal Saline] 1,000 ml IV NOW
[2020-05-21] MEDS ORDERED: Sodium Chloride 0.9% 1,000 ML IV SCH ×2 (06:45→13:15)
[2020-05-21] MEDS ORDERED: Magnesium Sulfate/Water 4 GM in Premix Bag 1 BAG IV ONE (08:01)
[2020-05-21] MEDS ORDERED: Sodium Chloride 0.9% 1,000 ML IV ONE (08:02)
--- NOTE | 2020-05-21 08:59 | CR ---
Left ankle: 4 views of the left ankle were obtained. Comparison: No previous ankle study is available. Fracture is identified within the fibula. There is dislocation of the tibia anteriorly. Fracture appears to be present within the posterior tibia. Multiple small bony densities are seen off the medial ankle joint presumably due to multiple small avulsion injuries. Diffuse soft tissue swelling is noted. Impression: 1. Dislocation and fractures as noted above. 2. Diffuse soft tissue swelling. Diagnostic code #5
--- NOTE | 2020-05-21 09:03 | CR ---
Left ankle: 2 views of the left ankle were obtained. Comparison: Prior left ankle study performed on the same day (6:17 AM). Continuing anterior dislocation is noted of the tibia in relation to the talus. Displaced fibular fracture is noted. Fiberglass cast is in present. Small bony densities are not well seen medially. Questionable posterior malleolus fracture not well seen. Fiberglas cast or splint is in place. Impression: 1. Continuing dislocation and displaced lateral malleolus fracture. 2. Fiberglass cast or splint in place. Diagnostic code #3
[2020-05-21] MEDS ORDERED: Sodium Chloride 0.9% 1,000 ML IV STA (09:37)
--- NOTE | 2020-05-21 09:52 | CT ---
Head CT Technique: Multiple axial sections were obtained to the brain. Intravenous contrast was not utilized. Comparison: Prior head CT study of 05/13/20. Findings: Ventricles along with basal cisterns and sulci over the convexities are mildly prominent. Very minimal diminished density is again noted within the periventricular white matter compatible with minimal small vessel ischemic demyelination change. No other abnormal parenchymal densities are seen. No evidence of intracranial hemorrhage. No midline shift or mass-effect is appreciated. Bone window settings were reviewed. Visualized mastoid sinuses and visualized paranasal sinuses showed nothing acute. No acute calvarial finding is appreciated. Impression: 1. Mild senescent change. Nothing acute is appreciated. Diagnostic code #2
--- NOTE | 2020-05-21 10:01 | CR ---
Left tibia and fibula: 2 views of the left tibia and fibula were obtained. Comparison: Prior ankle study performed earlier on the same date (7:22 AM). Previous dislocation at the tibiotalar joint has been reduced. Small fracture within the posterior malleolus is seen showing mild displacement. Fibular fracture has been reduced. Small bony densities are partially seen off the medial ankle. Fiberglas cast or splint is present. Impression: 1. Previous dislocation has been reduced. 2. Lateral malleolus fracture and posterior malleolus fracture as noted above. 3. Plaster cast or splint is in place. Diagnostic code #2
--- NOTE | 2020-05-21 11:49 | CR ---
Chest: Portable view of the chest was obtained. Comparison: Prior chest x-ray of 03/22/18. Small nodule is noted within the left upper chest. This nodule measures approximately 1 cm. This is not appreciated on prior study. Lungs otherwise are clear. Heart size and mediastinum are normal. Bony structures are grossly intact. Impression: 1. 1 cm nodule within the left upper chest. Noncontrast chest CT is recommended to further evaluate. 2. Nothing acute is otherwise seen. Diagnostic code #9
[2020-05-21] MEDS ORDERED: Promethazine 12.5 MG in Sodium Chloride 0.9% 50 ML IV PRN (13:02)
[2020-05-21] MEDS ORDERED: Albuterol/Ipratropium 3.0-0.5 MG/3 ML Neb Soln NEB PRN (13:02)
[2020-05-21] MEDS ORDERED: Naloxone 0.4 MG/ML SDV IVPUSH ONE (13:14)
--- NOTE | 2020-05-21 13:37 | PCM.HP.2 ---
H&P History of Present Illness - General Date of Service: 05/21/20 Admit Problem/Dx: Admission Diagnosis/Problem Admission Diagnosis/Problem Ankle fracture Source of Information: EMS Notes Reviewed History Limitations: Reports: Altered Mental Status - History of Present Illness Initial Comments - Free Text/Narative: Patient is a 64-year-old male with a history of hypertension and COPD who was brought to the ER by EMS due to fall and being confused. Patient does not answe r any questions. All medical history is obtained from ER physician notes. It was reported that patient fell at home and he was d found to being confused. His home medication including oxycodone and clonazepam. In the ER, CT of head negative for acute change. Urine drug screen showed presumptive positive for opiates, tricyclics, and THC. Neurologist Dr German was consulted in the ER. Dr German felt the AMS is due to opioids and did not recommend any further evaluation. When I saw this patient in the ER, she could be work-up by pain stimuli but he did not answer questions. Left ankle was wrapped. Location: Reports: Head, Lower Extremity, Left Left Ankle Pain Score (Numeric/FACES): 6 - Related Data Allergies/Adverse Reactions: Allergies Allergy/AdvReac Type Severity Reaction Status Date / Time codeine Allergy Severe Itching Verified 05/21/20 06:48 meperidine HCl [From Demerol] Allergy Severe Itching Verified 05/21/20 06:48 Home Medications: Home Meds Mirtazapine 30 mg PO DAILY 09/10/15 [History] Pantoprazole [Protonix] 80 mg PO BID 03/18/16 [History] cloNIDine [Catapres] 0.1 mg PO BEDTIME 01/21/17 [History] Tamsulosin HCl [Flomax] 0.4 mg PO DAILY #7 cap.er.24h 05/10/17 [Rx] DULoxetine [Cymbalta] 60 mg PO DAILY #30 cap 06/30/17 [Rx] Diltiazem [Cardizem CD] 120 mg PO DAILY 12/23/17 [History] hydroCHLOROthiazide [Hydrochlorothiazide] 25 mg PO DAILY 12/23/17 [History] Losartan [Cozaar] 50 mg PO DAILY 01/11/18 [History] Baclofen 10 mg PO TID 05/27/18 [History] clonazePAM [Klonopin] 0.5 mg PO TID 05/27/18 [History] Hydrocodone/Acetaminophen [Hydrocodone-Acetamin 5-325 mg] 1 - 2 each PO Q6HR PRN #10 tablet 02/12/20 [Rx] Ondansetron [Zofran ODT] 4 mg PO Q6H PRN #20 tab.dis 02/12/20 [Rx] Acetaminophen/HYDROcodone [Golden 325-5 MG] 1 tab PO Q4H PRN #12 tablet 05/13/20 [Rx] Past Medical History - Past Health History Medical/Surgical History: Denies Medical/Surgical History HEENT History: Reports: Other (See Below) Other HEENT History: dental issues. 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 bulging dicsc Neurological History: Reports: None 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, opiods Endocrine/Metabolic History: Reports: None Hematologic History: Reports: Other (See Below) Other Hematologic History: HEP C Immunologic History: Reports: None Oncologic (Cancer) History: Reports: None Dermatologic History: Reports: None - Infectious Disease History Infectious Disease History: Reports: Chicken Pox, Hepatitis C - Past Surgical History HEENT Surgical History: Reports: Oral Surgery GI Surgical History: Reports: Appendectomy Male Surgical History: Reports: Lithotripsy ([facility]), Ureteral Stent Other Male Surgeries/Procedures: Lithotripsy X 8 Musculoskeletal Surgical History: Reports: Other (See Below) Other Musculoskeletal Surgeries/Procedures:: fractured rib in past and also collar bone Social & Family History - Family History Family Medical History: Unobtainable (Due to AMS) Other Family History: Not able to obtain that due to AMS - Tobacco Use Tobacco Use Status *Q: Unknown Ever Used Tobacco Years of Tobacco use: 51 Packs/Tins Daily: 0.5 - Caffeine Use Caffeine Use: Reports: None - Living Situation & Occupation Living situation: Reports: Single, Alone Occupation: Unemployed H&P Review of Systems - Review of Systems: Review Of Systems: Unable To Obtain (Due to AMS) Reason Not Obtained: AMS Exam - Exam Exam: See Below - Vital Signs Vital Signs: Last Vital Signs Temp 36.8 C 05/21/20 06:48 Pulse 96 05/21/20 06:48 Resp 17 05/21/20 06:48 BP 110/69 05/21/20 06:48 Pulse Ox 93 L 05/21/20 06:48 - Exam Physical Exam Comments:: Physical Exam: General: No acute distress HEENT: Conjunctiva Clear, PERRL, mucosa Moist & [place] Neck: Trachea Midline, NO JVD Lungs: CTA, normal Respiratory Effort, no Wheezing Cardiovascular: Regular Rate, Regular Rhythm GI/Abdominal Exam: Normal Bowel Sounds, Soft, No Organomegaly, No Distention, No Abnormal Bruit, No Mass Extremities: Left leg was wrapped. Skin: Warm, Dry, Intact Neurology: Opens eyes by pain stimuli, does not answer any questions Psychiatric: Unable to complete due to mental status - Patient Data Lab Results Last 24 hrs: Laboratory Results - last 24 hr 05/21/20 05/21/20 05/21/20 Range/Units 06:30 06:30 06:30 WBC 14.58 H (4.23-9.07) K/mm3 RBC 4.61 L (4.63-6.08) M/mm3 Hgb 13.4 L D (13.7-17.5) gm/dl Hct 40.3 (40.1-51.0) % MCV 87.4 (79.0-92.2) fl MCH 29.1 (25.7-32.2) pg MCHC 33.3 (32.2-35.5) g/dl RDW Std Deviation 47.3 H (35.1-43.9) fL Plt Count 331 (163-337) K/mm3 MPV 9.3 L (9.4-12.3) fl Neutrophils % (Manual) 84 H (40-60) % Band Neutrophils % 0 (0-10) % Lymphocytes % (Manual) 7 L (20-40) % Atypical Lymphs % 0 % Monocytes % (Manual) 8 (2-10) % Eosinophils % (Manual) 0 L (0.8-7.0) % Basophils % (Manual) 1 (0.2-1.2) Platelet Estimate Adequate Anisocytosis 1+ slight RBC Morph Comment Abnormal Sodium 139 (136-145) mEq/L Potassium 4.3 (3.5-5.1) mEq/L Chloride 99 (98-107) mEq/L Carbon Dioxide 21 (21-32) mEq/L Anion Gap 23.3 H (5-15) BUN 25 H (7-18) mg/dL Creatinine 2.6 H D (0.7-1.3) mg/dL Est Cr Clr Drug Dosing TNP Estimated GFR (MDRD) 25 (>60) mL/min BUN/Creatinine Ratio 9.6 L (14-18) Glucose 134 H (80-115) mg/dL Calcium 9.6 (8.5-10.1) mg/dL Magnesium 1.5 L (1.8-2.4) mg/dl Total Bilirubin 0.7 (0.2-1.0) mg/dL AST 26 (15-37) U/L ALT 26 (16-63) U/L Alkaline Phosphatase 88 (46-116) U/L Troponin I < 0.017 (0.00-0.056) ng/mL Total Protein 7.3 (6.4-8.2) g/dl Albumin 3.6 (3.4-5.0) g/dl Globulin 3.7 gm/dL Albumin/Globulin Ratio 1.0 (1-2) Urine Color (Yellow) Urine Appearance (Clear) Urine pH (5.0-8.0) Ur Specific [place] (1.005-1.030) Urine Protein (Negative) Urine Glucose (UA) (Negative) Urine Ketones (Negative) Urine Occult Blood (Negative) Urine Nitrite (Negative) Urine Bilirubin (Negative) Urine Urobilinogen (0.2-1.0) Ur Leukocyte Esterase (Negative) Urine RBC (0-5) /hpf Urine WBC (0-5) /hpf Ur Epithelial Cells (0-5) /hpf Amorphous Sediment (NOT SEEN) /hpf Urine Bacteria (FEW) /hpf Urine Mucus (FEW) /hpf Urine Opiates Screen (EXPHMD=452) Ur Buprenorphine Scrn (CUTOFF=10) Ur Oxycodone Screen (TEF7FV=498) Urine Methadone Screen (BES9NE=070) Ur Propoxyphene Screen (DVWFOY=374) Ur Barbiturates Screen (WPXUDT=121) Ur Tricyclics Screen (NDFNIX=679) Ur Phencyclidine Scrn (CUTOFF=25) Ur Amphetamine Screen (MBROJU=052) U Methamphetamines Scrn (NGCEMR=267) U Benzodiazepines Scrn (GVFIFZ=986) U Cocaine Metab Screen (EZOXSQ=178) U Marijuana (THC) Screen (CUTOFF=50) Ethyl Alcohol 0.00 (0.00) gm% SARS-CoV-2 RNA (MILA) (NEGATIVE) 05/21/20 05/21/20 05/21/20 Range/Units 08:05 08:14 08:14 WBC (4.23-9.07) K/mm3 RBC (4.63-6.08) M/mm3 Hgb (13.7-17.5) gm/dl Hct (40.1-51.0) % MCV (79.0-92.2) fl MCH (25.7-32.2) pg MCHC (32.2-35.5) g/dl RDW Std Deviation (35.1-43.9) fL Plt Count (163-337) K/mm3 MPV (9.4-12.3) fl Neutrophils % (Manual) (40-60) % Band Neutrophils % (0-10) % Lymphocytes % (Manual) (20-40) % Atypical Lymphs % % Monocytes % (Manual) (2-10) % Eosinophils % (Manual) (0.8-7.0) % Basophils % (Manual) (0.2-1.2) Platelet Estimate Anisocytosis RBC Morph Comment Sodium (136-145) mEq/L Potassium (3.5-5.1) mEq/L Chloride (98-107) mEq/L Carbon Dioxide (21-32) mEq/L Anion Gap (5-15) BUN (7-18) mg/dL Creatinine (0.7-1.3) mg/dL Est Cr Clr Drug Dosing Estimated GFR (MDRD) (>60) mL/min BUN/Creatinine Ratio (14-18) Glucose (80-115) mg/dL Calcium (8.5-10.1) mg/dL Magnesium (1.8-2.4) mg/dl Total Bilirubin (0.2-1.0) mg/dL AST (15-37) U/L ALT (16-63) U/L Alkaline Phosphatase (46-116) U/L Troponin I (0.00-0.056) ng/mL Total Protein (6.4-8.2) g/dl Albumin (3.4-5.0) g/dl Globulin gm/dL Albumin/Globulin Ratio (1-2) Urine Color [place] H (Yellow) Urine Appearance Slt cloudy H (Clear) Urine pH 5.5 (5.0-8.0) Ur Specific [place] > or = 1.030 (1.005-1.030) Urine Protein 2+ H (Negative) Urine Glucose (UA) Negative (Negative) Urine Ketones Trace H (Negative) Urine Occult Blood 2+ H (Negative) Urine Nitrite Negative (Negative) Urine Bilirubin 2+ H (Negative) Urine Urobilinogen 1.0 (0.2-1.0) Ur Leukocyte Esterase Negative (Negative) Urine RBC 0-5 (0-5) /hpf Urine WBC 0-5 (0-5) /hpf Ur Epithelial Cells 0-5 (0-5) /hpf Amorphous Sediment Moderate H (NOT SEEN) /hpf Urine Bacteria Few (FEW) /hpf Urine Mucus Few (FEW) /hpf Urine Opiates Screen Presumptive positive H (KDRBMM=275) Ur Buprenorphine Scrn Negative (CUTOFF=10) Ur Oxycodone Screen Negative (XYO4QC=567) Urine Methadone Screen Negative (JLR5CK=030) Ur Propoxyphene Screen Negative (DIZEJI=418) Ur Barbiturates Screen Negative (BCPASD=699) Ur Tricyclics Screen Presumptive positive H (PAQMYL=824) Ur Phencyclidine Scrn Negative (CUTOFF=25) Ur Amphetamine Screen Negative (NMTKCT=979) U Methamphetamines Scrn Negative (WLPPRY=917) U Benzodiazepines Scrn Negative (MGXOMI=428) U Cocaine Metab Screen Negative (ZDSHEU=902) U Marijuana (THC) Screen Presumptive positive H (CUTOFF=50) Ethyl Alcohol (0.00) gm% SARS-CoV-2 RNA (MILA) Negative (NEGATIVE) Result Diagrams: 05/21/20 06:30 05/21/20 06:30 Sepsis Event Note - Evaluation Sepsis Screening Result: No Definite Risk - Focused Exam Vital Signs: Vital Signs Temp Pulse Resp BP Pulse Ox 05/21/20 06:48 36.8 C 96 17 110/69 93 L Problem List Initiated/Reviewed/Updated: Yes Orders Last 24hrs: Active Orders 24 hr Category Date Time Status Patient Status [ADT] Routine ADT 05/21/20 12:56 Active Bedrest Bedside Commode [RC] ASDIRECTED Care 05/21/20 13:02 Active Cardiac Monitoring [RC] CONTINUOUS Care 05/21/20 13:06 Active EKG Documentation Completion [RC] ROUTINE Care 05/21/20 13:11 Active EKG Documentation Completion [RC] STAT Care 05/21/20 06:34 Active Intake and Output [RC] QSHIFT Care 05/21/20 13:06 Active Oxygen Therapy [RC] PRN Care 05/21/20 13:03 Active Pulse Oximetry [RC] CONTINUOUS Care 05/21/20 13:06 Active RT Aerosol Therapy [RC] ASDIRECTED Care 05/21/20 13:11 Active Urinary Catheter Assessment [RC] ASDIRECTED Care 05/21/20 13:02 Active VTE/DVT Education [RC] PER UNIT ROUTINE Care 05/21/20 13:03 Active Vital Signs [RC] Q2HR Care 05/21/20 13:03 Active OT Evaluation and Treatment [CONS] Routine Cons 05/21/20 13:11 Active PT Evaluation and Treatment [CONS] Routine Cons 05/21/20 13:11 Active Nothing per Oral Now Diet [DIET] Diet 05/21/20 Lunch Active A1C [GLYCOSYLATED HEMOGLOBIN,HGBA1C] [CHEM] Stat Lab 05/21/20 13:14 Ordered CBC WITH AUTO DIFF [HEME] DAILY Lab 05/22/20 05:00 Ordered CBC WITH AUTO DIFF [HEME] DAILY Lab 05/23/20 05:00 Ordered CBC WITH AUTO DIFF [HEME] DAILY Lab 05/24/20 05:00 Ordered CBC WITH AUTO DIFF [HEME] DAILY Lab 05/25/20 05:00 Ordered CBC WITH AUTO DIFF [HEME] DAILY Lab 05/26/20 05:00 Ordered COMPREHENSIVE METABOLIC PN,CMP [CHEM] DAILY Lab 05/22/20 05:00 Ordered COMPREHENSIVE METABOLIC PN,CMP [CHEM] DAILY Lab 05/23/20 05:00 Ordered COMPREHENSIVE METABOLIC PN,CMP [CHEM] DAILY Lab 05/24/20 05:00 Ordered COMPREHENSIVE METABOLIC PN,CMP [CHEM] DAILY Lab 05/25/20 05:00 Ordered COMPREHENSIVE METABOLIC PN,CMP [CHEM] DAILY Lab 05/26/20 05:00 Ordered CREATINE KINASE,CK [CHEM] Routine Lab 05/21/20 13:11 Ordered CULTURE BLOOD [BC] Stat Lab 05/21/20 13:12 Ordered CULTURE BLOOD [BC] Stat Lab 05/21/20 13:12 Ordered MAGNESIUM [CHEM] Routine Lab 05/22/20 05:00 Ordered MAGNESIUM [CHEM] Stat Lab 05/21/20 13:19 Ordered PRO B-TYPE NATRIUR PEPT,BNPPRO [CHEM] Stat Lab 05/21/20 13:14 Ordered TROPONIN I [CHEM] Routine Lab 05/21/20 13:11 Ordered Acetaminophen [TylenoL] Med 05/21/20 13:02 Active 650 mg PO Q6H PRN Albuterol/Ipratropium [DuoNeb 3.0-0.5 MG/3 ML] Med 05/21/20 13:02 Active 3 ml NEB Q4H PRN DULoxetine Med 05/22/20 09:00 Active 60 mg PO DAILY Diltiazem [Cardizem CD] Med 05/22/20 09:00 Active 120 mg PO DAILY Heparin Sodium Med 05/21/20 13:15 Active 5,000 units SUBCUT Q8H Morphine Med 05/21/20 13:02 Active 2 mg IVPUSH Q4H PRN Pantoprazole Med 05/21/20 21:00 Active 80 mg PO BID Promethazine [Phenergan] 12.5 mg Med 05/21/20 13:02 Active Sodium Chloride 0.9% [Normal Saline] 50 ml IV Q6H Sodium Chloride 0.9% [Normal Saline] 1,000 ml Med 05/21/20 06:45 Active IV ASDIRECTED Sodium Chloride 0.9% [Normal Saline] 1,000 ml Med 05/21/20 13:15 Active IV ASDIRECTED Sodium Chloride 0.9% [Normal Saline] 1,000 ml Med 05/21/20 09:37 Active IV NOW Tamsulosin [Flomax] Med 05/22/20 09:00 Active 0.4 mg PO DAILY Blood Culture x2 Reflex Set [OM.PC] Stat Oth 05/21/20 13:11 Ordered Medication Orders Acetaminophen (Tylenol) 650 mg PO Q6H PRN PRN Reason: Pain (Mild 1-3)/fever Albuterol/Ipratropium (Duoneb 3.0-0.5 Mg/3 Ml) 3 ml NEB Q4H PRN PRN Reason: Shortness Of Breath/wheezing Diltiazem HCl (Cardizem Cd) 120 mg PO DAILY [facility] Heparin Sodium (Porcine) (Heparin Sodium) 5,000 units SUBCUT Q8H VEDA Sodium Chloride (Normal Saline) 1,000 mls @ 150 mls/hr IV ASDIRECTED [facility] [place] Last Admin: 05/21/20 06:44 Dose: 150 mls/hr Documented by: KATIANA Sodium Chloride (Normal Saline) 1,000 mls @ 200 mls/hr IV NOW STA Stop: 05/21/20 14:36 Last Admin: 05/21/20 09:42 Dose: 200 mls/hr Documented by: JAYDEN Sodium Chloride (Normal Saline) 1,000 mls @ 80 mls/hr IV ASDIRECTED [facility] [place] Promethazine HCl 12.5 mg/ (Sodium Chloride) 50.5 mls @ 100 mls/hr IV Q6H PRN PRN Reason: Nausea/Vomiting Morphine Sulfate (Morphine) 2 mg IVPUSH Q4H PRN PRN Reason: Pain (severe 7-10) Stop: 05/22/20 13:10 Non-Formulary Medication (Duloxetine) 60 mg PO DAILY [facility] [place] Non-Formulary Medication (Pantoprazole) 80 mg PO BID [facility] Tamsulosin HCl (Flomax) 0.4 mg PO DAILY [facility] Assessment/Plan Comment:: Assessment and plan: 1. AMS Etiology unknown. Could be due to opioids overdose UDS - presumptive positive for opiates, tricyclics, and THC Neurologist Dr German was consulted in the ER. Dr German felt the AMS is due to opioids and did not recommend any further evaluation. CT of head no acute change BP 110/69, RR 17, Spo2 93 on RM Mirtazaine, clonazepam and baclofen are on hold Card monitor Pulse ox Oxygen therapy EKG CK IV fluid 2. Fibula fracture, left. Orthopedist Dr. Osborn is on board. Really appreciate it s/p reduction and plaster sugar tong splint was applied by Dr. Osborn. As per Dr. Osborn, pt may be able to heal with a cast in about 2 weeks. 3. PRICILLA or PRICILLA on CKD, creatinine 1.2 on 02/12/2020 Avoiding nephrotoxic meds Losartan is on hold IV fluid Repeat the renal function in the morning. If not improving, will do more work- up 4. Electrolytes imbalance mag 1.5 Repleted and repeat it 5. COPD Inhalers 6. HTN Not high now continue diltiazem 120mg daily (do not know why patient is taking diltiazem. Atrial fibrillation?) clonidine, HCTZ and losartan are on hold 7. Pulmonary nodule CT chest 8. DVT prophylaxis: Heparin
[2020-05-21 14:18] LABS: HEMOGLOBIN A1C 5.9 %
[2020-05-21] MEDS: Heparin Sodium 5,000 Units/ML Vial SUBCUT SCH ×2 (15:29→22:33)
--- NOTE | 2020-05-21 16:37 | CT ---
CT chest Technique: Multiple xial sections through the chest were obtained. Study was obtained without intravenous contrast. Reconstructed coronal and sagittal images were obtained. Comparison: Prior chest x-ray performed earlier on 05/21/20 at around time 6:27 AM. Findings: Thoracic aorta shows mild atherosclerotic calcification without aneurysm. Mediastinum shows no adenopathy. No pericardial thickening is appreciated. Visualized portions of the upper abdominal structures show a small cyst within the left kidney. Small nonobstructing calculus is noted within the right kidney. Slightly lobulated noncalcified nodule is noted within the left upper lung. This measures about 1.4 cm in size. Large calcified nodule is noted within the upper right lung abutting the pleural margin. This large calcification measures approximately 1.8 cm. Lungs otherwise are clear. No acute parenchymal change is appreciated. Bone window settings were reviewed which show mild scattered degenerative change throughout the spine. No acute osseous finding is seen. Left chest shows several healed left-sided rib fractures. Impression: 1. Lobulated noncalcified nodule within the left upper chest measuring 1.4 cm. This is nonspecific for neoplasm. 2. Large calcified nodule within the upper right lung which abuts the pleura as noted above. 3. Other findings believed to be incidental as described above. Diagnostic code #9
[2020-05-21] MEDS: Acetaminophen 325 MG Tab PO PRN ×2 (17:01→23:02)
[2020-05-21] MEDS: Pantoprazole 40 MG Tab.CR PO SCH (22:34)
[2020-05-21] MEDS: Morphine 2 MG/ML SYRINGE IVPUSH PRN (23:00)
[2020-05-22] MEDS ORDERED: Simvastatin 20 MG Tab PO SCH (01:15)
[2020-05-22] MEDS: Aspirin 81 MG Tab.EC PO SCH ×2 (02:12→10:03)
[2020-05-22] MEDS: Morphine 2 MG/ML SYRINGE IVPUSH PRN (03:51)
[2020-05-22] MEDS: Heparin Sodium 5,000 Units/ML Vial SUBCUT SCH ×2 (05:48→13:23)
--- NOTE | 2020-05-22 08:38 | MR ---
MRI brain Technique: T1 sagittal; T2, T2 FLAIR, T1 and diffusion axial; T1 coronal images were obtained. Additional gradient echo coronal and axial images were obtained. Comparison: Prior head CT study performed earlier on the same day (08:04 AM). Findings: Ventricles along with basal cisterns and sulci over the convexities are mildly prominent. Mild scattered areas of increased signal are seen within the subcortical and periventricular white matter which is most likely due to small vessel ischemic demyelination change. No other abnormal parenchymal densities are appreciated. No acute diffusion abnormalities are appreciated. Impression: 1. Senescent change as described above. 2. No acute diffusion abnormalities are appreciated. Nothing acute is definitely identified on noncontrast MRI brain. Diagnostic code #2
--- NOTE | 2020-05-22 08:51 | CT ---
Head CT Technique: Multiple axial sections through the brain were obtained. Intravenous contrast was not utilized. Comparison: Prior head CT study of 05/21/20. Findings: Ventricles along with basal cisterns and sulci over the convexities are slightly prominent. Very minimal areas of diminished density are again noted within the periventricular white matter which is compatible with mild small vessel ischemic demyelination change. No other abnormal parenchymal densities are appreciated. No evidence of intracranial hemorrhage. Bone window settings were reviewed. Visualized paranasal sinuses and mastoid sinuses show nothing acute. No acute calvarial abnormality is appreciated. Impression: 1. Slight senescent change as noted above. 2. Nothing acute is identified on noncontrast head CT study. Diagnostic code #2 I agree with preliminary report from [facility], finalized on 05/21/20, 9:23 PM [employer]OO[employer] ASSIST[employer]
[2020-05-22] MEDS ORDERED: Aspirin 81 MG Tab.EC PO SCH (09:00)
[2020-05-22] MEDS ORDERED: Losartan 25 MG Tab PO SCH (09:00)
[2020-05-22] MEDS ORDERED: Tamsulosin 0.4 MG Cap.ER PO SCH (09:00)
[2020-05-22] MEDS ORDERED: Diltiazem 120 MG Cap.CD PO SCH (09:00)
[2020-05-22] MEDS: Sucralfate 1 GM Tab PO SCH ×4 (10:01→21:15)
[2020-05-22] MEDS: Acetaminophen 325 MG Tab PO PRN (10:01)
[2020-05-22] MEDS: Rosuvastatin 10 MG Tab PO SCH (10:02)
[2020-05-22] MEDS: Tamsulosin 0.4 MG Cap.ER PO SCH (10:03)
[2020-05-22] MEDS: Hydrochlorothiazide 25 MG Tab PO SCH (10:03)
[2020-05-22] MEDS: Venlafaxine 75 MG Cap.ER PO SCH (10:04)
[2020-05-22] MEDS: DULoxetine 30 MG Cap PO SCH (10:04)
[2020-05-22] MEDS: Pantoprazole 40 MG Tab.CR PO SCH ×2 (10:04→21:25)
--- NOTE | 2020-05-22 10:07 | US ---
Carotid ultrasound: Multiple real-time images were obtained. Comparison: No previous carotid imaging is available. Findings: Plaque: Moderate amount of diffuse plaque is seen within the carotid bulb and within the origins of both internal carotid arteries. Plaque shows irregular surface margins. Velocity measurements: Right side: CCA has a peak systolic velocity of 0.85 m/s. ICA has a peak systolic velocity of 1.33 m/s and peak end-diastolic velocity of 0.16 m/s. ECA has a peak systolic velocity of 0.90 m/s. Vertebral artery has a peak systolic velocity of 0.41 m/s. ICA/CCA ratio is 0.64. Left side: CCA has a peak systolic velocity of 1.01 m/s. ICA has a peak systolic velocity of 1.10 m/s and peak end-diastolic velocity of 0.25 m/s. ECA has a peak systolic velocity of 1.25 m/s. Vertebral artery has a peak systolic velocity of 0.68 m/s. ICA/CCA ratio is 0.20. Impression: 1. Moderate amount of diffuse plaque within the carotid bulbs and proximal internal carotid arteries. 2. Velocity measurements correlate to stenosis in the range of 1-49% within both internal carotid arteries. Diagnostic code #3
[2020-05-22] MEDS: Diltiazem 120 MG Cap.CD PO SCH (10:40)
--- NOTE | 2020-05-22 15:17 | PCM.PN ---
- General Info Date of Service: 05/22/20 Admission Dx/Problem (Free Text): Admission Diagnosis/Problem Admission Diagnosis/Problem Ankle fracture Subjective Update: Patient states he still feels a little lightheaded from his fall and hitting his head yesterday. MRI today was negative for acute findings. Functional Status: Reports: Pain Controlled - Review of Systems General: Reports: No Symptoms HEENT: Reports: No Symptoms Pulmonary: Reports: No Symptoms Cardiovascular: Reports: No Symptoms Gastrointestinal: Reports: No Symptoms Musculoskeletal: Reports: No Symptoms Neurological: Reports: Dizziness Psychiatric: Reports: No Symptoms - Patient Data Vitals - Most Recent: Last Vital Signs Temp 98.5 F 05/22/20 12:00 Pulse 104 H 05/22/20 11:01 Resp 21 H 05/22/20 12:01 BP 144/88 H 05/22/20 12:00 Pulse Ox 94 L 05/22/20 12:01 Weight - Most Recent: 169 lb 8 oz I&O - Last 24 Hours: Intake & Output 05/22/20 05/22/20 05/22/20 06:59 14:59 22:59 Intake Total 666 Output Total 60 600 Balance 606 -600 Lab Results Last 24 Hours: Laboratory Results - last 24 hr 05/22/20 05/22/20 Range/Units 06:46 06:46 WBC 8.37 (4.23-9.07) K/mm3 RBC 4.26 L (4.63-6.08) M/mm3 Hgb 12.4 L (13.7-17.5) gm/dl Hct 37.7 L (40.1-51.0) % MCV 88.5 (79.0-92.2) fl MCH 29.1 (25.7-32.2) pg MCHC 32.9 (32.2-35.5) g/dl RDW Std Deviation 47.2 H (35.1-43.9) fL Plt Count 324 (163-337) K/mm3 MPV 9.6 (9.4-12.3) fl Neut % (Auto) 59.1 (34.0-67.9) % Lymph % (Auto) 20.4 L (21.8-53.1) % [place] % (Auto) 18.3 H (5.3-12.2) % Eos % (Auto) 1.6 (0.8-7.0) Baso % (Auto) 0.4 (0.1-1.2) % Neut # (Auto) 4.95 (1.78-5.38) K/mm3 Lymph # (Auto) 1.71 (1.32-3.57) K/mm3 [place] # (Auto) 1.53 H (0.30-0.82) K/mm3 Eos # (Auto) 0.13 (0.04-0.54) K/mm3 Baso # (Auto) 0.03 (0.01-0.08) K/mm3 Manual Slide Review Normal smear Sodium 144 (136-145) mEq/L Potassium 3.8 (3.5-5.1) mEq/L Chloride 106 (98-107) mEq/L Carbon Dioxide 26 (21-32) mEq/L Anion Gap 15.8 H (5-15) BUN 13 (7-18) mg/dL Creatinine 1.1 D (0.7-1.3) mg/dL Est Cr Clr Drug Dosing 70.05 mL/min Estimated GFR (MDRD) > 60 (>60) mL/min BUN/Creatinine Ratio 11.8 L (14-18) Glucose 82 (80-115) mg/dL Calcium 8.7 (8.5-10.1) mg/dL Magnesium 1.8 (1.8-2.4) mg/dl Total Bilirubin 0.8 (0.2-1.0) mg/dL AST 56 H (15-37) U/L ALT 26 (16-63) U/L Alkaline Phosphatase 77 (46-116) U/L Total Protein 6.6 (6.4-8.2) g/dl Albumin 3.1 L (3.4-5.0) g/dl Globulin 3.5 gm/dL Albumin/Globulin Ratio 0.9 L (1-2) Noah Results Last 24 Hours: Microbiology 05/21/20 14:03 Aerobic Blood Culture - Preliminary Blood - Venous - Lab Draw NO GROWTH AFTER 1 DAY Anaerobic Blood Culture - Preliminary NO GROWTH AFTER 1 DAY 05/21/20 13:50 Aerobic Blood Culture - Preliminary Blood - Venous NO GROWTH AFTER 1 DAY Anaerobic Blood Culture - Preliminary NO GROWTH AFTER 1 DAY Med Orders - Current: Current Medications Acetaminophen (Tylenol) 650 mg PO Q6H PRN PRN Reason: Pain (Mild 1-3)/fever Last Admin: 05/22/20 10:01 Dose: 650 mg Documented by: Albuterol/Ipratropium (Duoneb 3.0-0.5 Mg/3 Ml) 3 ml NEB Q4H PRN PRN Reason: Shortness Of Breath/wheezing Amitriptyline HCl (Elavil) 75 mg PO BEDTIME [facility] Aspirin (Halfprin) 81 mg PO DAILY [facility] Last Admin: 05/22/20 10:03 Dose: 81 mg Documented by: Diltiazem HCl (Cardizem Cd) 120 mg PO DAILY [facility] Last Admin: 05/22/20 10:40 Dose: 120 mg Documented by: Duloxetine HCl (Cymbalta) 60 mg PO DAILY [facility] Last Admin: 05/22/20 10:04 Dose: 60 mg Documented by: Heparin Sodium (Porcine) (Heparin Sodium) 5,000 units SUBCUT Q8H [facility] Last Admin: 05/22/20 13:23 Dose: 5,000 units Documented by: Hydrochlorothiazide (Hydrochlorothiazide) 25 mg PO DAILY [facility] Last Admin: 05/22/20 10:03 Dose: 25 mg Documented by: Promethazine HCl 12.5 mg/ (Sodium Chloride) 50.5 mls @ 100 mls/hr IV Q6H PRN PRN Reason: Nausea/Vomiting Losartan Potassium (Cozaar) 50 mg PO DAILY [facility] Pantoprazole Sodium (Protonix) 80 mg PO BID [facility] Last Admin: 05/22/20 10:04 Dose: 80 mg Documented by: Rosuvastatin Calcium (Crestor) 5 mg PO DAILY [facility] Last Admin: 05/22/20 10:02 Dose: 5 mg Documented by: Sucralfate (Carafate) 1 gm PO QID [facility] Last Admin: 05/22/20 13:23 Dose: 1 gm Documented by: Tamsulosin HCl (Flomax) 0.8 mg PO DAILY [facility] Last Admin: 05/22/20 10:03 Dose: 0.8 mg Documented by: Venlafaxine HCl (Effexor Xr) 150 mg PO DAILY [facility] Last Admin: 05/22/20 10:04 Dose: 150 mg Documented by: Discontinued Medications Aspirin (Halfprin) 81 mg PO DAILY [facility] Diltiazem HCl (Cardizem Cd) 120 mg PO DAILY [facility] Hydromorphone HCl (Dilaudid) 1 mg IVPUSH ONETIME ONE Stop: 05/21/20 06:36 Last Admin: 05/21/20 06:44 Dose: 1 mg Documented by: Sodium Chloride (Normal Saline) 1,000 mls @ 150 mls/hr IV ASDIRECTED [facility] Last Admin: 05/21/20 06:44 Dose: 150 mls/hr Documented by: Magnesium Sulfate 4 gm/ Premix 50 mls @ 12.5 mls/hr IV ONETIME ONE Stop: 05/21/20 12:00 Last Admin: 05/21/20 08:34 Dose: 12.5 mls/hr Documented by: Sodium Chloride (Normal Saline) 1,000 mls @ 999 mls/hr IV ONETIME ONE Stop: 05/21/20 09:02 Last Admin: 05/21/20 08:37 Dose: Not Given Documented by: Sodium Chloride (Normal Saline) 1,000 mls @ 200 mls/hr IV NOW STA Stop: 05/21/20 14:36 Last Admin: 05/21/20 09:42 Dose: 200 mls/hr Documented by: Sodium Chloride (Normal Saline) 1,000 mls @ 80 mls/hr IV ASDIRECTED [facility] Last Admin: 05/21/20 15:29 Dose: 80 mls/hr Documented by: Losartan Potassium (Cozaar) 50 mg PO DAILY [facility] Last Admin: 05/22/20 10:02 Dose: 50 mg Documented by: Morphine Sulfate (Morphine) 2 mg IVPUSH Q4H PRN PRN Reason: Pain (severe 7-10) Stop: 05/22/20 13:10 Last Admin: 05/22/20 03:51 Dose: 2 mg Documented by: Naloxone HCl (Narcan) 0.4 mg IVPUSH ONETIME ONE Stop: 05/21/20 13:15 Last Admin: 05/21/20 15:13 Dose: Not Given Documented by: Ondansetron HCl (Zofran) 4 mg IVPUSH ONETIME ONE Stop: 05/21/20 06:36 Last Admin: 05/21/20 06:44 Dose: 4 mg Documented by: Simvastatin (Zocor) 20 mg PO BEDTIME [facility] Last Admin: 05/22/20 02:12 Dose: 20 mg Documented by: Tamsulosin HCl (Flomax) 0.4 mg PO DAILY [facility] - Exam Quality Assessment: No: Supplemental Oxygen General: Alert, Oriented HEENT: Pupils Equal, Mucous Membr. Moist/[place]: Supple Lungs: Clear to Auscultation, Normal Respiratory Effort Cardiovascular: Regular Rate, Regular Rhythm GI/Abdominal Exam: Normal Bowel Sounds, Soft, Non-Tender, No Organomegaly, No Distention, No Abnormal Bruit, No Mass Extremities: Normal Inspection, Normal Range of Motion, Non-Tender, No Pedal Edema, Normal Capillary Refill Skin: Warm, Dry, Intact Psy/Mental Status: Alert, Normal Affect, Normal Mood Sepsis Event Note - Evaluation Sepsis Screening Result: No Definite Risk - Focused Exam Vital Signs: Vital Signs Temp Pulse Resp BP BP Pulse Ox 05/22/20 12:01 21 H 94 L 05/22/20 12:00 98.5 F 21 H 144/88 H 94 L 05/22/20 11:59 21 H 93 L 05/22/20 11:50 22 H 163/94 H 95 05/22/20 11:49 26 H 95 05/22/20 11:01 104 H 18 94 L 05/22/20 11:00 99 20 143/89 H 94 L 05/22/20 10:59 103 H 20 95 05/22/20 10:47 99 17 150/91 H 96 05/22/20 10:46 98 21 H 96 05/22/20 10:42 100 18 146/118 H 92 L 05/22/20 10:41 102 H 21 H 93 L 05/22/20 10:40 104 H 146/118 H 05/22/20 10:36 22 H 05/22/20 10:02 179/111 H 05/22/20 10:01 98 18 96 05/22/20 10:00 100 24 H 179/111 H 98 05/22/20 09:59 95 17 96 05/22/20 09:01 87 17 138/77 94 L 05/22/20 09:00 89 19 94 L 05/22/20 08:15 99.0 F 16 162/87 H 94 L 05/22/20 08:12 97 23 H 162/87 H 94 L 05/22/20 08:11 18 05/22/20 07:02 15 161/106 H 05/22/20 07:01 17 05/22/20 07:00 15 05/22/20 06:07 106 H 17 148/89 H 98 05/22/20 06:06 108 H 17 97 05/22/20 06:00 99.1 F 105 H 15 148/89 H 95 05/22/20 05:01 96 23 H 95 05/22/20 05:00 95 16 150/83 H 96 05/22/20 04:59 93 18 96 05/22/20 04:01 100 21 H 95 05/22/20 04:00 99.1 F 99 18 138/85 138/85 95 05/22/20 03:59 100 16 94 L - Problem List & Annotations (1) Altered mental status SNOMED Code(s): 891885112 Code(s): R41.82 - ALTERED MENTAL STATUS, UNSPECIFIED Status: Acute Current Visit: Yes (2) Closed left ankle fracture SNOMED Code(s): 41651540 Code(s): S82.892A - OTH FRACTURE OF LEFT LOWER LEG, INIT FOR CLOS FX Status: Acute Current Visit: Yes - Problem List Review Problem List Initiated/Reviewed/Updated: Yes - My Orders Last 24 Hours: My Active Orders 05/22/20 08:27 Resuscitation Status Routine 05/22/20 09:00 Rosuvastatin [Crestor] 5 mg PO DAILY Sucralfate [Carafate] 1 gm PO QID Venlafaxine [Effexor XR] 150 mg PO DAILY hydroCHLOROthiazide 25 mg PO DAILY 05/22/20 10:30 Diltiazem [Cardizem CD] 120 mg PO DAILY 05/22/20 Lunch Regular Diet [DIET] 05/22/20 21:00 Amitriptyline [Elavil] 75 mg PO BEDTIME 05/23/20 09:00 Losartan [Cozaar] 50 mg PO DAILY - Plan Plan:: Assessment and plan: 05/21/2020 1. AMS Etiology unknown. Could be due to opioids overdose UDS - presumptive positive for opiates, tricyclics, and THC Neurologist Dr German was consulted in the ER. Dr German felt the AMS is due to opioids and did not recommend any further evaluation. CT of head no acute change BP 110/69, RR 17, Spo2 93 on RM Mirtazaine, clonazepam and baclofen are on hold Card monitor Pulse ox Oxygen therapy EKG CK IV fluid 2. Fibula fracture, left. Orthopedist Dr. Osborn is on board. Really appreciate it s/p reduction and plaster sugar tong splint was applied by Dr. Osborn. As per Dr. Osborn, pt may be able to heal with a cast in about 2 weeks. 3. PRICILLA or PRICILLA on CKD, creatinine 1.2 on 02/12/2020 Avoiding nephrotoxic meds Losartan is on hold IV fluid Repeat the renal function in the morning. If not improving, will do more work- up 4. Electrolytes imbalance mag 1.5 Repleted and repeat it 5. COPD Inhalers 6. HTN Not high now continue diltiazem 120mg daily (do not know why patient is taking diltiazem. Atrial fibrillation?) clonidine, HCTZ and losartan are on hold 7. Pulmonary nodule CT chest 8. DVT prophylaxis: Heparin 05/22/2020 1. AMS -resolved Etiology unknown. Could be due to opioids overdose MRI of the brain was negative for acute changes Mirtazaine, clonazepam and baclofen are on hold 2. Fibula fracture, left. As per Dr. Osborn, pt may be able to heal with a cast in about 2 weeks. Physical therapy ordered 3. PRICILLA or PRICILLA on CKD, creatinine 1.2 on 02/12/2020 Creatinine 1.1 with an estimated GFR 60 Restart losartan Stop IV fluid Repeat the renal function in the morning. 4. Electrolytes imbalance mag 1.8 5. COPD Inhalers 6. HTN Restart home meds continue diltiazem 120mg daily clonidine, HCTZ and losartan are on hold 7. Pulmonary nodule CT chest 8. DVT prophylaxis: Switch to Lovenox since renal functions improved
[2020-05-22] MEDS: traMADol 50 MG Tab PO PRN ×2 (16:33→21:25)
[2020-05-22] MEDS: Acetaminophen 325 MG Tab PO SCH ×2 (16:33→21:18)
[2020-05-22] MEDS: Amitriptyline 25 MG Tab PO SCH (21:18)
[2020-05-23] MEDS: traMADol 50 MG Tab PO PRN ×4 (03:57→16:02)
[2020-05-23] MEDS: Acetaminophen 325 MG Tab PO SCH ×4 (03:59→20:59)
[2020-05-23] MEDS: Losartan 50 MG Tab PO SCH (07:59)
[2020-05-23] MEDS: Enoxaparin 40 MG/0.4 ML Syringe SUBCUT SCH (07:59)
[2020-05-23] MEDS: Rosuvastatin 10 MG Tab PO SCH (07:59)
[2020-05-23] MEDS: Pantoprazole 40 MG Tab.CR PO SCH ×2 (08:00→20:48)
[2020-05-23] MEDS: Aspirin 81 MG Tab.EC PO SCH (08:00)
[2020-05-23] MEDS: Hydrochlorothiazide 25 MG Tab PO SCH (08:00)
[2020-05-23] MEDS: DULoxetine 30 MG Cap PO SCH (08:00)
[2020-05-23] MEDS: Sucralfate 1 GM Tab PO SCH ×5 (08:00→20:49)
[2020-05-23] MEDS: Diltiazem 120 MG Cap.CD PO SCH (08:00)
[2020-05-23] MEDS: Venlafaxine 75 MG Cap.ER PO SCH (08:01)
[2020-05-23] MEDS: Tamsulosin 0.4 MG Cap.ER PO SCH (08:01)
[2020-05-23] MEDS ORDERED: Potassium Chloride 20 MEQ Tab.ER PO ONE (13:05)
[2020-05-23] MEDS: Folic Acid 1 MG Tab PO SCH (14:05)
--- NOTE | 2020-05-23 14:50 | PCM.PN ---
- General Info Date of Service: 05/23/20 Admission Dx/Problem (Free Text): Admission Diagnosis/Problem Admission Diagnosis/Problem Ankle fracture Subjective Update: Patient is doing well. He does have some blisters on the ulnar aspect of the palms of his hands. These are from frostbite. They are nontender and not draining. Otherwise appetite is good. Functional Status: Reports: Pain Controlled - Review of Systems General: Reports: No Symptoms HEENT: Reports: No Symptoms Pulmonary: Reports: No Symptoms Cardiovascular: Reports: No Symptoms Musculoskeletal: Reports: No Symptoms Neurological: Reports: No Symptoms Psychiatric: Reports: No Symptoms - Patient Data Vitals - Most Recent: Last Vital Signs Temp 98 F 05/23/20 11:25 Pulse 73 05/23/20 08:00 Resp 18 05/23/20 11:25 BP 121/74 05/23/20 11:25 Pulse Ox 94 L 05/23/20 11:25 Weight - Most Recent: 170 lb I&O - Last 24 Hours: Intake & Output 05/22/20 05/23/20 05/23/20 22:59 06:59 14:59 Intake Total 1523 240 Output Total 350 600 Balance 1173 -600 240 Lab Results Last 24 Hours: Laboratory Results - last 24 hr 05/23/20 05/23/20 Range/Units 05:11 05:11 WBC 8.84 (4.23-9.07) K/mm3 RBC 4.17 L (4.63-6.08) M/mm3 Hgb 11.9 L (13.7-17.5) gm/dl Hct 37.1 L (40.1-51.0) % MCV 89.0 (79.0-92.2) fl MCH 28.5 (25.7-32.2) pg MCHC 32.1 L (32.2-35.5) g/dl RDW Std Deviation 48.3 H (35.1-43.9) fL Plt Count 314 (163-337) K/mm3 MPV 9.7 (9.4-12.3) fl Neut % (Auto) 58.1 (34.0-67.9) % Lymph % (Auto) 22.4 (21.8-53.1) % [place] % (Auto) 15.2 H (5.3-12.2) % Eos % (Auto) 3.6 (0.8-7.0) Baso % (Auto) 0.5 (0.1-1.2) % Neut # (Auto) 5.14 (1.78-5.38) K/mm3 Lymph # (Auto) 1.98 (1.32-3.57) K/mm3 [place] # (Auto) 1.34 H (0.30-0.82) K/mm3 Eos # (Auto) 0.32 (0.04-0.54) K/mm3 Baso # (Auto) 0.04 (0.01-0.08) K/mm3 Manual Slide Review Abnormal smear Sodium 142 (136-145) mEq/L Potassium 3.5 (3.5-5.1) mEq/L Chloride 105 (98-107) mEq/L Carbon Dioxide 27 (21-32) mEq/L Anion Gap 13.5 (5-15) BUN 15 (7-18) mg/dL Creatinine 1.1 (0.7-1.3) mg/dL Est Cr Clr Drug Dosing 70.05 mL/min Estimated GFR (MDRD) > 60 (>60) mL/min BUN/Creatinine Ratio 13.6 L (14-18) Glucose 99 (80-115) mg/dL Calcium 8.7 (8.5-10.1) mg/dL Total Bilirubin 0.7 (0.2-1.0) mg/dL AST 38 H (15-37) U/L ALT 27 (16-63) U/L Alkaline Phosphatase 75 (46-116) U/L Total Protein 6.2 L (6.4-8.2) g/dl Albumin 2.7 L (3.4-5.0) g/dl Globulin 3.5 gm/dL Albumin/Globulin Ratio 0.8 L (1-2) Noah Results Last 24 Hours: Microbiology 05/21/20 14:03 Aerobic Blood Culture - Preliminary Blood - Venous - Lab Draw NO GROWTH AFTER 2 DAYS Anaerobic Blood Culture - Preliminary NO GROWTH AFTER 2 DAYS 05/21/20 13:50 Aerobic Blood Culture - Preliminary Blood - Venous NO GROWTH AFTER 2 DAYS Anaerobic Blood Culture - Preliminary NO GROWTH AFTER 2 DAYS Med Orders - Current: Current Medications Acetaminophen (Tylenol) 650 mg PO Q6H [facility] Last Admin: 05/23/20 10:04 Dose: 650 mg Documented by: Albuterol/Ipratropium (Duoneb 3.0-0.5 Mg/3 Ml) 3 ml NEB Q4H PRN PRN Reason: Shortness Of Breath/wheezing Amitriptyline HCl (Elavil) 75 mg PO BEDTIME [facility] Last Admin: 05/22/20 21:18 Dose: 75 mg Documented by: Aspirin (Halfprin) 81 mg PO DAILY [facility] Last Admin: 05/23/20 08:00 Dose: 81 mg Documented by: Diltiazem HCl (Cardizem Cd) 120 mg PO DAILY [facility] Last Admin: 05/23/20 08:00 Dose: 120 mg Documented by: Duloxetine HCl (Cymbalta) 60 mg PO DAILY [facility] Last Admin: 05/23/20 08:00 Dose: 60 mg Documented by: Enoxaparin Sodium (Lovenox) 40 mg SUBCUT DAILY [facility] Last Admin: 05/23/20 07:59 Dose: 40 mg Documented by: Folic Acid (Folic Acid) 1 mg PO DAILY [facility] Last Admin: 05/23/20 14:05 Dose: 1 mg Documented by: Hydrochlorothiazide (Hydrochlorothiazide) 25 mg PO DAILY [facility] Last Admin: 05/23/20 08:00 Dose: 25 mg Documented by: Promethazine HCl 12.5 mg/ (Sodium Chloride) 50.5 mls @ 100 mls/hr IV Q6H PRN PRN Reason: Nausea/Vomiting Losartan Potassium (Cozaar) 50 mg PO DAILY [facility] Last Admin: 05/23/20 07:59 Dose: 50 mg Documented by: Pantoprazole Sodium (Protonix) 80 mg PO BID [facility] Last Admin: 05/23/20 08:00 Dose: 80 mg Documented by: Rosuvastatin Calcium (Crestor) 5 mg PO DAILY [facility] Last Admin: 05/23/20 07:59 Dose: 5 mg Documented by: Sucralfate (Carafate) 1 gm PO QID [facility] Last Admin: 05/23/20 13:28 Dose: Not Given Documented by: Tamsulosin HCl (Flomax) 0.8 mg PO DAILY [facility] Last Admin: 05/23/20 08:01 Dose: 0.8 mg Documented by: Thiamine HCl (Vitamin B-1) 100 mg PO BEDTIME [facility] Tramadol HCl (Ultram) 50 mg PO Q4H PRN PRN Reason: Pain (moderate 4-6) Last Admin: 05/23/20 11:39 Dose: 50 mg Documented by: Venlafaxine HCl (Effexor Xr) 150 mg PO DAILY [facility] Last Admin: 05/23/20 08:01 Dose: 150 mg Documented by: Discontinued Medications Acetaminophen (Tylenol) 650 mg PO Q6H PRN PRN Reason: Pain (Mild 1-3)/fever Last Admin: 05/22/20 10:01 Dose: 650 mg Documented by: Aspirin (Halfprin) 81 mg PO DAILY [facility] Diltiazem HCl (Cardizem Cd) 120 mg PO DAILY [facility] Heparin Sodium (Porcine) (Heparin Sodium) 5,000 units SUBCUT Q8H [facility] Last Admin: 05/22/20 13:23 Dose: 5,000 units Documented by: Hydromorphone HCl (Dilaudid) 1 mg IVPUSH ONETIME ONE Stop: 05/21/20 06:36 Last Admin: 05/21/20 06:44 Dose: 1 mg Documented by: Sodium Chloride (Normal Saline) 1,000 mls @ 150 mls/hr IV ASDIRECTED [facility] Last Admin: 05/21/20 06:44 Dose: 150 mls/hr Documented by: Magnesium Sulfate 4 gm/ Premix 50 mls @ 12.5 mls/hr IV ONETIME ONE Stop: 05/21/20 12:00 Last Admin: 05/21/20 08:34 Dose: 12.5 mls/hr Documented by: Sodium Chloride (Normal Saline) 1,000 mls @ 999 mls/hr IV ONETIME ONE Stop: 05/21/20 09:02 Last Admin: 05/21/20 08:37 Dose: Not Given Documented by: Sodium Chloride (Normal Saline) 1,000 mls @ 200 mls/hr IV NOW STA Stop: 05/21/20 14:36 Last Admin: 05/21/20 09:42 Dose: 200 mls/hr Documented by: Sodium Chloride (Normal Saline) 1,000 mls @ 80 mls/hr IV ASDIRECTED [facility] Last Admin: 05/21/20 15:29 Dose: 80 mls/hr Documented by: Losartan Potassium (Cozaar) 50 mg PO DAILY [facility] Last Admin: 05/22/20 10:02 Dose: 50 mg Documented by: Morphine Sulfate (Morphine) 2 mg IVPUSH Q4H PRN PRN Reason: Pain (severe 7-10) Stop: 05/22/20 13:10 Last Admin: 05/22/20 03:51 Dose: 2 mg Documented by: Naloxone HCl (Narcan) 0.4 mg IVPUSH ONETIME ONE Stop: 05/21/20 13:15 Last Admin: 05/21/20 15:13 Dose: Not Given Documented by: Ondansetron HCl (Zofran) 4 mg IVPUSH ONETIME ONE Stop: 05/21/20 06:36 Last Admin: 05/21/20 06:44 Dose: 4 mg Documented by: Potassium Chloride (Klor-Con M20) 40 meq PO ONETIME ONE Stop: 05/23/20 13:06 Last Admin: 05/23/20 14:05 Dose: 40 meq Documented by: Simvastatin (Zocor) 20 mg PO BEDTIME [facility] Last Admin: 05/22/20 02:12 Dose: 20 mg Documented by: Tamsulosin HCl (Flomax) 0.4 mg PO DAILY [facility] - Exam Quality Assessment: No: Supplemental Oxygen General: Alert HEENT: Pupils Equal, Mucous Membr. Moist/[place] Neck: Supple Lungs: Clear to Auscultation, Normal Respiratory Effort Cardiovascular: Regular Rate, Regular Rhythm GI/Abdominal Exam: Normal Bowel Sounds, Soft, Non-Tender, No Distention Extremities: Normal Inspection, No Pedal Edema, Normal Capillary Refill Skin: Warm, Dry, Intact Psy/Mental Status: Alert, Normal Affect, Normal Mood Sepsis Event Note - Evaluation Sepsis Screening Result: No Definite Risk - Focused Exam Vital Signs: Vital Signs Temp Pulse Resp BP BP Pulse Ox 05/23/20 11:25 98 F 18 121/74 94 L 05/23/20 09:02 21 H 93/62 05/23/20 09:01 23 H 05/23/20 09:00 31 H 05/23/20 08:00 73 25 H 104/72 92 L 05/23/20 07:59 17 104/72 95 05/23/20 07:58 19 95 05/23/20 07:35 97.2 F 16 114/80 97 05/23/20 07:33 18 114/80 96 05/23/20 07:32 19 96 05/23/20 07:01 20 96 05/23/20 07:00 18 84/55 L 96 05/23/20 06:59 16 96 02/11/21 06:01 16 95 05/23/20 06:00 17 101/68 95 05/23/20 05:59 16 95 05/23/20 05:01 19 95 05/23/20 05:00 17 123/88 95 05/23/20 04:59 17 95 05/23/20 04:01 15 96 05/23/20 04:00 98.7 F 17 131/75 131/75 96 05/23/20 03:59 16 95 05/23/20 03:01 16 96 05/23/20 03:00 15 115/76 96 05/23/20 02:59 17 96 - Problem List & Annotations (1) Altered mental status SNOMED Code(s): 231851109 Code(s): R41.82 - ALTERED MENTAL STATUS, UNSPECIFIED Status: Acute Current Visit: Yes (2) Closed left ankle fracture SNOMED Code(s): 35069919 Code(s): S82.892A - OTH FRACTURE OF LEFT LOWER LEG, INIT FOR CLOS FX Status: Acute Current Visit: Yes - Problem List Review Problem List Initiated/Reviewed/Updated: Yes - My Orders Last 24 Hours: My Active Orders 05/22/20 15:55 traMADol [Ultram] 50 mg PO Q4H PRN 05/22/20 16:00 Acetaminophen [TylenoL] 650 mg PO Q6H 05/22/20 21:00 Amitriptyline [Elavil] 75 mg PO BEDTIME 05/23/20 09:00 Enoxaparin [Lovenox] 40 mg SUBCUT DAILY Losartan [Cozaar] 50 mg PO DAILY 05/23/20 Lunch Regular Diet [DIET] 05/23/20 10:08 Patient Status [ADT] Routine 05/23/20 14:00 Folic Acid 1 mg PO DAILY 05/23/20 21:00 Thiamine [Vitamin B-1] 100 mg PO BEDTIME - Plan Plan:: Assessment and plan: 05/21/2020 1. AMS Etiology unknown. Could be due to opioids overdose UDS - presumptive positive for opiates, tricyclics, and THC Neurologist Dr German was consulted in the ER. Dr German felt the AMS is due to opioids and did not recommend any further evaluation. CT of head no acute change BP 110/69, RR 17, Spo2 93 on RM Mirtazaine, clonazepam and baclofen are on hold Card monitor Pulse ox Oxygen therapy EKG CK IV fluid 2. Fibula fracture, left. Orthopedist Dr. Osborn is on board. Really appreciate it s/p reduction and plaster sugar tong splint was applied by Dr. Osborn. As per Dr. Osborn, pt may be able to heal with a cast in about 2 weeks. 3. PRICILLA or PRICILLA on CKD, creatinine 1.2 on 02/12/2020 Avoiding nephrotoxic meds Losartan is on hold IV fluid Repeat the renal function in the morning. If not improving, will do more work- up 4. Electrolytes imbalance mag 1.5 Repleted and repeat it 5. COPD Inhalers 6. HTN Not high now continue diltiazem 120mg daily (do not know why patient is taking diltiazem. Atrial fibrillation?) clonidine, HCTZ and losartan are on hold 7. Pulmonary nodule CT chest 8. DVT prophylaxis: Heparin 05/22/2020 1. AMS -resolved Etiology unknown. Could be due to opioids overdose MRI of the brain was negative for acute changes Mirtazaine, clonazepam and baclofen are on hold 2. Fibula fracture, left. As per Dr. Osborn, pt may be able to heal with a cast in about 2 weeks. Physical therapy ordered 3. PRICILLA or PRICILLA on CKD, creatinine 1.2 on 02/12/2020 Creatinine 1.1 with an estimated GFR 60 Restart losartan Stop IV fluid Repeat the renal function in the morning. 4. Electrolytes imbalance mag 1.8 5. COPD Inhalers 6. HTN Restart home meds continue diltiazem 120mg daily clonidine, HCTZ and losartan are on hold 7. Pulmonary nodule CT chest 8. DVT prophylaxis: Switch to Lovenox since renal functions improved May 23, 2020 1. AMS -resolved Etiology unknown. Could be due to opioids overdose MRI of the brain was negative for acute changes Mirtazaine, clonazepam and baclofen are on hold 2. Fibula fracture, left. As per Dr. Osborn, pt may be able to heal with a cast in about 2 weeks. Physical therapy ordered 3. PRICILLA or PRICILLA on CKD, creatinine 1.2 on 02/12/2020 Currently creatinine 1.1 with an estimated GFR 60 Losartan restarted 4. COPD Inhalers 5. HTN Restart home meds continue diltiazem 120mg daily Restarted losartan and hydrochlorothiazide 7. Pulmonary nodule CT chest: 1. Lobulated noncalcified nodule within the left upper chest measuring 1.4 cm. This is nonspecific for neoplasm. 2. Large calcified nodule within the upper right lung which abuts the pleura as noted above. 3. Other findings believed to be incidental as described above Follow-up as outpatient with primary care provider. 8. DVT prophylaxis: Switch to Lovenox since renal functions improved Discharge pending placement
[2020-05-23] MEDS: Amitriptyline 25 MG Tab PO SCH (20:50)
[2020-05-23] MEDS ORDERED: Thiamine 100 MG Tab PO SCH (21:00)
[2020-05-24] MEDS: Acetaminophen 325 MG Tab PO SCH ×2 (04:55→09:04)
[2020-05-24] MEDS: Aspirin 81 MG Tab.EC PO SCH (08:35)
[2020-05-24] MEDS: Enoxaparin 40 MG/0.4 ML Syringe SUBCUT SCH (08:35)
[2020-05-24] MEDS: Venlafaxine 75 MG Cap.ER PO SCH (08:35)
[2020-05-24] MEDS: Folic Acid 1 MG Tab PO SCH (08:36)
[2020-05-24] MEDS: Losartan 50 MG Tab PO SCH (08:36)
[2020-05-24] MEDS: Hydrochlorothiazide 25 MG Tab PO SCH (08:38)
[2020-05-24] MEDS: Diltiazem 120 MG Cap.CD PO SCH (08:38)
[2020-05-24] MEDS: DULoxetine 30 MG Cap PO SCH (08:38)
[2020-05-24] MEDS: Rosuvastatin 10 MG Tab PO SCH (08:38)
[2020-05-24] MEDS: Sucralfate 1 GM Tab PO SCH (08:38)
[2020-05-24] MEDS: Pantoprazole 40 MG Tab.CR PO SCH (08:38)
[2020-05-24] MEDS: traMADol 50 MG Tab PO PRN (08:38)
[2020-05-24] MEDS: Tamsulosin 0.4 MG Cap.ER PO SCH (08:39)
[2020-05-24 08:40] VITALS: BP 110/75; PULSE 100
--- NOTE | 2020-05-24 10:32 | PCM.DCSUM1 ---
Discharge Summary - Hospital Course HPI Initial Comments: Patient is a 64-year-old male with a history of hypertension and COPD who was brought to the ER by EMS due to fall and being confused. Patient does not answer any questions. All medical history is obtained from ER physician notes. It was reported that patient fell at home and he was d found to being confused. His home medication including oxycodone and clonazepam. In the ER, CT of head negative for acute change. Urine drug screen showed presumptive positive for opiates, tricyclics, and THC. Neurologist Dr German was consulted in the ER. Dr German felt the AMS is due to opioids and did not recommend any further evaluation. When I saw this patient in the ER, she could be work-up by pain stimuli but he did not answer questions. Left ankle was wrapped. Assessment and plan: 1. AMS Etiology unknown. Could be due to opioids overdose UDS - presumptive positive for opiates, tricyclics, and THC Neurologist Dr German was consulted in the ER. Dr German felt the AMS is due to opioids and did not recommend any further evaluation. CT of head no acute change BP 110/69, RR 17, Spo2 93 on RM Mirtazaine, clonazepam and baclofen are on hold Card monitor Pulse ox Oxygen therapy EKG CK IV fluid 2. Fibula fracture, left. Orthopedist Dr. Osborn is on board. Really appreciate it s/p reduction and plaster sugar tong splint was applied by Dr. Osborn. As per Dr. Osborn, pt may be able to heal with a cast in about 2 weeks. 3. PRICILLA or PRICILLA on CKD, creatinine 1.2 on 02/12/2020 Avoiding nephrotoxic meds Losartan is on hold IV fluid Repeat the renal function in the morning. If not improving, will do more work- up 4. Electrolytes imbalance mag 1.5 Repleted and repeat it 5. COPD Inhalers 6. HTN Not high now continue diltiazem 120mg daily (do not know why patient is taking diltiazem. Atrial fibrillation?) clonidine, HCTZ and losartan are on hold 7. Pulmonary nodule CT chest 8. DVT prophylaxis: Heparin Diagnosis: Stroke: No - Discharge Data Discharge Date: 05/24/20 Discharge Disposition: DC/Tfer to SNF 03 Condition: Good - Referral to Home Health Primary Care Physician: PCP None - Discharge Diagnosis/Problem(s) (1) Altered mental status SNOMED Code(s): 036050464 ICD Code: R41.82 - ALTERED MENTAL STATUS, UNSPECIFIED Status: Acute Current Visit: Yes (2) Closed left ankle fracture SNOMED Code(s): 29809608 ICD Code: S82.892A - OTH FRACTURE OF LEFT LOWER LEG, INIT FOR CLOS FX Status: Acute Current Visit: Yes - Patient Summary/Data Consults: Consultations 05/21/20 13:11 OT Evaluation and Treatment [CONS] Routine PT Evaluation and Treatment [CONS] Routine Hospital Course: Assessment and plan: 05/21/2020 1. AMS Etiology unknown. Could be due to opioids overdose UDS - presumptive positive for opiates, tricyclics, and THC Neurologist Dr German was consulted in the ER. Dr German felt the AMS is due to opioids and did not recommend any further evaluation. CT of head no acute change BP 110/69, RR 17, Spo2 93 on RM Mirtazaine, clonazepam and baclofen are on hold Card monitor Pulse ox Oxygen therapy EKG CK IV fluid 2. Fibula fracture, left. Orthopedist Dr. Osborn is on board. Really appreciate it s/p reduction and plaster sugar tong splint was applied by Dr. Osborn. As per Dr. Osborn, pt may be able to heal with a cast in about 2 weeks. 3. PRICILLA or PRICILLA on CKD, creatinine 1.2 on 02/12/2020 Avoiding nephrotoxic meds Losartan is on hold IV fluid Repeat the renal function in the morning. If not improving, will do more work- up 4. Electrolytes imbalance mag 1.5 Repleted and repeat it 5. COPD Inhalers 6. HTN Not high now continue diltiazem 120mg daily (do not know why patient is taking diltiazem. Atrial fibrillation?) clonidine, HCTZ and losartan are on hold 7. Pulmonary nodule CT chest 8. DVT prophylaxis: Heparin 05/22/2020 1. AMS -resolved Etiology unknown. Could be due to opioids overdose MRI of the brain was negative for acute changes Mirtazaine, clonazepam and baclofen are on hold 2. Fibula fracture, left. As per Dr. Osborn, pt may be able to heal with a cast in about 2 weeks. Physical therapy ordered 3. PRICILLA or PRICILLA on CKD, creatinine 1.2 on 02/12/2020 Creatinine 1.1 with an estimated GFR 60 Restart losartan Stop IV fluid Repeat the renal function in the morning. 4. Electrolytes imbalance mag 1.8 5. COPD Inhalers 6. HTN Restart home meds continue diltiazem 120mg daily clonidine, HCTZ and losartan are on hold 7. Pulmonary nodule CT chest 8. DVT prophylaxis: Switch to Lovenox since renal functions improved May 23, 2020 1. AMS -resolved Etiology unknown. Could be due to opioids overdose MRI of the brain was negative for acute changes Mirtazaine, clonazepam and baclofen are on hold 2. Fibula fracture, left. As per Dr. Osborn, pt may be able to heal with a cast in about 2 weeks. Physical therapy ordered 3. PRICILLA or PRICILLA on CKD, creatinine 1.2 on 02/12/2020 Currently creatinine 1.1 with an estimated GFR 60 Losartan restarted 4. COPD Inhalers 5. HTN Restart home meds continue diltiazem 120mg daily Restarted losartan and hydrochlorothiazide 7. Pulmonary nodule CT chest: 1. Lobulated noncalcified nodule within the left upper chest measuring 1.4 cm. This is nonspecific for neoplasm. 2. Large calcified nodule within the upper right lung which abuts the pleura as noted above. 3. Other findings believed to be incidental as described above Follow-up as outpatient with primary care provider. 8. DVT prophylaxis: Switch to Lovenox since renal functions improved May 24, 2020 Altered renal status and acute kidney injury has resolved. He is off of oxygen and doing well. He does have the above pulmonary nodule that will need to be followed up by his primary care provider. - Patient Instructions Diet: Usual Diet as Tolerated Driving: Do Not Drive Showering/Bathing: No Showering Notify Provider of: Fever, Increased Pain, Nausea and/or Vomiting Other/Special Instructions: Follow-up with your primary care provider and orthopedic surgeon in 2 weeks. - Discharge Plan *PRESCRIPTION DRUG MONITORING PROGRAM REVIEWED*: Not Applicable *COPY OF PRESCRIPTION DRUG MONITORING REPORT IN PATIENT LETICIA: Not Applicable Prescriptions/Med Rec: Sucralfate [Carafate] 1 gm PO QID #120 Diltiazem [Cardizem CD] 120 mg PO DAILY #30 cap.cd Losartan [Cozaar] 50 mg PO DAILY #60 Rosuvastatin [Crestor] 5 mg PO DAILY #30 DULoxetine [Cymbalta] 60 mg PO DAILY #60 cap Amitriptyline [Elavil] 75 mg PO BEDTIME #30 Folic Acid 1 mg PO DAILY #30 tablet Aspirin [Halfprin] 81 mg PO DAILY #30 tab.ec hydroCHLOROthiazide [Hydrochlorothiazide] 25 mg PO DAILY #30 Tamsulosin HCl 0.8 mg PO DAILY #60 traMADol [Ultram] 50 mg PO Q4H PRN #30 tablet PRN Reason: Pain (Moderate 4-6) Venlafaxine [Venlafaxine HCl ER] 150 mg PO DAILY #30 Thiamine [Vitamin B-1] 100 mg PO BEDTIME #30 tablet Home Medications: Home Meds Pantoprazole [ProTONIX] 40 mg PO BID 03/18/16 [History] Diltiazem [Cardizem CD] 120 mg PO DAILY 12/23/17 [History] Amitriptyline [Elavil] 75 mg PO BEDTIME #30 05/24/20 [Rx] Aspirin [Halfprin] 81 mg PO DAILY #30 tab.ec 05/24/20 [Rx] DULoxetine [Cymbalta] 60 mg PO DAILY #60 cap 05/24/20 [Rx] Diltiazem [Cardizem CD] 120 mg PO DAILY #30 cap.cd 05/24/20 [Rx] Folic Acid 1 mg PO DAILY #30 tablet 05/24/20 [Rx] Losartan [Cozaar] 50 mg PO DAILY #60 05/24/20 [Rx] Rosuvastatin [Crestor] 5 mg PO DAILY #30 05/24/20 [Rx] Sucralfate [Carafate] 1 gm PO QID #120 05/24/20 [Rx] Tamsulosin HCl 0.8 mg PO DAILY #60 05/24/20 [Rx] Thiamine [Vitamin B-1] 100 mg PO BEDTIME #30 tablet 05/24/20 [Rx] Venlafaxine [Venlafaxine HCl ER] 150 mg PO DAILY #30 05/24/20 [Rx] hydroCHLOROthiazide [Hydrochlorothiazide] 25 mg PO DAILY #30 05/24/20 [Rx] traMADol [Ultram] 50 mg PO Q4H PRN #30 tablet 05/24/20 [Rx] Patient Handouts: Steps to Quit Smoking Forms: ED Department Discharge Referrals: Talha Fitch MD [Physician] - 05/31/20 1:00 pm (Arrive at 12:45 for check in and appt. time is at 1p.m.) - Discharge Summary/Plan Comment DC Time >30 min.: Yes - General Info Date of Service: 05/24/20 Admission Dx/Problem (Free Text: Admission Diagnosis/Problem Admission Diagnosis/Problem Ankle fracture Subjective Update: Patient is doing well. - Patient Data Vitals - Most Recent: Last Vital Signs Temp 98.6 F 05/24/20 08:36 Pulse 100 05/24/20 08:38 Resp 16 05/24/20 08:36 BP 110/75 05/24/20 08:38 Pulse Ox 92 L 05/24/20 08:36 Weight - Most Recent: 171 lb 1.6 oz I&O - Last 24 hours: Intake & Output 05/23/20 05/24/20 05/24/20 22:59 06:59 14:59 Intake Total 1400 600 Output Total 800 300 Balance 600 300 COCO Results - Last 24 hrs: Microbiology 05/21/20 14:03 Aerobic Blood Culture - Preliminary Blood - Venous - Lab Draw NO GROWTH AFTER 2 DAYS Anaerobic Blood Culture - Preliminary NO GROWTH AFTER 2 DAYS 05/21/20 13:50 Aerobic Blood Culture - Preliminary Blood - Venous NO GROWTH AFTER 2 DAYS Anaerobic Blood Culture - Preliminary NO GROWTH AFTER 2 DAYS Med Orders - Current: Current Medications Acetaminophen (Tylenol) 650 mg PO Q6H [facility] Last Admin: 05/24/20 09:04 Dose: 650 mg Documented by: Albuterol/Ipratropium (Duoneb 3.0-0.5 Mg/3 Ml) 3 ml NEB Q4H PRN PRN Reason: Shortness Of Breath/wheezing Amitriptyline HCl (Elavil) 75 mg PO BEDTIME [facility] Last Admin: 05/23/20 20:50 Dose: 75 mg Documented by: Aspirin (Halfprin) 81 mg PO DAILY [facility] Last Admin: 05/24/20 08:35 Dose: 81 mg Documented by: Diltiazem HCl (Cardizem Cd) 120 mg PO DAILY [facility] Last Admin: 05/24/20 08:38 Dose: 120 mg Documented by: Duloxetine HCl (Cymbalta) 60 mg PO DAILY [facility] Last Admin: 05/24/20 08:38 Dose: 60 mg Documented by: Enoxaparin Sodium (Lovenox) 40 mg SUBCUT DAILY [facility] Last Admin: 05/24/20 08:35 Dose: 40 mg Documented by: Folic Acid (Folic Acid) 1 mg PO DAILY [facility] Last Admin: 05/24/20 08:36 Dose: 1 mg Documented by: Hydrochlorothiazide (Hydrochlorothiazide) 25 mg PO DAILY [facility] Last Admin: 05/24/20 08:38 Dose: 25 mg Documented by: Promethazine HCl 12.5 mg/ (Sodium Chloride) 50.5 mls @ 100 mls/hr IV Q6H PRN PRN Reason: Nausea/Vomiting Losartan Potassium (Cozaar) 50 mg PO DAILY [facility] Last Admin: 05/24/20 08:36 Dose: 50 mg Documented by: Pantoprazole Sodium (Protonix) 80 mg PO BID [facility] Last Admin: 05/24/20 08:38 Dose: 80 mg Documented by: Rosuvastatin Calcium (Crestor) 5 mg PO DAILY [facility] Last Admin: 05/24/20 08:38 Dose: 5 mg Documented by: Sucralfate (Carafate) 1 gm PO QID [facility] Last Admin: 05/24/20 08:38 Dose: 1 gm Documented by: Tamsulosin HCl (Flomax) 0.8 mg PO DAILY [facility] Last Admin: 05/24/20 08:39 Dose: 0.8 mg Documented by: Thiamine HCl (Vitamin B-1) 100 mg PO BEDTIME [facility] Last Admin: 05/23/20 20:49 Dose: 100 mg Documented by: Tramadol HCl (Ultram) 50 mg PO Q4H PRN PRN Reason: Pain (moderate 4-6) Last Admin: 05/24/20 08:38 Dose: 50 mg Documented by: Venlafaxine HCl (Effexor Xr) 150 mg PO DAILY [facility] Last Admin: 05/24/20 08:35 Dose: 150 mg Documented by: Discontinued Medications Acetaminophen (Tylenol) 650 mg PO Q6H PRN PRN Reason: Pain (Mild 1-3)/fever Last Admin: 05/22/20 10:01 Dose: 650 mg Documented by: Aspirin (Halfprin) 81 mg PO DAILY [facility] Diltiazem HCl (Cardizem Cd) 120 mg PO DAILY [facility] Heparin Sodium (Porcine) (Heparin Sodium) 5,000 units SUBCUT Q8H [facility] Last Admin: 05/22/20 13:23 Dose: 5,000 units Documented by: Hydromorphone HCl (Dilaudid) 1 mg IVPUSH ONETIME ONE Stop: 05/21/20 06:36 Last Admin: 05/21/20 06:44 Dose: 1 mg Documented by: Sodium Chloride (Normal Saline) 1,000 mls @ 150 [facility] Last Admin: 05/21/20 06:44 Dose: 150 mls/hr Documented by: Magnesium Sulfate 4 gm/ Premix 50 mls @ 12.5 mls/hr IV ONETIME ONE Stop: 05/21/20 12:00 Last Admin: 05/21/20 08:34 Dose: 12.5 mls/hr Documented by: Sodium Chloride (Normal Saline) 1,000 mls @ 999 mls/hr IV ONETIME ONE Stop: 05/21/20 09:02 Last Admin: 05/21/20 08:37 Dose: Not Given Documented by: Sodium Chloride (Normal Saline) 1,000 mls @ 200 mls/hr IV NOW STA Stop: 05/21/20 14:36 Last Admin: 05/21/20 09:42 Dose: 200 mls/hr Documented by: Sodium Chloride (Normal Saline) 1,000 mls @ 80 [facility] Last Admin: 05/21/20 15:29 Dose: 80 mls/hr Documented by: Losartan Potassium (Cozaar) 50 mg PO DAILY [facility] Last Admin: 05/22/20 10:02 Dose: 50 mg Documented by: Morphine Sulfate (Morphine) 2 mg IVPUSH Q4H PRN PRN Reason: Pain (severe 7-10) Stop: 05/22/20 13:10 Last Admin: 05/22/20 03:51 Dose: 2 mg Documented by: Naloxone HCl (Narcan) 0.4 mg IVPUSH ONETIME ONE Stop: 05/21/20 13:15 Last Admin: 05/21/20 15:13 Dose: Not Given Documented by: Ondansetron HCl (Zofran) 4 mg IVPUSH ONETIME ONE Stop: 05/21/20 06:36 Last Admin: 05/21/20 06:44 Dose: 4 mg Documented by: Potassium Chloride (Klor-Con M20) 40 meq PO ONETIME ONE Stop: 05/23/20 13:06 Last Admin: 05/23/20 14:05 Dose: 40 meq Documented by: Simvastatin (Zocor) 20 mg PO BEDTIME [facility] Last Admin: 05/22/20 02:12 Dose: 20 mg Documented by: Tamsulosin HCl (Flomax) 0.4 mg PO DAILY [facility] - Exam Quality Assessment: Denies: Supplemental Oxygen General: Reports: Alert, Oriented HEENT: Reports: Pupils Equal, Mucous Membr. Moist/[place] Neck: Reports: Supple Lungs: Reports: Clear to Auscultation, Normal Respiratory Effort Cardiovascular: Reports: Regular Rate, Regular Rhythm GI/Abdominal Exam: Normal Bowel Sounds, Soft, Non-Tender, No Organomegaly, No Distention, No Abnormal Bruit, No Mass Psy/Mental Status: Reports: Alert, Normal Affect, Normal Mood
== END 2020-05-24 11:20 | DRG 918 ==
LOC: JD.ED 06:19 → JD.ICU 12:56
PROVIDERS: ADMIT Internal Medicine; ATTEND Internal Medicine
DX: T40.2X1A Poisoning by other opioids, accidental (unintentional), initial encounter (principal); N17.9 Acute kidney failure, unspecified; J44.9 Chronic obstructive pulmonary disease, unspecified; I12.9 Hypertensive chronic kidney disease with stage 1 through stage 4 chronic kidney disease, or unspecified chronic kidney disease; R91.1 Solitary pulmonary nodule; N18.9 Chronic kidney disease, unspecified; S82.402A Unspecified fracture of shaft of left fibula, initial encounter for closed fracture; B18.2 Chronic viral hepatitis C; W18.30XA Fall on same level, unspecified, initial encounter; K21.9 Gastro-esophageal reflux disease without esophagitis; Z20.822 Contact with and (suspected) exposure to COVID-19; N40.0 Benign prostatic hyperplasia without lower urinary tract symptoms; F32.9 Major depressive disorder, single episode, unspecified; F41.9 Anxiety disorder, unspecified; Y92.89 Other specified places as the place of occurrence of the external cause; Z86.010 Personal history of colon polyps; Z90.49 Acquired absence of other specified parts of digestive tract; Z87.442 Personal history of urinary calculi
CPT/HCPCS: 27810; 36415; 70450; 70450-26; 70551; 70551-26; 71045; 71045-26; 71250; 71250-26; 73590-26-LT; 73590-LT; 73600-26-LT; 73600-LT; 73610-26-LT; 73610-LT; 80053; 80179; 80306; 81001; 82550; 83036; 83735; 83880; 84484; 85007; 85025; 85027; 87040; 93005; 93010; 93306; 93880; 93880-26; 96365; 96366; 96375; 97110-GO; 97110-GP; 97116-GP; 97162-GP; 97165-GO; 97530-GP; 97535-GO; 99222; 99232; 99239; 99285; 99285-25; A9270-GY; J1170; J1644; J1650; J2270; J2405; J3475; J7030; U0002

== ENCOUNTER 2020-06-03 09:28 | Day surgery (SDC) | payer MEDICAID ==
[~2020-06-03 09:28] MED LIST: Dexamethasone 4 MG/ML 5 ML MDV ONE; Lactated Ringers 1,000 ML IV SCH; Lidocaine 1%/Sod Bicarbonate in NS 8.4% 1 ML Syringe IDERM PRN; Lidocaine 2% with EPINEPHrine 1:200,000 20 ML SDV ONE; Ropivacaine 0.5% 5 MG/ML 30 ML SDV ONE; Sodium Chloride 0.9% 10 ML Syringe FLUSH PRN; cloNIDine 1,000 MCG/10 ML SDV ONE
[2020-06-03] MEDS ORDERED: Bupivacaine 0.25% 10 ML SDV ONE (10:27)
[2020-06-03] MEDS ORDERED: Midazolam 1 MG/ML 2 ML SDV ONE (10:49)
[2020-06-03] MEDS ORDERED: fentaNYL 100 MCG/2 ML SDV ONE (10:49)
[2020-06-03] MEDS ORDERED: Propofol 200 MG/20 ML SDV ONE ×2 (11:37→11:38)
[2020-06-03] MEDS ORDERED: Lidocaine 1% 4 ML ONE (11:43)
[2020-06-03] MEDS ORDERED: ceFAZolin 1 GM Vial ONE (12:02)
--- NOTE | 2020-06-03 12:22 | PCM.PREANE ---
Preanesthetic Assessment - Procedure Proposed Procedure: Left ankle fracture ORIF - Anesthesia/Transfusion/Family Hx Anesthesia History: Unknown Transfusion History: Unknown - Review of Systems General: No Symptoms Pulmonary: No Symptoms Cardiovascular: No Symptoms Gastrointestinal: No Symptoms Neurological: No Symptoms Other: Reports: Depression, Anxiety - Physical Assessment NPO Status Date: 06/02/20 NPO Status Time: 20:00 Vital Signs: Last Vital Signs Temp 97.8 F 06/03/20 09:40 Pulse 95 06/03/20 11:30 Resp 18 06/03/20 11:30 BP 100/61 06/03/20 11:30 Pulse Ox 100 06/03/20 11:30 Height: 1.8 m Weight: 76.657 kg ASA Class: 3 Mental Status: Alert & Oriented x3 Airway Class: Mallampati = 1 Dentition: Reports: Edentulous Thyro-Mental Finger Breadths: 3 Mouth Opening Finger Breadths: 3 ROM/Head Extension: Full Lungs: Clear to Auscultation, Normal Respiratory Effort Cardiovascular: Regular Rate, Regular Rhythm - Lab Values: Laboratory Last Values PT 10.4 SECONDS (9.7-12.0) 06/03/20 10:40 INR 0.97 06/03/20 10:40 APTT 25.2 SECONDS (21.7-31.4) 06/03/20 10:40 MRSA (PCR) Negative 05/30/20 11:36 - Allergies Allergies/Adverse Reactions: Allergies Allergy/AdvReac Type Severity Reaction Status Date / Time codeine Allergy Intermediate Itching Verified 06/02/20 13:32 meperidine HCl [From Demerol] Allergy Intermediate Itching Verified 06/02/20 13:32 - Acknowledgements Anesthesia Type Planned: General Anesthesia, Regional Block (sciatic popliteal and saphenous for postoperative pain management), MAC Pt an Appropriate Candidate for the Planned Anesthesia: Yes Alternatives and Risks of Anesthesia Discussed w Pt/Guardian: Yes Pt/Guardian Understands and Agrees with Anesthesia Plan: Yes Additional Comments: noted scleral hematoma in the right eye. Patient reports no pain or vision changes in the right eye. PreAnesthesia Questionnaire - Past Health History Medical/Surgical History: Denies Medical/Surgical History HEENT History: Reports: Other (See Below) Other HEENT History: dental issues Cardiovascular History: Reports: Hypertension Other Cardiovascular History: Started taking BP medication in March 2015 Respiratory History: Reports: COPD, Other (See Below) Other Respiratory History: pleurisy Gastrointestinal History: Reports: Colon Polyp, Gastritis, GERD, Hepatitis Genitourinary History: Reports: BPH, Renal Calculus Other Genitourinary History: "fixed ureters on both sides when I was 16" [employer] History: Reports: None Musculoskeletal History: Reports: Osteoarthritis Other Musculoskeletal History: collar bone, dengenerative disc disease to spine. 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, opiods Endocrine/Metabolic History: Reports: None Hematologic History: Reports: None, Other (See Below) Other Hematologic History: HEP C Immunologic History: Reports: None Oncologic (Cancer) History: Reports: None Dermatologic History: Reports: None - Infectious Disease History Infectious Disease History: Reports: Chicken Pox, Hepatitis C - Past Surgical History Head Surgeries/Procedures: Reports: None HEENT Surgical History: Reports: Oral Surgery Cardiovascular Surgical History: Reports: None Respiratory Surgical History: Reports: None GI Surgical History: Reports: Appendectomy Male Surgical History: Reports: Lithotripsy (ESWL), Ureteral Stent Other Male Surgeries/Procedures: Lithotripsy X 8 Endocrine Surgical History: Reports: None Neurological Surgical History: Reports: None Musculoskeletal Surgical History: Reports: Other (See Below) Other Musculoskeletal Surgeries/Procedures:: fractured rib in past and also collar bone Oncologic Surgical History: Reports: None Dermatological Surgical History: Reports: None - SUBSTANCE USE Tobacco Use Status *Q: Former Tobacco User Tobacco Use Within Last Twelve Months: Cigarettes Recreational Drug Use History: No - HOME MEDS Home Medications: Home Meds Pantoprazole [ProTONIX] 40 mg PO BID 03/18/16 [History] Folic Acid 1 mg PO DAILY #30 tablet 05/24/20 [Rx] Rosuvastatin [Crestor] 5 mg PO DAILY #30 05/24/20 [Rx] Tamsulosin HCl 0.8 mg PO DAILY #60 05/24/20 [Rx] Thiamine [Vitamin B-1] 100 mg PO BEDTIME #30 tablet 05/24/20 [Rx] Venlafaxine [Venlafaxine HCl ER] 150 mg PO DAILY #30 05/24/20 [Rx] hydroCHLOROthiazide [Hydrochlorothiazide] 25 mg PO DAILY #30 05/24/20 [Rx] DULoxetine HCl [Cymbalta] 60 mg PO DAILY 06/02/20 [History] Nicotine [Habitrol] 21 mg TOP DAILY 06/02/20 [History] Enoxaparin Sodium [Lovenox] 40 mg SQ DAILY #40 dose 06/03/20 [Rx] Hydrocodone/Acetaminophen [Hydrocodone-Acetamin 5-325 mg] 1 - 2 tab PO Q6H PRN #30 06/03/20 [Rx] - CURRENT (IN HOUSE) MEDS Current Meds: Current Medications Lactated Ringer's (Ringers, Lactated) 1,000 mls @ 125 mls/hr IV ASDIRECTED [facility] Stop: 06/03/20 23:00 Lidocaine/Sodium Bicarbonate (Buffered Lidocaine 1% In Ns 8.4%) 0.25 ml IDERM ONETIME PRN PRN Reason: Prior to IV Start Stop: 06/03/20 18:00 Sodium Chloride (Saline Flush) 10 ml FLUSH ASDIRECTED PRN PRN Reason: Keep Vein Open Stop: 06/03/20 18:00 Discontinued Medications Bupivacaine HCl (Sensorcaine-Mpf 0.25%) Confirm Administered Dose 30 ml .ROUTE .STK-MED ONE Stop: 06/03/20 10:28 Cefazolin Sodium (Ancef) Confirm Administered Dose 2 gm .ROUTE .STK-MED ONE Stop: 06/03/20 12:03 Clonidine HCl (Duraclon) Confirm Administered Dose 1,000 mcg .ROUTE .STK-MED ONE Stop: 06/03/20 08:11 Dexamethasone (Dexamethasone) Confirm Administered Dose 20 mg .ROUTE .STK-MED ONE Stop: 06/03/20 08:14 Fentanyl (Sublimaze) Confirm Administered Dose 100 mcg .ROUTE .STK-MED ONE Stop: 06/03/20 10:50 Lidocaine HCl (Xylocaine-Mpf 1%) Confirm Administered Dose 4 mls @ as directed .ROUTE .STK-MED ONE Stop: 06/03/20 11:44 Lidocaine/Epinephrine (Xylocaine-Mpf 2%-Epi 1:200,000) Confirm Administered Dose 20 ml .ROUTE .STK-MED ONE Stop: 06/03/20 08:11 Midazolam HCl (Versed 1 Mg/Ml) Confirm Administered Dose 6 mg .ROUTE .STK-MED ONE Stop: 06/03/20 10:50 Propofol (Diprivan 20 Ml) Confirm Administered Dose 400 mg .ROUTE .STK-MED ONE Stop: 06/03/20 11:38 Propofol (Diprivan 20 Ml) Confirm Administered Dose 400 mg .ROUTE .STK-MED ONE Stop: 06/03/20 11:39 Ropivacaine (Naropin 0.5%) Confirm Administered Dose 30 ml .ROUTE .STK-MED ONE Stop: 06/03/20 08:12
--- NOTE | 2020-06-03 12:39 | PCM.PRNOTE ---
- Free Text/Narrative Note: Postoperative regional pain control requested by surgeon. Pre-op Dx: Left trimalleolar fracture Surgery : Left trimalleolar fracture ORIF Anesthesia Procedure: Left Popliteal block and Left saphenous block below the knee with U/S guidance Requesting physician: Dr. Aashish Sweet Risks and benefits discussed with the patient preoperatively including infection, bleeding, incomplete or failed block, possible nerve damage, local anesthetic toxicity. Chart reviewed, VS stable. Permit signed. Patient in preoperative holding area, stable , alert and awake, positioned prone.Time out performed at 11:05. Oxygen 3L via NC. Left lateral thigh area above the knee was prepped with Chloraprep x 1 and allowed to dry. Midazolam IV 4 mg given incrementally. Under aseptic technique, the Left common peroneal and Left tibial nerves were identified under ultrasound prior to needle insertion. Local infiltration with 1% Lidocaine. 4" Stimuplex needle #20 G was inserted under US guidance. Neuromuscular response was elicited with noted foot twitch at 0.6 mA. Under direct visualization of needle tip the injection of 2% PF Lidocaine with 1:200k epinephrine (7 cc) followed by 0.5% Ropivacaine with 1:200k epinephrine, mixed with 8 mg of Dexamethasone and 100 mcg of Clonidine, total of 30 mls in divided doses, maintaining negative aspiration was completed without problems. Patient positioned himself back into supine position. After that, the medial surface of the left leg BELOW the knee was prepped with Chloraprep and allowed to dry. Under ultrasound guidance left great saphenous vein was identified and using a 2" Stimuplex needle 5 mls of 2% PF Lidocaine with 1:200k epinephrine followed by 5cc of 0.5% Ropivacaine with 1:200k epinephrine , were injected around it in a crescent shape fashion. No local anesthetic toxicity was noted. Patient is awake, stable and tolerated the procedure well. Please see attached U/S images Time: 11:05 - 11:23
--- NOTE | 2020-06-03 13:37 | CR ---
Left ankle: Five fluoroscopic spot views were obtained of the left ankle. Comparison: Prior left tibia and fibula study and left ankle study performed on 05/21/20. Findings: Previous fracture has been aligned. Plate and screws are seen affixing the fibula as well as 2 screws affixing the fibula to the talus. Fluoroscopy time is given as 16.7 seconds. Ankle mortise is symmetric. Impression: 1. Procedural study as described above. Diagnostic code #2
--- NOTE | 2020-06-03 13:38 | PCM48HPAN ---
Post Anesthesia Note - EVALUATION WITHIN 48HRS OF ANESTHETIC Vital Signs in Normal Range: Yes Patient Participated in Evaluation: Yes Respiratory Function Stable: Yes Airway Patent: Yes Cardiovascular Function Stable: Yes Hydration Status Stable: Yes Pain Control Satisfactory: Yes Nausea and Vomiting Control Satisfactory: Yes Mental Status Recovered: Yes Vital Signs: Last Vital Signs Temp 98.0 F 06/03/20 13:25 Pulse 79 06/03/20 13:25 Resp 16 06/03/20 13:25 BP 90/58 L 06/03/20 13:25 Pulse Ox 96 06/03/20 13:25
[2020-06-03 14:57] VITALS: BP 95/67; PULSE 76
--- NOTE | 2020-06-12 07:26 | PCM.OPNOTE ---
- General Post-Op/Procedure Note Date of Surgery/Procedure: 06/03/20 Operative Procedure(s): open reduction internal fixation of left lateral malleolus and syndesmosis Pre Op Diagnosis: left bimalleolar equivalent fracture Post-Op Diagnosis: Same Anesthesia Technique: Local, MAC, Regional Block Primary Surgeon: Aashish Osborn Anesthesia Provider: Eddie Fontana Housing Quality Standard Inspector: Janis Kline EBL in mLs: 5 Complications: None Condition: Good
--- NOTE | 2020-06-12 08:11 | OR ---
DATE OF OPERATION: 06/03/2020 SURGEON: Aashish Osborn MD OPERATION PERFORMED: Open reduction and internal fixation of left lateral malleolus and syndesmosis. PREOPERATIVE DIAGNOSIS: Left bimalleolar equivalent fracture. POSTOPERATIVE DIAGNOSIS: Left bimalleolar equivalent fracture. ANESTHESIA: Local MAC with regional block. ANESTHESIA PROVIDER: Mary Mustafa. FOOD AND BEVERAGE SERVICE MANAGER: Janis Kline PA-C ESTIMATED BLOOD LOSS: 5 mL. COMPLICATIONS: None. CONDITION: Stable. DESCRIPTION OF PROCEDURE: The patient was identified in the preoperative holding area. Proper site was marked and identified by the surgeon. The patient was taken back to the operating theater where after adequate anesthesia, a nonsterile tourniquet was applied to the left lower extremity. The left lower extremity was then sterilely prepped and draped in the usual sterile fashion. OR time-out was performed. The patient received 2 g of IV Ancef. The left lower extremity was exsanguinated. Tourniquet was insufflated to 200 mmHg. Standard lateral incision over the fibula was undertaken. This was taken down to the fracture site. Fracture site was curetted and rongeured of all fracture hematoma. At this time, a 3.5 lag screw was placed after reduction was done of the lateral malleolus. Once this reduction with the lag screw was done, a Ernestina distal fibular locking plate was placed under direct C-arm fluoroscopy and was found to be in adequate position with anatomic alignment of the fibula. A nonlocking screw was then placed both proximally and distally to the fracture site, and then locking screws were placed both proximally and distally to the fracture site to achieve good fixation of the lateral malleolus fracture. Once this was completed, stress view was obtained and the patient was noted to have significant syndesmotic widening or medial clear space widening. At this time, reduction was done of the syndesmosis and two 3.5 tricortical screws were placed for fixation of the syndesmosis. Stress view was not repeated and there was no opening of the medial clear space. Adequate saline was irrigated through the wound. 2-0 Vicryl was used subcutaneously. [place] were used for closure of the skin. The patient tolerated the procedure well and was sent to the PACU in stable condition in a sterile dressing and a posterior slab splint. MMODAL /[id number]
== END 2020-06-03 15:00 | disposition home or self-care (01) ==
LOC: JD.SDS 09:28
PROVIDERS: ATTEND Orthopaedic Surgery
DX: S82.842A Displaced bimalleolar fracture of left lower leg, initial encounter for closed fracture (principal); S93.432A Sprain of tibiofibular ligament of left ankle, initial encounter; I10 Essential (primary) hypertension; Z79.82 Long term (current) use of aspirin; F17.210 Nicotine dependence, cigarettes, uncomplicated; Z88.6 Allergy status to analgesic agent; Z79.899 Other long term (current) drug therapy; Z86.010 Personal history of colon polyps; Z87.442 Personal history of urinary calculi; W19.XXXA Unspecified fall, initial encounter
CPT/HCPCS: 27792; 27829; 36415; 76000; 85610; 85730; 87641; C1713; C1776; J0690; J0735; J1100; J2250; J2370; J2704; J2795; J3010; 01480; 64450; J3490

== ENCOUNTER 2020-08-14 13:46 | Emergency (ER) | payer MEDICARE, MEDICAID ==
[2020-08-14] MEDS ORDERED: Sodium Chloride 0.9% 10 ML Syringe FLUSH PRN (14:18)
[2020-08-14] MEDS ORDERED: Sodium Chloride 0.9% 1,000 ML IV SCH (14:30)
--- NOTE | 2020-08-14 15:10 | CR ---
Chest: Portable view of the chest was obtained. Comparison: No previous chest imaging is available. Increased density is seen within the left lung base. This most likely represents an area of pneumonia. Calcification is noted within the right upper lung which is stable from prior studies. Slight density is seen within the left upper chest which could represent additional area of infection. Heart size and mediastinum are stable. Bony structure shows nothing acute. Slight scoliosis is noted within the spine with mild endplate spurring. Impression: 1. Parenchymal density within left lung base and left upper lung. Please correlate if patient has infectious symptoms for this to represent pneumonia. 2. Calcification which is stable within the upper right lung. 3. No other acute abnormality is appreciated. Diagnostic code #3
--- NOTE | 2020-08-14 15:24 | EDM.PDOC ---
ED HPI GENERAL MEDICAL PROBLEM - General Chief Complaint: General Stated Complaint: FALL/NOT FEELING WELL Time Seen by Provider: 08/14/20 13:57 Source of Information: Reports: Patient History Limitations: Reports: No Limitations - History of Present Illness INITIAL COMMENTS - FREE TEXT/NARRATIVE: The patient presents with left chest pain. He also has weakness and fatigue. He says the pain feels different then his normal pain. He had a tumor removed from the left chest 2 weeks ago. He has had pain from that. This all started in May. He fell and broke his left ankle. It was surgically repaired here. During the work up for the surgery they found a tumor in the left chest. He then had the tumor removed 2 weeks ago. He saw Dr Osborn for his left ankle today and he has to wear the splint for 6 more weeks. He has a slight cough and no fever. He has no abdominal pain, nausea or vomiting. He has some shortness of breath. Onset: Gradual Duration: Day(s): Location: Reports: Chest Quality: Reports: Sharp Severity: Moderate Improves with: Reports: None Worsens with: Reports: None Associated Symptoms: Reports: Chest Pain, Cough, Shortness of Breath. Denies: Fever/Chills, Headaches, Nausea/Vomiting Left Chest Pain Score (Numeric/FACES): 7 - Related Data Allergies Allergy/AdvReac Type Severity Reaction Status Date / Time codeine Allergy Intermediate Itching Verified 08/14/20 13:53 meperidine HCl [From Demerol] Allergy Intermediate Itching Verified 08/14/20 13:53 Home Meds: Home Meds Pantoprazole [ProTONIX] 40 mg PO BID 03/18/16 [History] Folic Acid 1 mg PO DAILY #30 tablet 05/24/20 [Rx] Rosuvastatin [Crestor] 5 mg PO DAILY #30 05/24/20 [Rx] Tamsulosin HCl 0.8 mg PO DAILY #60 05/24/20 [Rx] Thiamine [Vitamin B-1] 100 mg PO BEDTIME #30 tablet 05/24/20 [Rx] Venlafaxine [Venlafaxine HCl ER] 150 mg PO DAILY #30 05/24/20 [Rx] hydroCHLOROthiazide [Hydrochlorothiazide] 25 mg PO DAILY #30 05/24/20 [Rx] DULoxetine HCl [Cymbalta] 60 mg PO DAILY 06/02/20 [History] Nicotine [Habitrol] 21 mg TOP DAILY 06/02/20 [History] Enoxaparin Sodium [Lovenox] 40 mg SQ DAILY #40 dose 06/03/20 [Rx] Hydrocodone/Acetaminophen [Hydrocodone-Acetamin 5-325 mg] 1 - 2 tab PO Q6H PRN #30 06/03/20 [Rx] Azithromycin [Zithromax] 250 mg PO DAILY #6 tab 08/14/20 [Rx] oxyCODONE HCl/Acetaminophen [Percocet 5-325 mg Tablet] 1 - 2 each PO Q6HR PRN #15 tablet 08/14/20 [Rx] Past Medical History - Past Health History Medical/Surgical History: Denies Medical/Surgical History HEENT History: Reports: Other (See Below) Other HEENT History: dental issues Cardiovascular History: Reports: Hypertension Other Cardiovascular History: Started taking BP medication in March 2015 Respiratory History: Reports: COPD, Other (See Below) Other Respiratory History: pleurisy, lung cancer Gastrointestinal History: Reports: Colon Polyp, Gastritis, GERD, Hepatitis Genitourinary History: Reports: BPH, Renal Calculus Other Genitourinary History: "fixed ureters on both sides when I was 16" [employer] History: Reports: None Musculoskeletal History: Reports: Osteoarthritis Other Musculoskeletal History: collar bone, dengenerative disc disease to spine. 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, opiods Endocrine/Metabolic History: Reports: None Hematologic History: Reports: Other (See Below) Other Hematologic History: HEP C Immunologic History: Reports: None Oncologic (Cancer) History: Reports: Lung Dermatologic History: Reports: None - Infectious Disease History Infectious Disease History: Reports: Chicken Pox, Hepatitis C - Past Surgical History HEENT Surgical History: Reports: Oral Surgery Respiratory Surgical History: Reports: Lung Biopsies, Lung Resection GI Surgical History: Reports: Appendectomy Male Surgical History: Reports: Lithotripsy ([facility]), Ureteral Stent Other Male Surgeries/Procedures: Lithotripsy X 8 Musculoskeletal Surgical History: Reports: Other (See Below) Other Musculoskeletal Surgeries/Procedures:: fractured rib in past and also collar bone Oncologic Surgical History: Reports: Lobectomy Social & Family History - Family History Family Medical History: Unobtainable - Tobacco Use Tobacco Use Status *Q: Never Tobacco User Second Hand Smoke Exposure: No - Caffeine Use Caffeine Use: Reports: Coffee - Recreational Drug Use Recreational Drug Use: No - Living Situation & Occupation Living situation: Reports: Single, Alone Occupation: Unemployed ED ROS GENERAL - Review of Systems Review Of Systems: See Below Constitutional: Reports: No Symptoms HEENT: Reports: No Symptoms Respiratory: Reports: Shortness of Breath, Cough Cardiovascular: Reports: Chest Pain Endocrine: Reports: No Symptoms GI/Abdominal: Reports: No Symptoms : Reports: No Symptoms Musculoskeletal: Reports: Other (Left leg pain post surgery) ED EXAM, GENERAL - Physical Exam Exam: See Below Exam Limited By: No Limitations General Appearance: Alert, No Apparent Distress Ears: Normal External Exam Nose: Normal Inspection Head: Atraumatic, Normocephalic Neck: Normal Inspection Respiratory/Chest: No Respiratory Distress, Decreased Breath Sounds Cardiovascular: Regular Rate, Rhythm, No Edema, No Murmur GI/Abdominal: Soft, Non-Tender, No Organomegaly, No Mass Back Exam: Normal Inspection Extremities: Other (Left walking boot on) Course - Vital Signs Last Recorded V/S: Last Vital Signs Temp 97.0 F 08/14/20 13:50 Pulse 103 H 08/14/20 13:50 Resp 16 08/14/20 13:50 BP 113/81 08/14/20 13:50 Pulse Ox 99 08/14/20 13:50 - Orders/Labs/Meds Orders: Active Orders 24 hr Category Date Time Status Cardiac Monitoring [RC] . DIRECTED Care 08/14/20 14:18 Active EKG Documentation Completion [RC] STAT Care 08/14/20 14:19 Active Peripheral IV Care [RC] . DIRECTED Care 08/14/20 14:19 Active Sodium Chloride 0.9% [Normal Saline] 1,000 ml Med 08/14/20 14:30 Active IV .BOLUS Sodium Chloride 0.9% [Saline Flush] Med 08/14/20 14:18 Active 10 ml FLUSH ASDIRECTED PRN Peripheral IV Insertion Adult [OM.PC] Stat Oth 08/14/20 14:18 Ordered Medication Orders Sodium Chloride (Normal Saline) 1,000 mls @ 1,000 mls/hr IV .BOLUS VEDA Last Admin: 08/14/20 14:45 Dose: 1,000 mls/hr Documented by: ASHLEY Sodium Chloride (Sodium Chloride 0.9% 10 Ml Syringe) 10 ml FLUSH ASDIRECTED PRN PRN Reason: Keep Vein Open Last Admin: 08/14/20 14:45 Dose: 10 ml Documented by: ASHLEY Labs: Laboratory Tests 08/14/20 08/14/20 08/14/20 Range/Units 14:38 14:38 15:15 WBC 18.53 H (4.23-9.07) K/mm3 RBC 4.85 (4.63-6.08) M/mm3 Hgb 13.6 L D (13.7-17.5) gm/dl Hct 42.9 (40.1-51.0) % MCV 88.5 (79.0-92.2) fl MCH 28.0 (25.7-32.2) pg MCHC 31.7 L (32.2-35.5) g/dl RDW Std Deviation 44.8 H (35.1-43.9) fL Plt Count 719 H D (163-337) K/mm3 MPV 8.4 L (9.4-12.3) fl Neut % (Auto) 80.0 H (34.0-67.9) % Lymph % (Auto) 9.8 L (21.8-53.1) % [place] % (Auto) 8.9 (5.3-12.2) % Eos % (Auto) 0.5 L (0.8-7.0) Baso % (Auto) 0.2 (0.1-1.2) % Neut # (Auto) 14.82 H (1.78-5.38) K/mm3 Lymph # (Auto) 1.82 (1.32-3.57) K/mm3 [place] # (Auto) 1.64 H (0.30-0.82) K/mm3 Eos # (Auto) 0.09 (0.04-0.54) K/mm3 Baso # (Auto) 0.04 (0.01-0.08) K/mm3 Manual Slide Review Abnormal smear Sodium 139 (136-145) mEq/L Potassium 5.2 H D (3.5-5.1) mEq/L Chloride 101 (98-107) mEq/L Carbon Dioxide 26 (21-32) mEq/L Anion Gap 17.2 H (5-15) BUN 18 (7-18) mg/dL Creatinine 1.5 H (0.7-1.3) mg/dL Est Cr Clr Drug Dosing 47.88 mL/min Estimated GFR (MDRD) 47 (>60) mL/min BUN/Creatinine Ratio 12.0 L (14-18) Glucose 96 (80-115) mg/dL Calcium 9.9 (8.5-10.1) mg/dL Total Bilirubin 0.4 (0.2-1.0) mg/dL AST 13 L (15-37) U/L ALT 22 (16-63) U/L Alkaline Phosphatase 125 H (46-116) U/L Troponin I < 0.017 (0.00-0.056) ng/mL Total Protein 8.0 (6.4-8.2) g/dl Albumin 3.1 L (3.4-5.0) g/dl Globulin 4.9 gm/dL Albumin/Globulin Ratio 0.6 L (1-2) SARS-CoV-2 RNA (MILA) Negative (NEGATIVE) Meds: Medications Generic Name Dose Route Start Last Admin Trade Name Freq PRN Reason Stop Dose Admin Sodium Chloride 1,000 mls @ 1,000 mls/hr 08/14/20 14:30 08/14/20 14:45 Normal Saline IV 1,000 mls/hr .BOLUS VEDA Administration Sodium Chloride 10 ml 08/14/20 14:18 08/14/20 14:45 Sodium Chloride 0.9% 10 Ml Syringe FLUSH 10 ml ASDIRECTED PRN Administration Keep Vein Open Discontinued Medications Generic Name Dose Route Start Last Admin Trade Name Freq PRN Reason Stop Dose Admin Hydromorphone HCl 0.5 mg 08/14/20 15:38 08/14/20 15:54 Hydromorphone 0.5 Mg/0.5 Ml Syringe IVPUSH 08/14/20 15:39 0.5 mg ONETIME ONE Administration Ceftriaxone Sodium 2 gm/ 100 mls @ 200 mls/hr 08/14/20 15:27 08/14/20 15:39 Sodium Chloride IV 08/14/20 15:56 200 mls/hr ONETIME ONE Administration - Re-Assessments/Exams Free Text/Narrative Re-Assessment/Exam: 08/14/20 15:25 I ordered an IV NS 1L bolus, EKG, CXR and labs. His EKG shows a NSR with no acute changes. His CXR shows parenchymal density within left lung base and left upper lung. Please correlate if patient has infectious symptoms for this to represent pneumonia. Calcification which is stable within the upper right lung. No other acute abnormality is appreciated. 08/14/20 16:17 His WBC is elevated at 18.53. His K is a little elevated at 5.2. His anion gap is elevated at 17.2. His creatinine is elevated at 1.5. His alk phos is elevated at 125. His troponin is negative. He is COVID negative. I have ordered rocephin 2 grams IV. I will get him on some antibiotics and something for pain. Departure - Departure Time of Disposition: 16:30 Disposition: Home, Self-Care 01 Condition: Good Clinical Impression: Pneumonia Qualifiers: Pneumonia type: due to unspecified organism Laterality: left Lung location: lower lobe of lung Qualified Code(s): J18.9 - Pneumonia, unspecified organism - Discharge Information *PRESCRIPTION DRUG MONITORING PROGRAM REVIEWED*: Not Applicable *COPY OF PRESCRIPTION DRUG MONITORING REPORT IN PATIENT LETICIA: Not Applicable Prescriptions: oxyCODONE HCl/Acetaminophen [Percocet 5-325 mg Tablet] 1 - 2 each PO Q6HR PRN #15 tablet PRN Reason: Pain Azithromycin [Zithromax] 250 mg PO DAILY #6 tab Referrals: Talha Fitch MD [Primary Care Provider] - 1 Week Forms: ED Department Discharge Additional Instructions: Take the zithromax as prescribed. Take the percocet as needed for pain. Follow up with Dr Fithc. Please return if you are worse. Sepsis Event Note (ED) - Evaluation Sepsis Screening Result: No Definite Risk - Focused Exam Vital Signs: Vital Signs Temp Pulse Resp BP Pulse Ox 08/14/20 13:50 97.0 F 103 H 16 113/81 99 - My Orders Last 24 Hours: My Active Orders 08/14/20 14:18 Cardiac Monitoring [RC] . DIRECTED Sodium Chloride 0.9% [Saline Flush] 10 ml FLUSH ASDIRECTED PRN Peripheral IV Insertion Adult [OM.PC] Stat 08/14/20 14:19 EKG Documentation Completion [RC] STAT Peripheral IV Care [RC] . DIRECTED 08/14/20 14:30 Sodium Chloride 0.9% [Normal Saline] 1,000 ml IV .BOLUS - Assessment/Plan Last 24 Hours: My Active Orders 08/14/20 14:18 Cardiac Monitoring [RC] . DIRECTED Sodium Chloride 0.9% [Saline Flush] 10 ml FLUSH ASDIRECTED PRN Peripheral IV Insertion Adult [OM.PC] Stat 08/14/20 14:19 EKG Documentation Completion [RC] STAT Peripheral IV Care [RC] . DIRECTED 08/14/20 14:30 Sodium Chloride 0.9% [Normal Saline] 1,000 ml IV .BOLUS
[2020-08-14] MEDS ORDERED: cefTRIAXone 2 GM in Sodium Chloride 0.9% 100 ML IV ONE (15:27)
[2020-08-14] MEDS ORDERED: HYDROmorphone 0.5 MG/0.5 ML Syringe IVPUSH ONE (15:38)
[2020-08-14 17:12] VITALS: BP 132/74; PULSE 89
== END 2020-08-14 16:45 | disposition home or self-care (01) ==
LOC: JD.ED 13:46
DX: J18.9 Pneumonia, unspecified organism (principal); I10 Essential (primary) hypertension; Z88.5 Allergy status to narcotic agent; Z79.899 Other long term (current) drug therapy; Z20.822 Contact with and (suspected) exposure to COVID-19
CPT/HCPCS: 36415; 71045; 80053; 84484; 85025; 93005; 96365; 96375; 99285; J0696; J1170; J7030; U0002

== ENCOUNTER 2020-08-17 20:02 | Emergency (ER) | payer MEDICARE, MEDICAID ==
[2020-08-17 20:10] VITALS: BP 129/75; PULSE 97
--- NOTE | 2020-08-17 20:30 | EDM.PDOC ---
ED HPI GENERAL MEDICAL PROBLEM - General Chief Complaint: Respiratory Problem Stated Complaint: [facility] Time Seen by Provider: 08/17/20 20:22 Source of Information: Reports: Patient History Limitations: Reports: No Limitations - History of Present Illness INITIAL COMMENTS - FREE TEXT/NARRATIVE: 64-year-old male presents to the ED per [facility] for evaluation of subjective dyspnea. Patient has had left upper lung lobe resection I am unclear if it is a full lobe or just a segmental resection for a 1.4 cm lobulated mass identified on chest x-ray preoperatively back in early June of this year. Patient had fallen at home and fractured his left distal tibia and fibula. He remains in a cast boot brace. He underwent surgical resection of the tumor at [facility] in [place] and was there for 8 days. He is to see Dr. Leyva oncologist in the upcoming week to see if he needs any radiation or chemotherapy treatments. Patient is still having significant pain from his surgical wound on his chest. The surgery was performed June 30. He still in a cast boot brace on his left lower extremity likely until August 28. His O2 sats are 99 to 100% on room air. Patient is prone to anxiety. He also does not have any pain medicine for the last 4 days. He was using Percocet 5/325 mg tablets on a as needed basis. He cannot cough because it hurts too much. He did have a fever when he presented to the ED on August 14 and was seen by Dr. Aguayo. Chest x-ray done at that time revealed an area of band pneumonia at the fissure between the left upper lobe and left lower lobe of the lung. There was also mild infiltrate in the left upper lobe of the lung. His surgical wound along his chest wall appears to be healing adequately. He received initial dose of intravenous antibiotic 2 g of Rocephin while in the ED. Patient was treated with a 5-day course of Zithromax. He should have 1 tablet left. He did have an elevated white count at that time at 18.53 with a left shift of 80% neutrophils. He is not on home oxygen therapy. He does have trouble clearing his secretions because is too painful to cough. He continues to sneak a few cigarettes 2 to 3/day. Onset: Today (Having worsening pain left lateral chest wall along his surgical incision i.e. thoracotomy incision the last 2 days. 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 Mild cough or sputum production.) Quality: Reports: Ache, Sharp, Stabbing Severity: Moderate (710.) Improves with: Reports: Rest (Rest helps but) Worsens with: Reports: Movement (Deep breathing.) Context: Denies: Activity, Exercise, Lifting, Sick Contact, Trauma, Other Associated Symptoms: Reports: No Other Symptoms, Cough, cough w sputum (Has a chronic cough from cigarette smoking but not able to expectorate much sputum at present due to pain in his left thoracotomy wound.), Fever/Chills, Loss of Appetite, Malaise, Shortness of Breath, Weakness, Other (Difficulty ambulating of course due to left lower extremity being immobilized in a cast boot brace.). Denies: Confusion, Chest Pain, Diaphoresis, Headaches, Nausea/Vomiting, Rash (Does feel warm to palpation today. 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: Acetaminophen, NSAIDS (Motrin.) Left Chest Pain Score (Numeric/FACES): 7 - Related Data Allergies Allergy/AdvReac Type Severity Reaction Status Date / Time codeine Allergy Intermediate Itching Verified 08/17/20 20:10 meperidine HCl [From Demerol] Allergy Intermediate Itching Verified 08/17/20 20:10 Home Meds: Home Meds Pantoprazole [ProTONIX] 40 mg PO BID 03/18/16 [History] Folic Acid 1 mg PO DAILY #30 tablet 05/24/20 [Rx] Rosuvastatin [Crestor] 5 mg PO DAILY #30 05/24/20 [Rx] Tamsulosin HCl 0.8 mg PO DAILY #60 05/24/20 [Rx] Thiamine [Vitamin B-1] 100 mg PO BEDTIME #30 tablet 05/24/20 [Rx] Venlafaxine [Venlafaxine HCl ER] 150 mg PO DAILY #30 05/24/20 [Rx] hydroCHLOROthiazide [Hydrochlorothiazide] 25 mg PO DAILY #30 05/24/20 [Rx] DULoxetine HCl [Cymbalta] 60 mg PO DAILY 06/02/20 [History] Nicotine [Habitrol] 21 mg TOP DAILY 06/02/20 [History] Azithromycin 250 mg PO DAILY #6 tablet 08/17/20 [Rx] oxyCODONE HCl [Roxicodone] 5 mg PO Q4H PRN #16 tablet 08/17/20 [Rx] Past Medical History - Past Health History Medical/Surgical History: Denies Medical/Surgical History HEENT History: Reports: Other (See Below) Other HEENT History: dental issues Cardiovascular History: Reports: Hypertension Other Cardiovascular History: Started taking BP medication in March 2015 Respiratory History: Reports: COPD, Other (See Below) Other Respiratory History: pleurisy, lung cancer Gastrointestinal History: Reports: Colon Polyp, Gastritis, GERD, Hepatitis Genitourinary History: Reports: BPH, Renal Calculus Other Genitourinary History: "fixed ureters on both sides when I was 16" W[employer]T SL[employer]ER History: Reports: None Musculoskeletal History: Reports: Osteoarthritis Other Musculoskeletal History: collar bone, dengenerative disc disease to spine. 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, opiods Endocrine/Metabolic History: Reports: None Hematologic History: Reports: Other (See Below) Other Hematologic History: HEP C Immunologic History: Reports: None Oncologic (Cancer) History: Reports: Lung Dermatologic History: Reports: None - Infectious Disease History Infectious Disease History: Reports: Chicken Pox, Hepatitis C - Past Surgical History HEENT Surgical History: Reports: Oral Surgery Respiratory Surgical History: Reports: Lung Biopsies, Lung Resection GI Surgical History: Reports: Appendectomy Male Surgical History: Reports: Lithotripsy (ESWL), Ureteral Stent Other Male Surgeries/Procedures: Lithotripsy X 8 Musculoskeletal Surgical History: Reports: Other (See Below) Other Musculoskeletal Surgeries/Procedures:: fractured rib in past and also collar bone Oncologic Surgical History: Reports: Lobectomy Social & Family History - Family History Family Medical History: Unobtainable - Caffeine Use Caffeine Use: Reports: Coffee - Living Situation & Occupation Living situation: Reports: Single, Alone Occupation: Unemployed ED ROS GENERAL - Review of Systems Review Of Systems: See Below Constitutional: Reports: Malaise, Weakness, Fatigue, Weight Loss (Estimates 20 pound weight loss over the last 2 months). Denies: Fever, Chills HEENT: Reports: No Symptoms, Other (Poor dentition.) Respiratory: Reports: Shortness of Breath, Cough (Mild cough hurts too much to expectorate sputum.). Denies: Wheezing, Pleuritic Chest Pain, Hemoptysis Cardiovascular: Reports: Chest Pain (At site of recent left sided thoracotomy ), Dyspnea on Exertion (incision.). Denies: No Symptoms, Blood Pressure Problem, Claudication, Edema, Lightheadedness, Orthopnea Endocrine: Reports: Fatigue GI/Abdominal: Reports: Constipation : Reports: Frequency, Other (Nocturia x2. Known BPH.) Musculoskeletal: Reports: Back Pain (Chronic thoracic back pain from degenera tive arthritic changes and degenerative disc disease.), Foot Pain (Healing left ankle fracture.) Skin: Reports: No Symptoms Neurological: Reports: No Symptoms Psychiatric: Reports: Anxiety, Depression Hematologic/Lymphatic: Reports: No Symptoms Immunologic: Reports: No Symptoms ED EXAM, GENERAL - Physical Exam Exam: See Below Exam Limited By: No Limitations General Appearance: Alert, WD/WN, Anxious, Mild Distress, Other (Temperature is 36.5 degrees although he feels warm to palpation. Heart rate 97 and sinus respiratory is 18 with O2 sats 100% room air. BP 05/10/1974.) Eye Exam: Bilateral Eye: Normal Inspection (Mild blepharal pallor no scleral icterus.), PERRL Throat/Mouth: Normal Inspection, Normal Lips, Normal Oropharynx, Other (Dentition is in very poor condition. Tongue is moist.) Head: Atraumatic, Normocephalic Neck: Normal Inspection, Supple, Non-Tender, Full Range of Motion. No: Lymphadenopathy (L), Lymphadenopathy (R) Respiratory/Chest: No Respiratory Distress, No Accessory Muscle Use, Decreased Breath Sounds (Decreased air entry of the left lower lung field.), Other (Left- sided thoracotomy wound is healing satisfactorily with no signs of wound infection.). No: Lungs Clear, Normal Breath Sounds, Respiratory Distress Cardiovascular: Normal Peripheral Pulses, Regular Rate, Rhythm, No Edema, No Gallop, No Murmur, No Rub Peripheral Pulses: 1+: Posterior Tibial (L), Posterior Tibial (R), Dorsalis Pedis (L), Dorsalis Pedis (R), 2+: Carotid (L), Carotid (R) GI/Abdominal: Normal Bowel Sounds, Soft, Non-Tender, No Organomegaly, No Abnormal Bruit, No Mass, Pelvis Stable Extremities: Other (Wearing a cast boot brace on his left lower extremity. No dependent edema) Neurological: Alert, Oriented, CN II-XII Intact, Normal Cognition. No: Normal Gait Psychiatric: Anxious Skin Exam: Warm, Dry, Intact, Normal Color, No Rash Course - Vital Signs Last Recorded V/S: Last Vital Signs Temp 36.5 C 08/17/20 20:06 Pulse 97 08/17/20 20:06 Resp 18 08/17/20 20:06 BP 129/75 08/17/20 20:06 Pulse Ox 100 08/17/20 20:06 - Orders/Labs/Meds Orders: Active Orders 24 hr Category Date Time Status Chest 1V Frontal [CR] Stat Exams 08/17/20 20:33 Taken Dextrose 5%-0.9% NaCl [Dextrose 5%-Normal Saline] 1,000 Med 08/17/20 20:45 Active ml IV ASDIRECTED Medication Orders Dextrose/Sodium Chloride (Dextrose 5%-Normal Saline) 1,000 mls @ 500 mls/hr IV ASDIRECTED VEDA Last Admin: 08/17/20 20:42 Dose: 500 mls/hr Documented by: KYREE Labs: Laboratory Tests 08/17/20 08/17/20 Range/Units 20:45 20:45 WBC 11.97 H (4.23-9.07) K/mm3 RBC 4.03 L (4.63-6.08) M/mm3 Hgb 11.4 L D (13.7-17.5) gm/dl Hct 35.9 L (40.1-51.0) % MCV 89.1 (79.0-92.2) fl MCH 28.3 (25.7-32.2) pg MCHC 31.8 L (32.2-35.5) g/dl RDW Std Deviation 44.6 H (35.1-43.9) fL Plt Count 526 H D (163-337) K/mm3 MPV 8.6 L (9.4-12.3) fl Neut % (Auto) 73.6 H (34.0-67.9) % Lymph % (Auto) 14.3 L (21.8-53.1) % [place] % (Auto) 8.9 (5.3-12.2) % Eos % (Auto) 2.5 (0.8-7.0) Baso % (Auto) 0.3 (0.1-1.2) % Neut # (Auto) 8.81 H (1.78-5.38) K/mm3 Lymph # (Auto) 1.71 (1.32-3.57) K/mm3 [place] # (Auto) 1.06 H (0.30-0.82) K/mm3 Eos # (Auto) 0.30 (0.04-0.54) K/mm3 Baso # (Auto) 0.04 (0.01-0.08) K/mm3 Manual Slide Review Abnormal smear Sodium 143 (136-145) mEq/L Potassium 3.5 D (3.5-5.1) mEq/L Chloride 108 H (98-107) mEq/L Carbon Dioxide 25 (21-32) mEq/L Anion Gap 13.5 (5-15) BUN 12 (7-18) mg/dL Creatinine 1.1 (0.7-1.3) mg/dL Est Cr Clr Drug Dosing 64.85 mL/min Estimated GFR (MDRD) > 60 (>60) mL/min BUN/Creatinine Ratio 10.9 L (14-18) Glucose 119 H (80-115) mg/dL Calcium 8.5 (8.5-10.1) mg/dL Total Bilirubin 0.3 (0.2-1.0) mg/dL AST 15 (15-37) U/L ALT 22 (16-63) U/L Alkaline Phosphatase 99 (46-116) U/L C-Reactive Protein 2.1 H* (<1.0) mg/dL Total Protein 6.6 (6.4-8.2) g/dl Albumin 2.7 L (3.4-5.0) g/dl Globulin 3.9 gm/dL Albumin/Globulin Ratio 0.7 L (1-2) Meds: Medications Generic Name Dose Route Start Last Admin Trade Name Freq PRN Reason Stop Dose Admin Dextrose/Sodium Chloride 1,000 mls @ 500 mls/hr 08/17/20 20:45 08/17/20 20:42 Dextrose 5%-Normal Saline IV 500 mls/hr ASDIRECTED VEDA Administration Discontinued Medications Generic Name Dose Route Start Last Admin Trade Name Chin PRN Reason Stop Dose Admin Diphenhydramine HCl 12.5 mg 08/17/20 20:33 08/17/20 20:42 Diphenhydramine 50 Mg/Ml Sdv IVPUSH 08/17/20 20:34 12.5 mg ONETIME ONE Administration Hydromorphone HCl 0.5 mg 08/17/20 20:32 08/17/20 20:43 Hydromorphone 0.5 Mg/0.5 Ml Syringe IVPUSH 08/17/20 20:33 0.5 mg ONETIME ONE Administration Hydromorphone HCl 0.5 mg 08/17/20 22:13 08/17/20 22:31 Hydromorphone 0.5 Mg/0.5 Ml Syringe IVPUSH 08/17/20 22:14 0.5 mg ONETIME ONE Administration Lorazepam 0.5 mg 08/17/20 20:39 08/17/20 21:51 Lorazepam 2 Mg/Ml Sdv IVPUSH 08/17/20 20:40 0.5 mg ONETIME ONE Administration Lorazepam 0.5 mg 08/17/20 22:13 08/17/20 22:31 Lorazepam 2 Mg/Ml Sdv IVPUSH 08/17/20 22:14 0.5 mg ONETIME ONE Administration Metoclopramide HCl 7.5 mg 08/17/20 20:32 08/17/20 20:43 Metoclopramide 10 Mg/2 Ml Sdv IVPUSH 08/17/20 20:33 7.5 mg ONETIME ONE Administration Oxycodone/Acetaminophen 2 tab 08/17/20 22:14 08/17/20 22:49 Acetaminophen/Oxycodone 325-5 Mg Tab PO 08/17/20 22:15 2 tab ONETIME ONE Administration - Radiology Interpretation Free Text/Narrative:: 64-year-old male presents to the ED per [facility] as he has no way of getting around or driving a motor vehicle. He is status post fracture left distal ankle requiring open reduction internal fixation which was performed here by Dr. Osborn-orthopedic surgeon. During his preoperative assessment he was identified to have a 1.4 cm spiculated lesion in the left upper lobe of his lung. He subsequently underwent a left-sided thoracotomy on June 30 in [place] with resection of portions of his left lower lobe. Surgical wound is healing adequately. He was seen in the ED on August 14 with a fever and elevated white count of 18.53 with 80% neutrophils. X-ray reveals a bandlike pneumonia between the upper and lower lobe on chest x-ray. There is also an early faint infiltrate left upper lobe of the lung. He was treated with Zithromax 500 mg orally the first day then 500 mg daily for the last 3 days. He has no pain medication for the last 4 days which I think is the primary reason bring him back to the ED. His O2 sats are 100% at this time. On exam however he does feel slightly warm palpation suggesting a low-grade fever. Plan routine labs to be repeated and 1 view chest x-ray. - Re-Assessments/Exams Free Text/Narrative Re-Assessment/Exam: 08/17/20 21:13 chest x-ray today reveals the left lung upper lobe is completely clear. There remains some fluid at the base of the left lung field. No previous lung field the diaphragm was slightly elevated by air in the colon up underneath the left diaphragm. It still unclear whether this postoperative effusion is infected or not. Will await white count. 08/17/20 21:15 Chemistry comes back first without hematology. Sodium is 143 with a potassium of 3.5. Chloride 108 with a bicarb of 25. Anion gap is 13.5. BUN was 12 with a creatinine of 1.1 and a GFR greater than 60. Glucose was 119. Calcium is 8.5. Liver function normal C-reactive protein is slightly elevated at 2.1. Total protein 6.6 with a low albumin fraction of 2.7. 08/17/20 22:00 White count is markedly improved from August 14 when it was 18.53. Today it is 11.97. Differential is 73.6% neutrophils on the auto differential. Hemoglobin is improved to 11.4 from 10.3. Hematocrit is 35.9. Platelet count is slightly elevated at 526,000. Sodium is 143 potassium is 3.5. Chloride 108 with a bicarb of 25. Anion gap is 13.5. BUN is 12 with a creatinine of 1.1 and a GFR greater than 60. Glucose is 119. Calcium is 8.5 liver function normal. C-reactive protein is 2.1. Total protein 6.6 with an albumin fraction of 2.7. Departure - Departure Time of Disposition: 22:14 Disposition: Home, Self-Care 01 Condition: Fair Clinical Impression: Closed fracture of left ankle with routine healing, Post-thoracotomy pain syndrome - Discharge Information *PRESCRIPTION DRUG MONITORING PROGRAM REVIEWED*: Not Applicable *COPY OF PRESCRIPTION DRUG MONITORING REPORT IN PATIENT LETICIA: Not Applicable Prescriptions: Azithromycin 250 mg PO DAILY #6 tablet oxyCODONE HCl [Roxicodone] 5 mg PO Q4H PRN #16 tablet PRN Reason: Thoracotomy pain relief Forms: ED Department Discharge Additional Instructions: Evaluation in the emergency room today in regards to increased pain coming from your recent left-sided thoracotomy wound. Diagnosed with pneumonia on August 14. Chest x-ray done to day reveals a marked improvement in the inflammation in the left lung. White blood cell count is also markedly improved compared to 3 days ago. You were treated with intravenous fluids while you were in the department and pain medication Dilaudid 0.5 mg x 2 doses and Ativan 0.5 mg x 2 doses. You were sent home with 2 Percocet tablets that can be taken anytime after 3 AM for pain relief during the night if needed. Prescription has been written for Roxicodone tablets which did not have any Tylenol in them that can be taken 1 or 2 every 6 hours as needed for pain relief. Also I wish you to stay on antibiotic for another 6 days. Prescription written for azithromycin 2500 mg once daily for 6 more days. Follow-up with Dr. Fitch next week as planned Sepsis Event Note (ED) - Evaluation Sepsis Screening Result: No Definite Risk - Focused Exam Vital Signs: Vital Signs Temp Pulse Resp BP Pulse Ox 08/17/20 20:06 36.5 C 97 18 129/75 100 - My Orders Last 24 Hours: My Active Orders 08/17/20 20:33 Chest 1V Frontal [CR] Stat 08/17/20 20:45 Dextrose 5%-0.9% NaCl [Dextrose 5%-Normal Saline] 1,000 ml IV ASDIRECTED - Assessment/Plan Last 24 Hours: My Active Orders 08/17/20 20:33 Chest 1V Frontal [CR] Stat 08/17/20 20:45 Dextrose 5%-0.9% NaCl [Dextrose 5%-Normal Saline] 1,000 ml IV ASDIRECTED
[2020-08-17] MEDS ORDERED: Metoclopramide 10 MG/2 ML SDV IVPUSH ONE (20:32)
[2020-08-17] MEDS ORDERED: HYDROmorphone 0.5 MG/0.5 ML Syringe IVPUSH ONE ×2 (20:32→22:13)
[2020-08-17] MEDS ORDERED: diphenhydrAMINE 50 MG/ML SDV IVPUSH ONE (20:33)
[2020-08-17] MEDS ORDERED: LORazepam 2 MG/ML SDV IVPUSH ONE ×2 (20:39→22:13)
[2020-08-17] MEDS ORDERED: Dextrose 5%-0.9% NaCl 1,000 ML IV SCH (20:45)
[2020-08-17] MEDS ORDERED: Acetaminophen/oxyCODONE 325-5 MG Tab PO ONE (22:14)
--- NOTE | 2020-08-18 09:10 | CR ---
Chest: Portable view of the chest was obtained. Comparison: Prior chest x-ray of 08/14/[address] study of 05/21/20. Increased density is noted within the left lung base. Parenchymal density is seen within the left upper chest presumably due to change from prior surgery. Calcified nodule appears to be present within the upper right chest. Lungs otherwise are clear. Heart size and mediastinum are normal. Impression: 1. Increased density within the left lung base. Slight density within the left upper chest. Given the history of prior left-sided lung surgery this may relate to change from previous surgery. 2. Stable calcification within the upper right chest. 3. Nothing acute is otherwise seen. Diagnostic code #2
== END 2020-08-17 22:58 | disposition home or self-care (01) ==
LOC: JD.ED 20:02
DX: S82.302D Unspecified fracture of lower end of left tibia, subsequent encounter for closed fracture with routine healing (principal); S82.832D Other fracture of upper and lower end of left fibula, subsequent encounter for closed fracture with routine healing; G89.18 Other acute postprocedural pain; I10 Essential (primary) hypertension; J44.9 Chronic obstructive pulmonary disease, unspecified; K21.9 Gastro-esophageal reflux disease without esophagitis; N40.0 Benign prostatic hyperplasia without lower urinary tract symptoms; Z88.5 Allergy status to narcotic agent; Z79.899 Other long term (current) drug therapy; W19.XXXD Unspecified fall, subsequent encounter; Y92.009 Unspecified place in unspecified non-institutional (private) residence as the place of occurrence of the external cause
CPT/HCPCS: 36415; 71045; 80053; 85025; 86140; 96374; 96375; 96376; 99285; A9270; J1170; J1200; J2060; J2765; J7042; 99284

== ENCOUNTER 2020-09-13 19:34 | Emergency (ER) | payer MEDICARE, MEDICAID ==
[2020-09-13 19:48] VITALS: BP 129/83; PULSE 91
[2020-09-13] MEDS ORDERED: Sodium Chloride 0.9% 10 ML Syringe FLUSH PRN (19:57)
[2020-09-13] MEDS ORDERED: HYDROmorphone 0.5 MG/0.5 ML Syringe IVPUSH ONE (19:58)
[2020-09-13] MEDS ORDERED: Sodium Chloride 0.9% 1,000 ML IV ONE (19:58)
--- NOTE | 2020-09-13 20:05 | EDM.PDOC ---
ED HPI GENERAL MEDICAL PROBLEM - General Chief Complaint: Back Pain or Injury Stated Complaint: LT SIDE/ARM PAIN Time Seen by Provider: 09/13/20 19:49 Source of Information: Reports: Patient, RN Notes Reviewed History Limitations: Reports: No Limitations - History of Present Illness INITIAL COMMENTS - FREE TEXT/NARRATIVE: Patient is a 65-year-old male who presents to the ER for few different complaints. He recently had some cancerous lesions taken out of his lung in June 2020, and states that the area is sore. He is having some left-sided lower back pain/chest discomfort along with some left arm pain. He denies any sort of lifting or strenuous activity or trauma that he could have incurred. Patient states that he is not really been eating or drinking much, and that he is been fairly depressed over the past few days. He feels fatigued, and just generally played out. He has had a prescription for hydrocodone, but he last took this roughly 4 days ago. States that the aches and pains of just kind of gotten worse over the last few days. He is denying any fevers or chills, cough or shortness of breath, so no nausea/vomiting/diarrhea. Left Lower Back Pain Score (Numeric/FACES): 7 - Related Data Allergies Allergy/AdvReac Type Severity Reaction Status Date / Time No Known Allergies Allergy Verified 09/13/20 19:53 Home Meds: Home Meds Pantoprazole [ProTONIX] 40 mg PO BID 03/18/16 [History] Rosuvastatin [Crestor] 5 mg PO DAILY #30 05/24/20 [Rx] Tamsulosin HCl 0.8 mg PO DAILY #60 05/24/20 [Rx] Thiamine [Vitamin B-1] 100 mg PO BEDTIME #30 tablet 05/24/20 [Rx] Venlafaxine [Venlafaxine HCl ER] 150 mg PO DAILY #30 05/24/20 [Rx] hydroCHLOROthiazide [Hydrochlorothiazide] 25 mg PO DAILY #30 05/24/20 [Rx] DULoxetine HCl [Cymbalta] 60 mg PO DAILY 06/02/20 [History] Past Medical History HEENT History: Reports: Other (See Below) Other HEENT History: dental issues Cardiovascular History: Reports: Hypertension Other Cardiovascular History: Started taking BP medication in March 2015 Respiratory History: Reports: COPD, Other (See Below) Other Respiratory History: pleurisy, lung cancer Gastrointestinal History: Reports: Colon Polyp, Gastritis, GERD, Hepatitis Genitourinary History: Reports: BPH, Renal Calculus Other Genitourinary History: "fixed ureters 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 bulging dics, R ankle fx, sacrum fx 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, opioids Hematologic History: Reports: Other (See Below) Other Hematologic History: HEP C Oncologic (Cancer) History: Reports: Lung - Infectious Disease History Infectious Disease History: Reports: Chicken Pox, Hepatitis C - Past Surgical History HEENT Surgical History: Reports: Oral Surgery Respiratory Surgical History: Reports: Lung Biopsies, Lung Resection GI Surgical History: Reports: Appendectomy Male Surgical History: Reports: Lithotripsy (ESWL), Ureteral Stent Other Male Surgeries/Procedures: Lithotripsy X 8 Musculoskeletal Surgical History: Reports: Other (See Below) Other Musculoskeletal Surgeries/Procedures:: fractured rib in past and also collar bone Oncologic Surgical History: Reports: Lobectomy Social & Family History - Family History Family Medical History: Unobtainable - Tobacco Use Tobacco Use Status *Q: Current Every Day Tobacco User Years of Tobacco use: 50 Packs/Tins Daily: 0.5 - Caffeine Use Caffeine Use: Reports: Coffee - Recreational Drug Use Recreational Drug Use: Yes Drug Use in Last 12 Months: Yes Recreational Drug Type: Reports: Marijuana/Hashish Recreational Drug Use Frequency: Rarely - Living Situation & Occupation Living situation: Reports: Single, Alone Occupation: Unemployed ED ROS GENERAL - Review of Systems Review Of Systems: Comprehensive ROS is negative, except as noted in HPI. ED EXAM, GENERAL - Physical Exam Exam: See Below Exam Limited By: No Limitations General Appearance: Alert, WD/WN, No Apparent Distress Respiratory/Chest: No Respiratory Distress, Lungs Clear, Normal Breath Sounds, No Accessory Muscle Use, Chest Non-Tender Cardiovascular: Normal Peripheral Pulses, Regular Rate, Rhythm, No Edema GI/Abdominal: Normal Bowel Sounds, Soft, Non-Tender, No Distention, No Mass Extremities: Normal Inspection, Normal Capillary Refill Neurological: Alert, Oriented, Normal Cognition, No Motor/Sensory Deficits Psychiatric: Depressed Mood, Flat Affect Skin Exam: Warm, Dry, Intact, Normal Color, No Rash #1 Interpretation EKG Date: 09/13/20 Time: 20:28 Rhythm: NSR Rate (Beats/Min): 84 [place]: Normal P-Wave: Present QRS: Normal ST-T: Normal QT: Normal EKG Interpretation Comments: No obvious ischemia or acute ST changes noted, reviewed by myself and Dr. Nunez. Course - Vital Signs Last Recorded V/S: Last Vital Signs Temp 97.2 F 09/13/20 19:45 Pulse 91 09/13/20 19:45 Resp 12 09/13/20 19:45 BP 129/83 09/13/20 19:45 Pulse Ox 96 09/13/20 19:45 - Orders/Labs/Meds Orders: Active Orders 24 hr Category Date Time Status EKG Documentation Completion [RC] STAT Care 09/13/20 19:57 Ordered Peripheral IV Care [RC] . DIRECTED Care 09/13/20 19:57 Ordered Chest 2V [CR] Stat Exams 09/13/20 19:56 Ordered Sodium Chloride 0.9% [Saline Flush] Med 09/13/20 19:57 Ordered 10 ml FLUSH ASDIRECTED PRN Peripheral IV Insertion Adult [OM.PC] Routine Oth 09/13/20 19:57 Ordered Medication Orders Sodium Chloride (Sodium Chloride 0.9% 10 Ml Syringe) 10 ml FLUSH ASDIRECTED PRN PRN Reason: Keep Vein Open Last Admin: 09/13/20 20:09 Dose: 10 ml Documented by: ASHLEY Labs: Laboratory Tests 09/13/20 09/13/20 09/13/20 Range/Units 19:59 19:59 19:59 WBC 10.51 H (4.23-9.07) K/mm3 RBC 4.65 (4.63-6.08) M/mm3 Hgb 12.7 L (13.7-17.5) gm/dl Hct 40.6 (40.1-51.0) % MCV 87.3 (79.0-92.2) fl MCH 27.3 (25.7-32.2) pg MCHC 31.3 L (32.2-35.5) g/dl RDW Std Deviation 47.5 H (35.1-43.9) fL Plt Count 496 H (163-337) K/mm3 MPV 8.6 L (9.4-12.3) fl Neut % (Auto) 64.0 (34.0-67.9) % Lymph % (Auto) 24.2 (21.8-53.1) % [place] % (Auto) 9.0 (5.3-12.2) % Eos % (Auto) 2.1 (0.8-7.0) Baso % (Auto) 0.4 (0.1-1.2) % Neut # (Auto) 6.73 H (1.78-5.38) K/mm3 Lymph # (Auto) 2.54 (1.32-3.57) K/mm3 [place] # (Auto) 0.95 H (0.30-0.82) K/mm3 Eos # (Auto) 0.22 (0.04-0.54) K/mm3 Baso # (Auto) 0.04 (0.01-0.08) K/mm3 Sodium 141 (136-145) mEq/L Potassium 3.8 (3.5-5.1) mEq/L Chloride 106 (98-107) mEq/L Carbon Dioxide 24 (21-32) mEq/L Anion Gap 14.8 (5-15) BUN 12 (7-18) mg/dL Creatinine 1.0 (0.7-1.3) mg/dL Est Cr Clr Drug Dosing 71.35 mL/min Estimated GFR (MDRD) > 60 (>60) mL/min BUN/Creatinine Ratio 12.0 L (14-18) Glucose 103 H (70-99) mg/dL Calcium 9.2 (8.5-10.1) mg/dL Total Bilirubin 0.2 (0.2-1.0) mg/dL AST 15 (15-37) U/L ALT 21 (16-63) U/L Alkaline Phosphatase 105 (46-116) U/L Troponin I < 0.017 (0.00-0.056) ng/mL NT-Pro-B Natriuret Pep 109 (0-125) pg/mL Total Protein 7.0 (6.4-8.2) g/dl Albumin 3.3 L (3.4-5.0) g/dl Globulin 3.7 gm/dL Albumin/Globulin Ratio 0.9 L (1-2) Meds: Medications Generic Name Dose Route Start Last Admin Trade Name Chin PRN Reason Stop Dose Admin Sodium Chloride 10 ml 09/13/20 19:57 09/13/20 20:09 Sodium Chloride 0.9% 10 Ml Syringe FLUSH 10 ml ASDIRECTED PRN Administration Keep Vein Open Discontinued Medications Generic Name Dose Route Start Last Admin Trade Name Chin PRN Reason Stop Dose Admin Hydromorphone HCl 0.5 mg 09/13/20 19:58 09/13/20 20:08 Hydromorphone 0.5 Mg/0.5 Ml Syringe IVPUSH 09/13/20 19:59 0.5 mg ONETIME ONE Administration Sodium Chloride 1,000 mls @ 999 mls/hr 09/13/20 19:58 09/13/20 20:08 Normal Saline IV 09/13/20 20:58 999 mls/hr ONETIME ONE Administration - Re-Assessments/Exams Free Text/Narrative Re-Assessment/Exam: 09/13/20 20:04 Patient presents to the ER for his multiple general complaints, we will check a few labs, get a EKG chest x-ray, give him some fluids and a little bit of pain meds and see if we can find any reason for why he would be feeling his fatigue however he does seem fairly depressed, I would not be surprised if this is just somatic manifestations and worsening depression on his part. 09/13/20 21:13 Labs are all unremarkable, troponin is undetectably low, EKG is without acute findings. I do believe that these are all psychosomatic manifestations of the patient's depression. We will discharge him home at this time. Departure - Departure Time of Disposition: 21:14 Disposition: Home, Self-Care 01 Condition: Good Clinical Impression: Generalized body aches Depression Qualifiers: Depression Type: other depression Qualified Code(s): F32.89 - Other specified depressive episodes Fatigue Qualifiers: Fatigue type: due to neoplasm Qualified Code(s): R53.0 - Neoplastic (malignant) related fatigue - Discharge Information *PRESCRIPTION DRUG MONITORING PROGRAM REVIEWED*: No *COPY OF PRESCRIPTION DRUG MONITORING REPORT IN PATIENT LETICIA: No Instructions: Managing Pain Without Opioids, Fatigue, Major Depressive Disorder, Adult, [id number] Referrals: Talha Fitch MD [Primary Care Provider] - Forms: ED Department Discharge Additional Instructions: You were evaluated in the ER today for your fatigue, and other generalized symptoms. Laboratory evaluation, EKG at today's visit are unremarkable for any acute findings. Chest x-ray also was without remarkable findings for today's purposes. You were given some IV pain meds, and some IV fluids. Please continue all of your pain medications at home as previously prescribed by your regular care provider. It is very likely, that your depression is in fact worsening, and causing some of these generalized symptoms that you are complaining about. No focal abnormalities were found at all on today's exam. Please talk with your primary care provider, about ongoing depression management, or find a counselor, so you can talk with someone about how you are doing with everything and your health. Please do not hesitate to return to the ER if your symptoms change or worsen. Sepsis Event Note (ED) - Evaluation Sepsis Screening Result: No Definite Risk - Focused Exam Vital Signs: Vital Signs Temp Pulse Resp BP Pulse Ox 09/13/20 19:45 97.2 F 91 12 129/83 96 - My Orders Last 24 Hours: My Active Orders 09/13/20 19:56 Chest 2V [CR] Stat 09/13/20 19:57 EKG Documentation Completion [RC] STAT Peripheral IV Care [RC] . DIRECTED Sodium Chloride 0.9% [Saline Flush] 10 ml FLUSH ASDIRECTED PRN Peripheral IV Insertion Adult [OM.PC] Routine - Assessment/Plan Last 24 Hours: My Active Orders 09/13/20 19:56 Chest 2V [CR] Stat 09/13/20 19:57 EKG Documentation Completion [RC] STAT Peripheral IV Care [RC] . DIRECTED Sodium Chloride 0.9% [Saline Flush] 10 ml FLUSH ASDIRECTED PRN Peripheral IV Insertion Adult [OM.PC] Routine
--- NOTE | 2020-09-15 10:48 | CR ---
Chest: 2 views of the chest were obtained. Comparison: Prior chest x-rays of 08/17/20 and 08/14/20. Heart size and mediastinum are within normal limits. Increased density is identified within the left lung base which appears to be fairly stable from prior exam and presumably is postsurgical. Stable calcified areas within the right upper chest is seen which is stable. Slight scarring within the left upper lung is seen. No acute parenchymal change is seen. Heart size and mediastinum are within normal limits. Scattered disc space narrowing is noted within the spine with slight scoliosis and endplate osteophytes. Impression: 1. Numerous findings as noted above which are felt to be stable. 2. Nothing acute is definitely appreciated. Diagnostic code #2
== END 2020-09-13 21:34 | disposition home or self-care (01) ==
LOC: JD.ED 19:34
DX: F32.89 Other specified depressive episodes (principal); R53.0 Neoplastic (malignant) related fatigue; M79.10 Myalgia, unspecified site; I10 Essential (primary) hypertension
CPT/HCPCS: 36415; 71046; 80053; 83880; 84484; 85025; 93005; 96374; 99285; J1170; J7030; 99284

== ENCOUNTER 2020-09-22 17:33 | Emergency (ER) | payer MEDICARE, MEDICAID ==
[2020-09-22 17:43] VITALS: BP 149/95; PULSE 103
[2020-09-22] MEDS ORDERED: Acetaminophen/HYDROcodone 325-5 MG Tab PO ONE (18:16)
[2020-09-22] MEDS ORDERED: HYDROmorphone 0.5 MG/0.5 ML Syringe IM ONE (18:16)
--- NOTE | 2020-09-22 18:24 | EDM.PDOC ---
ED HPI GENERAL MEDICAL PROBLEM - General Chief Complaint: Back Pain or Injury Stated Complaint: BACK PAIN Time Seen by Provider: 09/22/20 17:42 Source of Information: Reports: Patient, RN Notes Reviewed History Limitations: Reports: No Limitations - History of Present Illness INITIAL COMMENTS - FREE TEXT/NARRATIVE: Patient is a 65-year-old male who presents to the ER for evaluation of his back pain. Patient fell in his home a few nights ago, onto his back after his ankle gave out due to ankle surgery. His ankles are somewhat weak. Fell onto his mid back, and he did strike his head however he has not had any loss of consciousness, headache, or any other neurological issues since then. He is having pain in his back, notes that he had a recent resection of part of his lung due to lung cancer and he is worried that he may have hurt something regarding this. He cannot see his back and has no one at home to check the wounds out, so he became concerned for this as well. States that the pain stays in the mid back, does not seem to radiate anywhere else, does not seem to worsen when he takes too large of a breath. Patient denies any other sick-like symptoms, fever/chills, cough/shortness of breath, nausea/vomiting/diarrhea. Patient states that he ran out of his prescription pain medications from Dr. Portillo, and he needs to call him to get follow-up, for refill of prescriptions, and a chest CT due to the lung surgery 2 months ago. Treatments FINISH MENDER: Reports: Acetaminophen Middle Back Pain Score (Numeric/FACES): 7 - Related Data Allergies Allergy/AdvReac Type Severity Reaction Status Date / Time No Known Allergies Allergy Verified 09/22/20 17:43 Home Meds: Home Meds Tamsulosin HCl 0.8 mg PO DAILY #60 05/24/20 [Rx] Thiamine [Vitamin B-1] 100 mg PO BEDTIME #30 tablet 05/24/20 [Rx] hydroCHLOROthiazide [Hydrochlorothiazide] 25 mg PO DAILY #30 05/24/20 [Rx] Hydrocodone/Acetaminophen [Hydrocodone-Acetamin 10-325 mg] 1 each PO Q6H PRN #14 tab 09/22/20 [Rx] Venlafaxine [Venlafaxine HCl ER] 75 mg PO DAILY 09/22/20 [History] Past Medical History - Past Health History Medical/Surgical History: Denies Medical/Surgical History HEENT History: Reports: Other (See Below) Other HEENT History: dental issues Cardiovascular History: Reports: Hypertension Other Cardiovascular History: Started taking BP medication in March 2015 Respiratory History: Reports: COPD, Other (See Below) Other Respiratory History: pleurisy, lung cancer Gastrointestinal History: Reports: Colon Polyp, Gastritis, GERD, Hepatitis Genitourinary History: Reports: BPH, Renal Calculus Other Genitourinary History: "fixed ureters 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 bulging dics, R ankle fx, sacrum fx 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, opioids Hematologic History: Reports: Other (See Below) Other Hematologic History: HEP C Oncologic (Cancer) History: Reports: Lung - Infectious Disease History Infectious Disease History: Reports: Chicken Pox, Hepatitis C - Past Surgical History HEENT Surgical History: Reports: Oral Surgery Respiratory Surgical History: Reports: Lung Biopsies, Lung Resection, Other (See Below) Other Respiratory Surgeries/Procedures: 20% of Left Lung Removed GI Surgical History: Reports: Appendectomy Male Surgical History: Reports: Lithotripsy (ESWL), Ureteral Stent Other Male Surgeries/Procedures: Lithotripsy X 8 Musculoskeletal Surgical History: Reports: Other (See Below) Other Musculoskeletal Surgeries/Procedures:: Left ankle surgery after fx in May 2020 Oncologic Surgical History: Reports: Lobectomy Social & Family History - Family History Family Medical History: Unobtainable - Tobacco Use Tobacco Use Status *Q: Current Every Day Tobacco User Years of Tobacco use: 50 Packs/Tins Daily: 0.3 - Caffeine Use Caffeine Use: Reports: Coffee, Energy Drinks - Recreational Drug Use Recreational Drug Use: Yes Recreational Drug Type: Reports: Marijuana/Hashish - Living Situation & Occupation Living situation: Reports: Single, Alone Occupation: Unemployed ED ROS GENERAL - Review of Systems Review Of Systems: Comprehensive ROS is negative, except as noted in HPI. ED EXAM, GENERAL - Physical Exam Exam: See Below Exam Limited By: No Limitations General Appearance: Alert, WD/WN, No Apparent Distress Eye Exam: Bilateral Eye: EOMI, Normal Inspection, PERRL Head: Atraumatic, Normocephalic Neck: Normal Inspection, Supple, Non-Tender, Full Range of Motion Respiratory/Chest: No Respiratory Distress, Lungs Clear, Normal Breath Sounds, No Accessory Muscle Use, Chest Non-Tender Cardiovascular: Normal Peripheral Pulses, Regular Rate, Rhythm, No Edema Peripheral Pulses: 2+: Radial (L), Radial (R) Extremities: Normal Inspection, Normal Capillary Refill Neurological: Alert, Oriented, Normal Cognition, No Motor/Sensory Deficits Psychiatric: Depressed Mood, Flat Affect Skin Exam: Warm, Dry, Intact, Normal Color, No Rash Course - Vital Signs Last Recorded V/S: Last Vital Signs Temp 98 F 09/22/20 17:40 Pulse 103 H 09/22/20 17:40 Resp 20 09/22/20 17:40 BP 149/95 H 09/22/20 17:40 Pulse Ox 100 09/22/20 17:40 - Orders/Labs/Meds Meds: Medications Discontinued Medications Generic Name Dose Route Start Last Admin Trade Name Freq PRN Reason Stop Dose Admin Hydrocodone Bitart/Acetaminophen 2 tab 09/22/20 18:16 Acetaminophen/Hydrocodone 325-5 Mg Tab PO 09/22/20 18:17 ONETIME ONE Hydromorphone HCl 0.5 mg 09/22/20 18:16 Hydromorphone 0.5 Mg/0.5 Ml Syringe IM 09/22/20 18:17 ONETIME ONE - Re-Assessments/Exams Free Text/Narrative Re-Assessment/Exam: 09/22/20 18:20 Patient presents to the ER for the evaluation of his back pain. He will be given 0.5 IM Dilaudid, and 2 tablets of Texline for pain management, he will follow up with Dr. Portillo tomorrow, for ongoing pain management. I did offer to do an x-ray or CT, but he states that Dr. Portillo is wanting to do a chest CT at his next visit, so he would prefer not to have extra radiation, this seems okay with me at this time. Departure - Departure Time of Disposition: 18:21 Disposition: Home, Self-Care 01 Condition: Good Clinical Impression: Back pain due to injury - Discharge Information *PRESCRIPTION DRUG MONITORING PROGRAM REVIEWED*: Yes *COPY OF PRESCRIPTION DRUG MONITORING REPORT IN PATIENT LETICIA: No Prescriptions: Hydrocodone/Acetaminophen [Hydrocodone-Acetamin 10-325 mg] 1 each PO Q6H PRN #14 tab PRN Reason: Pain Instructions: Pain Medicine Instructions, [id number] Referrals: Talha Fitch MD [Primary Care Provider] - Additional Instructions: You were evaluated in the ER today for your back pain. You were given IM and p.o. pain meds in the ER, this seemed to work well for you. Please follow-up with Dr. Portillo tomorrow, for ongoing management regarding your recent lung resection surgery. You were given a prescription for a strong pain medication, hydrocodone/willy taminophen 10/325 mg, please take 1 tab every 6 hours as needed for pain not relieved by Tylenol or ibuprofen alone. Please note this medication does contain Tylenol in it, so do not take more than 4000 mg in a 24-hour time span. These medications can be addictive, so please take as few as possible to achieve adequate pain control. These meds can also be quite constipating, recommend that you increase your oral fluid intake and take a stool softener like MiraLAX while taking these medications. Do not drive while taking this medication. This medication was electronically sent to the [facility] located on [address]. Please return to the ER at any time if symptoms change or worsen. Sepsis Event Note (ED) - Evaluation Sepsis Screening Result: No Definite Risk - Focused Exam Vital Signs: Vital Signs Temp Pulse Resp BP Pulse Ox 09/22/20 17:40 98 F 103 H 20 149/95 H 100
== END 2020-09-22 18:38 | disposition home or self-care (01) ==
LOC: JD.ED 17:33
DX: M54.6 Pain in thoracic spine (principal); G89.11 Acute pain due to trauma; J44.9 Chronic obstructive pulmonary disease, unspecified; I10 Essential (primary) hypertension; Z72.0 Tobacco use
CPT/HCPCS: 96372; 99283; A9270; J1170

== ENCOUNTER 2020-11-18 16:21 | Emergency (ER) | payer MEDICARE, MEDICAID ==
[2020-11-18 16:57] VITALS: BP 128/87; PULSE 97
--- NOTE | 2020-11-18 17:45 | EDM.PDOC ---
ED HPI GENERAL MEDICAL PROBLEM - General Chief Complaint: Abdominal Pain Stated Complaint: LT SIDE FLANK PAIN Time Seen by Provider: 11/18/20 17:05 - History of Present Illness INITIAL COMMENTS - FREE TEXT/NARRATIVE: 65-year-old male presents to the emergency room with persistent pain in his left chest and upper abdomen. Over time this is getting better the patient had a partial lung resection this spring the pain is not as bad as it was but it is still quite persistent often waking him at night. He has been taking hydrocodone 10/325 he took his last one yesterday. He has been in the process of working off of these. He has an infrequent cough and is quite painful when he does cough but this generally is not a problem for him. The pain he is having is his typical postoperative pain and over the long-term it does continue to improve. However, it is bothersome especially in the evenings when he is trying to rest. Left Upper Abdomen Pain Score (Numeric/FACES): 7 - Related Data Allergies Allergy/AdvReac Type Severity Reaction Status Date / Time No Known Allergies Allergy Verified 11/18/20 16:58 Home Meds: Home Meds Tamsulosin HCl 0.8 mg PO DAILY #60 05/24/20 [Rx] Thiamine [Vitamin B-1] 100 mg PO BEDTIME #30 tablet 05/24/20 [Rx] Venlafaxine [Venlafaxine HCl ER] 75 mg PO DAILY 09/22/20 [History] Hydrocodone/Acetaminophen [HYDROcodone-Acetaminophen 5-325 MG] 1 each PO ASDIRECTED #15 tab 11/18/20 [Rx] Pantoprazole Sodium [Protonix] 20 mg PO DAILY 11/18/20 [History] Past Medical History - Past Health History Medical/Surgical History: Denies Medical/Surgical History HEENT History: Reports: Other (See Below) Other HEENT History: dental issues Cardiovascular History: Reports: Hypertension Other Cardiovascular History: Started taking BP medication in March 2015 Respiratory History: Reports: COPD, Other (See Below) Other Respiratory History: pleurisy, lung cancer Gastrointestinal History: Reports: Colon Polyp, Gastritis, GERD, Hepatitis Genitourinary History: Reports: BPH, Renal Calculus Other Genitourinary History: "fixed ureters 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 bulging dics, R ankle fx, sacrum fx 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, opioids Hematologic History: Reports: Other (See Below) Other Hematologic History: HEP C Oncologic (Cancer) History: Reports: Lung - Infectious Disease History Infectious Disease History: Reports: Chicken Pox, Hepatitis C - Past Surgical History HEENT Surgical History: Reports: Oral Surgery Respiratory Surgical History: Reports: Lung Biopsies, Lung Resection, Other (See Below) Other Respiratory Surgeries/Procedures: 20% of Left Lung Removed GI Surgical History: Reports: Appendectomy Male Surgical History: Reports: Lithotripsy ([facility]), Ureteral Stent Other Male Surgeries/Procedures: Lithotripsy X 8 Endocrine Surgical History: Reports: None Musculoskeletal Surgical History: Reports: Other (See Below) Other Musculoskeletal Surgeries/Procedures:: Left ankle surgery after fx in May 2020 Oncologic Surgical History: Reports: Lobectomy Social & Family History - Family History Family Medical History: Unobtainable - Tobacco Use Tobacco Use Status *Q: Current Every Day Tobacco User Years of Tobacco use: 50 Packs/Tins Daily: 0.5 - Caffeine Use Caffeine Use: Reports: None - Recreational Drug Use Recreational Drug Use: No - Living Situation & Occupation Living situation: Reports: Single, Alone Occupation: Unemployed ED ROS GENERAL - Review of Systems Review Of Systems: See Below Constitutional: Reports: No Symptoms HEENT: Reports: No Symptoms Respiratory: Reports: Pleuritic Chest Pain, Cough (Infrequent). Denies: Shortness of Breath, Sputum Cardiovascular: Reports: No Symptoms Endocrine: Reports: No Symptoms GI/Abdominal: Reports: No Symptoms. Denies: Abdominal Pain, Constipation, Diarrhea, Nausea, Vomiting : Reports: No Symptoms Musculoskeletal: Reports: No Symptoms ED EXAM, GENERAL - Physical Exam Exam: See Below Exam Limited By: No Limitations General Appearance: Alert, No Apparent Distress Head: Atraumatic, Normocephalic Respiratory/Chest: No Respiratory Distress, Lungs Clear, Normal Breath Sounds Cardiovascular: Regular Rate, Rhythm, No Edema, No Murmur GI/Abdominal: Normal Bowel Sounds, Soft, Non-Tender Back Exam: Normal Inspection. No: CVA Tenderness (L), CVA Tenderness (R) Extremities: Normal Inspection, No Pedal Edema Course - Vital Signs Last Recorded V/S: Last Vital Signs Temp 37.1 C 11/18/20 16:55 Pulse 97 11/18/20 16:55 Resp 18 11/18/20 16:55 BP 128/87 11/18/20 16:55 Pulse Ox 98 11/18/20 16:55 - Re-Assessments/Exams Free Text/Narrative Re-Assessment/Exam: 11/18/20 17:45 Patient does not believe he needs a chest x-ray or further work-up. I will give him 15 5/325 hydrocodone this is a significant dosage drop and limited to 1 or 2 daily. After this he will attempt Tylenol on a regular basis Departure - Departure Time of Disposition: 17:47 Disposition: Home, Self-Care 01 Clinical Impression: Post-thoracotomy pain syndrome - Discharge Information Referrals: Talha Fitch MD [Primary Care Provider] - Additional Instructions: Return to the emergency room with any questions problems or worsening symptoms. I have sent hydrocodone 5/325 #15 to the [facility] in [place]. Take 1 or 2 daily as needed this is a decrease in your dose. As we discussed when you are out of these you should be able to control your pain with Tylenol extra strength 1 or 2 4 times daily. Follow-up with your regular doctor discuss gabapentin for long-term pain control. Sepsis Event Note (ED) - Evaluation Sepsis Screening Result: No Definite Risk - Focused Exam Vital Signs: Vital Signs Temp Pulse Resp BP Pulse Ox 11/18/20 16:55 37.1 C 97 18 128/87 98
== END 2020-11-18 18:10 | disposition home or self-care (01) ==
LOC: JD.ED 16:21
DX: G89.12 Acute post-thoracotomy pain (principal); I10 Essential (primary) hypertension; J44.9 Chronic obstructive pulmonary disease, unspecified; K21.9 Gastro-esophageal reflux disease without esophagitis; Z72.0 Tobacco use; Z79.899 Other long term (current) drug therapy
CPT/HCPCS: 99283

== ENCOUNTER 2020-12-05 17:08 | Emergency (ER) | payer MEDICARE, MEDICAID ==
[2020-12-05 17:46] VITALS: BP 158/93; PULSE 89
== END 2020-12-05 19:07 | disposition left against medical advice (07) ==
LOC: JD.ED 17:08
DX: Z53.21 Procedure and treatment not carried out due to patient leaving prior to being seen by health care provider (principal)

== ENCOUNTER 2020-12-12 14:51 | Emergency (ER) | payer MEDICARE, MEDICAID ==
[2020-12-12 16:01] VITALS: BP 133/73; PULSE 81
== END 2020-12-12 16:03 | disposition left against medical advice (07) ==
LOC: JD.ED 14:51
DX: G89.18 Other acute postprocedural pain (principal); Z53.21 Procedure and treatment not carried out due to patient leaving prior to being seen by health care provider

== ENCOUNTER 2021-03-30 13:44 | Emergency (ER) | payer MEDICARE, MEDICAID | END 2021-03-30 14:34 | disposition left against medical advice (07) | LOC: JD.ED 13:44 | DX: Z53.21 Procedure and treatment not carried out due to patient leaving prior to being seen by health care provider (principal) ==

== ENCOUNTER 2021-04-26 17:14 | Emergency (ER) | payer MEDICARE, MEDICAID ==
[2021-04-26 17:24] VITALS: BP 173/96; PULSE 80
[2021-04-26] MEDS ORDERED: Metoclopramide 10 MG/2 ML SDV IVPUSH ONE (17:39)
[2021-04-26] MEDS ORDERED: HYDROmorphone 1 MG/ML Syringe IVPUSH ONE (17:39)
[2021-04-26] MEDS ORDERED: Sodium Chloride 0.9% 10 ML Syringe FLUSH PRN (17:39)
== END 2021-04-26 19:05 | disposition home or self-care (01) ==
LOC: JD.ED 17:14
DX: R10.9 Unspecified abdominal pain (principal); I10 Essential (primary) hypertension; J44.9 Chronic obstructive pulmonary disease, unspecified; K21.9 Gastro-esophageal reflux disease without esophagitis; N40.0 Benign prostatic hyperplasia without lower urinary tract symptoms; Z87.442 Personal history of urinary calculi; Z72.0 Tobacco use; Z88.5 Allergy status to narcotic agent; Z79.899 Other long term (current) drug therapy
CPT/HCPCS: 81001; 96374; 96375; 99284; J1170; J2765

== ENCOUNTER 2021-05-03 16:38 | Emergency (ER) | payer MEDICARE, MEDICAID ==
[2021-05-03 19:46] VITALS: BP 127/100; PULSE 87
== END 2021-05-03 19:46 | disposition home or self-care (01) ==
LOC: JD.ED 16:38
DX: S20.212A Contusion of left front wall of thorax, initial encounter (principal); S00.83XA Contusion of other part of head, initial encounter; I10 Essential (primary) hypertension; J44.9 Chronic obstructive pulmonary disease, unspecified; K21.9 Gastro-esophageal reflux disease without esophagitis; Z72.0 Tobacco use; Z88.5 Allergy status to narcotic agent; Z79.899 Other long term (current) drug therapy; W18.30XA Fall on same level, unspecified, initial encounter; Y92.000 Kitchen of unspecified non-institutional (private) residence as the place of occurrence of the external cause
CPT/HCPCS: 70450; 70450-26; 70486; 70486-26; 71101-26-LT; 71101-LT; 93005; 99284-25

== ENCOUNTER 2021-05-07 17:43 | Emergency (ER) | payer MEDICARE, MEDICAID | END 2021-05-07 18:50 | disposition left against medical advice (07) | LOC: JD.ED 17:43 | DX: Z53.21 Procedure and treatment not carried out due to patient leaving prior to being seen by health care provider (principal) ==

== ENCOUNTER 2021-05-09 18:29 | Emergency (ER) | payer MEDICARE, MEDICAID ==
[2021-05-09 19:28] VITALS: BP 164/99; PULSE 76
== END 2021-05-09 20:20 | disposition home or self-care (01) ==
LOC: JD.ED 18:29
DX: R51.9 Headache, unspecified (principal); J44.9 Chronic obstructive pulmonary disease, unspecified; I10 Essential (primary) hypertension; Z88.5 Allergy status to narcotic agent; Z79.899 Other long term (current) drug therapy; Z72.0 Tobacco use
CPT/HCPCS: 99283

== ENCOUNTER 2021-05-29 16:55 | Emergency (ER) | payer MEDICARE, MEDICAID ==
[2021-05-29 17:10] VITALS: BP 170/89; PULSE 84
[2021-05-29] MEDS ORDERED: HYDROmorphone 1 MG/ML Syringe IM ONE (17:33)
[2021-05-29] MEDS ORDERED: Promethazine 25 MG/ML SDV IM ONE (17:33)
== END 2021-05-29 19:13 | disposition home or self-care (01) ==
LOC: JD.ED 16:55
DX: R10.9 Unspecified abdominal pain (principal); I10 Essential (primary) hypertension; J44.9 Chronic obstructive pulmonary disease, unspecified; K21.9 Gastro-esophageal reflux disease without esophagitis; Z88.5 Allergy status to narcotic agent; Z79.899 Other long term (current) drug therapy; Z72.0 Tobacco use
CPT/HCPCS: 36415; 80053; 83690; 85025; 96372; 99284; J1170; J2550

== ENCOUNTER 2021-06-19 16:45 | Emergency (ER) | payer MEDICARE, MEDICAID ==
[2021-06-19 17:25] VITALS: BP 125/84; PULSE 73
[2021-06-19] MEDS ORDERED: Ketorolac 30 MG/ML SDV IVPUSH ONE (17:49)
[2021-06-19] MEDS ORDERED: Sodium Chloride 0.9% 1,000 ML IV ONE (17:49)
[2021-06-19] MEDS ORDERED: Sodium Chloride 0.9% 10 ML Syringe FLUSH PRN (17:49)
== END 2021-06-19 18:42 | disposition home or self-care (01) ==
LOC: JD.ED 16:45
DX: R10.9 Unspecified abdominal pain (principal); J44.9 Chronic obstructive pulmonary disease, unspecified; K21.9 Gastro-esophageal reflux disease without esophagitis; Z88.5 Allergy status to narcotic agent; Z79.899 Other long term (current) drug therapy; Z72.0 Tobacco use
CPT/HCPCS: 36415; 80053; 83735; 85025; 99284; J7030

== ENCOUNTER 2021-06-22 18:04 | Emergency (ER) | payer MEDICARE, MEDICAID ==
[2021-06-22 18:18] VITALS: BP 115/74; PULSE 81
[2021-06-22] MEDS ORDERED: Acetaminophen/HYDROcodone 325-5 MG Tab PO ONE (18:45)
[2021-06-22] MEDS ORDERED: Orphenadrine 100 MG Tab.ER PO ONE (18:47)
== END 2021-06-22 19:28 | disposition home or self-care (01) ==
LOC: JD.ED 18:04
DX: M54.42 Lumbago with sciatica, left side (principal); F32.89 Other specified depressive episodes; M62.838 Other muscle spasm; J44.9 Chronic obstructive pulmonary disease, unspecified; I10 Essential (primary) hypertension; K21.9 Gastro-esophageal reflux disease without esophagitis; Z79.899 Other long term (current) drug therapy; Z72.0 Tobacco use
CPT/HCPCS: 72100; 99283; A9270; 99284

== ENCOUNTER 2021-06-28 20:53 | Emergency (ER) | payer MEDICARE, MEDICAID ==
[2021-06-28 21:14] VITALS: BP 116/85; PULSE 84
== END 2021-06-28 22:10 | disposition home or self-care (01) ==
LOC: JD.ED 20:53
DX: M19.012 Primary osteoarthritis, left shoulder (principal); I10 Essential (primary) hypertension; J44.9 Chronic obstructive pulmonary disease, unspecified; K21.9 Gastro-esophageal reflux disease without esophagitis; Z88.5 Allergy status to narcotic agent; Z79.899 Other long term (current) drug therapy; Z72.0 Tobacco use
CPT/HCPCS: 99283

== ENCOUNTER 2021-06-29 17:03 | Emergency (ER) | payer MEDICARE, MEDICAID ==
[2021-06-29 17:14] VITALS: BP 130/77; PULSE 93
[2021-06-29] MEDS ORDERED: Ketorolac 60 MG/2 ML SDV IM ONE (17:30)
== END 2021-06-29 17:54 | disposition home or self-care (01) ==
LOC: JD.ED 17:03
DX: M54.41 Lumbago with sciatica, right side (principal); M54.42 Lumbago with sciatica, left side; J44.9 Chronic obstructive pulmonary disease, unspecified; I10 Essential (primary) hypertension; M19.90 Unspecified osteoarthritis, unspecified site; K21.9 Gastro-esophageal reflux disease without esophagitis; Z88.5 Allergy status to narcotic agent; Z79.899 Other long term (current) drug therapy; Z72.0 Tobacco use
CPT/HCPCS: 96372; 99283; J1885; 99284

== ENCOUNTER 2021-06-30 20:20 | Emergency (ER) | payer MEDICARE, MEDICAID ==
[2021-06-30 20:49] VITALS: BP 101/64; PULSE 90
[2021-06-30] MEDS ORDERED: HYDROmorphone 1 MG/ML Syringe IM ONE (21:25)
[2021-06-30] MEDS ORDERED: Acetaminophen/HYDROcodone 325-5 MG Tab PO ONE (21:55)
== END 2021-06-30 22:09 | disposition home or self-care (01) ==
LOC: JD.ED 20:20
DX: M54.42 Lumbago with sciatica, left side (principal); I10 Essential (primary) hypertension; J44.9 Chronic obstructive pulmonary disease, unspecified; K21.9 Gastro-esophageal reflux disease without esophagitis; N40.0 Benign prostatic hyperplasia without lower urinary tract symptoms; Z88.5 Allergy status to narcotic agent; Z79.899 Other long term (current) drug therapy
CPT/HCPCS: 96372; 99283; A9270; J1170; 99284

== ENCOUNTER 2021-07-05 15:58 | Emergency (ER) | payer MEDICARE, MEDICAID ==
[2021-07-05 16:29] VITALS: BP 117/77; PULSE 68
[2021-07-05] MEDS ORDERED: HYDROmorphone 1 MG/ML Syringe IM ONE (17:15)
== END 2021-07-05 17:50 | disposition home or self-care (01) ==
LOC: JD.ED 15:58
DX: R10.9 Unspecified abdominal pain (principal); I10 Essential (primary) hypertension; J44.9 Chronic obstructive pulmonary disease, unspecified; M19.90 Unspecified osteoarthritis, unspecified site; K21.9 Gastro-esophageal reflux disease without esophagitis; N40.0 Benign prostatic hyperplasia without lower urinary tract symptoms; Z88.5 Allergy status to narcotic agent; Z79.899 Other long term (current) drug therapy; Z72.0 Tobacco use
CPT/HCPCS: 96372; 99283; J1170

== ENCOUNTER 2021-07-12 13:38 | Emergency (ER) | payer MEDICARE, MEDICAID ==
[2021-07-12 13:57] VITALS: BP 118/75; PULSE 80
[2021-07-12] MEDS ORDERED: Diphtheria,Pertussis(Acell),Tetanus Vaccine 0.5 ML Syringe IM ONE (14:14)
== END 2021-07-12 14:31 | disposition left against medical advice (07) ==
LOC: JD.ED 13:38
DX: S60.410A Abrasion of right index finger, initial encounter (principal); F10.129 Alcohol abuse with intoxication, unspecified; I10 Essential (primary) hypertension; K21.9 Gastro-esophageal reflux disease without esophagitis; J44.9 Chronic obstructive pulmonary disease, unspecified; M19.90 Unspecified osteoarthritis, unspecified site; N40.0 Benign prostatic hyperplasia without lower urinary tract symptoms; Z88.5 Allergy status to narcotic agent; Z79.899 Other long term (current) drug therapy; W22.09XA Striking against other stationary object, initial encounter; Y93.E5 Activity, floor mopping and cleaning
CPT/HCPCS: 99283

== ENCOUNTER 2021-07-17 18:39 | Emergency (ER) | payer MEDICARE, MEDICAID ==
[2021-07-17] MEDS ORDERED: Lidocaine/EPINEPHrine/Tetracaine Soln 1 ML TOP ONE (19:17)
[2021-07-17] MEDS ORDERED: Lidocaine 1% with EPINEPHrine 1:100,000 10 ML MDV INJECT ONE (19:18)
[2021-07-17 19:25] VITALS: BP 172/98; PULSE 81
[2021-07-17] MEDS ORDERED: Triamcinolone Acetonide 40 MG/ML 1 ML SDV INJECT ONE (19:25)
[2021-07-17] MEDS ORDERED: Lidocaine 1% 10 ML MDV INJECT ONE (19:27)
== END 2021-07-17 21:15 | disposition home or self-care (01) ==
LOC: JD.ED 18:39
DX: M70.21 Olecranon bursitis, right elbow (principal); I10 Essential (primary) hypertension; K21.9 Gastro-esophageal reflux disease without esophagitis; J44.9 Chronic obstructive pulmonary disease, unspecified; M19.90 Unspecified osteoarthritis, unspecified site; N40.0 Benign prostatic hyperplasia without lower urinary tract symptoms; Z88.5 Allergy status to narcotic agent; Z79.899 Other long term (current) drug therapy
CPT/HCPCS: 20605; 96374; 99283; 99283-25; J3301

== ENCOUNTER 2021-08-05 18:10 | Emergency (ER) | payer MEDICARE, MEDICAID ==
[2021-08-05 18:58] VITALS: BP 163/92; PULSE 84
[2021-08-05] MEDS ORDERED: Morphine 4 MG/ML Syringe IVPUSH ONE (20:34)
[2021-08-05] MEDS ORDERED: Sodium Chloride 0.9% 10 ML SDV FLUSH ONE (21:16)
[2021-08-05] MEDS ORDERED: Iopamidol 755 Mg/ML 100 ML Bottle IVPUSH ONE (21:16)
[2021-08-05] MEDS ORDERED: Sodium Chloride 0.9% 100 ML IV SCH (21:30)
[2021-08-05] MEDS ORDERED: Penicillin V Potassium 500 MG Tab PO STA (22:04)
[2021-08-05] MEDS ORDERED: ClonazePAM 0.5 MG Tab PO ONE (22:43)
== END 2021-08-05 22:50 | disposition home or self-care (01) ==
LOC: JD.ED 18:10
DX: J20.9 Acute bronchitis, unspecified (principal); K08.89 Other specified disorders of teeth and supporting structures; I10 Essential (primary) hypertension; J44.9 Chronic obstructive pulmonary disease, unspecified; K21.9 Gastro-esophageal reflux disease without esophagitis; Z88.5 Allergy status to narcotic agent; Z79.899 Other long term (current) drug therapy; Z72.0 Tobacco use
CPT/HCPCS: 36415; 71045; 71275; 80053; 84484; 85025; 85610; 96374; 99284; A9270; J2270; J3490; Q9967; 99283

== ENCOUNTER 2021-08-29 14:56 | Emergency (ER) | payer MEDICARE, MEDICAID ==
[2021-08-29] MEDS ORDERED: Amoxicillin/Clavulanate K 500-125 MG Tab PO ONE (15:17)
[2021-08-29] MEDS ORDERED: Acetaminophen/oxyCODONE 325-5 MG Tab PO ONE (15:17)
[2021-08-29 15:43] VITALS: BP 143/86; PULSE 88
== END 2021-08-29 15:40 | disposition home or self-care (01) ==
LOC: JD.ED 14:56
DX: K02.9 Dental caries, unspecified (principal); L08.9 Local infection of the skin and subcutaneous tissue, unspecified; J44.9 Chronic obstructive pulmonary disease, unspecified; K21.9 Gastro-esophageal reflux disease without esophagitis; I10 Essential (primary) hypertension; Z90.49 Acquired absence of other specified parts of digestive tract; Z88.5 Allergy status to narcotic agent; Z79.899 Other long term (current) drug therapy
CPT/HCPCS: 99282; A9270

== ENCOUNTER 2021-09-01 21:48 | Emergency (ER) | payer MEDICARE, MEDICAID ==
[2021-09-01 22:00] VITALS: BP 128/77; PULSE 79
[2021-09-01] MEDS ORDERED: Acetaminophen 325 MG Tab PO ONE (22:08)
== END 2021-09-01 22:32 | disposition left against medical advice (07) ==
LOC: JD.ED 21:48
DX: S09.90XA Unspecified injury of head, initial encounter (principal); M25.512 Pain in left shoulder; I10 Essential (primary) hypertension; J44.9 Chronic obstructive pulmonary disease, unspecified; K21.9 Gastro-esophageal reflux disease without esophagitis; Z88.5 Allergy status to narcotic agent; W18.30XA Fall on same level, unspecified, initial encounter
CPT/HCPCS: 99282; 99283-25; A9270-GY

== ENCOUNTER 2021-09-02 16:38 | Emergency (ER) | payer MEDICARE, MEDICAID ==
[2021-09-02 16:56] VITALS: BP 181/93; PULSE 96
[2021-09-02] MEDS ORDERED: Ketorolac 60 MG/2 ML SDV IM ONE (17:04)
== END 2021-09-02 18:09 | disposition home or self-care (01) ==
LOC: JD.ED 16:38
DX: S20.212A Contusion of left front wall of thorax, initial encounter (principal); J44.9 Chronic obstructive pulmonary disease, unspecified; K21.9 Gastro-esophageal reflux disease without esophagitis; I10 Essential (primary) hypertension; F17.210 Nicotine dependence, cigarettes, uncomplicated; Z90.49 Acquired absence of other specified parts of digestive tract; Z79.899 Other long term (current) drug therapy; Z88.5 Allergy status to narcotic agent; W07.XXXA Fall from chair, initial encounter
CPT/HCPCS: 36415; 71045; 80053; 83735; 83880; 84484; 85025; 85610; 85730; 93005; 96372; 99285; J1885; 93010; 99284

== ENCOUNTER 2021-09-13 16:01 | Emergency (ER) | payer MEDICARE, MEDICAID ==
[2021-09-13 16:06] VITALS: BP 115/75; PULSE 87
== END 2021-09-13 16:20 | disposition left against medical advice (07) ==
LOC: JD.ED 16:01
DX: S00.03XA Contusion of scalp, initial encounter (principal); R55 Syncope and collapse; J44.9 Chronic obstructive pulmonary disease, unspecified; I10 Essential (primary) hypertension; Z90.49 Acquired absence of other specified parts of digestive tract; Z79.899 Other long term (current) drug therapy; Z88.5 Allergy status to narcotic agent
CPT/HCPCS: 99283; 99284-25

== ENCOUNTER 2021-09-14 19:21 | Emergency (ER) | payer MEDICARE, MEDICAID ==
[2021-09-14 19:35] VITALS: BP 179/99; PULSE 94
[2021-09-14 20:47] LABS: ESTIMATED GFR > 60 mL/min (>60)
== END 2021-09-14 22:14 | disposition home or self-care (01) ==
LOC: JD.ED 19:21
DX: M19.071 Primary osteoarthritis, right ankle and foot (principal); M50.33 Other cervical disc degeneration, cervicothoracic region; J44.9 Chronic obstructive pulmonary disease, unspecified; I10 Essential (primary) hypertension; K21.9 Gastro-esophageal reflux disease without esophagitis; F17.210 Nicotine dependence, cigarettes, uncomplicated; Z90.49 Acquired absence of other specified parts of digestive tract; Z79.899 Other long term (current) drug therapy; Z88.5 Allergy status to narcotic agent
CPT/HCPCS: 36415; 72040; 72040-26; 73630-26-RT; 73630-RT; 80053; 80307; 83735; 85025; 93005; 99283; 99284-25

== ENCOUNTER 2021-09-22 16:17 | Emergency (ER) | payer MEDICARE, MEDICAID ==
[2021-09-22 16:27] VITALS: PULSE 103
[2021-09-22 17:28] LABS: ESTIMATED GFR 47 mL/min (>60)
[2021-09-22] MEDS ORDERED: Sodium Chloride 0.9% 10 ML Syringe FLUSH PRN (18:43)
[2021-09-22] MEDS ORDERED: HYDROmorphone 0.5 MG/0.5 ML Syringe IVPUSH ONE (18:43)
== END 2021-09-22 19:20 ==
LOC: JD.ED 16:17
DX: S06.5X0A Traumatic subdural hemorrhage without loss of consciousness, initial encounter (principal); S80.211A Abrasion, right knee, initial encounter; S80.212A Abrasion, left knee, initial encounter; S40.212A Abrasion of left shoulder, initial encounter; F10.920 Alcohol use, unspecified with intoxication, uncomplicated; J44.9 Chronic obstructive pulmonary disease, unspecified; K21.9 Gastro-esophageal reflux disease without esophagitis; I10 Essential (primary) hypertension; F17.210 Nicotine dependence, cigarettes, uncomplicated; Z90.49 Acquired absence of other specified parts of digestive tract; Z79.899 Other long term (current) drug therapy; Z88.5 Allergy status to narcotic agent; W19.XXXA Unspecified fall, initial encounter
CPT/HCPCS: 36415; 70450; 73030; 73560; 80053; 80307; 85025; 96374; 99285; J1170; J3490; 99284

== ENCOUNTER 2021-09-28 19:32 | Emergency (ER) | payer MEDICARE, MEDICAID ==
[2021-09-28 20:17] VITALS: BP 128/62; PULSE 76
[2021-09-28] MEDS ORDERED: Bupivacaine 0.5% 10 ML SDV INJECT ONE (20:33)
[2021-09-28] MEDS ORDERED: Lidocaine 1% with EPINEPHrine 1:100,000 10 ML MDV INJECT ONE (20:33)
[2021-09-28] MEDS ORDERED: Lidocaine 1% with EPINEPHrine 1:100,000 20 ML MDV ONE (20:49)
== END 2021-09-28 20:52 | disposition home or self-care (01) ==
LOC: JD.ED 19:32
DX: M70.21 Olecranon bursitis, right elbow (principal); I10 Essential (primary) hypertension; K21.9 Gastro-esophageal reflux disease without esophagitis; F17.210 Nicotine dependence, cigarettes, uncomplicated; Z88.5 Allergy status to narcotic agent; Z79.899 Other long term (current) drug therapy
CPT/HCPCS: 99283; J3490

== ENCOUNTER 2021-10-10 18:00 | Emergency (ER) | payer MEDICARE, MEDICAID ==
[2021-10-10 18:15] VITALS: BP 104/61; PULSE 81
[2021-10-10 19:44] LABS: ESTIMATED GFR 55 mL/min (>60)
== END 2021-10-10 20:15 | disposition home or self-care (01) ==
LOC: JD.ED 18:00
DX: S93.401A Sprain of unspecified ligament of right ankle, initial encounter (principal); S83.92XA Sprain of unspecified site of left knee, initial encounter; S29.9XXA Unspecified injury of thorax, initial encounter; F10.120 Alcohol abuse with intoxication, uncomplicated; I10 Essential (primary) hypertension; J44.9 Chronic obstructive pulmonary disease, unspecified; K21.9 Gastro-esophageal reflux disease without esophagitis; F17.210 Nicotine dependence, cigarettes, uncomplicated; Z88.5 Allergy status to narcotic agent; Z79.899 Other long term (current) drug therapy; Y90.0 Blood alcohol level of less than 20 mg/100 ml; W19.XXXA Unspecified fall, initial encounter
CPT/HCPCS: 36415; 70450; 70450-26; 71045; 71045-26; 73564-26-LT; 73564-LT; 73610-26-RT; 73610-RT; 80053; 80307; 84484; 85025; 85610; 85730; 93005; 99284-25

== ENCOUNTER 2021-10-10 21:07 | Emergency (ER) | payer MEDICARE, MEDICAID ==
[2021-10-10 23:59] VITALS: PULSE 93
[2021-10-11] MEDS ORDERED: Ibuprofen 600 MG Tab PO ONE (00:16)
[2021-10-11] MEDS ORDERED: Acetaminophen/HYDROcodone 325-5 MG Tab PO ONE (02:13)
[2021-10-11 06:08] VITALS: BP 142/82
== END 2021-10-11 10:30 | disposition home or self-care (01) ==
LOC: JD.ED 21:07
DX: S06.0X0A Concussion without loss of consciousness, initial encounter (principal); S13.4XXA Sprain of ligaments of cervical spine, initial encounter; I10 Essential (primary) hypertension; K21.9 Gastro-esophageal reflux disease without esophagitis; F17.210 Nicotine dependence, cigarettes, uncomplicated; Z88.5 Allergy status to narcotic agent; W01.0XXA Fall on same level from slipping, tripping and stumbling without subsequent striking against object, initial encounter
CPT/HCPCS: 70450; 72125; 73030; 99283; A9270

== ENCOUNTER 2021-10-13 13:15 | Emergency (ER) | payer MEDICARE, MEDICAID ==
[2021-10-13 13:35] VITALS: BP 136/81; PULSE 100
== END 2021-10-13 13:53 | disposition left against medical advice (07) ==
LOC: JD.ED 13:15
DX: M25.552 Pain in left hip (principal); I10 Essential (primary) hypertension; K21.9 Gastro-esophageal reflux disease without esophagitis; J44.0 Chronic obstructive pulmonary disease with (acute) lower respiratory infection; F17.210 Nicotine dependence, cigarettes, uncomplicated; Z88.5 Allergy status to narcotic agent; Z79.899 Other long term (current) drug therapy; W18.09XA Striking against other object with subsequent fall, initial encounter
CPT/HCPCS: 99282; 99283

== ENCOUNTER 2021-10-13 18:44 | Emergency (ER) | payer MEDICARE, MEDICAID | END 2021-10-13 20:00 | disposition left against medical advice (07) | LOC: JD.ED 18:44 | DX: M25.512 Pain in left shoulder (principal); Z53.21 Procedure and treatment not carried out due to patient leaving prior to being seen by health care provider ==

== ENCOUNTER 2021-10-15 16:36 | Emergency (ER) | payer MEDICARE, MEDICAID | END 2021-10-15 17:00 | disposition left against medical advice (07) | LOC: JD.ED 16:36 | DX: Z53.21 Procedure and treatment not carried out due to patient leaving prior to being seen by health care provider (principal) ==

== ENCOUNTER 2021-10-19 17:51 | Emergency (ER) | payer MEDICARE, MEDICAID ==
[2021-10-19 18:21] VITALS: BP 140/86; PULSE 89
[2021-10-19] MEDS ORDERED: Acetaminophen 325 MG Tab PO ONE (19:34)
== END 2021-10-19 20:10 | disposition home or self-care (01) ==
LOC: JD.ED 17:51
DX: S70.02XA Contusion of left hip, initial encounter (principal); S70.12XA Contusion of left thigh, initial encounter; M79.605 Pain in left leg; I10 Essential (primary) hypertension; J44.9 Chronic obstructive pulmonary disease, unspecified; K21.9 Gastro-esophageal reflux disease without esophagitis; F17.210 Nicotine dependence, cigarettes, uncomplicated; Z88.5 Allergy status to narcotic agent; Z79.899 Other long term (current) drug therapy; W18.30XA Fall on same level, unspecified, initial encounter
CPT/HCPCS: 72170; 73552; 99284; A9270; 99283

== ENCOUNTER 2021-10-23 19:16 | Emergency (ER) | payer MEDICARE, MEDICAID ==
[2021-10-23 20:44] VITALS: BP 128/81; PULSE 84
== END 2021-10-23 20:45 | disposition left against medical advice (07) ==
LOC: JD.ED 19:16
DX: S70.02XA Contusion of left hip, initial encounter (principal); M70.21 Olecranon bursitis, right elbow; J44.9 Chronic obstructive pulmonary disease, unspecified; K21.9 Gastro-esophageal reflux disease without esophagitis; I10 Essential (primary) hypertension; F17.210 Nicotine dependence, cigarettes, uncomplicated; Z88.5 Allergy status to narcotic agent; Z79.899 Other long term (current) drug therapy; Z90.49 Acquired absence of other specified parts of digestive tract; X58.XXXA Exposure to other specified factors, initial encounter
CPT/HCPCS: 99283

== ENCOUNTER 2021-10-25 14:29 | Emergency (ER) | payer MEDICARE, MEDICAID ==
[2021-10-25 14:39] VITALS: BP 94/71; PULSE 89
== END 2021-10-25 15:21 | disposition left against medical advice (07) ==
LOC: JD.ED 14:29
DX: R55 Syncope and collapse (principal); J44.9 Chronic obstructive pulmonary disease, unspecified; I10 Essential (primary) hypertension; K21.9 Gastro-esophageal reflux disease without esophagitis; F17.210 Nicotine dependence, cigarettes, uncomplicated; Z88.5 Allergy status to narcotic agent; Z79.899 Other long term (current) drug therapy
CPT/HCPCS: 99282; 99284

== ENCOUNTER 2021-10-27 18:28 | Emergency (ER) | payer MEDICARE, MEDICAID ==
[2021-10-27] MEDS ORDERED: Sodium Chloride 0.9% 10 ML Syringe FLUSH PRN (18:35)
[2021-10-27] MEDS ORDERED: Sodium Chloride 0.9% 1,000 ML IV SCH (18:45)
[2021-10-27 19:03] VITALS: BP 117/73; PULSE 93
== END 2021-10-27 20:20 | disposition left against medical advice (07) ==
LOC: JD.ED 18:28
DX: F10.20 Alcohol dependence, uncomplicated (principal); J44.9 Chronic obstructive pulmonary disease, unspecified; I10 Essential (primary) hypertension; Z88.5 Allergy status to narcotic agent; Z79.899 Other long term (current) drug therapy; Z90.49 Acquired absence of other specified parts of digestive tract; W19.XXXA Unspecified fall, initial encounter
CPT/HCPCS: 36415; 80053; 80307; 85025; 93005; 96360; 99285; J3490; J7030; 93010; 99283

== ENCOUNTER 2021-11-02 16:09 | Emergency (ER) | payer MEDICARE, MEDICAID ==
[2021-11-02 16:14] VITALS: BP 114/93; PULSE 95
== END 2021-11-02 17:34 | disposition home or self-care (01) ==
LOC: JD.ED 16:09
DX: S93.401A Sprain of unspecified ligament of right ankle, initial encounter (principal); S70.02XA Contusion of left hip, initial encounter; S00.81XA Abrasion of other part of head, initial encounter; F10.920 Alcohol use, unspecified with intoxication, uncomplicated; I10 Essential (primary) hypertension; J44.9 Chronic obstructive pulmonary disease, unspecified; K21.9 Gastro-esophageal reflux disease without esophagitis; Z88.5 Allergy status to narcotic agent; Z79.899 Other long term (current) drug therapy; Y90.0 Blood alcohol level of less than 20 mg/100 ml; W18.09XA Striking against other object with subsequent fall, initial encounter
CPT/HCPCS: 36415; 70450; 70450-26; 73502-26-LT; 73502-LT; 73610-26-RT; 73610-RT; 80307; 99283; 99284

== ENCOUNTER 2021-11-04 18:06 | Emergency (ER) | payer MEDICARE, MEDICAID | END 2021-11-04 18:53 | LOC: JD.ED 18:06 | DX: Z53.21 Procedure and treatment not carried out due to patient leaving prior to being seen by health care provider (principal) ==

== ENCOUNTER 2021-11-04 20:28 | Emergency (ER) | payer MEDICARE, MEDICAID ==
[2021-11-04 20:43] VITALS: BP 161/81; PULSE 93
== END 2021-11-04 21:20 | disposition left against medical advice (07) ==
LOC: JD.ED 20:28
DX: F10.20 Alcohol dependence, uncomplicated (principal); I10 Essential (primary) hypertension; J44.9 Chronic obstructive pulmonary disease, unspecified; Z79.899 Other long term (current) drug therapy; Z88.5 Allergy status to narcotic agent
CPT/HCPCS: 99282; 99284

== ENCOUNTER 2021-11-06 14:19 | Emergency (ER) | payer MEDICARE, MEDICAID ==
[2021-11-06 15:43] LABS: ACETAMINOPHEN 0 ug/mL (10-30); ESTIMATED GFR 32 mL/min (>60)
[2021-11-06 18:09] VITALS: BP 118/74; PULSE 77
== END 2021-11-06 23:38 | disposition home or self-care (01) ==
LOC: JD.ED 14:19
DX: F11.120 Opioid abuse with intoxication, uncomplicated (principal); F19.20 Other psychoactive substance dependence, uncomplicated; J44.9 Chronic obstructive pulmonary disease, unspecified; I10 Essential (primary) hypertension; Z88.5 Allergy status to narcotic agent; Z90.49 Acquired absence of other specified parts of digestive tract
CPT/HCPCS: 36415; 70450; 70450-26; 80053; 80143; 80179; 80306; 80307; 85025; 99284

== ENCOUNTER 2021-11-15 18:16 | Emergency (ER) | payer MEDICARE, MEDICAID ==
[2021-11-15 18:33] VITALS: BP 149/91; PULSE 86
[2021-11-15] MEDS ORDERED: Triamcinolone Acetonide 40 MG/ML 1 ML SDV INJECT ONE (18:40)
[2021-11-15] MEDS ORDERED: Lidocaine 1% 20 ML MDV INJECT ONE (18:43)
[2021-11-15] MEDS ORDERED: Lidocaine 1% 10 ML MDV ONE (18:49)
== END 2021-11-15 19:30 | disposition home or self-care (01) ==
LOC: JD.ED 18:16
DX: M25.421 Effusion, right elbow (principal); J44.9 Chronic obstructive pulmonary disease, unspecified; I10 Essential (primary) hypertension; Z90.49 Acquired absence of other specified parts of digestive tract; Z88.5 Allergy status to narcotic agent
CPT/HCPCS: 10060; 96372; 99283; J3301

== ENCOUNTER 2021-11-19 16:52 | Emergency (ER) | payer MEDICARE, MEDICAID ==
[2021-11-19 17:03] VITALS: BP 173/94; PULSE 103
[2021-11-19] MEDS ORDERED: Ketorolac 30 MG/ML SDV IM ONE (17:21)
== END 2021-11-19 17:30 | disposition left against medical advice (07) ==
LOC: JD.ED 16:52
DX: G89.29 Other chronic pain (principal); M54.50 Low back pain, unspecified; I10 Essential (primary) hypertension; Z88.5 Allergy status to narcotic agent
CPT/HCPCS: 99283

== ENCOUNTER 2021-11-27 11:08 | Emergency (ER) | payer MEDICARE, MEDICAID | END 2021-11-27 11:41 | disposition left against medical advice (07) | LOC: JD.ED 11:08 | DX: Z53.21 Procedure and treatment not carried out due to patient leaving prior to being seen by health care provider (principal) ==

== ENCOUNTER 2021-11-27 14:25 | Emergency (ER) | payer MEDICARE, MEDICAID | END 2021-11-27 14:45 | disposition left against medical advice (07) | LOC: JD.ED 14:25 | DX: Z53.21 Procedure and treatment not carried out due to patient leaving prior to being seen by health care provider (principal) ==

== ENCOUNTER 2021-12-01 17:42 | Emergency (ER) | payer MEDICARE, MEDICAID ==
[2021-12-01 17:48] VITALS: BP 148/108; PULSE 117
[2021-12-01] MEDS ORDERED: Sodium Chloride 0.9% 1,000 ML IV STA (18:08)
[2021-12-01] MEDS ORDERED: Famotidine 20 MG/2 ML SDV IVPUSH ONE (18:08)
[2021-12-01] MEDS ORDERED: Ondansetron 4 MG/2 ML SDV IVPUSH ONE (18:08)
[2021-12-01] MEDS ORDERED: LORazepam 2 MG/ML SDV IVPUSH ONE ×2 (18:10→19:52)
[2021-12-01 18:27] LABS: ESTIMATED GFR 55 mL/min (>60)
[2021-12-01] MEDS: Sodium Chloride 0.9% 10 ML Syringe FLUSH PRN ×2 (18:27→20:07)
[2021-12-01] MEDS ORDERED: Iopamidol 612 MG/ML 100 ML Bottle IVPUSH ONE (19:14)
[2021-12-01] MEDS ORDERED: Iopamidol 612 MG/ML 50 ML SDV IVPUSH ONE (19:15)
== END 2021-12-01 21:22 | disposition home or self-care (01) ==
LOC: JD.ED 17:42
DX: R10.84 Generalized abdominal pain (principal); I10 Essential (primary) hypertension; J44.9 Chronic obstructive pulmonary disease, unspecified; K21.9 Gastro-esophageal reflux disease without esophagitis; F17.210 Nicotine dependence, cigarettes, uncomplicated; Z88.5 Allergy status to narcotic agent
CPT/HCPCS: 36415; 74177; 80053; 80307; 81001; 83690; 83735; 85025; 86140; 96361; 96374; 96375; 96376; 99285; J2060; J2405; J3490; J7030; Q9967

== ENCOUNTER 2021-12-04 17:16 | Emergency (ER) | payer MEDICARE, MEDICAID ==
[2021-12-04 17:33] VITALS: BP 124/90; PULSE 107
== END 2021-12-04 17:40 | disposition left against medical advice (07) ==
LOC: JD.ED 17:16
DX: F41.9 Anxiety disorder, unspecified (principal); J44.9 Chronic obstructive pulmonary disease, unspecified; I10 Essential (primary) hypertension; F17.210 Nicotine dependence, cigarettes, uncomplicated; Z88.5 Allergy status to narcotic agent; Z79.899 Other long term (current) drug therapy
CPT/HCPCS: 99282; 99283

== ENCOUNTER 2021-12-11 21:15 | Emergency (ER) | payer MEDICARE, MEDICAID ==
[2021-12-11] MEDS ORDERED: Ondansetron 4 MG/2 ML SDV IVPUSH ONE (21:32)
[2021-12-11] MEDS ORDERED: Sodium Chloride 0.9% 1,000 ML IV SCH (21:45)
[2021-12-12 06:32] VITALS: BP 138/73; PULSE 91
== END 2021-12-12 07:45 | disposition home or self-care (01) ==
LOC: JD.ED 21:15
DX: F10.20 Alcohol dependence, uncomplicated (principal); J44.9 Chronic obstructive pulmonary disease, unspecified; F17.210 Nicotine dependence, cigarettes, uncomplicated; Z88.5 Allergy status to narcotic agent; Z79.899 Other long term (current) drug therapy
CPT/HCPCS: 36415; 70450; 72125; 80053; 80306; 80307; 83735; 85025; 96361; 96374; 99284; J2405; J7030; 99283

== ENCOUNTER 2021-12-20 12:20 | Emergency (ER) | payer MEDICARE, MEDICAID ==
[2021-12-20] MEDS ORDERED: Lidocaine 4% 1 each Patch TOP STA (13:26)
[2021-12-20 14:27] LABS: ESTIMATED GFR 83 mL/min (>60)
[2021-12-20] MEDS ORDERED: Iopamidol 755 Mg/ML 100 ML Bottle IVPUSH ONE (15:57)
[2021-12-20] MEDS ORDERED: Sodium Chloride 0.9% 10 ML Syringe FLUSH PRN (15:57)
[2021-12-20] MEDS ORDERED: Sodium Chloride 0.9% 100 ML IV SCH (16:00)
[2021-12-20] MEDS ORDERED: Acetaminophen/HYDROcodone 325-5 MG Tab PO ONE (17:08)
[2021-12-20 17:39] VITALS: BP 145/98; PULSE 99
== END 2021-12-20 17:35 | disposition home or self-care (01) ==
LOC: JD.ED 12:20
DX: S22.42XA Multiple fractures of ribs, left side, initial encounter for closed fracture (principal); I10 Essential (primary) hypertension; J44.9 Chronic obstructive pulmonary disease, unspecified; F17.210 Nicotine dependence, cigarettes, uncomplicated; Z88.5 Allergy status to narcotic agent; Z79.899 Other long term (current) drug therapy; W01.0XXA Fall on same level from slipping, tripping and stumbling without subsequent striking against object, initial encounter
CPT/HCPCS: 36415; 71046; 71275; 80053; 83735; 83880; 84484; 85025; 85379; 86140; 93005; 96360; 99284; A9270; J3490; Q9967; 93010

== ENCOUNTER 2022-01-03 14:10 | Emergency (ER) | payer MEDICARE, MEDICAID | END 2022-01-03 15:45 | disposition left against medical advice (07) | LOC: JD.ED 14:10 | DX: Z53.21 Procedure and treatment not carried out due to patient leaving prior to being seen by health care provider (principal) ==

== ENCOUNTER 2022-01-09 18:33 | Emergency (ER) | payer MEDICARE, MEDICAID ==
[2022-01-09 19:59] VITALS: BP 177/102; PULSE 89
[2022-01-09] MEDS ORDERED: Cefdinir 300 MG Cap PO ONE (22:36)
== END 2022-01-09 22:40 | disposition home or self-care (01) ==
LOC: JD.ED 18:33
DX: N39.0 Urinary tract infection, site not specified (principal); J44.9 Chronic obstructive pulmonary disease, unspecified; I10 Essential (primary) hypertension; F17.210 Nicotine dependence, cigarettes, uncomplicated; Z88.5 Allergy status to narcotic agent; Z79.899 Other long term (current) drug therapy; Z90.49 Acquired absence of other specified parts of digestive tract
CPT/HCPCS: 36415; 74176; 74176-26; 80053; 80307; 81001; 85025; 87086; 99284

== ENCOUNTER 2022-01-10 20:54 | Emergency (ER) | payer MEDICARE, MEDICAID ==
[2022-01-10 21:23] VITALS: BP 158/87; PULSE 87
== END 2022-01-10 21:50 | disposition home or self-care (01) ==
LOC: JD.ED 20:54
DX: M54.9 Dorsalgia, unspecified (principal); J44.9 Chronic obstructive pulmonary disease, unspecified; I10 Essential (primary) hypertension; F17.210 Nicotine dependence, cigarettes, uncomplicated; Z76.5 Malingerer [conscious simulation]; Z88.5 Allergy status to narcotic agent; Z79.899 Other long term (current) drug therapy; Z90.49 Acquired absence of other specified parts of digestive tract
CPT/HCPCS: 99282; 99283

== ENCOUNTER 2022-01-16 16:28 | Emergency (ER) | payer MEDICARE, MEDICAID | END 2022-01-16 16:45 | disposition left against medical advice (07) | LOC: JD.ED 16:28 | DX: Z53.21 Procedure and treatment not carried out due to patient leaving prior to being seen by health care provider (principal) ==

== ENCOUNTER 2022-01-25 20:45 | Emergency (ER) | payer MEDICARE, MEDICAID ==
[2022-01-25 21:00] VITALS: BP 147/87; PULSE 98
[2022-01-25] MEDS ORDERED: Lidocaine 1% 10 ML MDV INJECT ONE (21:37)
[2022-01-25] MEDS ORDERED: Triamcinolone Acetonide 40 MG/ML 1 ML SDV INJECT ONE (21:38)
[2022-01-25] MEDS ORDERED: HYDROmorphone 1 MG/ML Syringe IM ONE (22:38)
== END 2022-01-25 22:47 | disposition home or self-care (01) ==
LOC: JD.ED 20:45
DX: M70.21 Olecranon bursitis, right elbow (principal); J44.9 Chronic obstructive pulmonary disease, unspecified; I10 Essential (primary) hypertension; F17.210 Nicotine dependence, cigarettes, uncomplicated; Z88.5 Allergy status to narcotic agent; Z79.899 Other long term (current) drug therapy; Z90.49 Acquired absence of other specified parts of digestive tract
CPT/HCPCS: 10060; 96372; 99283; 99283-25

== ENCOUNTER 2022-02-15 18:01 | Emergency (ER) | payer MEDICARE, MEDICAID ==
[2022-02-15 18:12] VITALS: BP 104/72; PULSE 79
[2022-02-15] MEDS ORDERED: HYDROmorphone 0.5 MG/0.5 ML Syringe IM ONE (18:53)
== END 2022-02-15 19:27 | disposition home or self-care (01) ==
LOC: JD.ED 18:01
DX: R10.9 Unspecified abdominal pain (principal); I10 Essential (primary) hypertension; J44.9 Chronic obstructive pulmonary disease, unspecified; K21.9 Gastro-esophageal reflux disease without esophagitis; M19.90 Unspecified osteoarthritis, unspecified site; Z79.899 Other long term (current) drug therapy; Z88.5 Allergy status to narcotic agent; Z87.442 Personal history of urinary calculi
CPT/HCPCS: 81001; 99284; J1170

== ENCOUNTER 2022-02-24 20:28 | Emergency (ER) | payer MEDICARE, MEDICAID ==
[2022-02-24 20:53] VITALS: BP 133/90; PULSE 95
[2022-02-24] MEDS ORDERED: LORazepam 2 MG/ML SDV IM ONE ×2 (21:12→22:25)
[2022-02-24] MEDS ORDERED: Ketorolac 30 MG/ML SDV IM ONE (22:25)
== END 2022-02-24 23:12 | disposition home or self-care (01) ==
LOC: JD.ED 20:28
DX: F41.9 Anxiety disorder, unspecified (principal); M25.521 Pain in right elbow; I10 Essential (primary) hypertension; J44.9 Chronic obstructive pulmonary disease, unspecified; K21.9 Gastro-esophageal reflux disease without esophagitis; Z72.0 Tobacco use; Z88.5 Allergy status to narcotic agent; Z79.899 Other long term (current) drug therapy
CPT/HCPCS: 96372; 99283; J1885; J2060

== ENCOUNTER 2022-02-25 16:45 | Emergency (ER) | payer MEDICARE, MEDICAID | END 2022-02-25 22:04 | disposition left against medical advice (07) | LOC: JD.ED 16:45 | DX: Z53.21 Procedure and treatment not carried out due to patient leaving prior to being seen by health care provider (principal) ==

== ENCOUNTER 2022-03-21 17:16 | Emergency (ER) | payer MEDICARE, MEDICAID ==
[2022-03-21] MEDS ORDERED: LORazepam 2 MG/ML SDV IVPUSH ONE (17:36)
[2022-03-21] MEDS ORDERED: Metoclopramide 10 MG/2 ML SDV IVPUSH ONE (17:37)
[2022-03-21] MEDS ORDERED: Dextrose 5%-Lactated Ringers 1,000 ML IV SCH (17:45)
[2022-03-21 18:33] VITALS: BP 91/43; PULSE 79
[2022-03-21 18:40] LABS: ESTIMATED GFR 51 mL/min (>60)
[2022-03-21] MEDS ORDERED: Lactated Ringers 1,000 ML IV SCH (19:15)
== END 2022-03-21 19:50 | disposition left against medical advice (07) ==
LOC: JD.ED 17:16
DX: F10.20 Alcohol dependence, uncomplicated (principal); R29.6 Repeated falls; J44.9 Chronic obstructive pulmonary disease, unspecified; I10 Essential (primary) hypertension; Z88.5 Allergy status to narcotic agent; Z79.899 Other long term (current) drug therapy; Z90.49 Acquired absence of other specified parts of digestive tract
CPT/HCPCS: 36415; 80053; 80307; 82009; 83690; 83880; 85025; 86140; 96361; 96374; 96375; 99284; J2060; J2765; J7121

== ENCOUNTER 2022-04-25 18:58 | Emergency (ER) | payer MEDICARE, MEDICAID ==
[2022-04-25] MEDS ORDERED: Ondansetron 4 MG/2 ML SDV IVPUSH ONE (19:48)
[2022-04-25] MEDS ORDERED: Famotidine 20 MG/2 ML SDV IVPUSH ONE (19:51)
[2022-04-25] MEDS ORDERED: Sodium Chloride 0.9% 1,000 ML IV SCH (20:00)
[2022-04-25 20:29] LABS: ESTIMATED GFR 61 mL/min (>60)
[2022-04-25] MEDS ORDERED: Iopamidol 612 MG/ML 100 ML Bottle IVPUSH ONE (20:45)
[2022-04-25] MEDS ORDERED: Sodium Chloride 0.9% 10 ML Syringe FLUSH ONE (20:45)
[2022-04-26] MEDS ORDERED: LORazepam 2 MG/ML SDV IVPUSH ONE (03:22)
[2022-04-26] MEDS ORDERED: Magnesium Citrate Solution 296 ML Bottle PO ONE (03:23)
[2022-04-26] MEDS ORDERED: Sodium Chloride 0.9% 1,000 ML IV ONE (03:27)
[2022-04-26] MEDS ORDERED: Lactulose Soln 10 GM/15 ML 30 ML UD Cup PO ONE (06:48)
[2022-04-26 07:23] VITALS: BP 157/93; PULSE 65
== END 2022-04-26 07:27 | disposition other institution (70) ==
LOC: JD.ED 18:58
DX: K59.00 Constipation, unspecified (principal); F10.20 Alcohol dependence, uncomplicated; G25.81 Restless legs syndrome; N40.0 Benign prostatic hyperplasia without lower urinary tract symptoms; I10 Essential (primary) hypertension; K21.9 Gastro-esophageal reflux disease without esophagitis; J44.9 Chronic obstructive pulmonary disease, unspecified; Z88.5 Allergy status to narcotic agent; Z79.899 Other long term (current) drug therapy; Z72.0 Tobacco use; Y90.0 Blood alcohol level of less than 20 mg/100 ml
CPT/HCPCS: 36415; 74177; 80053; 80306; 80307; 81001; 83605; 83690; 85007; 85027; 86140; 96361; 96374; 96375; 99284; A9270; J2060; J2405; J3490; J7030; Q9967

== ENCOUNTER 2022-05-30 18:12 | Emergency (ER) | payer MEDICARE, MEDICAID ==
[2022-05-30 18:59] LABS: ESTIMATED GFR 51 mL/min (>60)
[2022-05-30] MEDS ORDERED: Ketorolac 60 MG/2 ML SDV IM ONE (19:50)
[2022-05-31 04:04] VITALS: BP 138/79; PULSE 86
== END 2022-05-30 20:20 | disposition home or self-care (01) ==
LOC: JD.ED 18:12
DX: R10.9 Unspecified abdominal pain (principal); M25.511 Pain in right shoulder; I10 Essential (primary) hypertension; J44.9 Chronic obstructive pulmonary disease, unspecified; K21.9 Gastro-esophageal reflux disease without esophagitis; N40.0 Benign prostatic hyperplasia without lower urinary tract symptoms; F17.210 Nicotine dependence, cigarettes, uncomplicated; Z88.5 Allergy status to narcotic agent; Z79.899 Other long term (current) drug therapy
CPT/HCPCS: 36415; 73030; 74176; 80053; 81001; 85025; 86140; 96372; 99284; J1885

== ENCOUNTER 2022-05-31 15:43 | Emergency (ER) | payer MEDICARE, MEDICAID ==
[2022-05-31 16:17] VITALS: BP 141/83; PULSE 87
[2022-05-31] MEDS ORDERED: LORazepam 1 MG Tab PO ONE (16:42)
== END 2022-05-31 17:08 | disposition home or self-care (01) ==
LOC: JD.ED 15:43
DX: F41.9 Anxiety disorder, unspecified (principal); I10 Essential (primary) hypertension; J44.9 Chronic obstructive pulmonary disease, unspecified; N40.0 Benign prostatic hyperplasia without lower urinary tract symptoms; Z88.5 Allergy status to narcotic agent; Z79.899 Other long term (current) drug therapy
CPT/HCPCS: 99283; A9270

== ENCOUNTER 2022-06-06 13:54 | Emergency (ER) | payer MEDICARE, MEDICAID ==
[2022-06-06] MEDS ORDERED: Ketorolac 60 MG/2 ML SDV IM ONE (14:53)
[2022-06-06] MEDS ORDERED: ClonazePAM 0.5 MG Tab PO ONE (14:53)
[2022-06-06 15:07] VITALS: BP 142/82; PULSE 92
== END 2022-06-06 15:15 | disposition home or self-care (01) ==
LOC: JD.ED 13:54
DX: F41.9 Anxiety disorder, unspecified (principal); M54.50 Low back pain, unspecified; I10 Essential (primary) hypertension; J44.9 Chronic obstructive pulmonary disease, unspecified; M19.90 Unspecified osteoarthritis, unspecified site; Z88.5 Allergy status to narcotic agent; Z79.899 Other long term (current) drug therapy; Z72.0 Tobacco use
CPT/HCPCS: 81001; 96372; 99283; A9270; J1885; 99284

== ENCOUNTER 2022-06-07 19:28 | Emergency (ER) | payer MEDICARE, MEDICAID ==
[2022-06-07] MEDS ORDERED: LORazepam 2 MG/ML SDV IVPUSH ONE (20:20)
[2022-06-07 21:22] VITALS: BP 112/85; PULSE 73
== END 2022-06-07 21:20 | disposition left against medical advice (07) ==
LOC: JD.ED 19:28
DX: Z76.5 Malingerer [conscious simulation] (principal); I10 Essential (primary) hypertension; J44.9 Chronic obstructive pulmonary disease, unspecified; N40.0 Benign prostatic hyperplasia without lower urinary tract symptoms; Z88.5 Allergy status to narcotic agent; Z79.899 Other long term (current) drug therapy
CPT/HCPCS: 36415; 71045; 80053; 83735; 84484; 85025; 85610; 85730; 93005; 96374; 99284; J2060; 93010

== ENCOUNTER 2022-08-08 13:03 | Emergency (ER) | payer MEDICARE, MEDICAID ==
[2022-08-08] MEDS ORDERED: Codeine/Promethazine 10-6.25 MG/5 ML Syrup 5 ML UD Cup PO ONE (13:32)
[2022-08-08 14:41] VITALS: BP 122/74; PULSE 88
== END 2022-08-08 14:30 | disposition home or self-care (01) ==
LOC: JD.ED 13:03
DX: S39.011A Strain of muscle, fascia and tendon of abdomen, initial encounter (principal); R05.9 Cough, unspecified; I10 Essential (primary) hypertension; J44.9 Chronic obstructive pulmonary disease, unspecified; F17.210 Nicotine dependence, cigarettes, uncomplicated; Z88.5 Allergy status to narcotic agent; Z79.899 Other long term (current) drug therapy
CPT/HCPCS: 99283; A9270

== ENCOUNTER 2022-08-09 14:52 | Emergency (ER) | payer MEDICARE, MEDICAID ==
[2022-08-09 15:12] VITALS: BP 151/93; PULSE 88
[2022-08-09] MEDS ORDERED: Sodium Chloride 0.9% 10 ML Syringe FLUSH PRN (16:54)
[2022-08-09] MEDS ORDERED: Sodium Chloride 0.9% 10 ML Syringe FLUSH ONE (16:57)
[2022-08-09] MEDS ORDERED: Iopamidol 612 MG/ML 100 ML Bottle IVPUSH ONE (16:57)
[2022-08-09] MEDS ORDERED: HYDROmorphone 0.5 MG/0.5 ML Syringe IVPUSH ONE ×2 (17:30→18:41)
== END 2022-08-09 19:09 | disposition home or self-care (01) ==
LOC: JD.ED 14:52
DX: J06.9 Acute upper respiratory infection, unspecified (principal); S39.011A Strain of muscle, fascia and tendon of abdomen, initial encounter; I10 Essential (primary) hypertension; J44.9 Chronic obstructive pulmonary disease, unspecified; N40.0 Benign prostatic hyperplasia without lower urinary tract symptoms; Z88.5 Allergy status to narcotic agent; Z79.899 Other long term (current) drug therapy
CPT/HCPCS: 36415; 71046; 74177; 80053; 85025; 86140; 96374; 96376; 99284; J1170; J3490; Q9967

== ENCOUNTER 2022-08-30 13:29 | Emergency (ER) | payer MEDICARE, MEDICAID ==
[2022-08-30 13:38] VITALS: PULSE 80
[2022-08-30 14:54] VITALS: BP 100/70
== END 2022-08-30 14:51 | disposition home or self-care (01) ==
LOC: JD.ED 13:29
DX: S09.90XA Unspecified injury of head, initial encounter (principal); S01.01XA Laceration without foreign body of scalp, initial encounter; J44.9 Chronic obstructive pulmonary disease, unspecified; K21.9 Gastro-esophageal reflux disease without esophagitis; I10 Essential (primary) hypertension; W18.40XA Slipping, tripping and stumbling without falling, unspecified, initial encounter
CPT/HCPCS: 12001; 99282; 99283

== ENCOUNTER 2022-09-06 00:25 | Emergency (ER) | payer MEDICARE, MEDICAID ==
[2022-09-06 00:33] VITALS: BP 160/92; PULSE 95
[2022-09-06] MEDS ORDERED: LORazepam 1 MG Tab PO ONE (02:12)
[2022-09-06] MEDS ORDERED: Acetaminophen 325 MG Tab PO ONE (02:12)
== END 2022-09-06 02:28 | disposition home or self-care (01) ==
LOC: JD.ED 00:25
DX: M25.511 Pain in right shoulder (principal); M25.512 Pain in left shoulder; F41.9 Anxiety disorder, unspecified; I10 Essential (primary) hypertension; J44.9 Chronic obstructive pulmonary disease, unspecified; K21.9 Gastro-esophageal reflux disease without esophagitis; Z88.5 Allergy status to narcotic agent; Z79.899 Other long term (current) drug therapy; Z72.0 Tobacco use; W18.09XA Striking against other object with subsequent fall, initial encounter
CPT/HCPCS: 73030-26-LT; 73030-26-RT; 73030-LT; 73030-RT; 99284

== ENCOUNTER 2022-09-06 19:42 | Emergency (ER) | payer MEDICARE, MEDICAID ==
[2022-09-06] MEDS ORDERED: LORazepam 1 MG Tab PO ONE (20:06)
[2022-09-06] MEDS ORDERED: LORazepam 2 MG/ML SDV IVPUSH ONE ×2 (20:36→21:53)
[2022-09-06] MEDS ORDERED: Sodium Chloride 0.9% 1,000 ML IV ONE (20:36)
[2022-09-06 21:10] LABS: BASOPHILS ABSOLUTE AUTO 0.05 K/mm3 (0.01-0.08); BASOPHILS PERCENT AUTO 0.6 % (0.1-1.2); EOSINOPHILS ABSOLUTE AUTO 0.29 K/mm3 (0.04-0.54); EOSINOPHILS PERCENT AUTO 3.4 (0.8-7.0); HEMATOCRIT 44.7 % (40.1-51.0); HEMOGLOBIN 14.5 gm/dl (13.7-17.5); IMMATURE GRAN ABSOLUTE AUTO 0.02 K/mm3 (0.00-0.10); IMMATURE GRAN PERCENT AUTO 0.2 % (<=1.0); LYMPHOCYTES ABSOLUTE AUTO 1.75 K/mm3 (1.32-3.57); LYMPHOCYTES PERCENT AUTO 20.4 % (21.8-53.1); MEAN CORPUSCULAR HEMOGLOBIN 29.2 pg (25.7-32.2); MEAN CORPUSCULAR HGB CONC 32.4 g/dl (32.2-35.5); MEAN CORPUSCULAR VOLUME 90.1 fl (79.0-92.2); MONOCYTES ABSOLUTE AUTO 0.84 K/mm3 (0.30-0.82); MONOCYTES PERCENT AUTO 9.8 % (5.3-12.2); NEUTROPHILS ABSOLUTE AUTO 5.61 K/mm3 (1.78-5.38); NEUTROPHILS PERCENT AUTO 65.6 % (34.0-67.9); PLATELET COUNT,PLT 370 K/mm3 (163-337); RED BLOOD CELL COUNT 4.96 M/mm3 (4.63-6.08); WHITE BLOOD CELL COUNT,WBC 8.56 K/mm3 (4.23-9.07)
[2022-09-06 21:29] LABS: A/G RATIO 0.9 (1-2); ALANINE AMINOTRANSFERASE,ALT 36 U/L (16-63); ALBUMIN 3.4 g/dl (3.4-5.0); ALKALINE PHOSPHATASE 94 U/L (46-116); ANION GAP 14.1 (5-15); ASPARTATE AMNIOTRANSFERASE,AST 33 U/L (15-37); BILIRUBIN TOTAL 0.4 mg/dL (0.2-1.0); BLOOD UREA NITROGEN,BUN 13 mg/dL (7-18); BUN/CREATININE RATIO 11.8 (14-18); C-REACTIVE PROTEIN <0.2 mg/dL (<1.0); CALCIUM 9.1 mg/dL (8.5-10.1); CARBON DIOXIDE,CO2 24 mEq/L (21-32); CHLORIDE,CL 107 mEq/L (98-107); CREATININE 1.1 mg/dL (0.7-1.3); EST CRCL DRUG DOSING (CG) 67.29 mL/min; ESTIMATED GFR 74 mL/min (>60); GLUCOSE RANDOM 94 mg/dL (70-99); LIPASE 328 U/L (73-393); POTASSIUM,K 4.1 mEq/L (3.5-5.1); SODIUM,NA 141 mEq/L (136-145)
[2022-09-06] MEDS ORDERED: Ketorolac 30 MG/ML SDV IVPUSH ONE (21:36)
[2022-09-06 22:21] VITALS: BP 148/86; PULSE 84
== END 2022-09-06 22:30 | disposition home or self-care (01) ==
LOC: JD.ED 19:42
DX: F41.9 Anxiety disorder, unspecified (principal); I10 Essential (primary) hypertension; J44.9 Chronic obstructive pulmonary disease, unspecified; M19.90 Unspecified osteoarthritis, unspecified site; Z88.5 Allergy status to narcotic agent; Z79.899 Other long term (current) drug therapy
CPT/HCPCS: 36415; 80053; 83690; 85025; 86140; 96361; 96374; 96375; 96376; 99284; J1885; J2060; J7030

== ENCOUNTER 2022-09-18 15:17 | Emergency (ER) | payer MEDICAID, MEDICARE ==
[2022-09-18 15:37] VITALS: BP 135/87; PULSE 84
[2022-09-18 16:44] LABS: BASOPHILS ABSOLUTE AUTO 0.05 K/mm3 (0.01-0.08); BASOPHILS PERCENT AUTO 0.5 % (0.1-1.2); EOSINOPHILS ABSOLUTE AUTO 0.16 K/mm3 (0.04-0.54); EOSINOPHILS PERCENT AUTO 1.5 (0.8-7.0); HEMATOCRIT 47.9 % (40.1-51.0); HEMOGLOBIN 15.5 gm/dl (13.7-17.5); IMMATURE GRAN ABSOLUTE AUTO 0.03 K/mm3 (0.00-0.10); IMMATURE GRAN PERCENT AUTO 0.3 % (<=1.0); LYMPHOCYTES ABSOLUTE AUTO 1.68 K/mm3 (1.32-3.57); LYMPHOCYTES PERCENT AUTO 15.9 % (21.8-53.1); MEAN CORPUSCULAR HEMOGLOBIN 29.3 pg (25.7-32.2); MEAN CORPUSCULAR HGB CONC 32.4 g/dl (32.2-35.5); MEAN CORPUSCULAR VOLUME 90.5 fl (79.0-92.2); MONOCYTES ABSOLUTE AUTO 1.04 K/mm3 (0.30-0.82); MONOCYTES PERCENT AUTO 9.8 % (5.3-12.2); NEUTROPHILS ABSOLUTE AUTO 7.61 K/mm3 (1.78-5.38); PLATELET COUNT,PLT 324 K/mm3 (163-337); RED BLOOD CELL COUNT 5.29 M/mm3 (4.63-6.08); WHITE BLOOD CELL COUNT,WBC 10.57 K/mm3 (4.23-9.07)
[2022-09-18] MEDS ORDERED: LORazepam 1 MG Tab PO ONE (16:45)
[2022-09-18] MEDS ORDERED: Acetaminophen/HYDROcodone 325-5 MG Tab PO ONE ×2 (16:45→18:56)
[2022-09-18 17:05] LABS: ALANINE AMINOTRANSFERASE,ALT 42 U/L (16-63); ALBUMIN 3.7 g/dl (3.4-5.0); ALKALINE PHOSPHATASE 102 U/L (46-116); ANION GAP 12.3 (5-15); ASPARTATE AMNIOTRANSFERASE,AST 28 U/L (15-37); BILIRUBIN TOTAL 0.4 mg/dL (0.2-1.0); BLOOD UREA NITROGEN,BUN 16 mg/dL (7-18); BUN/CREATININE RATIO 14.5 (14-18); CALCIUM 9.5 mg/dL (8.5-10.1); CARBON DIOXIDE,CO2 27 mEq/L (21-32); CHLORIDE,CL 108 mEq/L (98-107); CREATININE 1.1 mg/dL (0.7-1.3); ESTIMATED GFR 74 mL/min (>60); GLUCOSE RANDOM 103 mg/dL (70-99); LIPASE 110 U/L (73-393); POTASSIUM,K 4.3 mEq/L (3.5-5.1); PROTEIN TOTAL,TP 7.4 g/dl (6.4-8.2); SODIUM,NA 143 mEq/L (136-145)
[2022-09-18 18:40] LABS: APPEARANCE,URINE CLEAR (Clear); BILIRUBIN,URINE NEGATIVE (Negative); COLOR,URINE YELLOW (Yellow); GLUCOSE,URINE NEGATIVE (Negative); KETONES,URINE TRACE (Negative); LEUKOCYTE ESTERASE,URINE NEGATIVE (Negative); NITRITE,URINE NEGATIVE (Negative); OCCULT BLOOD,URINE NEGATIVE (Negative); PH,URINE 6.5 (5.0-8.0); PROTEIN,URINE 3+ (Negative)
[2022-09-18 18:52] LABS: MUCUS,URINE FEW /hpf (FEW)
[2022-09-18] MEDS ORDERED: Cephalexin 500 MG Cap PO ONE (18:55)
[2022-09-18] MEDS ORDERED: LORazepam 0.5 MG Tab PO ONE (18:57)
[2022-09-18 19:04] LABS: BACTERIA,URINE FEW /hpf (FEW); HYALINE CASTS,URINE 0-5 /lpf (0-5); RBC,URINE 0-5 /hpf (0-5); SQUAMOUS EPITHELIAL CELLS,UR 0-5 /hpf (0-5); WBC,URINE 0-5 /hpf (0-5)
== END 2022-09-18 19:49 | disposition home or self-care (01) ==
LOC: JD.ED 15:17
DX: N30.01 Acute cystitis with hematuria (principal); I10 Essential (primary) hypertension; J44.9 Chronic obstructive pulmonary disease, unspecified; F17.210 Nicotine dependence, cigarettes, uncomplicated; Z88.5 Allergy status to narcotic agent; Z79.899 Other long term (current) drug therapy
CPT/HCPCS: 36415; 80053; 81001; 83690; 85025; 99284; A9270

== ENCOUNTER 2022-11-22 21:25 | Emergency (ER) | payer MEDICAID, MEDICARE ==
[2022-11-22] MEDS ORDERED: LORazepam 2 MG/ML SDV IVPUSH ONE (21:46)
[2022-11-22] MEDS ORDERED: LORazepam 1 MG Tab PO ONE (22:55)
[2022-11-22] MEDS ORDERED: Acetaminophen/HYDROcodone 325-5 MG Tab PO ONE (22:55)
[2022-11-23 01:19] VITALS: BP 130/84; PULSE 84
== END 2022-11-22 23:41 | disposition home or self-care (01) ==
LOC: JD.ED 21:25
DX: F41.9 Anxiety disorder, unspecified (principal); I10 Essential (primary) hypertension; J44.9 Chronic obstructive pulmonary disease, unspecified; Z88.5 Allergy status to narcotic agent
CPT/HCPCS: 99283; A9270

== ENCOUNTER 2023-05-02 13:24 | Emergency (ER) | payer MEDICARE, MEDICAID ==
[2023-05-02] MEDS ORDERED: LORazepam 1 MG Tab PO ONE (13:45)
[2023-05-02] MEDS ORDERED: Acetaminophen/HYDROcodone 325-5 MG Tab PO ONE (15:24)
[2023-05-02 15:28] LABS: BASOPHILS ABSOLUTE AUTO 0.1 K/mm3 (0.0-0.2); BASOPHILS PERCENT AUTO 0.5 % (0.0-1.0); EOSINOPHILS PERCENT AUTO 0.3 % (0.0-6.0); HEMATOCRIT 46.8 % (42.0-52.0); HEMOGLOBIN 15.2 gm/dl (14.0-18.0); IMMATURE GRAN ABSOLUTE AUTO 0.03 K/mm3 (0.00-0.05); IMMATURE GRAN PERCENT AUTO 0.3 % (0.0-0.4); LYMPHOCYTES ABSOLUTE AUTO 1.5 K/mm3 (1.0-4.8); LYMPHOCYTES PERCENT AUTO 16.1 % (24.0-44.0); MEAN CORPUSCULAR HEMOGLOBIN 28.4 pg (28.0-32.0); MEAN CORPUSCULAR HGB CONC 32.5 g/dl (32.0-36.0); MEAN CORPUSCULAR VOLUME 87.3 fl (83.0-99.0); MEAN PLATELET VOLUME 8.9 fl (9.4-12.4); MONOCYTES ABSOLUTE AUTO 0.7 K/mm3 (0.0-0.8); MONOCYTES PERCENT AUTO 7.6 % (0.0-8.0); NEUTROPHILS ABSOLUTE AUTO 6.9 K/mm3 (1.8-7.7); NEUTROPHILS PERCENT AUTO 75.2 % (41.0-71.0); PLATELET COUNT,PLT 330 K/mm3 (150-400); RED BLOOD CELL COUNT 5.36 M/mm3 (4.52-5.90); WHITE BLOOD CELL COUNT,WBC 9.18 K/mm3 (3.9-11.3)
[2023-05-02 15:49] LABS: A/G RATIO 0.9 (1-2); ALBUMIN 3.7 g/dl (3.4-5.0); ANION GAP 13.9 (5-15); BILIRUBIN TOTAL 0.4 mg/dL (0.2-1.0); BUN/CREATININE RATIO 14.5 (14-18); CALCIUM 9.7 mg/dL (8.5-10.1); CREATININE 1.1 mg/dL (0.7-1.3); EST CRCL DRUG DOSING (CG) 69.41 mL/min; POTASSIUM,K 3.9 mEq/L (3.5-5.1); PROTEIN TOTAL,TP 7.9 g/dl (6.4-8.2)
[2023-05-02] MEDS ORDERED: hydrOXYzine HCl 25 MG Tab PO ONE (16:22)
[2023-05-02 16:58] VITALS: BP 119/79; PULSE 95
== END 2023-05-02 16:40 | disposition home or self-care (01) ==
LOC: JD.ED 13:24
DX: F41.9 Anxiety disorder, unspecified (principal); I10 Essential (primary) hypertension; J44.9 Chronic obstructive pulmonary disease, unspecified; Z88.5 Allergy status to narcotic agent; Z79.899 Other long term (current) drug therapy
CPT/HCPCS: 36415; 80053; 83690; 85025; 93005; 99284; A9270; 93010

== ENCOUNTER 2023-05-09 19:52 | Emergency (ER) | payer MEDICARE, MEDICAID ==
[2023-05-09 20:16] LABS: BASOPHILS ABSOLUTE AUTO 0.1 K/mm3 (0.0-0.2); BASOPHILS PERCENT AUTO 0.6 % (0.0-1.0); EOSINOPHILS ABSOLUTE AUTO 0.1 K/mm3 (0.0-0.4); EOSINOPHILS PERCENT AUTO 0.9 % (0.0-6.0); HEMOGLOBIN 14.1 gm/dl (14.0-18.0); IMMATURE GRAN ABSOLUTE AUTO 0.04 K/mm3 (0.00-0.05); IMMATURE GRAN PERCENT AUTO 0.5 % (0.0-0.4); LYMPHOCYTES ABSOLUTE AUTO 1.6 K/mm3 (1.0-4.8); LYMPHOCYTES PERCENT AUTO 18.3 % (24.0-44.0); MEAN CORPUSCULAR HEMOGLOBIN 29.1 pg (28.0-32.0); MEAN CORPUSCULAR HGB CONC 32.8 g/dl (32.0-36.0); MEAN CORPUSCULAR VOLUME 88.7 fl (83.0-99.0); MEAN PLATELET VOLUME 8.9 fl (9.4-12.4); MONOCYTES ABSOLUTE AUTO 0.8 K/mm3 (0.0-0.8); MONOCYTES PERCENT AUTO 8.7 % (0.0-8.0); NEUTROPHILS ABSOLUTE AUTO 6.1 K/mm3 (1.8-7.7); PLATELET COUNT,PLT 284 K/mm3 (150-400); RED BLOOD CELL COUNT 4.85 M/mm3 (4.52-5.90)
[2023-05-09 20:45] LABS: ALBUMIN 3.6 g/dl (3.4-5.0); ANION GAP 15.2 (5-15); BILIRUBIN TOTAL 0.4 mg/dL (0.2-1.0); BUN/CREATININE RATIO 11.6 (14-18); CALCIUM 8.9 mg/dL (8.5-10.1); CREATININE 1.9 mg/dL (0.7-1.3); EST CRCL DRUG DOSING (CG) 40.18 mL/min; MAGNESIUM 1.7 mg/dL (1.8-2.4); POTASSIUM,K 3.2 mEq/L (3.5-5.1); PROTEIN TOTAL,TP 7.2 g/dl (6.4-8.2)
[2023-05-09 20:46] LABS: APPEARANCE,URINE CLEAR (Clear); BILIRUBIN,URINE NEGATIVE (Negative); COLOR,URINE YELLOW (Yellow); GLUCOSE,URINE NEGATIVE (Negative); KETONES,URINE NEGATIVE (Negative); LEUKOCYTE ESTERASE,URINE NEGATIVE (Negative); NITRITE,URINE NEGATIVE (Negative); OCCULT BLOOD,URINE NEGATIVE (Negative); PROTEIN,URINE 2+ (Negative); UROBILINOGEN,URINE 0.2 (0.2-1.0)
[2023-05-09 20:52] LABS: BACTERIA,URINE RARE /hpf (FEW); EPITHELIAL CELLS,URINE 0-5 /hpf (0-5); MUCUS,URINE NOT SEEN /hpf (FEW); RBC,URINE NOT SEEN /hpf (0-5); WBC,URINE 0-5 /hpf (0-5)
[2023-05-09 20:56] LABS: BARBITURATE SCREEN,URINE NEGATIVE (CUTOFF=200); BENZODIAZEPINES SCREEN,URINE PRESUMPTIVE POSITIVE (CUTOFF=150); BUPRENORPHINE SCREEN,URINE NEGATIVE (CUTOFF=10); METHADONE SCREEN, URINE NEGATIVE (CUT0FF=200); METHAMPHETAMINES SCREEN, URINE NEGATIVE (CUTOFF=500); OXYCODONE SCREEN,URINE NEGATIVE (CUT0FF=100); THC SCREEN,URINE 20 NG/ML PRESUMPTIVE POSITIVE (CUTOFF=50)
[2023-05-09 20:59] LABS: AMPHETAMINES SCREEN, URINE NEGATIVE (CUTOFF=500)
[2023-05-09] MEDS: Acetaminophen 325 MG Tab PO ONE (21:18)
[2023-05-09] MEDS ORDERED: Naloxone 0.4 MG/ML SDV IVPUSH PRN (22:37)
[2023-05-09] MEDS: fentaNYL 100 MCG/2 ML SDV IVPUSH ONE (23:13)
[2023-05-09] MEDS: Lidocaine 2% with EPINEPHrine 1:100,000 20 ML MDV INJECT ONE (23:14)
[2023-05-10] MEDS: Diphtheria,Pertussis(Acell),Tetanus Vaccine 0.5 ML Syringe IM ONE (02:22)
[2023-05-10] MEDS: ceFAZolin 2 GM in Sodium Chloride 0.9% 50 ML IV ONE (02:23)
[2023-05-10] MEDS: fentaNYL 100 MCG/2 ML SDV IVPUSH ONE (03:33)
[2023-05-10 03:48] VITALS: BP 131/81; PULSE 70
== END 2023-05-10 03:45 ==
LOC: JD.ED 19:52
DX: S01.81XA Laceration without foreign body of other part of head, initial encounter (principal); I10 Essential (primary) hypertension; J44.9 Chronic obstructive pulmonary disease, unspecified; K21.9 Gastro-esophageal reflux disease without esophagitis; Z23 Encounter for immunization; Z90.49 Acquired absence of other specified parts of digestive tract; Z79.899 Other long term (current) drug therapy; Z88.5 Allergy status to narcotic agent; W18.09XA Striking against other object with subsequent fall, initial encounter
CPT/HCPCS: 12015; 36415; 70450; 70486; 71045; 72125; 72170; 73030; 80053; 80306; 80307; 81001; 83735; 85025; 90471; 90715; 93005; 96365; 96375; 96376; 99285; A9270; J0690; J3010; J3490; 93010; 99284

== ENCOUNTER 2024-01-06 15:07 | Emergency (ER) | payer MEDICARE, MEDICAID ==
[2024-01-06 15:45] LABS: BASOPHILS ABSOLUTE AUTO 0.1 K/mm3 (0.0-0.2); BASOPHILS PERCENT AUTO 0.7 % (0.0-1.0); EOSINOPHILS ABSOLUTE AUTO 0.1 K/mm3 (0.0-0.4); EOSINOPHILS PERCENT AUTO 1.7 % (0.0-6.0); HEMATOCRIT 50.5 % (42.0-52.0); HEMOGLOBIN 16.3 gm/dl (14.0-18.0); IMMATURE GRAN ABSOLUTE AUTO 0.03 K/mm3 (0.00-0.05); IMMATURE GRAN PERCENT AUTO 0.4 % (0.0-0.4); LYMPHOCYTES ABSOLUTE AUTO 1.5 K/mm3 (1.0-4.8); LYMPHOCYTES PERCENT AUTO 18.2 % (24.0-44.0); MEAN CORPUSCULAR HEMOGLOBIN 28.4 pg (28.0-32.0); MEAN CORPUSCULAR HGB CONC 32.3 g/dl (32.0-36.0); MEAN CORPUSCULAR VOLUME 88.1 fl (83.0-99.0); MEAN PLATELET VOLUME 9.2 fl (9.4-12.4); MONOCYTES ABSOLUTE AUTO 0.7 K/mm3 (0.0-0.8); MONOCYTES PERCENT AUTO 8.1 % (0.0-8.0); NEUTROPHILS PERCENT AUTO 70.9 % (41.0-71.0); PLATELET COUNT,PLT 280 K/mm3 (150-400); RED BLOOD CELL COUNT 5.73 M/mm3 (4.52-5.90); WHITE BLOOD CELL COUNT,WBC 8.48 K/mm3 (3.9-11.3)
[2024-01-06 16:06] LABS: ALBUMIN 3.8 g/dl (3.4-5.0); ANION GAP 16.4 (5-15); BILIRUBIN TOTAL 0.7 mg/dL (0.2-1.0); BUN/CREATININE RATIO 13.3 (14-18); C-REACTIVE PROTEIN 0.07 mg/dL (<0.30); CREATININE 1.2 mg/dL (0.7-1.3); EST CRCL DRUG DOSING (CG) 62.75 mL/min; POTASSIUM,K 4.4 mEq/L (3.5-5.1); PROTEIN TOTAL,TP 7.8 g/dl (6.4-8.2)
[2024-01-06 16:07] LABS: APPEARANCE,URINE CLEAR (Clear); BILIRUBIN,URINE NEGATIVE (Negative); COLOR,URINE YELLOW (Yellow); GLUCOSE,URINE NEGATIVE (Negative); KETONES,URINE 1+ (Negative); LEUKOCYTE ESTERASE,URINE NEGATIVE (Negative); NITRITE,URINE NEGATIVE (Negative); OCCULT BLOOD,URINE NEGATIVE (Negative); PROTEIN,URINE 1+ (Negative); UROBILINOGEN,URINE 0.2 (0.2-1.0)
[2024-01-06] MEDS: Iopamidol 612 MG/ML 100 ML Bottle IVPUSH ONE (16:22)
[2024-01-06] MEDS: Sodium Chloride 0.9% 10 ML Syringe FLUSH ONE (16:22)
[2024-01-06 16:27] LABS: RBC,URINE 0-5 /hpf (0-5); SQUAMOUS EPITHELIAL CELLS,UR 0-5 /hpf (0-5); WBC,URINE 0-5 /hpf (0-5)
[2024-01-06 16:28] LABS: BACTERIA,URINE FEW /hpf (FEW); MUCUS,URINE FEW /hpf (FEW)
[2024-01-06 16:49] LABS: CORONAVIRUS COVID-19 NAA NEGATIVE (NEGATIVE); INFLUENZA A NAA NEGATIVE (NEGATIVE); RESPIRATORY SYNCYTIAL VIR NAA NEGATIVE (NEGATIVE)
[2024-01-06] MEDS: Ketorolac 30 MG/ML SDV IVPUSH ONE (17:38)
[2024-01-06 18:05] VITALS: BP 121/84; PULSE 82
== END 2024-01-06 17:47 | disposition home or self-care (01) ==
LOC: JD.ED 15:07
DX: N20.0 Calculus of kidney (principal); I10 Essential (primary) hypertension; J44.9 Chronic obstructive pulmonary disease, unspecified; Z90.49 Acquired absence of other specified parts of digestive tract; Z79.899 Other long term (current) drug therapy; Z88.5 Allergy status to narcotic agent
CPT/HCPCS: 0241U; 36415; 74177; 80053; 81001; 83690; 85025; 86140; 96374; 99285; J1885; J3490; Q9967

== ENCOUNTER 2024-01-09 01:26 | Emergency (ER) | payer MEDICARE, MEDICAID ==
[2024-01-09] MEDS: Ketorolac 60 MG/2 ML SDV IM ONE (02:33)
[2024-01-09] MEDS: LORazepam 1 MG Tab PO ONE (02:33)
[2024-01-09 05:47] VITALS: BP 131/71; PULSE 75
== END 2024-01-09 05:45 | disposition home or self-care (01) ==
LOC: JD.ED 01:26
DX: M54.50 Low back pain, unspecified (principal); I10 Essential (primary) hypertension; J44.9 Chronic obstructive pulmonary disease, unspecified; F17.210 Nicotine dependence, cigarettes, uncomplicated; Z86.16 Personal history of COVID-19; Z88.5 Allergy status to narcotic agent
CPT/HCPCS: 96372; 99284; A9270; J1885

== ENCOUNTER 2024-01-30 20:24 | Emergency (ER) | payer MEDICARE, MEDICAID ==
[2024-01-30] MEDS: Dextrose 5%-0.9% NaCl 1,000 ML IV SCH (21:15)
[2024-01-30 21:17] LABS: BASOPHILS ABSOLUTE AUTO 0.1 K/mm3 (0.0-0.2); BASOPHILS PERCENT AUTO 0.5 % (0.0-1.0); EOSINOPHILS ABSOLUTE AUTO 0.2 K/mm3 (0.0-0.4); EOSINOPHILS PERCENT AUTO 2.1 % (0.0-6.0); HEMATOCRIT 46.7 % (42.0-52.0); IMMATURE GRAN ABSOLUTE AUTO 0.03 K/mm3 (0.00-0.05); IMMATURE GRAN PERCENT AUTO 0.3 % (0.0-0.4); LYMPHOCYTES ABSOLUTE AUTO 1.9 K/mm3 (1.0-4.8); LYMPHOCYTES PERCENT AUTO 19.3 % (24.0-44.0); MEAN CORPUSCULAR HEMOGLOBIN 28.8 pg (28.0-32.0); MEAN CORPUSCULAR HGB CONC 32.1 g/dl (32.0-36.0); MEAN CORPUSCULAR VOLUME 89.8 fl (83.0-99.0); MEAN PLATELET VOLUME 8.9 fl (9.4-12.4); MONOCYTES PERCENT AUTO 10.3 % (0.0-8.0); NEUTROPHILS ABSOLUTE AUTO 6.5 K/mm3 (1.8-7.7); NEUTROPHILS PERCENT AUTO 67.5 % (41.0-71.0); PLATELET COUNT,PLT 312 K/mm3 (150-400); WHITE BLOOD CELL COUNT,WBC 9.65 K/mm3 (3.9-11.3)
[2024-01-30] MEDS: Metoclopramide 10 MG/2 ML SDV IVPUSH ONE (21:18)
[2024-01-30] MEDS: HYDROmorphone 0.5 MG/0.5 ML Syringe IVPUSH ONE ×2 (21:21→22:47)
[2024-01-30 21:42] LABS: INR 0.99; PROTHROMBIN TIME 10.5 SECONDS (9.7-12.0)
[2024-01-30 21:43] LABS: A/G RATIO 1.1 (1-2); ALANINE AMINOTRANSFERASE,ALT 22 U/L (16-63); ALBUMIN 3.5 g/dl (3.4-5.0); ALKALINE PHOSPHATASE 93 U/L (46-116); ANION GAP 12.7 (5-15); ASPARTATE AMNIOTRANSFERASE,AST 14 U/L (15-37); BILIRUBIN TOTAL 0.3 mg/dL (0.2-1.0); BLOOD UREA NITROGEN,BUN 13 mg/dL (7-18); BUN/CREATININE RATIO 8.1 (14-18); CARBON DIOXIDE,CO2 28 mEq/L (21-32); CHLORIDE,CL 106 mEq/L (98-107); CREATININE 1.6 mg/dL (0.7-1.3); EST CRCL DRUG DOSING (CG) 47.06 mL/min; ESTIMATED GFR 47 mL/min (>60); GAMMA GLUTAMYL TRANSFERASE,GGT 24 U/L (15-85); GLUCOSE RANDOM 100 mg/dL (70-99); LIPASE 32 U/L (16-77); MAGNESIUM 1.8 mg/dL (1.8-2.4); POTASSIUM,K 3.7 mEq/L (3.5-5.1); PROTEIN TOTAL,TP 6.8 g/dl (6.4-8.2); PTT,PARTIAL THROMBOPLSTIN TIME 23.9 SECONDS (21.7-31.4); SODIUM,NA 143 mEq/L (136-145)
[2024-01-30 21:44] LABS: C-REACTIVE PROTEIN < 0.05 mg/dL (<0.30)
[2024-01-30 21:47] LABS: LACTIC ACID 2.4 mmol/L (0.4-2.0)
[2024-01-30] MEDS ORDERED: Dextrose 5%-0.9% NaCl 1,000 ML IV SCH (22:30)
[2024-01-30 22:47] LABS: CORONAVIRUS COVID-19 NAA NEGATIVE (NEGATIVE); INFLUENZA A NAA NEGATIVE (NEGATIVE); RESPIRATORY SYNCYTIAL VIR NAA NEGATIVE (NEGATIVE)
[2024-01-30] MEDS: Magnesium Citrate Solution 296 ML Bottle PO ONE (22:47)
[2024-01-30] MEDS: Dicyclomine 10 MG Cap PO ONE (23:08)
[2024-01-30 23:38] VITALS: BP 119/57; PULSE 74
== END 2024-01-30 23:19 | disposition home or self-care (01) ==
LOC: JD.ED 20:24
DX: K59.01 Slow transit constipation (principal); E86.0 Dehydration; I10 Essential (primary) hypertension; J44.9 Chronic obstructive pulmonary disease, unspecified; Z86.16 Personal history of COVID-19; Z90.49 Acquired absence of other specified parts of digestive tract; Z79.899 Other long term (current) drug therapy; Z88.5 Allergy status to narcotic agent
CPT/HCPCS: 0241U; 36415; 74018; 80053; 82977; 83605; 83690; 83735; 83880; 85025; 85610; 85730; 86140; 96374; 96375; 96376; 99284; A9270; J1171; J2765; J7042

== ENCOUNTER 2024-02-01 17:52 | Emergency (ER) | payer MEDICARE, MEDICAID ==
[2024-02-01] MEDS: Sodium Chloride 0.9% 10 ML Syringe FLUSH PRN (17:55)
[2024-02-01] MEDS: fentaNYL 100 MCG/2 ML SDV IVPUSH ONE (18:29)
[2024-02-01] MEDS: Sodium Chloride 0.9% 500 ML IV ONE (18:30)
[2024-02-01 18:33] LABS: BASOPHILS ABSOLUTE AUTO 0.1 K/mm3 (0.0-0.2); BASOPHILS PERCENT AUTO 0.7 % (0.0-1.0); EOSINOPHILS ABSOLUTE AUTO 0.2 K/mm3 (0.0-0.4); EOSINOPHILS PERCENT AUTO 1.9 % (0.0-6.0); HEMATOCRIT 41.9 % (42.0-52.0); HEMOGLOBIN 13.3 gm/dl (14.0-18.0); IMMATURE GRAN ABSOLUTE AUTO 0.02 K/mm3 (0.00-0.05); IMMATURE GRAN PERCENT AUTO 0.2 % (0.0-0.4); LYMPHOCYTES ABSOLUTE AUTO 1.6 K/mm3 (1.0-4.8); LYMPHOCYTES PERCENT AUTO 18.1 % (24.0-44.0); MEAN CORPUSCULAR HGB CONC 31.7 g/dl (32.0-36.0); MEAN CORPUSCULAR VOLUME 91.3 fl (83.0-99.0); MEAN PLATELET VOLUME 9.2 fl (9.4-12.4); MONOCYTES ABSOLUTE AUTO 0.9 K/mm3 (0.0-0.8); NEUTROPHILS PERCENT AUTO 69.1 % (41.0-71.0); PLATELET COUNT,PLT 264 K/mm3 (150-400); RED BLOOD CELL COUNT 4.59 M/mm3 (4.52-5.90); WHITE BLOOD CELL COUNT,WBC 8.73 K/mm3 (3.9-11.3)
[2024-02-01 18:53] LABS: A/G RATIO 1.1 (1-2); ALBUMIN 3.4 g/dl (3.4-5.0); ANION GAP 16.6 (5-15); BILIRUBIN TOTAL 0.3 mg/dL (0.2-1.0); BUN/CREATININE RATIO 6.2 (14-18); CALCIUM 8.6 mg/dL (8.5-10.1); CREATININE 1.3 mg/dL (0.7-1.3); EST CRCL DRUG DOSING (CG) 57.92 mL/min; POTASSIUM,K 3.6 mEq/L (3.5-5.1); PROTEIN TOTAL,TP 6.5 g/dl (6.4-8.2)
[2024-02-01 19:32] LABS: APPEARANCE,URINE CLEAR (Clear); BILIRUBIN,URINE NEGATIVE (Negative); COLOR,URINE YELLOW (Yellow); GLUCOSE,URINE NEGATIVE (Negative); KETONES,URINE NEGATIVE (Negative); LEUKOCYTE ESTERASE,URINE NEGATIVE (Negative); NITRITE,URINE NEGATIVE (Negative); OCCULT BLOOD,URINE NEGATIVE (Negative); PH,URINE 6.5 (5.0-8.0); PROTEIN,URINE 1+ (Negative); UROBILINOGEN,URINE 0.2 (0.2-1.0)
[2024-02-01 19:38] LABS: BACTERIA,URINE FEW /hpf (FEW); MUCUS,URINE FEW /hpf (FEW); RBC,URINE 0-5 /hpf (0-5); SQUAMOUS EPITHELIAL CELLS,UR 0-5 /hpf (0-5); WBC,URINE 0-5 /hpf (0-5)
[2024-02-01] MEDS: HYDROmorphone 0.5 MG/0.5 ML Syringe IVPUSH ONE (19:48)
[2024-02-01] MEDS: LORazepam 2 MG/ML SDV IVPUSH ONE (19:48)
[2024-02-01] MEDS: Acetaminophen/HYDROcodone 325-5 MG Tab PO ONE (20:36)
[2024-02-01 20:42] VITALS: BP 144/81; PULSE 86
== END 2024-02-01 20:35 | disposition home or self-care (01) ==
LOC: JD.ED 17:52
DX: M54.6 Pain in thoracic spine (principal); G89.29 Other chronic pain; I12.9 Hypertensive chronic kidney disease with stage 1 through stage 4 chronic kidney disease, or unspecified chronic kidney disease; N18.9 Chronic kidney disease, unspecified; J44.9 Chronic obstructive pulmonary disease, unspecified; Z86.16 Personal history of COVID-19; Z90.49 Acquired absence of other specified parts of digestive tract; Z90.2 Acquired absence of lung [part of]; Z88.5 Allergy status to narcotic agent; Z79.899 Other long term (current) drug therapy
CPT/HCPCS: 36415; 74176; 80053; 81001; 83690; 85025; 93005; 96361; 96374; 96375; 99284; J1171; J2060; J3010; J3490; J7030; A9270-GY

== ENCOUNTER 2024-02-02 19:36 | Emergency (ER) | payer MEDICARE, MEDICAID ==
[2024-02-02 19:46] VITALS: BP 151/74; PULSE 77
[2024-02-02 20:13] LABS: BASOPHILS ABSOLUTE AUTO 0.1 K/mm3 (0.0-0.2); BASOPHILS PERCENT AUTO 0.8 % (0.0-1.0); EOSINOPHILS ABSOLUTE AUTO 0.4 K/mm3 (0.0-0.4); EOSINOPHILS PERCENT AUTO 4.4 % (0.0-6.0); HEMATOCRIT 45.7 % (42.0-52.0); HEMOGLOBIN 14.6 gm/dl (14.0-18.0); IMMATURE GRAN ABSOLUTE AUTO 0.03 K/mm3 (0.00-0.05); IMMATURE GRAN PERCENT AUTO 0.4 % (0.0-0.4); LYMPHOCYTES ABSOLUTE AUTO 1.6 K/mm3 (1.0-4.8); LYMPHOCYTES PERCENT AUTO 19.1 % (24.0-44.0); MEAN CORPUSCULAR HEMOGLOBIN 29.4 pg (28.0-32.0); MEAN CORPUSCULAR HGB CONC 31.9 g/dl (32.0-36.0); MEAN PLATELET VOLUME 8.9 fl (9.4-12.4); MONOCYTES ABSOLUTE AUTO 0.9 K/mm3 (0.0-0.8); MONOCYTES PERCENT AUTO 10.5 % (0.0-8.0); NEUTROPHILS ABSOLUTE AUTO 5.4 K/mm3 (1.8-7.7); NEUTROPHILS PERCENT AUTO 64.8 % (41.0-71.0); PLATELET COUNT,PLT 254 K/mm3 (150-400); RED BLOOD CELL COUNT 4.97 M/mm3 (4.52-5.90); WHITE BLOOD CELL COUNT,WBC 8.37 K/mm3 (3.9-11.3)
[2024-02-02] MEDS: Metoclopramide 10 MG/2 ML SDV IVPUSH ONE (20:33)
[2024-02-02] MEDS: HYDROmorphone 0.5 MG/0.5 ML Syringe IVPUSH ONE ×2 (20:33→21:30)
[2024-02-02] MEDS: Dextrose 5%-Lactated Ringers 1,000 ML IV SCH (20:33)
[2024-02-02 20:41] LABS: ALBUMIN 3.5 g/dl (3.4-5.0); ANION GAP 13.9 (5-15); BILIRUBIN TOTAL 0.2 mg/dL (0.2-1.0); BUN/CREATININE RATIO 10.8 (14-18); C-REACTIVE PROTEIN 0.07 mg/dL (<0.30); CALCIUM 9.2 mg/dL (8.5-10.1); CREATININE 1.2 mg/dL (0.7-1.3); EST CRCL DRUG DOSING (CG) 58.92 mL/min; MAGNESIUM 2.1 mg/dL (1.8-2.4); PROTEIN TOTAL,TP 6.9 g/dl (6.4-8.2)
[2024-02-02 20:45] LABS: POTASSIUM,K 4.9 mEq/L (3.5-5.1)
[2024-02-02] MEDS: Dicyclomine 10 MG Cap PO ONE (21:30)
== END 2024-02-02 21:39 | disposition home or self-care (01) ==
LOC: JD.ED 19:36
DX: I95.2 Hypotension due to drugs (principal); T42.4X5A Adverse effect of benzodiazepines, initial encounter; F17.210 Nicotine dependence, cigarettes, uncomplicated; I10 Essential (primary) hypertension; J44.9 Chronic obstructive pulmonary disease, unspecified; Z86.16 Personal history of COVID-19; Z79.899 Other long term (current) drug therapy; Z88.5 Allergy status to narcotic agent; W18.30XA Fall on same level, unspecified, initial encounter
CPT/HCPCS: 36415; 70450; 73030; 74018; 80053; 80307; 83735; 85025; 86140; 96361; 96374; 96375; 96376; 99284; A9270; J1171; J2765; J7121

== ENCOUNTER 2024-02-03 14:22 | Emergency (ER) | payer MEDICARE, MEDICAID ==
[2024-02-03] MEDS: Sodium Chloride 0.9% 10 ML Syringe FLUSH PRN (15:01)
[2024-02-03] MEDS: HYDROmorphone 0.5 MG/0.5 ML Syringe IVPUSH ONE ×2 (15:01→16:19)
[2024-02-03 15:09] LABS: BASOPHILS ABSOLUTE AUTO 0.1 K/mm3 (0.0-0.2); BASOPHILS PERCENT AUTO 0.6 % (0.0-1.0); EOSINOPHILS ABSOLUTE AUTO 0.2 K/mm3 (0.0-0.4); EOSINOPHILS PERCENT AUTO 2.3 % (0.0-6.0); HEMATOCRIT 50.8 % (42.0-52.0); HEMOGLOBIN 16.2 gm/dl (14.0-18.0); IMMATURE GRAN ABSOLUTE AUTO 0.02 K/mm3 (0.00-0.05); IMMATURE GRAN PERCENT AUTO 0.2 % (0.0-0.4); LYMPHOCYTES ABSOLUTE AUTO 1.9 K/mm3 (1.0-4.8); LYMPHOCYTES PERCENT AUTO 19.2 % (24.0-44.0); MEAN CORPUSCULAR HEMOGLOBIN 28.9 pg (28.0-32.0); MEAN CORPUSCULAR HGB CONC 31.9 g/dl (32.0-36.0); MEAN CORPUSCULAR VOLUME 90.7 fl (83.0-99.0); MEAN PLATELET VOLUME 9.2 fl (9.4-12.4); MONOCYTES ABSOLUTE AUTO 0.8 K/mm3 (0.0-0.8); NEUTROPHILS ABSOLUTE AUTO 6.8 K/mm3 (1.8-7.7); NEUTROPHILS PERCENT AUTO 69.7 % (41.0-71.0); PLATELET COUNT,PLT 293 K/mm3 (150-400); WHITE BLOOD CELL COUNT,WBC 9.79 K/mm3 (3.9-11.3)
[2024-02-03 15:19] LABS: A/G RATIO 1.2 (1-2); ALBUMIN 4.4 g/dl (3.4-5.0); ANION GAP 11.4 (5-15); BILIRUBIN TOTAL 0.4 mg/dL (0.2-1.0); BUN/CREATININE RATIO 11.7 (14-18); CALCIUM 9.9 mg/dL (8.5-10.1); CREATININE 1.2 mg/dL (0.7-1.3); EST CRCL DRUG DOSING (CG) 62.75 mL/min; POTASSIUM,K 4.4 mEq/L (3.5-5.1); PROTEIN TOTAL,TP 8.2 g/dl (6.4-8.2)
[2024-02-03 15:41] LABS: APPEARANCE,URINE CLEAR (Clear); BILIRUBIN,URINE NEGATIVE (Negative); COLOR,URINE LIGHT YELLOW (Yellow); GLUCOSE,URINE NEGATIVE (Negative); KETONES,URINE NEGATIVE (Negative); LEUKOCYTE ESTERASE,URINE NEGATIVE (Negative); NITRITE,URINE NEGATIVE (Negative); OCCULT BLOOD,URINE NEGATIVE (Negative); PH,URINE 6.5 (5.0-8.0); PROTEIN,URINE 1+ (Negative); UROBILINOGEN,URINE 0.2 (0.2-1.0)
[2024-02-03 16:04] LABS: BACTERIA,URINE FEW /hpf (FEW); MUCUS,URINE FEW /hpf (FEW); RBC,URINE 0-5 /hpf (0-5); SQUAMOUS EPITHELIAL CELLS,UR 0-5 /hpf (0-5); WBC,URINE 0-5 /hpf (0-5)
[2024-02-03 16:35] VITALS: BP 157/92; PULSE 89
== END 2024-02-03 16:30 | disposition home or self-care (01) ==
LOC: JD.ED 14:22
DX: N20.0 Calculus of kidney (principal); M54.50 Low back pain, unspecified; R10.84 Generalized abdominal pain; I10 Essential (primary) hypertension; F17.210 Nicotine dependence, cigarettes, uncomplicated; Z86.16 Personal history of COVID-19; Z88.8 Allergy status to other drugs, medicaments and biological substances; Z79.899 Other long term (current) drug therapy; Z90.49 Acquired absence of other specified parts of digestive tract
CPT/HCPCS: 36415; 74176; 80053; 81001; 83690; 85025; 96374; 96376; 99284; J1171; J3490

== ENCOUNTER 2024-02-04 00:29 | Emergency (ER) | payer MEDICARE, MEDICAID ==
[2024-02-04 00:35] VITALS: BP 132/74; PULSE 70
[2024-02-04] MEDS: Acetaminophen 325 MG Tab PO ONE (02:10)
== END 2024-02-04 02:20 | disposition left against medical advice (07) ==
LOC: JD.ED 00:29
DX: M25.511 Pain in right shoulder (principal); I10 Essential (primary) hypertension; J44.9 Chronic obstructive pulmonary disease, unspecified; Z86.16 Personal history of COVID-19; Z88.5 Allergy status to narcotic agent; Z79.899 Other long term (current) drug therapy
CPT/HCPCS: 73060-26-RT; 73060-RT; 99283; 99284; A9270-GY

== ENCOUNTER 2024-02-07 21:28 | Emergency (ER) | payer MEDICARE, MEDICAID ==
[2024-02-07 21:39] VITALS: BP 152/125; PULSE 88
[2024-02-07] MEDS ORDERED: Sodium Chloride 0.9% 10 ML Syringe FLUSH PRN (21:43)
[2024-02-07] MEDS: Sodium Chloride 0.9% 500 ML IV ONE (22:00)
[2024-02-07] MEDS: Ketorolac 15 MG/ML SDV IVPUSH ONE (22:00)
[2024-02-07 22:16] LABS: BASOPHILS ABSOLUTE AUTO 0.1 K/mm3 (0.0-0.2); BASOPHILS PERCENT AUTO 0.6 % (0.0-1.0); EOSINOPHILS ABSOLUTE AUTO 0.2 K/mm3 (0.0-0.4); EOSINOPHILS PERCENT AUTO 2.2 % (0.0-6.0); HEMATOCRIT 46.3 % (42.0-52.0); HEMOGLOBIN 15.1 gm/dl (14.0-18.0); IMMATURE GRAN ABSOLUTE AUTO 0.03 K/mm3 (0.00-0.05); IMMATURE GRAN PERCENT AUTO 0.3 % (0.0-0.4); LYMPHOCYTES ABSOLUTE AUTO 1.6 K/mm3 (1.0-4.8); LYMPHOCYTES PERCENT AUTO 17.9 % (24.0-44.0); MEAN CORPUSCULAR HEMOGLOBIN 29.2 pg (28.0-32.0); MEAN CORPUSCULAR HGB CONC 32.6 g/dl (32.0-36.0); MEAN CORPUSCULAR VOLUME 89.4 fl (83.0-99.0); MEAN PLATELET VOLUME 9.2 fl (9.4-12.4); MONOCYTES ABSOLUTE AUTO 0.9 K/mm3 (0.0-0.8); MONOCYTES PERCENT AUTO 10.1 % (0.0-8.0); NEUTROPHILS PERCENT AUTO 68.9 % (41.0-71.0); PLATELET COUNT,PLT 278 K/mm3 (150-400); RED BLOOD CELL COUNT 5.18 M/mm3 (4.52-5.90); WHITE BLOOD CELL COUNT,WBC 8.68 K/mm3 (3.9-11.3)
[2024-02-07 22:48] LABS: APPEARANCE,URINE CLEAR (Clear); BILIRUBIN,URINE NEGATIVE (Negative); COLOR,URINE YELLOW (Yellow); GLUCOSE,URINE NEGATIVE (Negative); KETONES,URINE TRACE (Negative); LEUKOCYTE ESTERASE,URINE NEGATIVE (Negative); NITRITE,URINE NEGATIVE (Negative); OCCULT BLOOD,URINE NEGATIVE (Negative); PH,URINE 6.5 (5.0-8.0); PROTEIN,URINE 3+ (Negative); UROBILINOGEN,URINE 0.2 (0.2-1.0)
[2024-02-07 22:50] LABS: A/G RATIO 1.1 (1-2); ALBUMIN 3.9 g/dl (3.4-5.0); BILIRUBIN TOTAL 0.5 mg/dL (0.2-1.0); BUN/CREATININE RATIO 13.6 (14-18); CALCIUM 9.3 mg/dL (8.5-10.1); CREATININE 1.4 mg/dL (0.7-1.3); EST CRCL DRUG DOSING (CG) 52.14 mL/min; PROTEIN TOTAL,TP 7.6 g/dl (6.4-8.2)
[2024-02-07 22:54] LABS: RBC,URINE 0-5 /hpf (0-5); SQUAMOUS EPITHELIAL CELLS,UR 0-5 /hpf (0-5); WBC,URINE 0-5 /hpf (0-5)
[2024-02-07 22:55] LABS: BACTERIA,URINE FEW /hpf (FEW); MUCUS,URINE FEW /hpf (FEW)
== END 2024-02-07 22:54 | disposition left against medical advice (07) ==
LOC: JD.ED 21:28
DX: R10.84 Generalized abdominal pain (principal); I10 Essential (primary) hypertension; J44.9 Chronic obstructive pulmonary disease, unspecified; Z86.16 Personal history of COVID-19; Z90.49 Acquired absence of other specified parts of digestive tract; Z79.899 Other long term (current) drug therapy; Z88.5 Allergy status to narcotic agent
CPT/HCPCS: 36415; 80053; 81001; 83690; 85025; 93005; 96374; 99285-25; J1885; J7030

== ENCOUNTER 2024-02-12 16:41 | Emergency (ER) | payer MEDICARE, MEDICAID ==
[2024-02-12 17:15] LABS: BASOPHILS ABSOLUTE AUTO 0.1 K/mm3 (0.0-0.2); BASOPHILS PERCENT AUTO 0.5 % (0.0-1.0); HEMATOCRIT 47.5 % (42.0-52.0); HEMOGLOBIN 15.6 gm/dl (14.0-18.0); IMMATURE GRAN ABSOLUTE AUTO 0.03 K/mm3 (0.00-0.05); IMMATURE GRAN PERCENT AUTO 0.3 % (0.0-0.4); LYMPHOCYTES ABSOLUTE AUTO 1.3 K/mm3 (1.0-4.8); LYMPHOCYTES PERCENT AUTO 12.9 % (24.0-44.0); MEAN CORPUSCULAR HEMOGLOBIN 29.3 pg (28.0-32.0); MEAN CORPUSCULAR HGB CONC 32.8 g/dl (32.0-36.0); MEAN CORPUSCULAR VOLUME 89.1 fl (83.0-99.0); MONOCYTES ABSOLUTE AUTO 0.8 K/mm3 (0.0-0.8); MONOCYTES PERCENT AUTO 7.9 % (0.0-8.0); NEUTROPHILS ABSOLUTE AUTO 7.7 K/mm3 (1.8-7.7); NEUTROPHILS PERCENT AUTO 78.4 % (41.0-71.0); PLATELET COUNT,PLT 319 K/mm3 (150-400); RED BLOOD CELL COUNT 5.33 M/mm3 (4.52-5.90); WHITE BLOOD CELL COUNT,WBC 9.85 K/mm3 (3.9-11.3)
[2024-02-12] MEDS: Sodium Chloride 0.9% 10 ML Syringe FLUSH PRN (17:17)
[2024-02-12] MEDS: Alum Hydrox/Mag Hydrox/Simeth 30 ML, Lidocaine 2% 15 ML PO ONE (17:17)
[2024-02-12] MEDS: Sodium Chloride 0.9% 500 ML IV ONE (17:17)
[2024-02-12] MEDS: Famotidine 20 MG Tab PO ONE (17:17)
[2024-02-12 17:37] LABS: A/G RATIO 1.2 (1-2); ALBUMIN 4.1 g/dl (3.4-5.0); ANION GAP 15.9 (5-15); BILIRUBIN TOTAL 0.5 mg/dL (0.2-1.0); BUN/CREATININE RATIO 9.2 (14-18); CALCIUM 9.5 mg/dL (8.5-10.1); CREATININE 1.3 mg/dL (0.7-1.3); EST CRCL DRUG DOSING (CG) 56.15 mL/min; POTASSIUM,K 3.9 mEq/L (3.5-5.1); PROTEIN TOTAL,TP 7.6 g/dl (6.4-8.2)
[2024-02-12] MEDS: Iopamidol 612 MG/ML 100 ML Bottle IVPUSH ONE (17:56)
[2024-02-12 18:11] LABS: APPEARANCE,URINE CLEAR (Clear); BILIRUBIN,URINE NEGATIVE (Negative); COLOR,URINE YELLOW (Yellow); GLUCOSE,URINE NEGATIVE (Negative); KETONES,URINE NEGATIVE (Negative); LEUKOCYTE ESTERASE,URINE NEGATIVE (Negative); NITRITE,URINE NEGATIVE (Negative); OCCULT BLOOD,URINE NEGATIVE (Negative); PROTEIN,URINE 2+ (Negative); UROBILINOGEN,URINE 0.2 (0.2-1.0)
[2024-02-12 18:13] LABS: RBC,URINE 0-5 /hpf (0-5); SQUAMOUS EPITHELIAL CELLS,UR 0-5 /hpf (0-5); WBC,URINE 0-5 /hpf (0-5)
[2024-02-12 18:14] LABS: BACTERIA,URINE FEW /hpf (FEW); MUCUS,URINE FEW /hpf (FEW)
[2024-02-12] MEDS: Ketorolac 15 MG/ML SDV IVPUSH ONE (18:50)
[2024-02-12 19:00] VITALS: BP 160/90; PULSE 78
== END 2024-02-12 18:58 | disposition home or self-care (01) ==
LOC: JD.ED 16:41
DX: R10.10 Upper abdominal pain, unspecified (principal); I10 Essential (primary) hypertension; J44.9 Chronic obstructive pulmonary disease, unspecified; Z86.16 Personal history of COVID-19; Z90.49 Acquired absence of other specified parts of digestive tract; Z79.899 Other long term (current) drug therapy; Z88.5 Allergy status to narcotic agent
CPT/HCPCS: 36415; 74177; 80053; 81001; 83690; 85025; 93005; 96361; 96374; 99284; A9270; J1885; J3490; J7030; Q9967; 93010

== ENCOUNTER 2024-02-18 18:17 | Emergency (ER) | payer MEDICARE, MEDICAID ==
[2024-02-18] MEDS ORDERED: Sodium Chloride 0.9% 10 ML Syringe FLUSH PRN (19:53)
[2024-02-18 20:32] LABS: BASOPHILS ABSOLUTE AUTO 0.1 K/mm3 (0.0-0.2); BASOPHILS PERCENT AUTO 0.5 % (0.0-1.0); EOSINOPHILS ABSOLUTE AUTO 0.4 K/mm3 (0.0-0.4); EOSINOPHILS PERCENT AUTO 3.9 % (0.0-6.0); HEMATOCRIT 34.1 % (42.0-52.0); HEMOGLOBIN 10.7 gm/dl (14.0-18.0); IMMATURE GRAN ABSOLUTE AUTO 0.11 K/mm3 (0.00-0.05); LYMPHOCYTES ABSOLUTE AUTO 1.5 K/mm3 (1.0-4.8); LYMPHOCYTES PERCENT AUTO 14.4 % (24.0-44.0); MEAN CORPUSCULAR HEMOGLOBIN 28.9 pg (28.0-32.0); MEAN CORPUSCULAR HGB CONC 31.4 g/dl (32.0-36.0); MEAN CORPUSCULAR VOLUME 92.2 fl (83.0-99.0); MEAN PLATELET VOLUME 8.9 fl (9.4-12.4); MONOCYTES ABSOLUTE AUTO 1.3 K/mm3 (0.0-0.8); MONOCYTES PERCENT AUTO 12.3 % (0.0-8.0); NEUTROPHILS ABSOLUTE AUTO 7.2 K/mm3 (1.8-7.7); NEUTROPHILS PERCENT AUTO 67.9 % (41.0-71.0); PLATELET COUNT,PLT 315 K/mm3 (150-400); WHITE BLOOD CELL COUNT,WBC 10.61 K/mm3 (3.9-11.3)
[2024-02-18 20:53] LABS: LACTIC ACID 1.4 mmol/L (0.4-2.0)
[2024-02-18 20:59] LABS: ALBUMIN 3.1 g/dl (3.4-5.0); BILIRUBIN TOTAL 0.4 mg/dL (0.2-1.0); BUN/CREATININE RATIO 16.4 (14-18); C-REACTIVE PROTEIN 1.79 mg/dL (<0.30); CALCIUM 8.8 mg/dL (8.5-10.1); CREATININE 1.4 mg/dL (0.7-1.3); EST CRCL DRUG DOSING (CG) 52.14 mL/min; PROTEIN TOTAL,TP 6.3 g/dl (6.4-8.2)
[2024-02-18] MEDS ORDERED: Iopamidol 612 MG/ML 100 ML Bottle IVPUSH ONE (21:41)
[2024-02-18] MEDS: cefTRIAXone 2 GM in Sodium Chloride 0.9% 100 ML IV ONE (23:13)
[2024-02-18 23:58] VITALS: BP 129/71; PULSE 68
== END 2024-02-18 23:56 | disposition home or self-care (01) ==
LOC: JD.ED 18:17
DX: T81.49XA Infection following a procedure, other surgical site, initial encounter (principal); L03.114 Cellulitis of left upper limb; S42.402S Unspecified fracture of lower end of left humerus, sequela; Z47.89 Encounter for other orthopedic aftercare; I10 Essential (primary) hypertension; J44.9 Chronic obstructive pulmonary disease, unspecified; F17.210 Nicotine dependence, cigarettes, uncomplicated; Z79.899 Other long term (current) drug therapy; Z88.5 Allergy status to narcotic agent
CPT/HCPCS: 36415; 73202; 80053; 83605; 85025; 86140; 96365; 99284; J0696; J3490

== ENCOUNTER 2024-02-29 10:06 | Emergency (ER) | payer MEDICARE, MEDICAID ==
[2024-02-29] MEDS: Sodium Chloride 0.9% 10 ML Syringe FLUSH PRN (11:46)
[2024-02-29 11:50] LABS: BASOPHILS ABSOLUTE AUTO 0.1 K/mm3 (0.0-0.2); BASOPHILS PERCENT AUTO 0.7 % (0.0-1.0); EOSINOPHILS ABSOLUTE AUTO 0.4 K/mm3 (0.0-0.4); EOSINOPHILS PERCENT AUTO 3.9 % (0.0-6.0); HEMATOCRIT 39.8 % (42.0-52.0); IMMATURE GRAN ABSOLUTE AUTO 0.06 K/mm3 (0.00-0.05); IMMATURE GRAN PERCENT AUTO 0.6 % (0.0-0.4); LYMPHOCYTES ABSOLUTE AUTO 1.8 K/mm3 (1.0-4.8); LYMPHOCYTES PERCENT AUTO 17.8 % (24.0-44.0); MEAN CORPUSCULAR HEMOGLOBIN 29.2 pg (28.0-32.0); MEAN CORPUSCULAR HGB CONC 31.2 g/dl (32.0-36.0); MEAN CORPUSCULAR VOLUME 93.9 fl (83.0-99.0); MEAN PLATELET VOLUME 9.4 fl (9.4-12.4); MONOCYTES PERCENT AUTO 9.6 % (0.0-8.0); NEUTROPHILS ABSOLUTE AUTO 6.9 K/mm3 (1.8-7.7); NEUTROPHILS PERCENT AUTO 67.4 % (41.0-71.0); PLATELET COUNT,PLT 313 K/mm3 (150-400); RED BLOOD CELL COUNT 4.24 M/mm3 (4.52-5.90); WHITE BLOOD CELL COUNT,WBC 10.19 K/mm3 (3.9-11.3)
[2024-02-29 11:52] LABS: HEMOGLOBIN 12.4 gm/dl (14.0-18.0)
[2024-02-29 12:09] LABS: INR 0.97; PROTHROMBIN TIME 10.3 SECONDS (9.7-12.0)
[2024-02-29 12:10] LABS: PTT,PARTIAL THROMBOPLSTIN TIME 25.4 SECONDS (21.7-31.4)
[2024-02-29 12:13] LABS: ALBUMIN 3.2 g/dl (3.4-5.0); ANION GAP 12.4 (5-15); BILIRUBIN TOTAL 0.2 mg/dL (0.2-1.0); BUN/CREATININE RATIO 19.2 (14-18); CALCIUM 8.9 mg/dL (8.5-10.1); CREATININE 1.2 mg/dL (0.7-1.3); EST CRCL DRUG DOSING (CG) 60.83 mL/min; MAGNESIUM 2.4 mg/dL (1.8-2.4); POTASSIUM,K 4.4 mEq/L (3.5-5.1); PROTEIN TOTAL,TP 6.5 g/dl (6.4-8.2)
[2024-02-29 12:24] VITALS: BP 138/69; PULSE 90
[2024-02-29 12:26] LABS: BARBITURATE SCREEN,URINE NEGATIVE (CUTOFF=200); BENZODIAZEPINES SCREEN,URINE PRESUMPTIVE POSITIVE (CUTOFF=150); BUPRENORPHINE SCREEN,URINE NEGATIVE (CUTOFF=10); METHADONE SCREEN, URINE NEGATIVE (CUT0FF=200); METHAMPHETAMINES SCREEN, URINE NEGATIVE (CUTOFF=500); OXYCODONE SCREEN,URINE NEGATIVE (CUT0FF=100); THC SCREEN,URINE 20 NG/ML NEGATIVE (CUTOFF=50)
[2024-02-29 12:55] LABS: AMPHETAMINES SCREEN, URINE NEGATIVE (CUTOFF=500)
== END 2024-02-29 12:20 | disposition home or self-care (01) ==
LOC: JD.ED 10:06
DX: S00.01XA Abrasion of scalp, initial encounter (principal); I10 Essential (primary) hypertension; J44.9 Chronic obstructive pulmonary disease, unspecified; K21.9 Gastro-esophageal reflux disease without esophagitis; Z90.49 Acquired absence of other specified parts of digestive tract; Z88.5 Allergy status to narcotic agent; Z88.8 Allergy status to other drugs, medicaments and biological substances; Z79.51 Long term (current) use of inhaled steroids; Z79.899 Other long term (current) drug therapy; W01.198A Fall on same level from slipping, tripping and stumbling with subsequent striking against other object, initial encounter
CPT/HCPCS: 36415; 70450; 80053; 80306; 80307; 83735; 85025; 85610; 85730; 99285; J3490

== ENCOUNTER 2024-02-29 20:08 | Emergency (ER) | payer MEDICARE, MEDICAID ==
[2024-02-29 20:17] VITALS: BP 163/93; PULSE 92
[2024-02-29] MEDS: Ketorolac 30 MG/ML SDV IM ONE (21:25)
== END 2024-02-29 21:49 | disposition left against medical advice (07) ==
LOC: JD.ED 20:08
DX: M79.602 Pain in left arm (principal); G89.18 Other acute postprocedural pain; I10 Essential (primary) hypertension; J44.9 Chronic obstructive pulmonary disease, unspecified; K21.9 Gastro-esophageal reflux disease without esophagitis; Z90.49 Acquired absence of other specified parts of digestive tract; Z88.5 Allergy status to narcotic agent; Z88.8 Allergy status to other drugs, medicaments and biological substances; Z79.51 Long term (current) use of inhaled steroids; Z79.891 Long term (current) use of opiate analgesic; Z79.899 Other long term (current) drug therapy; Z53.29 Procedure and treatment not carried out because of patient's decision for other reasons
CPT/HCPCS: 96372; 99283

== ENCOUNTER 2024-03-03 08:52 | Emergency (ER) | payer MEDICARE, MEDICAID ==
[2024-03-03] MEDS: LORazepam 2 MG/ML SDV IVPUSH ONE (09:49)
[2024-03-03] MEDS: Albuterol/Ipratropium 3.0-0.5 MG/3 ML Neb Soln NEB ONE (09:57)
[2024-03-03 10:01] LABS: BASOPHILS ABSOLUTE AUTO 0.1 K/mm3 (0.0-0.2); BASOPHILS PERCENT AUTO 0.9 % (0.0-1.0); EOSINOPHILS ABSOLUTE AUTO 0.2 K/mm3 (0.0-0.4); EOSINOPHILS PERCENT AUTO 2.6 % (0.0-6.0); HEMATOCRIT 43.1 % (42.0-52.0); HEMOGLOBIN 13.6 gm/dl (14.0-18.0); IMMATURE GRAN ABSOLUTE AUTO 0.02 K/mm3 (0.00-0.05); IMMATURE GRAN PERCENT AUTO 0.3 % (0.0-0.4); LYMPHOCYTES ABSOLUTE AUTO 1.5 K/mm3 (1.0-4.8); LYMPHOCYTES PERCENT AUTO 20.8 % (24.0-44.0); MEAN CORPUSCULAR HEMOGLOBIN 28.8 pg (28.0-32.0); MEAN CORPUSCULAR HGB CONC 31.6 g/dl (32.0-36.0); MEAN CORPUSCULAR VOLUME 91.3 fl (83.0-99.0); MEAN PLATELET VOLUME 8.5 fl (9.4-12.4); MONOCYTES ABSOLUTE AUTO 0.6 K/mm3 (0.0-0.8); MONOCYTES PERCENT AUTO 8.1 % (0.0-8.0); NEUTROPHILS ABSOLUTE AUTO 4.7 K/mm3 (1.8-7.7); NEUTROPHILS PERCENT AUTO 67.3 % (41.0-71.0); RED BLOOD CELL COUNT 4.72 M/mm3 (4.52-5.90); WHITE BLOOD CELL COUNT,WBC 7.02 K/mm3 (3.9-11.3)
[2024-03-03 10:03] LABS: PLATELET COUNT,PLT 404 K/mm3 (150-400)
[2024-03-03] MEDS: HYDROmorphone 0.5 MG/0.5 ML Syringe IVPUSH ONE (10:28)
[2024-03-03 10:32] LABS: A/G RATIO 0.9 (1-2); ALBUMIN 3.4 g/dl (3.4-5.0); ANION GAP 12.2 (5-15); BILIRUBIN TOTAL 0.4 mg/dL (0.2-1.0); BUN/CREATININE RATIO 7.8 (14-18); C-REACTIVE PROTEIN 0.12 mg/dL (<0.30); CALCIUM 9.3 mg/dL (8.5-10.1); CREATININE 0.9 mg/dL (0.7-1.3); EST CRCL DRUG DOSING (CG) 73.44 mL/min; MAGNESIUM 2.1 mg/dL (1.8-2.4); POTASSIUM,K 4.2 mEq/L (3.5-5.1)
[2024-03-03 11:03] VITALS: BP 147/83; PULSE 81
== END 2024-03-03 10:48 | disposition home or self-care (01) ==
LOC: JD.ED 08:52
DX: J44.1 Chronic obstructive pulmonary disease with (acute) exacerbation (principal); J45.901 Unspecified asthma with (acute) exacerbation; F41.0 Panic disorder [episodic paroxysmal anxiety]; I10 Essential (primary) hypertension; K21.9 Gastro-esophageal reflux disease without esophagitis; F17.210 Nicotine dependence, cigarettes, uncomplicated; Z90.49 Acquired absence of other specified parts of digestive tract; Z88.5 Allergy status to narcotic agent; Z88.8 Allergy status to other drugs, medicaments and biological substances; Z79.51 Long term (current) use of inhaled steroids; Z79.899 Other long term (current) drug therapy
CPT/HCPCS: 36415; 71045; 80053; 83735; 83880; 84484; 85025; 86140; 93005; 96374; 99284; J1171

== ENCOUNTER 2024-03-04 21:39 | Emergency (ER) | payer MEDICARE, MEDICAID ==
[2024-03-04 21:50] VITALS: BP 127/100; PULSE 80
== END 2024-03-04 22:20 | disposition left against medical advice (07) ==
LOC: JD.ED 21:39
DX: Z53.21 Procedure and treatment not carried out due to patient leaving prior to being seen by health care provider (principal)

== ENCOUNTER 2024-03-14 19:21 | Emergency (ER) | payer MEDICARE, MEDICAID ==
[2024-03-14 19:43] VITALS: BP 132/74; PULSE 95
[2024-03-14 20:08] LABS: BASOPHILS ABSOLUTE AUTO 0.1 K/mm3 (0.0-0.2); BASOPHILS PERCENT AUTO 0.5 % (0.0-1.0); EOSINOPHILS ABSOLUTE AUTO 0.1 K/mm3 (0.0-0.4); EOSINOPHILS PERCENT AUTO 0.7 % (0.0-6.0); HEMATOCRIT 46.7 % (42.0-52.0); HEMOGLOBIN 15.4 gm/dl (14.0-18.0); IMMATURE GRAN ABSOLUTE AUTO 0.05 K/mm3 (0.00-0.05); IMMATURE GRAN PERCENT AUTO 0.5 % (0.0-0.4); LYMPHOCYTES ABSOLUTE AUTO 1.9 K/mm3 (1.0-4.8); LYMPHOCYTES PERCENT AUTO 18.1 % (24.0-44.0); MEAN CORPUSCULAR HEMOGLOBIN 29.4 pg (28.0-32.0); MEAN CORPUSCULAR VOLUME 89.1 fl (83.0-99.0); MEAN PLATELET VOLUME 9.2 fl (9.4-12.4); MONOCYTES ABSOLUTE AUTO 0.7 K/mm3 (0.0-0.8); MONOCYTES PERCENT AUTO 6.8 % (0.0-8.0); NEUTROPHILS ABSOLUTE AUTO 7.6 K/mm3 (1.8-7.7); NEUTROPHILS PERCENT AUTO 73.4 % (41.0-71.0); PLATELET COUNT,PLT 312 K/mm3 (150-400); RED BLOOD CELL COUNT 5.24 M/mm3 (4.52-5.90); WHITE BLOOD CELL COUNT,WBC 10.33 K/mm3 (3.9-11.3)
[2024-03-14 20:36] LABS: A/G RATIO 1.2 (1-2); ALBUMIN 3.9 g/dl (3.4-5.0); ANION GAP 19.7 (5-15); BILIRUBIN TOTAL 0.4 mg/dL (0.2-1.0); BUN/CREATININE RATIO 16.2 (14-18); CALCIUM 9.7 mg/dL (8.5-10.1); CREATININE 1.3 mg/dL (0.7-1.3); EST CRCL DRUG DOSING (CG) 59.69 mL/min; ETHANOL BLOOD MEDICAL 0.1 gm% (0.00); MAGNESIUM 1.8 mg/dL (1.8-2.4); POTASSIUM,K 3.7 mEq/L (3.5-5.1); PROTEIN TOTAL,TP 7.2 g/dl (6.4-8.2)
== END 2024-03-14 20:38 | disposition left against medical advice (07) ==
LOC: JD.ED 19:21
DX: R52 Pain, unspecified (principal); I10 Essential (primary) hypertension; J44.9 Chronic obstructive pulmonary disease, unspecified; K21.9 Gastro-esophageal reflux disease without esophagitis; Z90.49 Acquired absence of other specified parts of digestive tract; Z53.20 Procedure and treatment not carried out because of patient's decision for unspecified reasons; Z79.899 Other long term (current) drug therapy; Z88.5 Allergy status to narcotic agent; Z88.8 Allergy status to other drugs, medicaments and biological substances
CPT/HCPCS: 36415; 80053; 80307; 83735; 84484; 85025; 93005; 99284